=== PATIENT | male | born 1965 | race Caucasian/White ===

== ENCOUNTER 2021-01-09 10:17 | Outpatient (REF) | payer OTHER, SELFPAY ==
[2021-01-09 13:59] LABS: Alanine Aminotransferase 8 U/L (0-40); Albumin Level 4.4 g/dL (3.5-5.0); Alkaline Phosphatase 71 U/L (39-117); Anion Gap 13 (12-20); Aspartate Amino Transferase 14 U/L (5-37); Bilirubin Total 0.3 mg/dL (0.0-1.0); Blood Urea Nitrogen 19 mg/dL (9-16); Calcium 8.9 mg/dL (8.4-10.2); Carbon Dioxide 28 mmol/L (22-29); Chloride 101 mmol/L (96-108); Cholesterol 179 mg/dL; Estimated Glomerular Filt Rate 57; Glucose Fasting 91 mg/dL (60-99); HDL Cholesterol 46 mg/dL; LDL Cholesterol Calculated 118 mg/dl; Potassium 4.2 mmol/L (3.3-5.1); Sodium 138 mmol/L (135-145); Total Protein 7.1 g/dL (6.5-8.0); Triglycerides 78 mg/dL
[2021-01-09 15:41] LABS: Free T4 (Free Thyroxine) 1.19 ng/dL (0.71-1.85)
== END 2021-01-09 10:18 | disposition home or self-care (01) ==
LOC: HO.WFDLDS 10:17
PROVIDERS: Visit Provider Family Medicine
DX: Z00.00 Encounter for general adult medical examination without abnormal findings (principal)
CPT/HCPCS: 36415; 80053; 80061; 84439; 84443

== ENCOUNTER 2021-02-15 11:27 | Outpatient (REF) | payer OTHER, SELFPAY ==
[2021-02-15 13:29] LABS: TSH reflex Free T4 0.02 uIU/mL (0.32-4.0)
[2021-02-15 14:06] LABS: Free T4 (Free Thyroxine) 2.39 ng/dL (0.71-1.85)
== END 2021-02-15 11:28 | disposition home or self-care (01) ==
LOC: HO.LAB 11:27
PROVIDERS: PCP Family Medicine; Visit Provider Family Medicine
DX: Z00.00 Encounter for general adult medical examination without abnormal findings (principal); E03.9 Hypothyroidism, unspecified
CPT/HCPCS: 36415; 84439; 84443

== ENCOUNTER 2021-03-22 10:29 | Outpatient (REF) | payer OTHER, SELFPAY ==
[2021-03-22 11:56] LABS: Anion Gap 10 (12-20); Blood Urea Nitrogen 13 mg/dL (9-16); Calcium 8.8 mg/dL (8.4-10.2); Carbon Dioxide 29 mmol/L (22-29); Chloride 107 mmol/L (96-108); Estimated Glomerular Filt Rate > 60; Glucose Random 97 mg/dL (60-115); Potassium 4.4 mmol/L (3.3-5.1); Sodium 142 mmol/L (135-145)
[2021-03-22 12:22] LABS: Free T4 (Free Thyroxine) 1.25 ng/dL (0.71-1.85); Thyroid Stimulating Hormone 0.06 uIU/mL (0.32-4.0)
[2021-03-23 04:36] LABS: Triiodothyronine T3 Total 118 ng/dL (76-181)
== END 2021-03-22 10:30 | disposition home or self-care (01) ==
LOC: HO.LAB 10:29
PROVIDERS: PCP Family Medicine; Visit Provider Family Medicine
DX: Z00.00 Encounter for general adult medical examination without abnormal findings (principal); E03.9 Hypothyroidism, unspecified
CPT/HCPCS: 36415; 80048; 84439; 84443; 84480

== ENCOUNTER 2021-04-26 09:42 | Outpatient (REF) | payer OTHER, SELFPAY ==
--- NOTE | ~2021-04-26 | XR_ITS ---
EXAMINATION: XR CHEST CLINICAL INFORMATION: Shortness of breath COMPARISON: Previous chest x-ray April 2011 TECHNIQUE: 2 views of the chest were obtained. FINDINGS: The cardiac and mediastinal contours are stable. The lungs are clear. There is no pleural effusion or pneumothorax. There are surgical clips projecting over the lower neck. There are surgical clips projecting over the left shoulder. Bony structures are otherwise unremarkable. XR/XR chest 2V IMPRESSION: No evidence for acute disease in the chest.
[2021-04-26 11:03] LABS: Free T4 (Free Thyroxine) 1.26 ng/dL (0.71-1.85); Thyroid Stimulating Hormone 0.14 uIU/mL (0.32-4.0)
[2021-04-27 09:27] LABS: Triiodothyronine T3 Total 135 ng/dL (76-181)
== END 2021-04-26 09:43 | disposition home or self-care (01) ==
LOC: HO.XRAY 09:42
PROVIDERS: PCP Family Medicine; Visit Provider Family Medicine
DX: R06.02 Shortness of breath (principal); E03.9 Hypothyroidism, unspecified
CPT/HCPCS: 36415; 71046; 84439; 84443; 84480

== ENCOUNTER 2021-10-07 11:50 | Outpatient (REF) | payer OTHER, SELFPAY ==
[2021-10-07 14:50] LABS: Alanine Aminotransferase 14 U/L (0-40); Albumin Level 4.2 g/dL (3.5-5.0); Alkaline Phosphatase 77 U/L (39-117); Anion Gap 13 (12-20); Aspartate Amino Transferase 14 U/L (5-37); Bilirubin Total 0.4 mg/dL (0.0-1.0); Blood Urea Nitrogen 11 mg/dL (9-16); Calcium 9.3 mg/dL (8.4-10.2); Carbon Dioxide 26 mmol/L (22-29); Chloride 106 mmol/L (96-108); Cholesterol 142 mg/dL; Estimated Glomerular Filt Rate > 60; Glucose Fasting 99 mg/dL (60-99); HDL Cholesterol 36 mg/dL; LDL Cholesterol Calculated 84 mg/dl; Potassium 4.2 mmol/L (3.3-5.1); Sodium 141 mmol/L (135-145); Total Protein 6.8 g/dL (6.5-8.0); Triglycerides 110 mg/dL
[2021-10-07 15:13] LABS: Free T4 (Free Thyroxine) 1.49 ng/dL (0.71-1.85); Thyroid Stimulating Hormone 0.06 uIU/mL (0.32-4.0)
[2021-10-08 11:15] LABS: Prostate Specific Antigen 0.55 ng/mL (<0.05-4.0)
[2021-10-09 03:11] LABS: Triiodothyronine T3 Total 117 ng/dL (76-181)
== END 2021-10-07 11:51 | disposition home or self-care (01) ==
LOC: HO.WFDLDS 11:50
PROVIDERS: Visit Provider Family Medicine
DX: Z00.00 Encounter for general adult medical examination without abnormal findings (principal); E03.9 Hypothyroidism, unspecified; R19.5 Other fecal abnormalities; Z12.5 Encounter for screening for malignant neoplasm of prostate
CPT/HCPCS: 36415; 80053; 80061; 84153; 84439; 84443; 84480

== ENCOUNTER 2022-02-25 13:02 | Inpatient (IN) | payer MEDICAID, SELFPAY ==
[2022-02-25] VITALS (13 sets, daily range): BP systolic 89–109; BP diastolic 57–81; PULSE 81–183; RESP 17–26; TEMP 36.5–37.6; O2SAT 94–100; BMI 30.8
--- NOTE | 2022-02-25 | ECG_ITS ---
Test Reason : SOB Blood Pressure : / mmHG Vent. Rate : 163 BPM Atrial Rate : 000 BPM P-R Int : 000 ms QRS Dur : 072 ms QT Int : 248 ms P-R-T Axes : 000 063 -08 degrees QTc Int : 408 ms Atrial fibrillation with rapid ventricular response with premature ventricular or aberrantly conducted complexes Nonspecific T wave abnormality Abnormal ECG No previous ECGs available Referred By: Generic ED Physician Electronically Signed By:URSULA MENDEZ MD
--- NOTE | ~2022-02-25 | US_ITS ---
EXAMINATION: US ABDOMEN COMPLETE CLINICAL INFORMATION: Elevated bilirubin, INR, thrombocytopenia. COMPARISON: None TECHNIQUE: Real-time imaging of the abdominal viscera. FINDINGS: PANCREAS: Visualized portions of the pancreas are unremarkable. The pancreatic tail is obscured by bowel gas. ABDOMINAL AORTA: Visualized aorta is normal in caliber however portions are obscured by bowel gas. INFERIOR VENA CAVA: Visualized portions are normal. LIVER: Liver is borderline enlarged measuring 16.4 cm in span. The liver contour is normal. Parenchymal echogenicity is normal. No focal hepatic lesion. There is no intrahepatic biliary duct dilatation seen. GALLBLADDER: Normal. The gallbladder is physiologically distended without evidence of stones, sludge, polyps, wall thickening or pericholecystic fluid. COMMON BILE DUCT: Common bile duct was not identified. RIGHT KIDNEY: Normal. No hydronephrosis. No renal calculi or focal parenchymal lesions. The kidney measures 12.0 cm in maximum dimension. LEFT KIDNEY: Normal. No hydronephrosis. No renal calculi or focal parenchymal lesions. The kidney measures 11.2 cm in maximum dimension. SPLEEN: Normal. The spleen measures 11.2 cm in maximum dimension. FREE FLUID: None. Moderate right pleural effusion. US/US abdomen complete IMPRESSION: Liver is borderline enlarged. Common bile duct was not identified. No appreciable intrahepatic biliary duct dilatation. Moderate right pleural effusion.
--- NOTE | ~2022-02-25 | XR_ITS ---
EXAMINATION: XR CHEST CLINICAL INFORMATION: Cough and wheezing COMPARISON: Previous chest x-ray most recent April 2021 TECHNIQUE: Frontal view of the chest was obtained. FINDINGS: The cardiac silhouette appears enlarged. There are surgical clips in the lower neck or superior mediastinum. Hilar and mediastinal contours are otherwise unremarkable. There is blunting at the right lateral costophrenic angle and increased attenuation in the right lung base questionable for small right pleural effusion and airspace disease at the right lung base. The left lung is clear. There is no left pleural effusion. There are are postsurgical changes to the left shoulder. XR/XR chest 1V IMPRESSION: Enlarged cardiac silhouette. Question small right pleural effusion and airspace disease at the right lung base..
--- NOTE | 2022-02-25 13:39 | PC.NURSE ---
Pt has been in rapid a fib 160's-180's since arrival ot bed. asymptomatic at this time. states hes' had 3 weeks of intermittent SOB and PARR and fatigue. no neuro deficits. no CP or diaphoresis at any point.
--- NOTE | 2022-02-25 13:40 | ED.SOB ---
HPI - SOB/Dyspnea General Chief Complaint: Dyspnea Stated Complaint: respiratory problems Time Seen by Provider: 02/25/22 13:40 Source: patient Mode of arrival: ambulatory Limitations: no limitations History of Present Illness HPI Narrative: 3 weeks of shortness of breath, intermittent with palpitations. No prior history of afib. Denies chest pain. Patient denies drinking. MD elicited complaint: shortness of breath Pertinent past history: COPD Onset (ago): week(s) Timing: intermittent Severity: moderate Exacerbating factors: exertion Known history of: COPD Associated symptoms: denies other symptoms Related Data Home Medications Medication Instructions Recorded Confirmed tamsulosin 0.4 mg capsule 0.4 mg PO DAILY 03/18/22 03/25/22 bupropion HCl 75 mg tablet 75 mg PO BID 03/25/22 03/25/22 Previous Rx's Medication Instructions Recorded fluoxetine 40 mg capsule 40 mg PO DAILY #30 caps 08/06/21 levothyroxine 112 mcg capsule 224 mcg PO DAILY 90 days #180 caps 10/09/21 omeprazole 20 mg capsule,delayed 20 mg PO DAILY@0630 30 days #30 03/18/22 release caps rivaroxaban 20 mg tablet (Xarelto) 20 mg PO DAILY 30 days #30 tabs 03/18/22 amiodarone 200 mg tablet 200 mg PO DAILY 30 days #30 tabs 03/25/22 eplerenone 25 mg tablet 25 mg PO DAILY 30 days #30 tabs 03/25/22 furosemide 40 mg tablet 40 mg PO BID 30 days #60 tabs 03/25/22 metoprolol succinate 25 mg 25 mg PO DAILY #30 tabs 03/25/22 tablet,extended release 24 hr Allergies Allergy/AdvReac Type Severity Reaction Status Date / Time mold Allergy impacted Verified 03/25/22 14:26 sinus cavity Review of Systems Constitutional: Constitutional: Reports no additional constitutional complaints Eyes: Eyes: Reports no additional eye complaints ENT: Denies dizziness Cardiovascular: Cardiovascular: Reports no additional cardiovascular complaints Respiratory: Respiratory: Reports as per HPI Gastrointestinal: Gastrointestinal: Reports no additional gastrointestinal complaints Musculoskeletal: Musculoskeletal: Reports no additional musculoskeletal complaints Integumentary/Breasts: Skin/Breast: Denies rash Neurologic: Reports system reviewed and no additional complaints, except as documented, Denies dizziness and Denies Sensory deficit (Neuro) Psychiatric: Psychiatric: Denies anxiety PMF Past Medical History Medical History Atrial fibrillation with rapid ventricular response Atrial flutter with rapid ventricular response Cardiomyopathy Congestive heart failure COPD (chronic obstructive pulmonary disease) Decompensated heart failure Essential hypertension Hypothyroidism (acquired) Smoker Surgical History H/O shoulder surgery H/O thyroidectomy Family History Family History Mother COPD (chronic obstructive pulmonary disease) Social History Social History (Updated 03/25/22 @ 14:39 by Charlotte Bingham) Household Members: None Caregiver staying overnight: No Housing: House Are you a primary career development counselor to a significant other at home: No Do you presently have visiting nurse or other home services: No 75 years or older and lives alone: No Alcohol intake: never Patient Tobacco Use Status: Former Tobacco user Quit Date: 02/2022 Tobacco use type: Cigarette Years Smoked: 45 +/- e-Cigarette/Vaping Use: Never Used Second Hand Smoke Exposure: No Substance Use Type: Crack/Cocaine service: No Current occupational status: retired Cognitive needs: No Hearing needs: No Vision needs: No Physical Exam Vital Signs: Vital Signs: Last Vital Signs Temp 97.5 F 03/05/22 12:00 Pulse 75 03/05/22 12:00 Resp 20 03/05/22 12:00 BP 120/80 03/05/22 12:00 Pulse Ox 96 03/05/22 12:47 O2 Del Method 03/05/22 12:47 O2 Flow Rate 3 03/04/22 13:48 BMI result Body Mass Index 30.8 Const: Nutritional Appearance: average body habitus Orientation/consciousness: oriented to person and patient oriented x3 Limitations: no limitations HEENT: Head: Yes normal to inspection Ears: external ears normal General nose exam: Normal external nose present Mouth: Normal oral and palatal mucosa present and oropharynx normal Throat: Yes posterior oropharynx normal Eyes: General: appearance normal, both eyes and all related structures Neck: Other: supple, JVD Chest: Chest palpation & inspection: normal inspection of the chest Resp: Other: slight wheeze Cardio: Other: IRRR tachycardia Jugular venous distension: no JVD GI: Inspection: Yes normal to inspection Palpation (GI): Soft to palpation, nontender and No hepatosplenomegaly present Auscultation: normal bowel sounds : General: Yes no CVA tenderness Back/Spine/Pelvis: Back: no CVA tenderness Skin: General skin exam: no rashes or lesions noted Neuro: General: oriented to person and patient oriented x3 Cranial nerves: Yes CN's II-XII intact bilaterally Motor exam (neuro): 5/5 motor strength present throughout Sensory Exam: No Sensory deficit (Neuro) Extrem: Other: Legs with 3+ edema Psych: Appearance: grossly normal Course Reevaluation(s) Reevaluation #1: patient with rapid atrial fibrillation now on cardizem, patient likely has a right lower lobe infiltrate which I will treat with ceftriaxone and azithromycin. This is not sepsis, patient with weeks of symptoms, there is no recent fever, he does have a cough. MDM - SOB/Dyspnea Lab Data Result diagrams: 03/05/22 05:52 03/05/22 05:52 Labs: Lab Results 02/25/22 02/25/22 02/25/22 Range/Units 13:35 13:35 13:35 WBC 9.0 (4.8-10.8) X10*3/uL RBC 5.67 (4.60-5.80) X10*6/uL Hgb 15.8 (14.0-18.0) g/dl Hct 49.2 (42.0-52.0) % MCV 86.8 (80.0-98.0) fL MCH 27.9 (27.0-33.0) pg MCHC 32.1 (31.0-36.0) g/dl RDW 14.8 (11.0-16.0) % Plt Count 109 L (160-400) X10*3/uL MPV Not Reportable Immature Gran % (Auto) 0.3 (0.0-0.4) % Neut % (Auto) 74.8 H (45-73) % Lymph % (Auto) 18.2 L (20-40) % [place] % (Auto) 5.7 (2-11) % Eos % (Auto) 0.7 (0-4) % Baso % (Auto) 0.3 (0-2) % Lymph # (Auto) 1.6 (1.2-4.9) X10*3/uL [place] # (Auto) 0.5 (0.1-1.2) X10*3/uL Eos # (Auto) 0.1 (0.0-0.4) X10*3/uL Baso # (Auto) 0.0 (0.0-0.2) X10*3/uL Abs Immat Gran (auto) 0.03 (0.00-0.03) X10*3/uL Absolute Neuts (auto) 6.7 (2.0-8.3) x10*3/uL Absolute Nucleated RBC 0.000 (0.0-0.012) X10*3/uL Nucleated RBC % (auto) 0.0 (0.0-0.2) /100WBC PT (9.9-13.0) SEC INR (0.9-1.1) APTT (24.1-38.0) SEC Sodium 140 (135-145) mmol/L Potassium 4.2 (3.3-5.1) mmol/L Chloride 106 (96-108) mmol/L Carbon Dioxide 22 (22-29) mmol/L Anion Gap 16 (12-20) BUN 23 H D (9-16) mg/dL Creatinine 1.36 (0.5-1.4) mg/dL Estim Creat Clear Calc 77.7 Estimated GFR 54 Random Glucose 108 (60-115) mg/dL Calcium 9.8 (8.4-10.2) mg/dL Total Bilirubin 2.4 H (0.0-1.0) mg/dL AST 30 D (5-37) U/L ALT 26 (0-40) U/L Alkaline Phosphatase 65 (39-117) U/L Troponin I High Sens 15.2 (<3.5-35.0) ng/L B-Natriuretic Peptide (<100) pg/mL Total Protein 6.6 (6.5-8.0) g/dL Albumin 4.0 (3.5-5.0) g/dL TSH 6.24 H (0.32-4.0) uIU/mL COVID-19 ([facility]) (Negative) COVID-19 Clin Com Influenza Type A (FERNANDO) (Negative) Influenza Type B (FERNANDO) (Negative) Influenza A & B Note 02/25/22 02/25/22 02/25/22 Range/Units 13:35 13:35 13:35 WBC (4.8-10.8) X10*3/uL RBC (4.60-5.80) X10*6/uL Hgb (14.0-18.0) g/dl Hct (42.0-52.0) % MCV (80.0-98.0) fL MCH (27.0-33.0) pg MCHC (31.0-36.0) g/dl RDW (11.0-16.0) % Plt Count (160-400) X10*3/uL MPV Immature Gran % (Auto) (0.0-0.4) % Neut % (Auto) (45-73) % Lymph % (Auto) (20-40) % [place] % (Auto) (2-11) % Eos % (Auto) (0-4) % Baso % (Auto) (0-2) % Lymph # (Auto) (1.2-4.9) X10*3/uL [place] # (Auto) (0.1-1.2) X10*3/uL Eos # (Auto) (0.0-0.4) X10*3/uL Baso # (Auto) (0.0-0.2) X10*3/uL Abs Immat Gran (auto) (0.00-0.03) X10*3/uL Absolute Neuts (auto) (2.0-8.3) x10*3/uL Absolute Nucleated RBC (0.0-0.012) X10*3/uL Nucleated RBC % (auto) (0.0-0.2) /100WBC PT 17.8 H (9.9-13.0) SEC INR 1.6 H (0.9-1.1) APTT (24.1-38.0) SEC Sodium (135-145) mmol/L Potassium (3.3-5.1) mmol/L Chloride (96-108) mmol/L Carbon Dioxide (22-29) mmol/L Anion Gap (12-20) BUN (9-16) mg/dL Creatinine (0.5-1.4) mg/dL Estim Creat Clear Calc Estimated GFR Random Glucose (60-115) mg/dL Calcium (8.4-10.2) mg/dL Total Bilirubin (0.0-1.0) mg/dL AST (5-37) U/L ALT (0-40) U/L Alkaline Phosphatase (39-117) U/L Troponin I High Sens (<3.5-35.0) ng/L B-Natriuretic Peptide (<100) pg/mL Total Protein (6.5-8.0) g/dL Albumin (3.5-5.0) g/dL TSH (0.32-4.0) uIU/mL COVID-19 ([facility]) Negative (Negative) COVID-19 Clin Com See Note Influenza Type A (FERNANDO) Negative (Negative) Influenza Type B (FERNANDO) Negative (Negative) Influenza A & B Note See Note 02/25/22 02/25/22 02/25/22 Range/Units 14:21 14:21 16:09 WBC (4.8-10.8) X10*3/uL RBC (4.60-5.80) X10*6/uL Hgb (14.0-18.0) g/dl Hct (42.0-52.0) % MCV (80.0-98.0) fL MCH (27.0-33.0) pg MCHC (31.0-36.0) g/dl RDW (11.0-16.0) % Plt Count (160-400) X10*3/uL MPV Immature Gran % (Auto) (0.0-0.4) % Neut % (Auto) (45-73) % Lymph % (Auto) (20-40) % [place] % (Auto) (2-11) % Eos % (Auto) (0-4) % Baso % (Auto) (0-2) % Lymph # (Auto) (1.2-4.9) X10*3/uL [place] # (Auto) (0.1-1.2) X10*3/uL Eos # (Auto) (0.0-0.4) X10*3/uL Baso # (Auto) (0.0-0.2) X10*3/uL Abs Immat Gran (auto) (0.00-0.03) X10*3/uL Absolute Neuts (auto) (2.0-8.3) x10*3/uL Absolute Nucleated RBC (0.0-0.012) X10*3/uL Nucleated RBC % (auto) (0.0-0.2) /100WBC PT 18.7 H (9.9-13.0) SEC INR 1.6 H (0.9-1.1) APTT 68.1 H* (24.1-38.0) SEC Sodium (135-145) mmol/L Potassium (3.3-5.1) mmol/L Chloride (96-108) mmol/L Carbon Dioxide (22-29) mmol/L Anion Gap (12-20) BUN (9-16) mg/dL Creatinine (0.5-1.4) mg/dL Estim Creat Clear Calc Estimated GFR Random Glucose (60-115) mg/dL Calcium (8.4-10.2) mg/dL Total Bilirubin (0.0-1.0) mg/dL AST (5-37) U/L ALT (0-40) U/L Alkaline Phosphatase (39-117) U/L Troponin I High Sens 16.5 (<3.5-35.0) ng/L B-Natriuretic Peptide 698 H (<100) pg/mL Total Protein (6.5-8.0) g/dL Albumin (3.5-5.0) g/dL TSH (0.32-4.0) uIU/mL COVID-19 ([facility]) (Negative) COVID-19 Clin Com Influenza Type A (FERNANDO) (Negative) Influenza Type B (FERNANDO) (Negative) Influenza A & B Note Imaging Data Chest x-ray: Radiologist's impression: FINDINGS: The cardiac silhouette appears enlarged. There are surgical clips in the lower neck or superior mediastinum. Hilar and mediastinal contours are otherwise unremarkable. There is blunting at the right lateral costophrenic angle and increased attenuation in the right lung base questionable for small right pleural effusion and airspace disease at the right lung base. The left lung is clear. There is no left pleural effusion. There are are postsurgical changes to the left shoulder. XR/XR chest 1V IMPRESSION: Enlarged cardiac silhouette. Question small right pleural effusion and airspace disease at the right lung base.. ? ECG Data Attestation: I personally reviewed and interpreted this ECG as follows: Interpretation: rapid atrial fibrillation rate of 160, no ischemia Critical Care Time Critical Care Time Attestation: I spent 40 minutes of critical care, with interventions, assessments, speaking to patient, consultants, and family. Discharge Plan Discharge Clinical Impression: Atrial fibrillation, rapid, Congestive heart failure, Pneumonia Patient Disposition: Admitted As Inpatient Discharge Date/Time: 02/27/22 13:16
[2022-02-25 13:42] LABS: MANUAL DIFF FLAG NO
[2022-02-25] MEDS: dilTIAZem HCL 50 MG/10 ML VIAL 10 MG IVPUSH (13:49)
[2022-02-25 13:59] LABS: INTERNATIONAL NORM RATIO 1.6 (0.9-1.1); Prothrombin Time 17.8 SEC (9.9-13.0)
[2022-02-25] MEDS: Furosemide 20 MG/2 ML VIAL IVPUSH (14:00)
[2022-02-25 14:04] LABS: Troponin-I High Sensitivity 15.2 ng/L (<3.5-35.0)
[2022-02-25 14:05] LABS: Alanine Aminotransferase 26 U/L (0-40); Alkaline Phosphatase 65 U/L (39-117); Anion Gap 16 (12-20); Aspartate Amino Transferase 30 U/L (5-37); Bilirubin Total 2.4 mg/dL (0.0-1.0); Blood Urea Nitrogen 23 mg/dL (9-16); Calcium 9.8 mg/dL (8.4-10.2); Carbon Dioxide 22 mmol/L (22-29); Chloride 106 mmol/L (96-108); Creatinine Clr Calc Pharmacy 77.7; Estimated Glomerular Filt Rate 54; Glucose Random 108 mg/dL (60-115); Potassium 4.2 mmol/L (3.3-5.1); Sodium 140 mmol/L (135-145); Total Protein 6.6 g/dL (6.5-8.0)
[2022-02-25] MEDS: dilTIAZem HCL 125 MG in 0.9 % Sodium Chloride 100 ML 10 MG IVCONT (14:06)
[2022-02-25 14:07] LABS: Basophils Percent Auto 0.3 % (0-2); Eosinophils Absolute Auto 0.1 X10*3/uL (0.0-0.4); Eosinophils Percent Auto 0.7 % (0-4); Hematocrit 49.2 % (42.0-52.0); Hemoglobin 15.8 g/dl (14.0-18.0); Imm Gran Abs Auto 0.03 X10*3/uL (0.00-0.03); Imm Gran Pct Auto 0.3 % (0.0-0.4); Lymphocytes Absolute Auto 1.6 X10*3/uL (1.2-4.9); Lymphocytes Percent Auto 18.2 % (20-40); Mean Corpuscular HGB Conc 32.1 g/dl (31.0-36.0); Mean Corpuscular Hemoglobin 27.9 pg (27.0-33.0); Mean Corpuscular Volume 86.8 fL (80.0-98.0); Monocytes Absolute Auto 0.5 X10*3/uL (0.1-1.2); Monocytes Percent Auto 5.7 % (2-11); Neutrophils Absolute Auto 6.7 x10*3/uL (2.0-8.3); Neutrophils Percent Auto 74.8 % (45-73); Red Blood Count 5.67 X10*6/uL (4.60-5.80); Red Cell Distribution Width 14.8 % (11.0-16.0)
[2022-02-25 14:13] LABS: Platelet Count 109 X10*3/uL (160-400)
[2022-02-25 14:17] LABS: Influenza A Negative (Negative); Influenza B2 Negative (Negative)
[2022-02-25 14:18] LABS: IDNOW Serial# 55D5AD1C
[2022-02-25 14:19] LABS: COVID-19 Test Negative (Negative)
[2022-02-25 14:26] LABS: Thyroid Stimulating Hormone 6.24 uIU/mL (0.32-4.0)
[2022-02-25] MEDS: Albuterol Sulfate 90 MCG 8 GM INHALER 4 PUFF INHALE (14:41)
[2022-02-25 14:44] LABS: INTERNATIONAL NORM RATIO 1.6 (0.9-1.1); Prothrombin Time 18.7 SEC (9.9-13.0)
[2022-02-25 14:46] LABS: B Type Natriuretic Peptide 698 pg/mL (<100)
[2022-02-25 15:01] LABS: Partial Thromboplastin Time 68.1 SEC (24.1-38.0)
--- NOTE | 2022-02-25 15:06 | PC.NURSE ---
pt reports no change insx. denies cp, remains in rapid afib but slower rates.
[2022-02-25] MEDS: Enoxaparin Sodium 120 MG/0.8 ML SYRINGE 110 MG SUBCUT (16:46)
--- NOTE | 2022-02-25 16:49 | PHA.MEDREC ---
Pharmacy Consult ? Medication Reconciliation Pharmacy has completed the medication reconciliation. Pt admits to being non-adherent to his medications, but does state that he tries to take his thyroid medicine every day.
--- NOTE | 2022-02-25 16:57 | PC.NURSE ---
pt continues to deny chest pain. is in a fib 110's on monitor. cardizem up to 15mg/hr. dry cough,
[2022-02-25] MEDS: cefTRIAXone sodium 1 GM in 0.9 % Sodium Chloride 50 ML IV (16:58)
[2022-02-25 16:59] LABS: Troponin-I High Sensitivity 16.5 ng/L (<3.5-35.0)
--- NOTE | 2022-02-25 17:27 | PM.IMHP ---
History of Present Illness Date of Service: 02/25/22 Chief Complaint: Sob several weeks of sob especially with exertion, walking upstairs, laying down. He had been sitting up in the recliner for the last few weeks. Resting sitting up helped decrease the sob. He was having some diarrhea, poor appetite, fatigue, cough. No fever, chills but he did have some nausea. In the ED he was noted to be in afib rvr hr in the 180's, His BNP was also elevated over 600, negative troponin. He was started on IV cardizem with good effect. CXR showed possible consolidation. He was given Lasix, azithromycin. He will be admitted for further management of CHF and Afib RVR. Review of Systems Review of Systems: Denies any recent fever chills or decrease in appetite respiratory See HPI cardiovascular Denies chest pain gastrointestinal denies any dysphagia abdominal pain nausea vomiting or diarrhea genitourinary denies any dysuria frequency or hematuria musculoskeletal denies any joint pain or swelling neuropsych denies any weakness or seizures all other systems reviewed are negative [facility] Medical History COPD (chronic obstructive pulmonary disease) Essential hypertension Hypothyroidism (acquired) Smoker Family History (Updated 02/25/22 @ 17:32 by Latosha Price NP) Mother COPD (chronic obstructive pulmonary disease) Surgical History (Updated 02/25/22 @ 17:31 by Latosha Price NP) H/O shoulder surgery H/O thyroidectomy Social History (Updated 02/25/22 @ 17:32 by Latosha Price NP) Housing: House Alcohol intake: never Patient Tobacco Use Status: Current everyday Tobacco user Cigarettes Per Day: 10 Use of substances other than those prescribed or required for medical reasons: Yes Substance Use Type: Crack/Cocaine Substance Use Type Other:: 1 month ago Substance Use Frequency Other:: hx of cocaine use Advance Directives: No Advance Directives Information Provided: No Current occupational status: retired Meds Allergies Allergy/AdvReac Type Severity Reaction Status Date / Time mold Allergy impacted Verified 10/23/21 16:24 sinus cavity Active Medications: Current Medications Diltiazem HCl 125 mg/ Sodium (Chloride) 125 mls @ 0 mls/hr IVCONT .Q0M [facility]; Protocol Last Titration: 02/25/22 16:48 Dose: 15 mg/hr, 15 mls/hr Documented by: Azithromycin 500 mg/ Sodium (Chloride) 250 mls @ 125 mls/hr IV ONCE ONE Stop: 02/25/22 17:53 Pharmacy Consult (Consult Rx Perform Med Rec) 1 each MISCELLANE ONCE PRN PRN Reason: Consult order Home Medications Medication Instructions Recorded Confirmed Last Taken Type aspirin 81 mg chewable tablet 1 tab PO DAILY 08/29/20 02/25/22 Unknown History hydrochlorothiazide 25 mg tablet 25 mg PO DAILY 08/29/20 02/25/22 Unknown History lisinopril 20 mg tablet 20 mg PO DAILY 08/29/20 02/25/22 Unknown History bupropion HCl 75 mg tablet 75 mg PO DAILY 02/25/22 02/25/22 Unknown History Physical Exam Vital Signs and Narrative: Vital Signs: Last Vital Signs Temp 99.7 F 02/25/22 13:07 Pulse 115 H 02/25/22 16:00 Resp 18 02/25/22 16:00 BP 107/66 02/25/22 16:00 Pulse Ox 96 02/25/22 16:00 BMI result Body Mass Index 30.8 Results Labs CBC and Chem 7: 02/25/22 13:35 02/25/22 13:35 Labs: Laboratory Results - last 24 hr 02/25/22 02/25/22 02/25/22 13:35 13:35 13:35 MCV 86.8 MCH 27.9 MCHC 32.1 RDW 14.8 Plt Count 109 L MPV Not Reportable Immature Gran % (Auto) 0.3 Neut % (Auto) 74.8 H Lymph % (Auto) 18.2 L [place] % (Auto) 5.7 Eos % (Auto) 0.7 Baso % (Auto) 0.3 Lymph # (Auto) 1.6 [place] # (Auto) 0.5 Eos # (Auto) 0.1 Baso # (Auto) 0.0 Abs Immat Gran (auto) 0.03 Absolute Neuts (auto) 6.7 Absolute Nucleated RBC 0.000 Nucleated RBC % (auto) 0.0 PT INR APTT Anion Gap 16 Creatinine 1.36 Estim Creat Clear Calc 77.7 Estimated GFR 54 Random Glucose 108 Calcium 9.8 Total Bilirubin 2.4 H AST 30 D ALT 26 Alkaline Phosphatase 65 Troponin I High Sens 15.2 B-Natriuretic Peptide Total Protein 6.6 Albumin 4.0 TSH 6.24 H COVID-19 ([facility]I) COVID-19 Clin Com Influenza Type A (FERNANDO) Influenza Type B (FERNANDO) Influenza A & B Note 02/25/22 02/25/22 02/25/22 13:35 13:35 13:35 MCV MCH MCHC RDW Plt Count MPV Immature Gran % (Auto) Neut % (Auto) Lymph % (Auto) [place] % (Auto) Eos % (Auto) Baso % (Auto) Lymph # (Auto) [place] # (Auto) Eos # (Auto) Baso # (Auto) Abs Immat Gran (auto) Absolute Neuts (auto) Absolute Nucleated RBC Nucleated RBC % (auto) PT 17.8 H INR 1.6 H APTT Anion Gap Creatinine Estim Creat Clear Calc Estimated GFR Random Glucose Calcium Total Bilirubin AST ALT Alkaline Phosphatase Troponin I High Sens B-Natriuretic Peptide Total Protein Albumin TSH COVID-19 (ORI) Negative COVID-19 Clin Com See Note Influenza Type A (FERNANDO) Negative Influenza Type B (FERNANDO) Negative Influenza A & B Note See Note 02/25/22 02/25/22 02/25/22 14:21 14:21 16:09 MCV MCH MCHC RDW Plt Count MPV Immature Gran % (Auto) Neut % (Auto) Lymph % (Auto) [place] % (Auto) Eos % (Auto) Baso % (Auto) Lymph # (Auto) [place] # (Auto) Eos # (Auto) Baso # (Auto) Abs Immat Gran (auto) Absolute Neuts (auto) Absolute Nucleated RBC Nucleated RBC % (auto) PT 18.7 H INR 1.6 H APTT 68.1 H* Anion Gap Creatinine Estim Creat Clear Calc Estimated GFR Random Glucose Calcium Total Bilirubin AST ALT Alkaline Phosphatase Troponin I High Sens 16.5 B-Natriuretic Peptide 698 H Total Protein Albumin TSH COVID-19 (ORI) COVID-19 Clin Com Influenza Type A (FERNANDO) Influenza Type B (FERNANDO) Influenza A & B Note Imaging Radiologist's Impressions: Impressions Chest X-Ray 02/25/22 14:39 IMPRESSION: Enlarged cardiac silhouette. Question small right pleural effusion and airspace disease at the right lung base.. Assessment and Plan (1) Atrial fibrillation, rapid: Status: Acute Plan 56 year old man admitted with afib rvr and acute CHF Afib rvr. New Hx of HTN andcocaine use Continue cardizem drip cardiology consult echo telemetry Acute CHF, new IV Lasix 40mg BID follow intake and output daily weights COPD. chronic, maybe mild exacerbation will give prednisone 40 mg and azithromycin for possible bronchitis Mental health continue home medications Hypothyroidism continue levothyroxine Hypertension Hold antihypertensives as patients blood pressure is on the softer side DVT prophylaxis with Heparin Attending Dr. Cahvarria Full code Likely 2 midnight stay for treatment of acute CHF and afib rvr requiring IV diuretics and IV cardizem. Quality Stroke Does the patient have a stroke diagnosis?: No VTE Prior VTE?: No VTE Risk Level:: Medical - moderate - high VTE Device Contraindication: Treatment Not Indicated VTE Drug Contraindication: N/A - Med Ordered
[2022-02-25] MEDS: Furosemide 40 MG/4 ML VIAL IVPUSH (18:08)
[2022-02-25] MEDS: Azithromycin 500 MG in 0.9 % Sodium Chloride 250 ML 125 MG IV (18:08)
--- NOTE | 2022-02-25 18:57 | PC.NURSE ---
Addendum entered by Radha Rosas 02/26/22 07:06: report given to CALLY Burris Addendum entered by Radha Rosas 02/25/22 23:32: Pt BP 99/62, highest HR 110. Dr. Bell aware, order to titrate cardiazem drip to 5mg/hr. Addendum entered by Radha Rosas 02/25/22 19:33: [facility] order to titrate down Cardizem drip to 7.5. ppitting edema notice to bilateral ankles, provider made aware Addendum entered by Radha Rosas 02/25/22 19:17: pt is alert and oriented. pt resting in bed comfortably, denies any chest pain. pt on continuous cardiac monitoring. pt on cardiazem drip, BP 86/62, Provider EKATERINA Price made aware Original Note: Report received from CALLY Dawson
[2022-02-25] MEDS: guaiFENesin DM 100/10/5 ML 5 ML SYRUP PO (19:20)
--- NOTE | 2022-02-25 19:33 | MHC.CM.PN ---
CM met with admitted patient with bed assignment pending. A&Ox4. No Covid Vaccines. No HCP on file. Declines. Lives alone. No DME/Services. D/C plan: Home without services. Pt states he will drive himself home. CM will follow for d/c needs.
[2022-02-26] VITALS (8 sets, daily range): BP systolic 96–108; BP diastolic 66–80; PULSE 55–118; RESP 12–21; TEMP 36.3–37; O2SAT 94–98
[2022-02-26] MEDS: dilTIAZem HCL 125 MG in 0.9 % Sodium Chloride 100 ML IVCONT (02:53)
--- NOTE | 2022-02-26 07:00 | CA_ITS ---
Transthoracic Echocardiogram Patient (Last, First, Middle): Jose Guadalupe Sweet B Gender: Male Date of : 1965 Age: 56 Procedure Date: 02/26/2022 Procedure Type: Transthoracic Echocardiogram Location: ER Height: 187.96 cm Weight: 108.86 kg BSA: 2.35 m2 Heart Rate: bpm BP: 90 / 65 mmHg Leather Sponger: BROWN Du MD: Latosha Price NP Back Sewer: Darryl Damon MD Symptoms: afib rvr, chf Study Quality: Fair ECG Rhythm: Atrial Fibrillation Conclusions: - 1. Mildly dilated left ventricle with moderate LV systolic dysfunction with LVEF of 35-40% 2. Mild biatrial enlargement 3. At least moderate mitral regurgitation 4. Mildly elevated right ventricular systolic pressure driven by significantly elevated right atrial pressures 5. No gross pericardial effusion Findings Left Ventricle Mildly increased left ventricular cavity size. There is normal left ventricular wall thickness. The left ventricular systolic function is moderately decreased. The visually estimated ejection fraction is between 35 40%. There is moderate global hypokinesis. Diastolic function is indeterminate on the basis of available data. Right Ventricle Normal right ventricular cavity size and systolic function. Atria The left atrium is mildly dilated. There is no evidence of interatrial shunt. The right atrium is mildly dilated. Aortic Valve Normal aortic valve structure and function. There is no aortic valve stenosis. There is trace (trivial) aortic valve regurgitation. Mitral Valve There is mild anterior and posterior mitral leaflet thickening. There is moderate mitral valve regurgitation. There is no mitral valve stenosis. Pulmonic Valve The pulmonic valve was not well visualized. Tricuspid Valve Normal tricuspid valve structure. There is mild tricuspid valve regurgitation. Significantly elevated right atrial pressure. Mild pulmonary hypertension is present. Great Vessels All visible segments of the aorta are normal in size. The pulmonary artery was not well visualized. Venous The inferior vena cava is moderately dilated and does not collapse with inspiration. Pericardium/Pleural There is no evidence of pericardial effusion. Prior Study Comparison No prior study available for comparison. Measurements 2D Linear Measurements IVSd: 1.11 0.6-0.9/0.6-1.0 cm LVIDd: 5.92 3.9-5.3/4.2-5.9 cm LVIDd Index: 2.52 2.4-3.2/2.2-3.1 cm/m2 LVIDs: 4.50 2.0-3.6 cm LVPWd: 1.10 0.7-1.1 cm LA Diam: 4.80 2.7-3.8/3.0-4.0 cm LAIDs Index: 2.04 1.5-2.3 cm/m2 LV Mass: 343.09 67-162/88-224 g LV Mass Index: 146.00 43-95/49-115 g/m2 LVOT Diam: 2.30 3.0+(-)1.3 cm 2D Systolic Function EF 4C: 39.00 >55% EF 2C: 38.80 >55% EF BiP: 39.10 >55% Mitral Valve MR Vol - PW Dopp: 49.88 MR VTI: 1.16 MR ERO: 43.00 MR Alias Darryl: 0.41 MR RAD: 0.80 Aortic Valve AoV Pk Darryl: 0.81 AoV Mn Darryl: 0.57 AoV VTI: 0.14 AoV Pk Grad: 3.00 Aov Mn Grad: 1.00 RUFINA Cont.VTI: 2.56 LVOT LVOT Pk Darryl: 0.54 LVOT Mn Darryl: 0.35 LVOT VTI: 0.09 LVOT Pk Grad: 1.00 LVOT Mn Grad: 1.00 LVOT Diam: 2.30 LVOT Area: 4.15 Right Ventricle TAPSE (mm): 15.30 TVS' Darryl: 9.36 Tricuspid Valve TR Pk Darryl: 2.48 TR Pk Grad: 25.00 RA Press: 15.00 RVSP: 40.00 Great Vessels Aorta Sinus of Valsalva: 3.64 2.0-3.[address] Ridge: 3.37 1.7-3.4 cm Ao Asc: 3.50 2.1-3.4 cm Ao Arch: 2.90 Updated in Other Vendor System with Status of Final Darryl Damon MD electronically signed on 02/26/2022 5:03:36 PM with status of Final
[2022-02-26 07:14] LABS: MANUAL DIFF FLAG NO
[2022-02-26 07:25] LABS: Basophils Percent Auto 0.4 % (0-2); Eosinophils Absolute Auto 0.1 X10*3/uL (0.0-0.4); Eosinophils Percent Auto 1.4 % (0-4); Hemoglobin 15.1 g/dl (14.0-18.0); Imm Gran Abs Auto 0.01 X10*3/uL (0.00-0.03); Imm Gran Pct Auto 0.1 % (0.0-0.4); Mean Corpuscular HGB Conc 32.1 g/dl (31.0-36.0); Mean Corpuscular Hemoglobin 28.2 pg (27.0-33.0); Mean Corpuscular Volume 87.9 fL (80.0-98.0); Monocytes Absolute Auto 0.5 X10*3/uL (0.1-1.2); Monocytes Percent Auto 7.6 % (2-11); Neutrophils Absolute Auto 4.3 x10*3/uL (2.0-8.3); Neutrophils Percent Auto 61.5 % (45-73); Red Blood Count 5.35 X10*6/uL (4.60-5.80); Red Cell Distribution Width 14.7 % (11.0-16.0)
[2022-02-26 07:31] LABS: Platelet Count 91 X10*3/uL (160-400)
[2022-02-26 07:37] LABS: Anion Gap 15 (12-20); Blood Urea Nitrogen 22 mg/dL (9-16); Calcium 9.7 mg/dL (8.4-10.2); Carbon Dioxide 24 mmol/L (22-29); Chloride 106 mmol/L (96-108); Creatinine Clr Calc Pharmacy 79.5; Estimated Glomerular Filt Rate 55; Glucose Random 100 mg/dL (60-115); Sodium 141 mmol/L (135-145)
--- NOTE | 2022-02-26 08:19 | PC.NURSE ---
rn to rn report given to rosalia smith to aware of plan of are for transfer to overflow unit.
[2022-02-26] MEDS: FLUoxetine HCl 20 MG CAPSULE 40 MG PO (08:28)
[2022-02-26] MEDS: Aspirin 81 MG TAB.CHEW PO (08:28)
[2022-02-26] MEDS: predniSONE 20 MG TABLET 40 MG PO (08:28)
[2022-02-26] MEDS: Furosemide 40 MG/4 ML VIAL 20 MG IVPUSH ×2 (08:29→18:27)
[2022-02-26] MEDS: buPROPion HCL 75 MG TABLET PO (08:29)
[2022-02-26] MEDS: Levothyroxine Sodium 112 MCG TABLET 224 MCG PO (08:37)
[2022-02-26] MEDS: 0.9 % Sodium Chloride Flush 3 ML SYRINGE IVFLUSH ×3 (08:38→23:45)
--- NOTE | 2022-02-26 08:52 | PC.NURSE ---
pt arrives from the ED cc SOB. pt states that it is hard to catch his breath sometimes. Pressures sligtly soft in the high 90s ssystolically. Pt denies cp. pt with ble edemma, more on the left than the right. pt A/0. Pt remains on 5mg/hr.
--- NOTE | 2022-02-26 11:51 | P.CONCA_ITS ---
History of Present Illness History of Present Illness Date of Service: 02/26/22 Requesting physician: Shon Almonte Consult reason: atrial fibrillation and congestive heart failure Chief complaint: afib rvr Narrative: I was requested to see Jose Guadalupe in cardiology consultation today for symptoms of progressive shortness of breath and atrial fibrillation with rapid ventricular response. He has prior history of hypertension being treated with lisinopril / hydrochlorothiazide with no clear heart problems fear for about 2 weeks he noticed that he was getting increasing exertional shortness of breath and then started developing symptoms of orthopnea as well as leg edema. He did not notice any clear weight gain. Denies any symptoms of palpitations. Came to the hospital was noted to be in atrial fibrillation rapid ventricular response as well as decompensated congestive heart failure. He was then treated with diuretics and rate control with IV Cardizem. Cardiology consult was called for further management of his cardiac issues. His admission BNP is 698. He denies any prior cardiac issues of atrial fibrillation or congestive heart failure. No prior history of coronary disease. Denies any recent exertional chest pain. No palpitations, lightheadedness, syncope. Review of Systems Constitutional: Constitutional: Reports no additional constitutional complaints Eyes: Eyes: Reports no additional eye complaints Cardiovascular: Cardiovascular: Denies chest pain, Reports leg edema, Denies lightheadedness, Denies Loss of Consciousness, Denies palpitations, Reports dyspnea on exertion and Reports orthopnea Respiratory: Respiratory: Reports no additional respiratory complaints and Reports dyspnea on exertion Gastrointestinal: Gastrointestinal: Reports no additional gastrointestinal complaints Genitourinary: Genitourinary: Reports no additional male genitourinary complaints Musculoskeletal: Musculoskeletal: Reports no additional musculoskeletal complaints Integumentary/Breasts: Skin/Breast: Reports system reviewed and no additional complaints, except as docu Neurologic: Reports system reviewed and no additional complaints, except as documented Psychiatric: Psychiatric: Reports no additional psychiatric complaints Endocrine: Endocrine: Reports no additional endocrine complaints and Denies palpitations Hematologic/Lymphatic: Hematologic/Lymphatic: Reports no additional hematologic/lymphatic complaints Allergic/Immunologic: Allergic/Immunologic: Reports no additional allergic/immunologic complaints [facility] Past Medical History Medical History COPD (chronic obstructive pulmonary disease) Essential hypertension Hypothyroidism (acquired) Smoker Family History Family History Mother COPD (chronic obstructive pulmonary disease) Surgical History Surgical History H/O shoulder surgery H/O thyroidectomy Social History Social History Housing: House Alcohol intake: never Patient Tobacco Use Status: Current everyday Tobacco user Cigarettes Per Day: 10 Use of substances other than those prescribed or required for medical reasons: Yes Substance Use Type: Crack/Cocaine Substance Use Type Other:: 1 month ago Substance Use Frequency Other:: hx of cocaine use Advance Directives: No Advance Directives Information Provided: No service: No Current occupational status: retired Meds Allergies Allergy/AdvReac Type Severity Reaction Status Date / Time mold Allergy impacted Verified 10/23/21 16:24 sinus cavity Active Medications: Current Medications Acetaminophen (Acetaminophen 325 Mg Tablet) 650 mg PO Q6H PRN PRN Reason: Pain, Mild (Pain Scale 1-3) Bupropion HCl (Bupropion Hcl 75 Mg Tablet) 75 mg PO DAILY [facility] Last Admin: 02/26/22 08:29 Dose: 75 mg Documented by: Digoxin (Digoxin 0.5 Mg/2 Ml Ampul) 0.25 mg IVPUSH Q6H [facility]IR[facility] Stop: 02/26/22 22:46 Fluoxetine HCl (Fluoxetine Hcl 20 Mg Capsule) 40 mg PO DAILY [facility] Last Admin: 02/26/22 08:28 Dose: 40 mg Documented by: Furosemide (Furosemide 40 Mg/4 Ml Vial) 20 mg IVPUSH BID@0900,1800 [facility]; Protocol Guaifenesin/Dextromethorphan (Guaifenesin Dm 100/10/5 Ml 5 Ml Syrup) 5 ml PO Q4H PRN PRN Reason: Cough Last Admin: 02/25/22 19:20 Dose: 5 ml Documented by: Diltiazem HCl 125 mg/ Sodium (Chloride) 125 mls @ 0 mls/hr IVCONT .Q0M [facility]; Protocol Last Admin: 02/26/22 02:53 Dose: 5 mg/hr, 5 mls/hr Documented by: Levothyroxine Sodium (Levothyroxine Sodium 112 Mcg Tablet) 224 mcg PO DAILY@0600 [facility] Last Admin: 02/26/22 08:37 Dose: 224 mcg Documented by: Metoprolol Tartrate (Metoprolol Tartrate 12.5 Mg Halftab) 12.5 mg PO Q6H [facility]; Protocol Ondansetron HCl (Ondansetron Hcl 4 Mg/2 Ml Vial) 4 mg IVPUSH Q8H PRN PRN Reason: Nausea and Vomiting Pharmacy Consult (Consult Rx Perform Med Rec) 1 each MISCELLANE ONCE PRN PRN Reason: Consult order Rivaroxaban (Rivaroxaban 20 Mg Tablet) 20 mg PO DAILY [facility] Sodium Chloride (0.9 % Sodium Chloride Flush 3 Ml Syringe) 3 ml IVFLUSH QSHIFT [facility] Last Admin: 02/26/22 08:38 Dose: 3 ml Documented by: Home Medications Medication Instructions Recorded Confirmed Last Taken Type aspirin 81 mg chewable tablet 1 tab PO DAILY 08/29/20 02/25/22 Unknown History hydrochlorothiazide 25 mg tablet 25 mg PO DAILY 08/29/20 02/25/22 Unknown History lisinopril 20 mg tablet 20 mg PO DAILY 08/29/20 02/25/22 Unknown History bupropion HCl 75 mg tablet 75 mg PO DAILY 02/25/22 02/25/22 Unknown History Physical Exam Vital Signs: Vital Signs: Last Vital Signs Temp 98.6 F 02/26/22 11:50 Pulse 112 H 02/26/22 11:50 Resp 15 02/26/22 11:50 BP 100/74 02/26/22 11:50 Pulse Ox 97 02/26/22 11:50 BMI result Body Mass Index 30.8 Const: General: cooperative, comfortable, no acute distress, alert and awake Nutritional Appearance: well nourished and overweight Orienta tion/consciousness: patient oriented x3 Limitations: no limitations HEENT: Head: Yes normocephalic and Yes atraumatic Neck: Neck: Yes trachea midline, Yes supple and Yes JVD Chest: Chest palpation & inspection: normal inspection of the chest Resp: Effort & Inspection: normal respiratory effort Auscultation: rales bilateral Cardio: Jugular venous distension: JVD Rate: tachycardic Rhythm: abnormal rhythm irregularly irregular Heart sounds: S1 normal heart sound present, S2 normal heart sound present, no click, no gallops, no murmurs and no rubs GI: Auscultation: normal bowel sounds Skin: General skin exam: no rashes or lesions noted Neuro: General: patient oriented x3 and no focal motor deficits Extrem: General: No clubbing, No cyanosis and Yes edema Psych: Appearance: grossly normal Objective Labs and Meds Result diagrams: 02/26/22 06:53 02/26/22 06:53 Lab results: Laboratory Results - last 24 hr 02/25/22 02/25/22 02/25/22 13:35 13:35 13:35 WBC 9.0 RBC 5.67 Hgb 15.8 Hct 49.2 MCV 86.8 MCH 27.9 MCHC 32.1 RDW 14.8 Plt Count 109 L MPV Not Reportable Immature Gran % (Auto) 0.3 Neut % (Auto) 74.8 H Lymph % (Auto) 18.2 L Starke % (Auto) 5.7 Eos % (Auto) 0.7 Baso % (Auto) 0.3 Lymph # (Auto) 1.6 [place]ke # (Auto) 0.5 Eos # (Auto) 0.1 Baso # (Auto) 0.0 Abs Immat Gran (auto) 0.03 Absolute Neuts (auto) 6.7 Absolute Nucleated RBC 0.000 Nucleated RBC % (auto) 0.0 PT INR APTT Sodium 140 Potassium 4.2 Chloride 106 Carbon Dioxide 22 Anion Gap 16 BUN 23 H D Creatinine 1.36 Estim Creat Clear Calc 77.7 Estimated GFR 54 Random Glucose 108 Calcium 9.8 Total Bilirubin 2.4 H AST 30 D ALT 26 Alkaline Phosphatase 65 Troponin I High Sens 15.2 B-Natriuretic Peptide Total Protein 6.6 Albumin 4.0 TSH 6.24 H COVID-19 ([facility]I) COVID-19 Clin Com Influenza Type A (FERNANDO) Influenza Type B (FERNANDO) Influenza A & B Note 02/25/22 02/25/22 02/25/22 13:35 13:35 13:35 WBC RBC Hgb Hct MCV MCH MCHC RDW Plt Count MPV Immature Gran % (Auto) Neut % (Auto) Lymph % (Auto) Starke % (Auto) Eos % (Auto) Baso % (Auto) Lymph # (Auto) Starke # (Auto) Eos # (Auto) Baso # (Auto) Abs Immat Gran (auto) Absolute Neuts (auto) Absolute Nucleated RBC Nucleated RBC % (auto) PT 17.8 H INR 1.6 H APTT Sodium Potassium Chloride Carbon Dioxide Anion Gap BUN Creatinine Estim Creat Clear Calc Estimated GFR Random Glucose Calcium Total Bilirubin AST ALT Alkaline Phosphatase Troponin I High Sens B-Natriuretic Peptide Total Protein Albumin TSH COVID-19 ([facility]I) Negative COVID-19 Clin Com See Note Influenza Type A (FERNANDO) Negative Influenza Type B (FERNANDO) Negative Influenza A & B Note See Note 02/25/22 02/25/22 02/25/22 14:21 14:21 16:09 WBC RBC Hgb Hct MCV MCH MCHC RDW Plt Count MPV Immature Gran % (Auto) Neut % (Auto) Lymph % (Auto) Starke % (Auto) Eos % (Auto) Baso % (Auto) Lymph # (Auto) Starke # (Auto) Eos # (Auto) Baso # (Auto) Abs Immat Gran (auto) Absolute Neuts (auto) Absolute Nucleated RBC Nucleated RBC % (auto) PT 18.7 H INR 1.6 H APTT 68.1 H* Sodium Potassium Chloride Carbon Dioxide Anion Gap BUN Creatinine Estim Creat Clear Calc Estimated GFR Random Glucose Calcium Total Bilirubin AST ALT Alkaline Phosphatase Troponin I High Sens 16.5 B-Natriuretic Peptide 698 H Total Protein Albumin TSH COVID-19 (ORI) COVID-19 Clin Com Influenza Type A (FERNANDO) Influenza Type B (FERNANDO) Influenza A & B Note 02/26/22 02/26/22 06:53 06:53 WBC 7.0 RBC 5.35 Hgb 15.1 Hct 47.0 MCV 87.9 MCH 28.2 MCHC 32.1 RDW 14.7 Plt Count 91 L MPV Not Reportable Immature Gran % (Auto) 0.1 Neut % (Auto) 61.5 Lymph % (Auto) 29.0 Starke % (Auto) 7.6 Eos % (Auto) 1.4 Baso % (Auto) 0.4 Lymph # (Auto) 2.0 Starke # (Auto) 0.5 Eos # (Auto) 0.1 Baso # (Auto) 0.0 Abs Immat Gran (auto) 0.01 Absolute Neuts (auto) 4.3 Absolute Nucleated RBC 0.000 Nucleated RBC % (auto) 0.0 PT INR APTT Sodium 141 Potassium 4.0 Chloride 106 Carbon Dioxide 24 Anion Gap 15 BUN 22 H Creatinine 1.33 Estim Creat Clear Calc 79.5 Estimated GFR 55 Random Glucose 100 Calcium 9.7 Total Bilirubin AST ALT Alkaline Phosphatase Troponin I High Sens B-Natriuretic Peptide Total Protein Albumin TSH COVID-19 ([facility]I) COVID-19 Clin Com Influenza Type A (FERNANDO) Influenza Type B (FERNANDO) Influenza A & B Note Imaging Radiologist's impression: Impressions Chest X-Ray 02/25/22 14:39 IMPRESSION: Enlarged cardiac silhouette. Question small right pleural effusion and airspace disease at the right lung base.. Assessment and Plan (1) Decompensated heart failure: Status: Acute new onset decompensated congestive in this middle-aged man who presents with atrial fibrillation with rapid ventricular response of unclear etiology. Most likely due to systolic dysfunction most likely tachycardia mediated cardiomyopathy. Clinically still appears to be in heart failure. Had a very long discussion about management of heart failure with him. Currently his blood pressure is soft and would avoid afterload reduction but start metoprolol for better rate control. Once his blood pressure improves, may add valsartan /losartan to his regimen. Continue IV diuresis with Lasix increased to 20 mg b.i.d.. Will also add ditch for rate control. Heart failure education to be provided. Will need echocardiogram today to assess LV systolic and diastolic f unction to evaluate for pulmonary hypertension secondary valvular abnormality related to atrial fibrillation. Discussed with patient. He understands and agrees. (2) Atrial fibrillation, rapid: Status: Acute Atrial fibrillation with rapid ventricular response till rapid, currently on IV Cardizem drip. Try to transition it quickly given his heart failure from Cardizem to metoprolol and digoxin. Will start him on metoprolol 12.5 mg q.6 hours for better rate control and also digitalize him with 0.25 mg IV push q.6 hours x3 doses. Once heart rate is better controlled, will start tapering his IV Cardizem drip. start full oral anticoagulation with Xarelto 20 mg daily. Echocardiogram as above. Check TSH. if his rate remains difficult control, may require NILES guided cardioversion. Thank you for allowing me to partake in his care. Will follow with you Procedures Date of Service Date of Service: 02/26/22
[2022-02-26] MEDS: Rivaroxaban 20 MG TABLET PO (12:45)
[2022-02-26] MEDS: Metoprolol Tartrate 12.5 MG HALFTAB PO ×3 (12:46→22:47)
--- NOTE | 2022-02-26 12:48 | PC.NURSE ---
pt a&ox3, vss for pt - tachycardia, RR 15-25. pt reporting increased fatigue w contd increased respiratory effort. medicated per provider order.
--- NOTE | 2022-02-26 13:10 | HO.PM.IMPN ---
Subjective Subjective Date of Service: 02/26/22 Interval History: cc: sob interval history:a bit better Cardiovascular Cardiovascular: Reports no additional cardiovascular complaints Respiratory Respiratory: Reports no additional respiratory complaints Physical Exam Vital Signs: Vital Signs: Last Vital Signs Temp 98.6 F 02/26/22 11:50 Pulse 112 H 02/26/22 11:50 Resp 15 02/26/22 11:50 BP 100/74 02/26/22 11:50 Pulse Ox 97 02/26/22 11:50 BMI result Body Mass Index 30.8 General: AO X 3, no acute distress Resp: CTA bilateral, no accessory muscles used CVS: S1,S2,irregular GI: soft, non tender, non distended Neuro: motor grossly intact, alert Psych: appropriate affect, appropriate insight Objective Data Active Medications Acetaminophen (Acetaminophen 325 Mg Tablet) 650 mg PO Q6H PRN PRN Reason: Pain, Mild (Pain Scale 1-3) Bupropion HCl (Bupropion Hcl 75 Mg Tablet) 75 mg PO DAILY [facility] Last Admin: 02/26/22 08:29 Dose: 75 mg Documented by: SYOC Digoxin (Digoxin 0.5 Mg/2 Ml Ampul) 0.25 mg IVPUSH Q6H [facility] Stop: 02/26/22 22:46 Fluoxetine HCl (Fluoxetine Hcl 20 Mg Capsule) 40 mg PO DAILY [facility] Last Admin: 02/26/22 08:28 Dose: 40 mg Documented by: SYOC Furosemide (Furosemide 40 Mg/4 Ml Vial) 20 mg IVPUSH BID@0900,1800 [facility]; Protocol Guaifenesin/Dextromethorphan (Guaifenesin Dm 100/10/5 Ml 5 Ml Syrup) 5 ml PO Q4H PRN PRN Reason: Cough Last Admin: 02/25/22 19:20 Dose: 5 ml Documented by: N-ANICL Diltiazem HCl 125 mg/ Sodium (Chloride) 125 mls @ 0 mls/hr IVCONT .Q0M [facility]; Protocol Last Admin: 02/26/22 02:53 Dose: 5 mg/hr, 5 mls/hr Documented by: N-ANICL Levothyroxine Sodium (Levothyroxine Sodium 112 Mcg Tablet) 224 mcg PO DAILY@0600 [facility] Last Admin: 02/26/22 08:37 Dose: 224 mcg Documented by: HO.SCOC Metoprolol Tartrate (Metoprolol Tartrate 12.5 Mg Halftab) 12.5 mg PO Q6H [facility]; Protocol Last Admin: 02/26/22 12:46 Dose: 12.5 mg Documented by: EB Ondansetron HCl (Ondansetron Hcl 4 Mg/2 Ml Vial) 4 mg IVPUSH Q8H PRN PRN Reason: Nausea and Vomiting Pharmacy Consult (Consult Rx Perform Med Rec) 1 each MISCELLANE ONCE PRN PRN Reason: Consult order Rivaroxaban (Rivaroxaban 20 Mg Tablet) 20 mg PO DAILY [facility] Last Admin: 02/26/22 12:45 Dose: 20 mg Documented by: EB Sodium Chloride (0.9 % Sodium Chloride Flush 3 Ml Syringe) 3 ml IVFLUSH QSHIFT [facility] Last Admin: 02/26/22 08:38 Dose: 3 ml Documented by: GAB Labs CBC & Chem 7: 02/26/22 06:53 02/26/22 06:53 Labs: Laboratory Results - last 24 hr 02/25/22 02/25/22 02/25/22 13:35 13:35 13:35 MCV 86.8 MCH 27.9 MCHC 32.1 RDW 14.8 Plt Count 109 L MPV Not Reportable Immature Gran % (Auto) 0.3 Neut % (Auto) 74.8 H Lymph % (Auto) 18.2 L [place] % (Auto) 5.7 Eos % (Auto) 0.7 Baso % (Auto) 0.3 Lymph # (Auto) 1.6 [place] # (Auto) 0.5 Eos # (Auto) 0.1 Baso # (Auto) 0.0 Abs Immat Gran (auto) 0.03 Absolute Neuts (auto) 6.7 Absolute Nucleated RBC 0.000 Nucleated RBC % (auto) 0.0 PT INR APTT Anion Gap 16 Estim Creat Clear Calc 77.7 Estimated GFR 54 Random Glucose 108 Calcium 9.8 Total Bilirubin 2.4 H AST 30 D ALT 26 Alkaline Phosphatase 65 Troponin I High Sens 15.2 B-Natriuretic Peptide Total Protein 6.6 Albumin 4.0 TSH 6.24 H COVID-19 ([facility]) COVID-19 Clin Com Influenza Type A (FERNANDO) Influenza Type B (FERNANDO) Influenza A & B Note 02/25/22 02/25/22 02/25/22 13:35 13:35 13:35 MCV MCH MCHC RDW Plt Count MPV Immature Gran % (Auto) Neut % (Auto) Lymph % (Auto) [place] % (Auto) Eos % (Auto) Baso % (Auto) Lymph # (Auto) [place] # (Auto) Eos # (Auto) Baso # (Auto) Abs Immat Gran (auto) Absolute Neuts (auto) Absolute Nucleated RBC Nucleated RBC % (auto) PT 17.8 H INR 1.6 H APTT Anion Gap Estim Creat Clear Calc Estimated GFR Random Glucose Calcium Total Bilirubin AST ALT Alkaline Phosphatase Troponin I High Sens B-Natriuretic Peptide Total Protein Albumin TSH COVID-19 (ORI) Negative COVID-19 Clin Com See Note Influenza Type A (FERNANDO) Negative Influenza Type B (FERNANDO) Negative Influenza A & B Note See Note 02/25/22 02/25/22 02/25/22 14:21 14:21 16:09 MCV MCH MCHC RDW Plt Count MPV Immature Gran % (Auto) Neut % (Auto) Lymph % (Auto) [place] % (Auto) Eos % (Auto) Baso % (Auto) Lymph # (Auto) [place] # (Auto) Eos # (Auto) Baso # (Auto) Abs Immat Gran (auto) Absolute Neuts (auto) Absolute Nucleated RBC Nucleated RBC % (auto) PT 18.7 H INR 1.6 H APTT 68.1 H* Anion Gap Estim Creat Clear Calc Estimated GFR Random Glucose Calcium Total Bilirubin AST ALT Alkaline Phosphatase Troponin I High Sens 16.5 B-Natriuretic Peptide 698 H Total Protein Albumin TSH COVID-19 ([facility]) COVID-19 Clin Com Influenza Type A (FERNANDO) Influenza Type B (FERNANDO) Influenza A & B Note 02/26/22 02/26/22 06:53 06:53 MCV 87.9 MCH 28.2 MCHC 32.1 RDW 14.7 Plt Count 91 L MPV Not Reportable Immature Gran % (Auto) 0.1 Neut % (Auto) 61.5 Lymph % (Auto) 29.0 [place] % (Auto) 7.6 Eos % (Auto) 1.4 Baso % (Auto) 0.4 Lymph # (Auto) 2.0 [place] # (Auto) 0.5 Eos # (Auto) 0.1 Baso # (Auto) 0.0 Abs Immat Gran (auto) 0.01 Absolute Neuts (auto) 4.3 Absolute Nucleated RBC 0.000 Nucleated RBC % (auto) 0.0 PT INR APTT Anion Gap 15 Estim Creat Clear Calc 79.5 Estimated GFR 55 Random Glucose 100 Calcium 9.7 Total Bilirubin AST ALT Alkaline Phosphatase Troponin I High Sens B-Natriuretic Peptide Total Protein Albumin TSH COVID-19 ([facility]) COVID-19 Clin Com Influenza Type A (FERNANDO) Influenza Type B (FERNANDO) Influenza A & B Note Assessment and Plan (1) Decompensated heart failure: Status: Acute Plan 56M presented with sob found to have afib with rvr acute chf echo iv lasix monitor bmp new afib with rvr dig, cardizem, lopresor, xarelto, follow up echo copd stable, doubt acute decompensation, will stop steroids, antibityoics hypothyroid synthroid mood disorder prozac wellbutrin reason for continued hospitalization: still rapid, requiring diuresing Quality Stroke Does the patient have a stroke diagnosis?: No VTE Prior VTE?: No VTE Risk Level:: Medical - moderate - high VTE Device Contraindication: Treatment Not Indicated VTE Drug Contraindication: N/A - Med Ordered
[2022-02-26] MEDS: Digoxin 0.5 MG/2 ML AMPUL 0.25 MG IVPUSH ×2 (14:33→20:39)
--- NOTE | 2022-02-26 14:36 | PC.NURSE ---
medicated per provider order. lunch tray for pt never showed, kitchen notified.
--- NOTE | 2022-02-26 18:31 | PC.NURSE ---
medicated per provider order - pharmacy contacted to adjust dose timings.
--- NOTE | 2022-02-26 19:29 | PC.NURSE ---
pt heart rate stable 70s-80s, cardizem drip held per protocol. provider notified.
--- NOTE | 2022-02-26 20:40 | PC.NURSE ---
medicated per provider order.
--- NOTE | 2022-02-26 22:48 | PC.NURSE ---
medicated per provider order, pt resting comfortably, pt reports decreased chest tightness/fatigue.
[2022-02-27] VITALS (8 sets, daily range): BP systolic 90–111; BP diastolic 66–88; PULSE 76–86; RESP 18–23; TEMP 36.1–36.9; O2SAT 94–96; BMI 30.5
[2022-02-27] MEDS: Digoxin 0.5 MG/2 ML AMPUL 0.25 MG IVPUSH (04:06)
[2022-02-27] MEDS: Metoprolol Tartrate 12.5 MG HALFTAB PO ×4 (05:22→23:15)
[2022-02-27] MEDS: guaiFENesin DM 100/10/5 ML 5 ML SYRUP PO ×3 (05:23→18:56)
[2022-02-27] MEDS: Levothyroxine Sodium 112 MCG TABLET 224 MCG PO (05:25)
[2022-02-27 08:00] LABS: Hematocrit 49.4 % (42.0-52.0); Hemoglobin 15.6 g/dl (14.0-18.0); Mean Corpuscular HGB Conc 31.6 g/dl (31.0-36.0); Mean Corpuscular Hemoglobin 27.9 pg (27.0-33.0); Mean Corpuscular Volume 88.2 fL (80.0-98.0); Platelet Count 102 X10*3/uL (160-400); Red Cell Distribution Width 14.6 % (11.0-16.0); White Blood Count 10.7 X10*3/uL (4.8-10.8)
[2022-02-27 08:12] LABS: Anion Gap 16 (12-20); Blood Urea Nitrogen 23 mg/dL (9-16); Calcium 10.1 mg/dL (8.4-10.2); Carbon Dioxide 27 mmol/L (22-29); Chloride 103 mmol/L (96-108); Creatinine Clr Calc Pharmacy 75.5; Estimated Glomerular Filt Rate 52; Glucose Fasting 112 mg/dL (60-99); Magnesium 1.9 mg/dL (1.6-2.6); Potassium 4.7 mmol/L (3.3-5.1); Sodium 141 mmol/L (135-145)
[2022-02-27] MEDS: buPROPion HCL 75 MG TABLET PO (08:14)
[2022-02-27] MEDS: Rivaroxaban 20 MG TABLET PO (08:14)
[2022-02-27] MEDS: FLUoxetine HCl 20 MG CAPSULE 40 MG PO (08:14)
[2022-02-27] MEDS: Furosemide 40 MG/4 ML VIAL 20 MG IVPUSH ×2 (08:14→18:53)
[2022-02-27] MEDS: 0.9 % Sodium Chloride Flush 3 ML SYRINGE IVFLUSH ×3 (08:19→23:28)
--- NOTE | 2022-02-27 08:27 | MHC.CM.PN ---
CM INFORMED BY PT REGISTRATION THAT PTS HEALTH INSURANCE LISTED HAS BEEN INACTIVE SINCE 2020. CM MET WITH PT WHO REPORTED HE WAS UNAWARE OF THIS. HE REPORTS HE WAS ON HIS 'S INSURANCE AND THEY HAVE , SHE LIKELY REMOVED HIM FROM HER PLAN. CM INFORMED HIM A REFERRAL WOULD BE MADE TO [employer] [employer] TO ASSIST WITH OBTAINING INSURANCE COVERAGE. PT AGREEABLE
--- NOTE | 2022-02-27 11:11 | HO.PM.IMPN ---
Subjective Subjective Date of Service: 02/27/22 Interval History: cc: sob interval history:a bit better Cardiovascular Cardiovascular: Reports no additional cardiovascular complaints Respiratory Respiratory: Reports no additional respiratory complaints Physical Exam Vital Signs: Vital Signs: Last Vital Signs Temp 98.4 F 02/27/22 08:14 Pulse 80 02/27/22 08:14 Resp 22 H 02/27/22 08:14 BP 111/73 02/27/22 08:14 Pulse Ox 94 02/27/22 08:14 BMI result Body Mass Index 30.8 General: AO X 3, no acute distress Resp:? CTA bilateral, no accessory muscles used CVS: S1,S2,irregular GI: soft, non tender, non distended Neuro:? motor grossly intact, alert Psych: appropriate affect, appropriate insight? Objective Data Active Medications Acetaminophen (Acetaminophen 325 Mg Tablet) 650 mg PO Q6H PRN PRN Reason: Pain, Mild (Pain Scale 1-3) Bupropion HCl (Bupropion Hcl 75 Mg Tablet) 75 mg PO DAILY [facility] Last Admin: 02/27/22 08:14 Dose: 75 mg Documented by: SUJATHA Fluoxetine HCl (Fluoxetine Hcl 20 Mg Capsule) 40 mg PO DAILY [facility] Last Admin: 02/27/22 08:14 Dose: 40 mg Documented by: SUJATHA Furosemide (Furosemide 40 Mg/4 Ml Vial) 20 mg IVPUSH BID@0900,1800 [facility]; Protocol Last Admin: 02/27/22 08:14 Dose: 20 mg Documented by: SUJATHA Guaifenesin/Dextromethorphan (Guaifenesin Dm 100/10/5 Ml 5 Ml Syrup) 5 ml PO Q4H PRN PRN Reason: Cough Last Admin: 02/27/22 10:05 Dose: 5 ml Documented by: SUJATHA Diltiazem HCl 125 mg/ Sodium (Chloride) 125 mls @ 0 mls/hr IVCONT .Q0M [facility]; Protocol Last Titration: 02/26/22 19:41 Dose: 0 mg/hr, 0 mls/hr Documented by: EB Levothyroxine Sodium (Levothyroxine Sodium 112 Mcg Tablet) 224 mcg PO DAILY@0600 [facility] Last Admin: 02/27/22 05:25 Dose: 224 mcg Documented by: CAROLINA Metoprolol Tartrate (Metoprolol Tartrate 12.5 Mg Halftab) 12.5 mg PO Q6H [facility]; Protocol Last Admin: 02/27/22 10:53 Dose: 12.5 mg Documented by: SUJATHA Ondansetron HCl (Ondansetron Hcl 4 Mg/2 Ml Vial) 4 mg IVPUSH Q8H PRN PRN Reason: Nausea and Vomiting Pharmacy Consult (Consult Rx Perform Med Rec) 1 each MISCELLANE ONCE PRN PRN Reason: Consult order Rivaroxaban (Rivaroxaban 20 Mg Tablet) 20 mg PO DAILY [facility] Last Admin: 02/27/22 08:14 Dose: 20 mg Documented by: SUJATHA Sodium Chloride (0.9 % Sodium Chloride Flush 3 Ml Syringe) 3 ml IVFLUSH QSHIFT [facility] Last Admin: 02/27/22 08:19 Dose: 3 ml Documented by: SUJATHA Labs CBC & Chem 7: 02/27/22 07:35 02/27/22 07:35 Labs: Laboratory Results - last 24 hr 02/27/22 02/27/22 07:35 07:35 MCV 88.2 MCH 27.9 MCHC 31.6 RDW 14.6 Plt Count 102 L MPV Not Reportable Absolute Nucleated RBC 0.000 Nucleated RBC % (auto) 0.0 Anion Gap 16 Estim Creat Clear Calc 75.5 Estimated GFR 52 Fasting Glucose 112 H Calcium 10.1 Magnesium 1.9 Microbiology Microbiology Results: Microbiology 02/25/22 16:44 Blood Culture - Preliminary Blood - Venous No growth after 24 hours. 02/25/22 16:09 Blood Culture - Preliminary Blood - Venous No growth after 24 hours. Assessment and Plan (1) Decompensated heart failure: Status: Acute Plan 56M presented with sob found to have afib with rvr acute systolic chf continue iv lasix monitor bmp new afib with rvr s/p dig, lopresor, xarelto, still in afib, rate controlled copd stable hypothyroid synthroid, TSH mildly elevated, no changes for now mood disorder prozac wellbutrin reason for continued hospitalization: iv diuresis Quality Stroke Does the patient have a stroke diagnosis?: No VTE Prior VTE?: No VTE Risk Level:: Medical - moderate - high VTE Device Contraindication: Treatment Not Indicated VTE Drug Contraindication: N/A - Med Ordered
--- NOTE | 2022-02-27 12:36 | P.PNCA_ITS ---
Subjective Subjective Date of Service: 02/27/22 <ISAC Loaiza - Last Filed: 02/27/22 12:48> 02/27/22 <Darryl Damon MD - Last Filed: 02/27/22 13:00> Principal diagnosis: afib, CHF <ISAC Loaiza - Last Filed: 02/27/22 12:48> Interval history: Cardiology follow up for afib, chf. Seen at 1110. Today he report that breathing improved but not back to normal yet. Congested cough present. No chest pains, palpitations, dizziness. Has been ambulating to the bathroom and is steady on feet. Leg swelling improved. Tele monitoring showing afib, rate 70- 80s. <ISAC Loaiza - Last Filed: 02/27/22 12:48> Review of Systems Review of Systems as above <ISAC Loaiza - Last Filed: 02/27/22 12:48> Yes all other systems are reviewed and are negative <ISAC Loaiza - Last Filed: 02/27/22 12:48> Physical Exam Vital Signs: Last Vital Signs Temp 97.8 F 02/27/22 12:02 Pulse 76 02/27/22 12:02 Resp 20 02/27/22 12:02 BP 93/72 02/27/22 12:02 Pulse Ox 96 02/27/22 12:02 BMI result Body Mass Index 30.8 <ISAC Loaiza - Last Filed: 02/27/22 12:48> Const General: cooperative, no acute distress, alert and awake <ISAC Loaiza - Last Filed: 02/27/22 12:48> Orientation/consciousness: patient oriented x3 <ISAC Loaiza - Last Filed: 02/27/22 12:48> Neck Neck: Yes normal visual inspection and Yes no JVD <ISAC Loaiza - Last Filed: 02/27/22 12:48> Resp Other: audible congested cough. Coarse sounds right base <ISAC Loaiza - Last Filed: 02/27/22 12:48> Effort & Inspection: normal respiratory effort, able to speak in complete sentences and not labored <Fidelia SutherlandSHEELAC - Last Filed: 02/27/22 12:48> Auscultation: clear to auscultation bilaterally, no rales, no rhonchi and no wheezes <Fidelia SutherlandSHEELAC - Last Filed: 02/27/22 12:48> Cardio Rate: regular rate <Fidelia SutherlandTUANJohanC - Last Filed: 02/27/22 12:48> Rhythm: abnormal rhythm irregularly irregular <Fidelia SutherlandTUAN-C - Last Filed: 02/27/22 12:48> Heart sounds: S1 normal heart sound present and S2 normal heart sound present <Fidelia SutherlandTUAN-C - Last Filed: 02/27/22 12:48> Peripheral pulses: Peripheral pulses 2+ throughout <Fidelia SutherlandTUAN-C - Last Filed: 02/27/22 12:48> GI Inspection: Yes normal to inspection <Fidelia SutherlandTUAN-C - Last Filed: 02/27/22 12:48> Neuro General: patient oriented x3 <Fidelia SutherlandTUANJohanC - Last Filed: 02/27/22 12:48> Extrem General: Yes normal to inspection and No edema <Fidelia SutherlandSHEELAC - Last Filed: 02/27/22 12:48> Objective Labs and Meds Result diagrams: : 02/27/22 07:35 02/27/22 07:35 <Fidelia SutherlandSHEELAC - Last Filed: 02/27/22 12:48> Lab results: Laboratory Results - last 24 hr 02/27/22 02/27/22 07:35 07:35 WBC 10.7 RBC 5.60 Hgb 15.6 Hct 49.4 MCV 88.2 MCH 27.9 MCHC 31.6 RDW 14.6 Plt Count 102 L MPV Not Reportable Absolute Nucleated RBC 0.000 Nucleated RBC % (auto) 0.0 Sodium 141 Potassium 4.7 Chloride 103 Carbon Dioxide 27 Anion Gap 16 BUN 23 H Creatinine 1.40 Estim Creat Clear Calc 75.5 Estimated GFR 52 Fasting Glucose 112 H Calcium 10.1 Magnesium 1.9 <Fidelia SutherlandTUAN-C - Last Filed: 02/27/22 12:48> Progress Note: A&P Assessment and plan (1) Atrial fibrillation, rapid: Status: Acute <ISAC Loaiza - Last Filed: 02/27/22 12:48> Assessment and Plan: New finding of afib this admit. Being treated with heart rate control using Metoprolol. Tele shows afib rate 70-80s currently. Rate up to 100 with walking. Echo showing EF 35-40%, mild biatrial enlargement, mod MR. Could be tachycardia mediated cardiomopathy. Has been started on xarelto for anticoagulation. No bleeding issues reported. Continue current mgt. Ongoing tele monitoring. <ISAC Loaiza - Last Filed: 02/27/22 12:48> New finding of afib this admit. Being treated with heart rate control using Metoprolol. Tele shows afib rate 70-80s currently. Rate up to 100 with walking. Echo showing EF 35-40%, mild biatrial enlargement, mod MR. Could be tachycardia mediated cardiomopathy. Has been started on xarelto for anticoagulation. No bleeding issues reported. Continue current mgt. Ongoing tele monitoring. Patient seen and examined. Case discussed with Fidelia. Heart rate is better controlled at this point in time. Continue current rate control approach. Cannot maximize it due to lower blood pressure. Continue full oral anticoagulation. Eventually require synchronized cardioversion to pursue rhythm control approach, after 3-4 weeks of oral anticoagulation. Does n ot need immediate NILES guided cardioversion at this point in time <Darryl Damon MD - Last Filed: 02/27/22 13:00> (2) Decompensated heart failure: Status: Acute <ISAC Loaiza - Last Filed: 02/27/22 12:48> Assessment and Plan: Presented with shortness of breath and leg edema which he tells me was occurring over the 3 weeks prior to admit. BNP 698. CXR showed possible small right effusion and airspace disease right base. Treated for acute systolic HF. He is being diuresed with IV Lasix with fluid balance neg 1100 since admit. He tells me breathing improved but not back to normal yet. He does not appear very fluid overloaded. Will continue IV lasix another day. BNP in am. Ongoing I+O monitoring. HF diagnosis reviewed with him. <ISAC Loaiza - Last Filed: 02/27/22 12:48> Presented with shortness of breath and leg edema which he tells me was occurring over the 3 weeks prior to admit. BNP 698. CXR showed possible small right effusion and airspace disease right base. Treated for acute systolic HF. He is being diuresed with IV Lasix with fluid balance neg 1100 since admit. He tells me breathing improved but not back to normal yet. He does not appear very fluid overloaded. Will continue IV lasix another day. BNP in am. Ongoing I+O monitoring. HF diagnosis reviewed with him. LV ejection fraction 35-40% most likely tachycardia mediated. Still remain short of breath. Continue IV diuresis. Continue metoprolol and digoxin. Cannot add angiotensin receptor blockers due to low blood pressure. Eventually if the blood pressure improves can slowly add as an outpatient. Needs further diuresis prior to discharge. Will continue to follow with you <Darryl Damon MD - Last Filed: 02/27/22 13:00> (3) Cardiomyopathy: Status: Acute <ISAC Loaiza - Last Filed: 02/27/22 12:48> Assessment and Plan: New finding of CMP this admit. Could be tachy mediated. Ischemia not ruled out. He is on Metoprolol. BP soft with systolic ranging 90-110. Will hold on the addition of ARB at present time. Plan for outpt nuclear stress test to eval for ischemia. <ISAC Loaiza - Last Filed: 02/27/22 12:48> (4) SOB (shortness of breath): Status: Acute <ISAC Loaiza - Last Filed: 02/27/22 12:48> Time Spent With Patient Time: Total time spent is greater than 50% in coordination of care (as documented) at patient's floor/unit and/or counseling patient: 22 <ISAC Loaiza - Last Filed: 02/27/22 12:48> Progress Note: Quality Stroke Does the patient have a stroke diagnosis?: No <ISAC Loaiza - Last Filed: 02/27/22 12:48> Procedures Date of Service Date of Service: 02/27/22 <ISAC Loaiza - Last Filed: 02/27/22 12:48>
[2022-02-28] MEDS: Levothyroxine Sodium 112 MCG TABLET 224 MCG PO (05:58)
[2022-02-28 06:05] LABS: PLT ABN DIST 1; Red Cell Distribution Width 14.6 % (11.0-16.0); WBC ABN SCTR FOR CBC 1
[2022-02-28 06:07] LABS: Hematocrit 47.2 % (42.0-52.0); Hemoglobin 15.1 g/dl (14.0-18.0); Mean Corpuscular Hemoglobin 27.8 pg (27.0-33.0); Mean Corpuscular Volume 86.9 fL (80.0-98.0); Platelet Count 85 X10*3/uL (160-400); Red Blood Count 5.43 X10*6/uL (4.60-5.80); White Blood Count 7.1 X10*3/uL (4.8-10.8)
[2022-02-28] MEDS: guaiFENesin DM 100/10/5 ML 5 ML SYRUP PO (06:10)
[2022-02-28] MEDS: Metoprolol Tartrate 12.5 MG HALFTAB PO ×3 (06:16→17:29)
[2022-02-28 06:24] LABS: Anion Gap 15 (12-20); B Type Natriuretic Peptide 1388 pg/mL (<100); Blood Urea Nitrogen 24 mg/dL (9-16); Calcium 9.6 mg/dL (8.4-10.2); Carbon Dioxide 29 mmol/L (22-29); Chloride 97 mmol/L (96-108); Creatinine Clr Calc Pharmacy 83.5; Estimated Glomerular Filt Rate 59; Glucose Fasting 102 mg/dL (60-99); Potassium 4.1 mmol/L (3.3-5.1); Sodium 137 mmol/L (135-145)
[2022-02-28 07:04] VITALS: BP 112/76; PULSE 92; RESP 20; TEMP 37; O2SAT 94
[2022-02-28] MEDS: Rivaroxaban 20 MG TABLET PO (09:22)
[2022-02-28] MEDS: buPROPion HCL 75 MG TABLET PO (09:22)
[2022-02-28] MEDS: Furosemide 40 MG/4 ML VIAL 20 MG IVPUSH (09:22)
[2022-02-28] MEDS: FLUoxetine HCl 20 MG CAPSULE 40 MG PO (09:23)
[2022-02-28] MEDS: 0.9 % Sodium Chloride Flush 3 ML SYRINGE IVFLUSH ×3 (09:23→23:42)
--- NOTE | 2022-02-28 10:52 | HO.PM.IMPN ---
Subjective Subjective Date of Service: 02/28/22 Interval History: cc: sob interval history:a bit better Cardiovascular Cardiovascular: Reports no additional cardiovascular complaints Respiratory Respiratory: Reports no additional respiratory complaints Physical Exam Vital Signs: Vital Signs: Last Vital Signs Temp 98.6 F 02/28/22 07:04 Pulse 92 02/28/22 07:04 Resp 20 02/28/22 07:04 BP 112/76 02/28/22 07:04 Pulse Ox 94 02/28/22 07:04 BMI result Body Mass Index 30.5 General: AO X 3, no acute distress Resp:? CTA bilateral, no accessory muscles used CVS: S1,S2,irregular GI: soft, non tender, non distended Neuro:? motor grossly intact, alert Psych: appropriate affect, appropriate insight? Objective Data Active Medications Acetaminophen (Acetaminophen 325 Mg Tablet) 650 mg PO Q6H PRN PRN Reason: Pain, Mild (Pain Scale 1-3) Bupropion HCl (Bupropion Hcl 75 Mg Tablet) 75 mg PO DAILY [facility] Last Admin: 02/28/22 09:22 Dose: 75 mg Documented by: MAJO Fluoxetine HCl (Fluoxetine Hcl 20 Mg Capsule) 40 mg PO DAILY [facility] Last Admin: 02/28/22 09:23 Dose: 40 mg Documented by: MAJO Furosemide (Furosemide 40 Mg/4 Ml Vial) 20 mg IVPUSH BID@0900,1800 [facility]; Protocol Last Admin: 02/28/22 09:22 Dose: 20 mg Documented by: BROKb Guaifenesin/Dextromethorphan (Guaifenesin Dm 100/10/5 Ml 5 Ml Syrup) 5 ml PO Q4H PRN PRN Reason: Cough Last Admin: 02/28/22 06:10 Dose: 5 ml Documented by: LACEY Levothyroxine Sodium (Levothyroxine Sodium 112 Mcg Tablet) 224 mcg PO DAILY@0600 [facility] Last Admin: 02/28/22 05:58 Dose: 224 mcg Documented by: LACEY Metoprolol Tartrate (Metoprolol Tartrate 12.5 Mg Halftab) 12.5 mg PO Q6H [facility]; Protocol Last Admin: 02/28/22 06:16 Dose: 12.5 mg Documented by: LACEY Ondansetron HCl (Ondansetron Hcl 4 Mg/2 Ml Vial) 4 mg IVPUSH Q8H PRN PRN Reason: Nausea and Vomiting Pharmacy Consult (Consult Rx Perform Med Rec) 1 each MISCELLANE ONCE PRN PRN Reason: Consult order Rivaroxaban (Rivaroxaban 20 Mg Tablet) 20 mg PO DAILY [facility] Last Admin: 02/28/22 09:22 Dose: 20 mg Documented by: MAJO Sodium Chloride (0.9 % Sodium Chloride Flush 3 Ml Syringe) 3 ml IVFLUSH QSHIFT [facility] Last Admin: 02/28/22 09:23 Dose: 3 ml Documented by: MAJO Labs CBC & Chem 7: 02/28/22 05:45 02/28/22 05:45 Labs: Laboratory Results - last 24 hr 02/28/22 02/28/22 02/28/22 05:45 05:45 05:45 MCV 86.9 MCH 27.8 MCHC 32.0 RDW 14.6 Plt Count 85 L MPV TNP Absolute Nucleated RBC 0.000 Nucleated RBC % (auto) 0.0 Anion Gap 15 Estim Creat Clear Calc 83.5 Estimated GFR 59 Fasting Glucose 102 H Calcium 9.6 B-Natriuretic Peptide 1388 H Microbiology Microbiology Results: Microbiology 02/25/22 16:44 Blood Culture - Preliminary Blood - Venous No growth after 48 hours. 02/25/22 16:09 Blood Culture - Preliminary Blood - Venous No growth after 48 hours. Assessment and Plan (1) Decompensated heart failure: Status: Acute Plan 56M presented with sob found to have afib with rvr acute systolic chf still with symptoms continue iv lasix monitor bmp new afib with rvr s/p dig, lopresor, xarelto, still in afib, rate controlled copd stable hypothyroid synthroid, TSH mildly elevated, no changes for now mood disorder prozac wellbutrin reason for continued hospitalization: iv diuresis Quality Stroke Does the patient have a stroke diagnosis?: No VTE Prior VTE?: No VTE Risk Level:: Medical - moderate - high VTE Device Contraindication: Treatment Not Indicated VTE Drug Contraindication: N/A - Med Ordered
[2022-02-28 11:41] VITALS: BP 110/69; PULSE 93; RESP 20; TEMP 36.8; O2SAT 94
--- NOTE | 2022-02-28 12:47 | P.PNCA_ITS ---
Subjective Subjective Date of Service: 02/28/22 <ISAC Loaiza - Last Filed: 02/28/22 13:00> 02/28/22 <Darryl Damon MD - Last Filed: 02/28/22 13:27> Principal diagnosis: afib, CHF <ISAC Loaiza - Last Filed: 02/28/22 13:00> Interval history: Today he reports having increased shortness of breath compared to yesterday. He slept with the HOB elevated some. He has a congested cough Can feel heart palpitations today. No chest pains, dizziness. Steady on feet in room. Still has mild swelling in lower legs. Seen at 1115. <ISAC Loaiza - Last Filed: 02/28/22 13:00> Review of Systems Review of Systems as above <ISAC Loaiza - Last Filed: 02/28/22 13:00> Yes all other systems are reviewed and are negative <ISAC Loaiza - Last Filed: 02/28/22 13:00> Physical Exam Vital Signs: Last Vital Signs Temp 98.3 F 02/28/22 11:41 Pulse 93 02/28/22 11:41 Resp 20 02/28/22 11:41 BP 110/69 02/28/22 11:41 Pulse Ox 94 02/28/22 11:41 BMI result Body Mass Index 30.5 <ISAC Loaiza - Last Filed: 02/28/22 13:00> Const General: cooperative, no acute distress, alert and awake <ISAC Loaiza Last Filed: 02/28/22 13:00> Orientation/consciousness: patient oriented x3 <ISAC Loaiza - Last Filed: 02/28/22 13:00> Neck Neck: Yes normal visual inspection <ISAC Loaiza Last Filed: 02/28/22 13:00> Resp Effort & Inspection: normal respiratory effort and able to speak in complete sentences <ISAC Loaiza Last Filed: 02/28/22 13:00> Auscultation: clear to auscultation bilaterally, no crackles, no rales and no rhonchi <Fidelia Sullivan ISAC Sutherland - Last Filed: 02/28/22 13:00> Cardio Rate: regular rate <Fidelia Nate ISAC Sutherland Last Filed: 02/28/22 13:00> Rhythm: abnormal rhythm irregularly irregular <Fidelia Sullivan ISAC Sutherland - Last Filed: 02/28/22 13:00> Heart sounds: S1 normal heart sound present and S2 normal heart sound present <Fidelia Nate ISAC Sutherland - Last Filed: 02/28/22 13:00> Peripheral pulses: Peripheral pulses 2+ throughout <Fidelia Sullivan ISAC Sutherland - Last Filed: 02/28/22 13:00> GI Inspection: Yes normal to inspection <ISAC Loaiza - Last Filed: 02/28/22 13:00> Neuro General: patient oriented x3 <Fidelia Nate ISAC Sutherland Last Filed: 02/28/22 13:00> Extrem General: Yes normal to inspection and Yes edema (trace lower leg) <Fidelia M ISAC Sutherland - Last Filed: 02/28/22 13:00> Objective Labs and Meds Result diagrams: : 02/28/22 05:45 02/28/22 05:45 <ISAC Loaiza - Last Filed: 02/28/22 13:00> Lab results: Laboratory Results - last 24 hr 02/28/22 02/28/22 02/28/22 05:45 05:45 05:45 WBC 7.1 RBC 5.43 Hgb 15.1 Hct 47.2 MCV 86.9 MCH 27.8 MCHC 32.0 RDW 14.6 Plt Count 85 L MPV TNP Absolute Nucleated RBC 0.000 Nucleated RBC % (auto) 0.0 Sodium 137 Potassium 4.1 Chloride 97 Carbon Dioxide 29 Anion Gap 15 BUN 24 H Creatinine 1.26 Estim Creat Clear Calc 83.5 Estimated GFR 59 Fasting Glucose 102 H Calcium 9.6 B-Natriuretic Peptide 1388 H <ISAC Loaiza Last Filed: 02/28/22 13:00> Progress Note: A&P Assessment and plan (1) Atrial fibrillation, rapid: Status: Acute <ISAC Loaiza Last Filed: 02/28/22 13:00> Assessment and Plan: New finding of afib this admit. Being treated with heart rate control using Metoprolol and did recieve Digoxin load. Echo showed EF 35-40%, mild biatrial enlargement, mod MR. Could be tachycardia mediated cardiomopathy. Tele shows afib rate 80 - 130s with activity. BP soft, this am 110/88, systolic in the 90s overnight. Daily digoxin being added for better heart rate control. Will need Digoxin level in 5-7 days. Continue metoprolol at 12.5mg q 6 hr. Has been started on xarelto for anticoagulation. No bleeding issues reported. Platelets noted to be 85 today, plt 109 on admit. Hospitalist will further review. Ongoing tele monitoring. <ISAC Loaiza - Last Filed: 02/28/22 13:00> New finding of afib this admit. Being treated with heart rate control using Metoprolol and did recieve Digoxin load. Echo showed EF 35-40%, mild biatrial enlargement, mod MR. Could be tachycardia mediated cardiomopathy. Tele shows afib rate 80 - 130s with activity. BP soft, this am 110/88, systolic in the 90s overnight. Daily digoxin being added for better heart rate control. Will need Digoxin level in 5-7 days. Continue metoprolol at 12.5mg q 6 hr. Has been started on xarelto for anticoagulation. No bleeding issues reported. Platelets noted to be 85 today, plt 109 on admit. Hospitalist will further review. Ongoing tele monitoring. Patient seen and examined. Case discussed with Fidelia Sutherland. Heart rate is better controlled but still slightly on the higher side. Will continue metoprolol and add digoxin p.o.. Blood pressure is soft but better control with no symptoms of low blood pressures at this point time. Continue full oral anticoagulation with Xarelto. Continue to trend platelet count. <Darryl Damon MD - Last Filed: 02/28/22 13:27> (2) Cardiomyopathy: Status: Acute <ISAC Loaiza - Last Filed: 02/28/22 13:00> Assessment and Plan: Presented with shortness of breath and leg edema which he tells me was occurring over the 3 weeks prior to admit. BNP 698. CXR initially showed poss ible small right effusion and airspace disease right base. EF 35-40% on echo. Treated for acute systolic HF. He is being diuresed with IV Lasix with fluid balance now neg 500 since admit - may be inaccurate as he uses BR. BNP today up to 1388. He reports increased sob, orthopnea. Has few wheezes on exam. RA st 94%. Needs further diuresis. Will start Lasix drip at 5mg/ hr. Strict I+O monitoring. Close monitoring of electrolyte and kidney function. BNP in am. <ISAC Loaiza - Last Filed: 02/28/22 13:00> Presented with shortness of breath and leg edema which he tells me was occurring over the 3 weeks prior to admit. BNP 698. CXR initially showed possible small right effusion and airspace disease right base. EF 35-40% on echo. Treated for acute systolic HF. He is being diuresed with IV Lasix with fluid balance now neg 500 since admit - may be inaccurate as he uses BR. BNP today up to 1388. He reports increased sob, orthopnea. Has few wheezes on exam. RA st 94%. Needs further diuresis. Will start Lasix drip at 5mg/ hr. Strict I+O monitoring. Close monitoring of electrolyte and kidney function. BNP in am. Patient more short of breath today and BNP is further elevated. Overall intake and output chart probably not well maintain. Patient going to the bathroom for urination. Advise him to collect urine so we can measured. For now will start him on Lasix drip at 5 mg an hour. Strict intake and output chart needs to be pursued. Continue more follow renal function as well as electrolytes. Replace electrolytes as needed. Cannot maximize neurohormonal modulation due to lower blood pressure. Will continue monitor clinically. Will continue to follow with you <Darryl Damon MD - Last Filed: 02/28/22 13:27> (3) Decompensated heart failure: Status: Acute <ISAC Loaiza - Last Filed: 02/28/22 13:00> (4) SOB (shortness of breath): Status: Acute <ISAC Loaiza - Last Filed: 02/28/22 13:00> Time Spent With Patient Time: Total time spent is greater than 50% in coordination of care (as docume nted) at patient's floor/unit and/or counseling patient: 22 <ISAC Loaiza - Last Filed: 02/28/22 13:00> Progress Note: Quality Stroke Does the patient have a stroke diagnosis?: No <ISAC Loaiza - Last Filed: 02/28/22 13:00> Procedures Date of Service Date of Service: 02/28/22 <ISAC Loaiza - Last Filed: 02/28/22 13:00>
[2022-02-28] MEDS: Digoxin 0.125 MG TABLET PO (13:25)
[2022-02-28] MEDS: Furosemide 200 MG in 0.9 % Sodium Chloride 80 ML IVCONT (13:25)
[2022-02-28 15:19] VITALS: BP 94/62; PULSE 78; RESP 20; TEMP 37.3; O2SAT 98
[2022-02-28 19:15] VITALS: BP 90/64; PULSE 82; RESP 20; TEMP 36.9; O2SAT 94
[2022-02-28 23:14] VITALS: BP 90/52; PULSE 78; RESP 20; TEMP 37.3; O2SAT 91
[2022-03-01] VITALS (8 sets, daily range): BP systolic 81–110; BP diastolic 52–64; PULSE 45–90; RESP 17–20; TEMP 36.2–37.4; O2SAT 90–95
[2022-03-01] MEDS: Metoprolol Tartrate 12.5 MG HALFTAB PO ×2 (05:15→10:46)
[2022-03-01] MEDS: Levothyroxine Sodium 112 MCG TABLET 224 MCG PO (05:15)
[2022-03-01 07:07] LABS: INTERNATIONAL NORM RATIO 3.4 (0.9-1.1); Prothrombin Time 40.2 SEC (9.9-13.0)
[2022-03-01 07:19] LABS: Hematocrit 47.2 % (42.0-52.0); Hemoglobin 15.5 g/dl (14.0-18.0); Mean Corpuscular HGB Conc 32.8 g/dl (31.0-36.0); Mean Corpuscular Hemoglobin 28.2 pg (27.0-33.0); Red Blood Count 5.49 X10*6/uL (4.60-5.80); Red Cell Distribution Width 14.5 % (11.0-16.0); White Blood Count 4.8 X10*3/uL (4.8-10.8)
[2022-03-01 07:20] LABS: Platelet Count 71 X10*3/uL (160-400)
[2022-03-01 07:32] LABS: B Type Natriuretic Peptide 1438 pg/mL (<100)
[2022-03-01 07:39] LABS: Alanine Aminotransferase 28 U/L (0-40); Albumin Level 3.8 g/dL (3.5-5.0); Alkaline Phosphatase 56 U/L (39-117); Anion Gap 15 (12-20); Aspartate Amino Transferase 39 U/L (5-37); Bilirubin Direct 1.9 mg/dL (0.0-0.5); Bilirubin Total 3.6 mg/dL (0.0-1.0); Blood Urea Nitrogen 16 mg/dL (9-16); Calcium 9.1 mg/dL (8.4-10.2); Carbon Dioxide 33 mmol/L (22-29); Chloride 87 mmol/L (96-108); Creatinine Clr Calc Pharmacy 79.7; Estimated Glomerular Filt Rate 56; Glucose Fasting 92 mg/dL (60-99); Potassium 3.5 mmol/L (3.3-5.1); Sodium 131 mmol/L (135-145); Total Protein 6.3 g/dL (6.5-8.0)
[2022-03-01] MEDS: Rivaroxaban 20 MG TABLET PO (08:59)
[2022-03-01] MEDS: Digoxin 0.125 MG TABLET PO (08:59)
[2022-03-01] MEDS: FLUoxetine HCl 20 MG CAPSULE 40 MG PO (08:59)
[2022-03-01] MEDS: buPROPion HCL 75 MG TABLET PO (08:59)
[2022-03-01] MEDS: guaiFENesin DM 100/10/5 ML 5 ML SYRUP PO (09:00)
--- NOTE | 2022-03-01 10:29 | P.PNIM_ITS ---
Subjective Subjective Date of Service: 03/01/22 Interval History: cc: sob interval history:a bit better Cardiovascular Cardiovascular: Reports no additional cardiovascular complaints Gastrointestinal Gastrointestinal: Reports no additional gastrointestinal complaints Physical Exam Vital Signs: Vital Signs: Last Vital Signs Temp 98.9 F 03/01/22 07:38 Pulse 78 03/01/22 07:38 Resp 17 03/01/22 07:38 BP 110/62 03/01/22 07:38 Pulse Ox 93 03/01/22 07:38 BMI result Body Mass Index 30.5 General: AO X 3, no acute distress Resp: CTA bilateral, no accessory muscles used CVS: S1,S2,irregular GI: soft, non tender, non distended Neuro: motor grossly intact, alert Psych: appropriate affect, appropriate insight Objective Data Active Medications Acetaminophen (Acetaminophen 325 Mg Tablet) 650 mg PO Q6H PRN PRN Reason: Pain, Mild (Pain Scale 1-3) Albuterol/Ipratropium (Albuterol/Iprat 2.5/0.5mg 3 Ml Ampul.Neb) 3 ml INHALE Q4H PRN PRN Reason: sob Bupropion HCl (Bupropion Hcl 75 Mg Tablet) 75 mg PO DAILY [facility] Last Admin: 03/01/22 08:59 Dose: 75 mg Documented by: MAJO Digoxin (Digoxin 0.125 Mg Tablet) 0.125 mg PO DAILY [facility] Last Admin: 03/01/22 08:59 Dose: 0.125 mg Documented by: MAJO Fluoxetine HCl (Fluoxetine Hcl 20 Mg Capsule) 40 mg PO DAILY [facility] Last Admin: 03/01/22 08:59 Dose: 40 mg Documented by: MAJO Guaifenesin/Dextromethorphan (Guaifenesin Dm 100/10/5 Ml 5 Ml Syrup) 5 ml PO Q4H PRN PRN Reason: Cough Last Admin: 03/01/22 09:00 Dose: 5 ml Documented by: MAJO Furosemide 200 mg/ Sodium (Chloride) 100 mls @ 2.5 mls/hr IVCONT .Q24H [facility] Last Admin: 02/28/22 13:25 Dose: 5 mg/hr, 2.5 mls/hr Documented by: MAJO Levothyroxine Sodium (Levothyroxine Sodium 112 Mcg Tablet) 224 mcg PO DAILY@0600 [facility] Last Admin: 03/01/22 05:15 Dose: 224 mcg Documented by: DIDIER Metoprolol Tartrate (Metoprolol Tartrate 12.5 Mg Halftab) 12.5 mg PO Q6H [facility]; Protocol Last Admin: 03/01/22 05:15 Dose: 12.5 mg Documented by: DIDIER Ondansetron HCl (Ondansetron Hcl 4 Mg/2 Ml Vial) 4 mg IVPUSH Q8H PRN PRN Reason: Nausea and Vomiting Pharmacy Consult (Consult Rx Perform Med Rec) 1 each MISCELLANE ONCE PRN PRN Reason: Consult order Prednisone (Prednisone 20 Mg Tablet) 40 mg PO DAILY [facility] Rivaroxaban (Rivaroxaban 20 Mg Tablet) 20 mg PO DAILY [facility] Last Admin: 03/01/22 08:59 Dose: 20 mg Documented by: DOBROKb Sodium Chloride (0.9 % Sodium Chloride Flush 3 Ml Syringe) 3 ml IVFLUSH QSHIFT [facility] Last Admin: 03/01/22 08:59 Dose: Not Given Documented by: DOBROB Non-Admin Reason: IV Running Labs CBC & Chem 7: 03/01/22 06:42 03/01/22 06:42 Labs: Laboratory Results - last 24 hr 03/01/22 03/01/22 03/01/22 06:42 06:42 06:42 MCV 86.0 MCH 28.2 MCHC 32.8 RDW 14.5 Plt Count 71 L MPV Not Reportable Absolute Nucleated RBC 0.000 Nucleated RBC % (auto) 0.0 PT INR Anion Gap 15 Estim Creat Clear Calc 79.7 Estimated GFR 56 Fasting Glucose 92 Calcium 9.1 Total Bilirubin 3.6 H Direct Bilirubin 1.9 H AST 39 H ALT 28 Alkaline Phosphatase 56 B-Natriuretic Peptide 1438 H Total Protein 6.3 L Albumin 3.8 03/01/22 06:42 MCV MCH MCHC RDW Plt Count MPV Absolute Nucleated RBC Nucleated RBC % (auto) PT 40.2 H INR 3.4 H Anion Gap Estim Creat Clear Calc Estimated GFR Fasting Glucose Calcium Total Bilirubin Direct Bilirubin AST ALT Alkaline Phosphatase B-Natriuretic Peptide Total Protein Albumin Assessment and Plan (1) Decompensated heart failure: Status: Acute Plan 56M presented with sob found to have afib with rvr acute systolic chf diuresing well on lasix infusion monitor bmp cardiology following hepatomegaly with elevated lfts and thrombocytopenia denies ETOH, ?hepatic congestion, check viral hepatitis, GI eval new afib with rvr dig, lopresor, xarelto, copd stable hypothyroid synthroid, TSH mildly elevated, no changes for now mood disorder prozac wellbutrin reason for continued hospitalization: iv diuresis Quality Stroke Does the patient have a stroke diagnosis?: No VTE Prior VTE?: No VTE Risk Level:: Medical - moderate - high VTE Device Contraindication: Treatment Not Indicated VTE Drug Contraindication: N/A - Med Ordered
[2022-03-01] MEDS: predniSONE 20 MG TABLET 40 MG PO (10:46)
[2022-03-01] MEDS: guaiFENesin LA 600 MG TAB.ER.12H PO ×2 (12:33→22:22)
--- NOTE | 2022-03-01 12:46 | PM.PNCARD ---
Subjective Subjective Date of Service: 03/01/22 Principal diagnosis: afib, CHF Interval history: Complaining of shortness of breath and complaining of cough not able to produce phlegm. Started on bronchodilators today. Heart rate remains controlled. Diuresing gently. BNP slightly higher today. Kidney functions are okay Review of Systems Constitutional: Reports no additional constitutional complaints Eyes: Reports no additional eye complaints Cardiovascular: Denies chest pain, Reports leg edema, Denies palpitations, Reports dyspnea and Reports dyspnea on exertion Respiratory: Reports cough, Reports dyspnea and Reports dyspnea on exertion Gastrointestinal: Reports no additional gastrointestinal complaints Genitourinary: Reports no additional male genitourinary complaints Musculoskeletal: Reports no additional musculoskeletal complaints Skin/Breast: Reports system reviewed and no additional complaints, except as docu Reports system reviewed and no additional complaints, except as documented Psychiatric: Reports no additional psychiatric complaints Endocrine: Reports no additional endocrine complaints and Denies palpitations Hematologic/Lymphatic: Reports no additional hematologic/lymphatic complaints Allergic/Immunologic: Reports no additional allergic/immunologic complaints Physical Exam Vital Signs: Last Vital Signs Temp 99.3 F 03/01/22 11:26 Pulse 86 03/01/22 11:26 Resp 19 03/01/22 11:26 BP 81/59 L 03/01/22 11:26 Pulse Ox 92 03/01/22 11:26 BMI result Body Mass Index 30.5 Const General: cooperative, comfortable, no acute distress, alert and awake Nutritional Appearance: overweight Orientation/consciousness: patient oriented x3 Neck Neck: Yes trachea midline, Yes supple and Yes JVD Resp Effort & Inspection: normal respiratory effort Auscultation: no rales and wheezes right lower and right upper Cardio Jugular venous distension: JVD Rhythm: abnormal rhythm irregularly irregular Heart sounds: S1 normal heart sound present, S2 normal heart sound present, no click, no gallops, no murmurs and no rubs GI Auscultation: normal bowel sounds Skin General skin exam: no rashes or lesions noted Neuro General: patient oriented x3 and no focal motor deficits Extrem General: No clubbing, No cyanosis and Yes edema Objective Labs and Meds Result diagrams: 03/01/22 06:42 03/01/22 06:42 Lab results: Laboratory Results - last 24 hr 03/01/22 03/01/22 03/01/22 06:42 06:42 06:42 WBC 4.8 RBC 5.49 Hgb 15.5 Hct 47.2 MCV 86.0 MCH 28.2 MCHC 32.8 RDW 14.5 Plt Count 71 L MPV Not Reportable Absolute Nucleated RBC 0.000 Nucleated RBC % (auto) 0.0 PT INR Sodium 131 L Potassium 3.5 Chloride 87 L Carbon Dioxide 33 H Anion Gap 15 BUN 16 Creatinine 1.32 Estim Creat Clear Calc 79.7 Estimated GFR 56 Fasting Glucose 92 Calcium 9.1 Total Bilirubin 3.6 H Direct Bilirubin 1.9 H AST 39 H ALT 28 Alkaline Phosphatase 56 B-Natriuretic Peptide 1438 H Total Protein 6.3 L Albumin 3.8 03/01/22 06:42 WBC RBC Hgb Hct MCV MCH MCHC RDW Plt Count MPV Absolute Nucleated RBC Nucleated RBC % (auto) PT 40.2 H INR 3.4 H Sodium Potassium Chloride Carbon Dioxide Anion Gap BUN Creatinine Estim Creat Clear Calc Estimated GFR Fasting Glucose Calcium Total Bilirubin Direct Bilirubin AST ALT Alkaline Phosphatase B-Natriuretic Peptide Total Protein Albumin Imaging Radiologist's impression: Impressions Abdomen Ultrasound 02/28/22 17:56 IMPRESSION: Liver is borderline enlarged. Common bile duct was not identified. No appreciable intrahepatic biliary duct dilatation. Moderate right pleural effusion. Progress Note: A&P Assessment and plan (1) Decompensated heart failure: Status: Acute Assessment and Plan: Decompensated congestive heart failure remain short of breath. BNP slightly elevated. Continue IV diuresis. Strict intake and output chart needs to be pursued. Continue to monitor renal function as well as electrolytes and replace electrolytes as needed. Blood pressure is still on the softer side. Continue metoprolol therapy for neurohormonal modulation. Eventually will try to add valsartan therapy once blood pressure improves. Continue to treat his bronchospastic airway disease. (2) Atrial fibrillation, rapid: Status: Acute Assessment and Plan: Atrial fibrillation better rate control. Continue metoprolol and digoxin therapy. Continue full oral anticoagulation, currently on Xarelto. If heart failure syndrome remains difficult control and blood pressure remains soft may require rhythm control with NILES guided cardioversion. Will continue monitor clinically. Will follow with you. Time Spent With Patient Time: Total time spent is greater than 50% in coordination of care (as documented) at patient's floor/unit and/or counseling patient: Progress Note: Quality Stroke Does the patient have a stroke diagnosis?: No Procedures Date of Service Date of Service: 03/01/22
[2022-03-01] MEDS: 0.9 % Sodium Chloride 500 ML IV (15:26)
--- NOTE | 2022-03-01 16:23 | P.EN_ITS ---
Event Note Date of Service: 03/01/22 Event Note: GI Consult-Full note dictated. Hx via patient and EMR Imp: Elevated LFT's, thrombocytopenia, elevated INR. He has CHF/COPD and describes heavy EtOH and cocaine use throughout his 20's. I suspect he has some component of chronic passive liver congestion and chronic liver disease in relation to that and his previous EtOH. Rec: Continue current treatment re: correcting CHF/COPD with associated right- sided heart failure and passive congestion. Follow INR carefully. Will add an oral PPI. Liver w/u with Hepatitis serologies, Iron studies, [id number] level, and autoimmune studies. I don't think he needs any further imaging studies of the liver at this time. Avoid any hepatotoxic drugs. D/W patient in detail. Thanks
[2022-03-01] MEDS: Omeprazole 20 MG CAPSULE.DR PO (17:33)
[2022-03-02] VITALS (7 sets, daily range): BP systolic 82–132; BP diastolic 60–70; PULSE 77–96; RESP 16–18; TEMP 36.3–37; O2SAT 90–95
[2022-03-02] MEDS: 0.9 % Sodium Chloride Flush 3 ML SYRINGE IVFLUSH ×3 (01:20→18:35)
[2022-03-02] MEDS: Levothyroxine Sodium 112 MCG TABLET 224 MCG PO (06:04)
[2022-03-02] MEDS: Omeprazole 20 MG CAPSULE.DR PO (06:05)
[2022-03-02 06:13] LABS: PLT ABN DIST 1; WBC ABN SCTR FOR CBC 1
[2022-03-02 06:14] LABS: Hematocrit 50.3 % (42.0-52.0); Hemoglobin 16.9 g/dl (14.0-18.0); Mean Corpuscular HGB Conc 33.6 g/dl (31.0-36.0); Mean Corpuscular Hemoglobin 27.8 pg (27.0-33.0); Mean Corpuscular Volume 82.7 fL (80.0-98.0); Red Blood Count 6.08 X10*6/uL (4.60-5.80); Red Cell Distribution Width 14.3 % (11.0-16.0)
[2022-03-02 06:15] LABS: Platelet Count 79 X10*3/uL (160-400)
[2022-03-02 06:16] LABS: White Blood Count 4.3 X10*3/uL (4.8-10.8)
[2022-03-02 06:24] LABS: INTERNATIONAL NORM RATIO 2.2 (0.9-1.1); Prothrombin Time 25.6 SEC (9.9-13.0)
[2022-03-02 06:29] LABS: Alanine Aminotransferase 31 U/L (0-40); Albumin Level 3.7 g/dL (3.5-5.0); Alkaline Phosphatase 61 U/L (39-117); Anion Gap 10 (12-20); Aspartate Amino Transferase 44 U/L (5-37); Bilirubin Direct 1.5 mg/dL (0.0-0.5); Bilirubin Total 2.6 mg/dL (0.0-1.0); Blood Urea Nitrogen 20 mg/dL (9-16); Carbon Dioxide 33 mmol/L (22-29); Chloride 88 mmol/L (96-108); Creatinine Clr Calc Pharmacy 100.3; Estimated Glomerular Filt Rate > 60; Glucose Fasting 113 mg/dL (60-99); Potassium 3.4 mmol/L (3.3-5.1); Sodium 128 mmol/L (135-145); Total Protein 6.2 g/dL (6.5-8.0)
[2022-03-02 06:36] LABS: Iron 53 mcg/dL (45-160); Percent Iron Saturation 14 % (15-50); Total Iron Binding Capacity 369 mcg/dL (228-428); Unsaturated Iron Binding 316 ug/dL
[2022-03-02 06:57] LABS: Ferritin 315 ng/mL (20-250)
[2022-03-02] MEDS: predniSONE 20 MG TABLET 40 MG PO (09:33)
[2022-03-02] MEDS: Rivaroxaban 20 MG TABLET PO (09:33)
[2022-03-02] MEDS: buPROPion HCL 75 MG TABLET PO (09:34)
[2022-03-02] MEDS: FLUoxetine HCl 20 MG CAPSULE 40 MG PO (09:34)
[2022-03-02] MEDS: Digoxin 0.125 MG TABLET PO (09:34)
[2022-03-02] MEDS: guaiFENesin LA 600 MG TAB.ER.12H PO ×2 (09:35→22:03)
--- NOTE | 2022-03-02 09:47 | HO.PM.IMPN ---
Subjective Subjective Date of Service: 03/02/22 Interval History: cc: sob interval history:sob improved but still orthopneic Cardiovascular Cardiovascular: Reports no additional cardiovascular complaints Respiratory Respiratory: Reports no additional respiratory complaints Physical Exam Vital Signs: Vital Signs: Last Vital Signs Temp 97.5 F 03/02/22 07:42 Pulse 85 03/02/22 07:42 Resp 18 03/02/22 07:42 BP 89/62 L 03/02/22 07:42 Pulse Ox 90 L 03/02/22 07:42 BMI result Body Mass Index 30.5 General: AO X 3, no acute distress Resp:? CTA bilateral, no accessory muscles used CVS: S1,S2,irregular GI: soft, non tender, non distended Neuro:? motor grossly intact, alert Psych: appropriate affect, appropriate insight? Objective Data Active Medications Acetaminophen (Acetaminophen 325 Mg Tablet) 650 mg PO Q6H PRN PRN Reason: Pain, Mild (Pain Scale 1-3) Albuterol/Ipratropium (Albuterol/Iprat 2.5/0.5mg 3 Ml Ampul.Neb) 3 ml INHALE Q4H PRN PRN Reason: sob Bupropion HCl (Bupropion Hcl 75 Mg Tablet) 75 mg PO DAILY [facility] Last Admin: 03/02/22 09:34 Dose: 75 mg Documented by: HOLLY Digoxin (Digoxin 0.125 Mg Tablet) 0.125 mg PO DAILY [facility] Last Admin: 03/02/22 09:34 Dose: 0.125 mg Documented by: HOLLY Fluoxetine HCl (Fluoxetine Hcl 20 Mg Capsule) 40 mg PO DAILY [facility] Last Admin: 03/02/22 09:34 Dose: 40 mg Documented by: HOLLY Guaifenesin (Guaifenesin La 600 Mg Tab.Er.12h) 600 mg PO BID [facility] Last Admin: 03/02/22 09:35 Dose: 600 mg Documented by: HOLLY Guaifenesin/Dextromethorphan (Guaifenesin Dm 100/10/5 Ml 5 Ml Syrup) 5 ml PO Q4H PRN PRN Reason: Cough Last Admin: 03/01/22 09:00 Dose: 5 ml Documented by: MAJO Levothyroxine Sodium (Levothyroxine Sodium 112 Mcg Tablet) 224 mcg PO DAILY@0600 [facility] Last Admin: 03/02/22 06:04 Dose: 224 mcg Documented by: MYNOR Metoprolol Tartrate (Metoprolol Tartrate 12.5 Mg Halftab) 12.5 mg PO Q6H [facility]; Protocol Last Admin: 03/02/22 04:03 Dose: Not Given Documented by: MYNOR Non-Admin Reason: Blood Pressure Soft; contraindication Omeprazole (Omeprazole 20 Mg Capsule.Dr) 20 mg PO DAILY@0630 [facility] Last Admin: 03/02/22 06:05 Dose: 20 mg Documented by: MYNOR Ondansetron HCl (Ondansetron Hcl 4 Mg/2 Ml Vial) 4 mg IVPUSH Q8H PRN PRN Reason: Nausea and Vomiting Pharmacy Consult (Consult Rx Perform Med Rec) 1 each MISCELLANE ONCE PRN PRN Reason: Consult order Prednisone (Prednisone 20 Mg Tablet) 40 mg PO DAILY [facility] Last Admin: 03/02/22 09:33 Dose: 40 mg Documented by: HOLLY Rivaroxaban (Rivaroxaban 20 Mg Tablet) 20 mg PO DAILY [facility] Last Admin: 03/02/22 09:33 Dose: 20 mg Documented by: HOLLY Sodium Chloride (0.9 % Sodium Chloride Flush 3 Ml Syringe) 3 ml IVFLUSH QSHIFT [facility] Last Admin: 03/02/22 09:36 Dose: 3 ml Documented by: HOLLY Labs CBC & Chem 7: 03/02/22 05:46 03/02/22 05:46 Labs: Laboratory Results - last 24 hr 03/02/22 03/02/22 03/02/22 05:46 05:46 05:46 MCV 82.7 MCH 27.8 MCHC 33.6 RDW 14.3 Plt Count 79 L MPV TNP Absolute Nucleated RBC 0.000 Nucleated RBC % (auto) 0.0 PT 25.6 H INR 2.2 H Anion Gap Estim Creat Clear Calc Estimated GFR Fasting Glucose Calcium Iron 53 TIBC 369 % Saturation 14 L Unsat Iron Binding 316 Ferritin 315 H Total Bilirubin Direct Bilirubin AST ALT Alkaline Phosphatase Total Protein Albumin 03/02/22 05:46 MCV MCH MCHC RDW Plt Count MPV Absolute Nucleated RBC Nucleated RBC % (auto) PT INR Anion Gap 10 L Estim Creat Clear Calc 100.3 Estimated GFR > 60 Fasting Glucose 113 H Calcium 9.0 Iron TIBC % Saturation Unsat Iron Binding Ferritin Total Bilirubin 2.6 H Direct Bilirubin 1.5 H AST 44 H ALT 31 Alkaline Phosphatase 61 Total Protein 6.2 L Albumin 3.7 Assessment and Plan (1) Decompensated heart failure: Status: Acute Plan 56M presented with sob found to have afib with rvr acute systolic chf unable to continue diuresis due to hypotension, though still appears overloaded holding lasix, follow up cardio hepatomegaly with elevated lfts and thrombocytopenia denies ETOH (remote history), likely due to hepatic congestion, follow up viral hepatitis, alpha 1 AT, GI appreciatedl new afib with rvr dig, lopresor, xarelto copd with acute decompensation started prednisone, nebs hypothyroid synthroid, TSH mildly elevated, no changes for now mood disorder prozac wellbutrin reason for continued hospitalization: still with fluid overload Quality Stroke Does the patient have a stroke diagnosis?: No VTE Prior VTE?: No VTE Risk Level:: Medical - moderate - high VTE Device Contraindication: Treatment Not Indicated VTE Drug Contraindication: N/A - Med Ordered
--- NOTE | 2022-03-02 12:59 | PM.PNCARD ---
Subjective Subjective Date of Service: 03/02/22 Principal diagnosis: afib, CHF Interval history: Patient still having cough. No significant shortness of breath. No leg edema and says that this is better. His intake and output chart still denotes positive balance but he says he has been going bathroom a lot. Off Lasix drip due to lower blood pressure. He complains of lightheadedness when he gets up suddenly. However he has mobile. Denies any palpitations. Heart rate is better controlled. Review of Systems Constitutional: Reports no additional constitutional complaints Cardiovascular: Denies chest pain, Denies leg edema and Denies palpitations Respiratory: Reports cough Gastrointestinal: Reports no additional gastrointestinal complaints Skin/Breast: Reports system reviewed and no additional complaints, except as docu Reports system reviewed and no additional complaints, except as documented Psychiatric: Reports no additional psychiatric complaints Endocrine: Denies palpitations Hematologic/Lymphatic: Reports no additional hematologic/lymphatic complaints Physical Exam Vital Signs: Last Vital Signs Temp 98.1 F 03/02/22 11:27 Pulse 86 03/02/22 11:27 Resp 18 03/02/22 11:27 BP 90/70 03/02/22 11:27 Pulse Ox 93 03/02/22 11:27 BMI result Body Mass Index 30.5 Const General: cooperative, comfortable, no acute distress, alert and awake Nutritional Appearance: overweight Orientation/consciousness: patient oriented x3 Neck Neck: Yes trachea midline, Yes supple and Yes no JVD Resp Effort & Inspection: normal respiratory effort Auscultation: no rales, no wheezes and diminished lung sounds Cardio Jugular venous distension: no JVD Rhythm: abnormal rhythm irregularly irregular Heart sounds: S1 normal heart sound present, S2 normal heart sound present, no click, no gallops and no murmurs GI Percussion: Yes normal to percussion Skin General skin exam: no rashes or lesions noted Neuro General: patient oriented x3 and no focal motor deficits Extrem General: Yes no clubbing, cyanosis or edema Objective Labs and Meds Result diagrams: 03/02/22 05:46 03/02/22 05:46 Lab results: Laboratory Results - last 24 hr 03/02/22 03/02/22 03/02/22 05:46 05:46 05:46 WBC 4.3 L RBC 6.08 H Hgb 16.9 Hct 50.3 MCV 82.7 MCH 27.8 MCHC 33.6 RDW 14.3 Plt Count 79 L MPV TNP Absolute Nucleated RBC 0.000 Nucleated RBC % (auto) 0.0 PT 25.6 H INR 2.2 H Sodium Potassium Chloride Carbon Dioxide Anion Gap BUN Creatinine Estim Creat Clear Calc Estimated GFR Fasting Glucose Calcium Iron 53 TIBC 369 % Saturation 14 L Unsat Iron Binding 316 Ferritin 315 H Total Bilirubin Direct Bilirubin AST ALT Alkaline Phosphatase Total Protein Albumin 03/02/22 05:46 WBC RBC Hgb Hct MCV MCH MCHC RDW Plt Count MPV Absolute Nucleated RBC Nucleated RBC % (auto) PT INR Sodium 128 L Potassium 3.4 Chloride 88 L Carbon Dioxide 33 H Anion Gap 10 L BUN 20 H Creatinine 1.05 Estim Creat Clear Calc 100.3 Estimated GFR > 60 Fasting Glucose 113 H Calcium 9.0 Iron TIBC % Saturation Unsat Iron Binding Ferritin Total Bilirubin 2.6 H Direct Bilirubin 1.5 H AST 44 H ALT 31 Alkaline Phosphatase 61 Total Protein 6.2 L Albumin 3.7 Progress Note: A&P Assessment and plan (1) Decompensated heart failure: Status: Acute Assessment and Plan: Decompensated congestive heart failure on presentation. Clinically appears to be more euvolemic. Not having any rales or significant signs of fluid overload. At this point in time can switch to p.o. Lasix 40 mg daily. CHF education to be provided. Continue metoprolol for neurohormonal modulation as well as rate control. Cannot up titrate or add other medications due to low blood pressure. If blood pressure remains a significant issue may need NILES guided cardioversion to achieve AV synchrony and hopefully help his blood pressure. Advised to ambulate as tolerated. Continue treat bronchospastic airway disease as prescribed. His wheezing seems to have improved. (2) Atrial fibrillation, rapid: Status: Acute Assessment and Plan: Admission with atrial fibrillation rapid ventricular response, new onset. Rate is better controlled on dual therapy with digoxin metoprolol. Continue the same. Eventually require rhythm control approach, question whether needs to be done more urgently. Will follow his hemodynamics. Continue full oral anticoagulation with Xarelto. Will continue to follow with you Time Spent With Patient Time: Total time spent is greater than 50% in coordination of care (as documented) at patient's floor/unit and/or counseling patient: Progress Note: Quality Stroke Does the patient have a stroke diagnosis?: No Procedures Date of Service Date of Service: 03/02/22
[2022-03-02] MEDS: Furosemide 40 MG TABLET PO (18:32)
[2022-03-03] VITALS (7 sets, daily range): BP systolic 89–138; BP diastolic 52–89; PULSE 81–88; RESP 16–18; TEMP 36.3–37.4; O2SAT 94–98
[2022-03-03] MEDS: Levothyroxine Sodium 112 MCG TABLET 224 MCG PO (05:54)
[2022-03-03] MEDS: Omeprazole 20 MG CAPSULE.DR PO (05:54)
[2022-03-03 07:33] LABS: HBS Num1 2.26 mIU/mL (0-7.99); HBc Num1 0.08 S/CO (0.00-0.79); HBsAGNum1 0.17 S/CO (0.00-0.99); Hepatitis B Core Antibody Nonreactive (Nonreactive); Hepatitis B Surface Antigen Negative (Negative); ~HepC Num1 0.07 S/CO (0.00-0.79); ~Hepatitis B Surface Antibody NONREACTIVE (Nonreactive); ~Hepatitis C Antibody Nonreactive (Nonreactive)
[2022-03-03 08:41] LABS: Hematocrit 50.3 % (42.0-52.0); Hemoglobin 16.9 g/dl (14.0-18.0); Mean Corpuscular HGB Conc 33.6 g/dl (31.0-36.0); Mean Corpuscular Hemoglobin 28.7 pg (27.0-33.0); Mean Corpuscular Volume 85.4 fL (80.0-98.0); Platelet Count 100 X10*3/uL (160-400); Red Blood Count 5.89 X10*6/uL (4.60-5.80); Red Cell Distribution Width 14.4 % (11.0-16.0); White Blood Count 5.6 X10*3/uL (4.8-10.8)
[2022-03-03 08:44] LABS: Anion Gap 14 (12-20); Blood Urea Nitrogen 22 mg/dL (9-16); Calcium 9.4 mg/dL (8.4-10.2); Carbon Dioxide 33 mmol/L (22-29); Chloride 91 mmol/L (96-108); Creatinine Clr Calc Pharmacy 105.3; Estimated Glomerular Filt Rate > 60; Glucose Random 94 mg/dL (60-115); Potassium 3.2 mmol/L (3.3-5.1); Sodium 135 mmol/L (135-145)
[2022-03-03] MEDS: guaiFENesin LA 600 MG TAB.ER.12H PO ×2 (09:36→22:23)
[2022-03-03] MEDS: buPROPion HCL 75 MG TABLET PO (09:36)
[2022-03-03] MEDS: Furosemide 40 MG TABLET PO ×2 (09:36→16:10)
[2022-03-03] MEDS: FLUoxetine HCl 20 MG CAPSULE 40 MG PO (09:37)
[2022-03-03] MEDS: Digoxin 0.125 MG TABLET PO (09:37)
[2022-03-03] MEDS: Rivaroxaban 20 MG TABLET PO (09:37)
[2022-03-03] MEDS: predniSONE 20 MG TABLET 40 MG PO (09:37)
[2022-03-03] MEDS: 0.9 % Sodium Chloride Flush 3 ML SYRINGE IVFLUSH ×2 (09:38→16:10)
--- NOTE | 2022-03-03 10:53 | PM.PNCARD ---
Subjective Subjective Date of Service: 03/03/22 Principal diagnosis: afib, CHF Interval history: Patient states that he is doing okay. Denies any anginal-type symptoms. Shortness of breath is improved. No significant leg swelling. Still in atrial fibrillation. Review of Systems Review of Systems Yes all other systems are reviewed and are negative Constitutional: Reports as per HPI Eyes: Reports as per HPI Reports as per HPI Cardiovascular: Reports as per HPI, Denies acrocyanosis, Denies cool extremities, Denies chest pain, Denies leg edema, Denies lightheadedness, Denies palpitations and Denies dyspnea Respiratory: Reports as per HPI, Reports no additional respiratory complaints and Denies dyspnea Gastrointestinal: Reports as per HPI and Reports no additional gastrointestinal complaints Genitourinary: Reports no additional male genitourinary complaints and Reports as per HPI Musculoskeletal: Reports no additional musculoskeletal complaints and Reports as per HPI Skin/Breast: Reports system reviewed and no additional complaints, except as docu Reports system reviewed and no additional complaints, except as documented and Reports as per HPI Psychiatric: Reports no additional psychiatric complaints and Reports as per HPI Endocrine: Reports no additional endocrine complaints, Reports as per HPI and Denies palpitations Hematologic/Lymphatic: Reports no additional hematologic/lymphatic complaints and Reports as per HPI Allergic/Immunologic: Reports no additional allergic/immunologic complaints and Reports as per HPI Physical Exam Vital Signs: Last Vital Signs Temp 97.9 F 03/03/22 08:00 Pulse 83 03/03/22 08:00 Resp 16 03/03/22 08:00 BP 108/60 03/03/22 08:00 Pulse Ox 96 03/03/22 08:00 BMI result Body Mass Index 30.5 Const General: comfortable and no acute distress Orientation/consciousness: patient oriented x3 HEENT Other: Unremarkable Head: Yes normal to inspection Neck Neck: Yes normal visual inspection Chest Chest palpation & inspection: normal inspection of the chest Resp Auscultation: rhonchi Cardio Palpation: normal PMI Heart sounds: S1 normal heart sound present, S2 normal heart sound present, no gallops, no murmurs and no rubs GI Palpation (GI): Soft to palpation Back/Spine/Pelvis Other: unremarkable Skin General skin exam: no rashes or lesions noted Neuro General: patient oriented x3 Extrem General: Yes normal to inspection Psych Mental Status: mental status grossly normal Objective Labs and Meds Result diagrams: 03/03/22 08:02 05/16/22 08:02 Lab results: Laboratory Results - last 24 hr 03/01/22 03/03/22 03/03/22 06:42 08:02 08:02 WBC 5.6 RBC 5.89 H Hgb 16.9 Hct 50.3 MCV 85.4 MCH 28.7 MCHC 33.6 RDW 14.4 Plt Count 100 L D MPV Not Reportable Absolute Nucleated RBC 0.000 Nucleated RBC % (auto) 0.0 Sodium 135 Potassium 3.2 L Chloride 91 L Carbon Dioxide 33 H Anion Gap 14 BUN 22 H Creatinine 1.00 Estim Creat Clear Calc 105.3 Estimated GFR > 60 Random Glucose 94 Calcium 9.4 Hep Bs Antigen Negative Hep Bs Antibody NONREACTIVE Hep B Core Total Ab Nonreactive Hepatitis C Ab (EIA) Nonreactive Progress Note: A&P Assessment and plan (1) Acute systolic (congestive) heart failure: Status: Acute (2) Atrial fibrillation with rapid ventricular response: Status: Acute Plan Echocardiogram with LVEF of 35-40% with mild biatrial enlargement. At least moderate mitral regurgitation and mild pulmonary hypertension. He still in atrial fibrillation on telemetry but rate is somewhere in the 80s. Some rapid rates intermittently. Clinically seems compensated. Blood pressure is still low. Is currently on a combination of metoprolol and digoxin. He is also on Xarelto. Oral diuretics. Discussed about transesophageal echocardiogram/cardioversion. We will plan on doing this tomorrow as he had a full meal today. Patient is agreeable. Keep him NPO past midnight. Time Spent With Patient Time: Total time spent is greater than 50% in coordination of care (as documented) at patient's floor/unit and/or counseling patient: Progress Note: Quality Stroke Does the patient have a stroke diagnosis?: No Procedures Date of Service Date of Service: 03/03/22
--- NOTE | 2022-03-03 11:03 | P.PNIM_ITS ---
Subjective Subjective Date of Service: 03/03/22 Interval History: cc: sob interval history:improved Cardiovascular Cardiovascular: Reports no additional cardiovascular complaints Respiratory Respiratory: Reports no additional respiratory complaints Physical Exam Vital Signs: Vital Signs: Last Vital Signs Temp 97.9 F 03/03/22 08:00 Pulse 83 03/03/22 08:00 Resp 16 03/03/22 08:00 BP 108/60 03/03/22 08:00 Pulse Ox 96 03/03/22 08:00 BMI result Body Mass Index 30.5 General: AO X 3, no acute distress Resp:? CTA bilateral, no accessory muscles used CVS: S1,S2,irregular GI: soft, non tender, non distended Neuro:? motor grossly intact, alert Psych: appropriate affect, appropriate insight? Objective Data Active Medications Acetaminophen (Acetaminophen 325 Mg Tablet) 650 mg PO Q6H PRN PRN Reason: Pain, Mild (Pain Scale 1-3) Albuterol/Ipratropium (Albuterol/Iprat 2.5/0.5mg 3 Ml Ampul.Neb) 3 ml INHALE Q4H PRN PRN Reason: sob Bupropion HCl (Bupropion Hcl 75 Mg Tablet) 75 mg PO DAILY [facility] Last Admin: 03/03/22 09:36 Dose: 75 mg Documented by: SUJATHA Digoxin (Digoxin 0.125 Mg Tablet) 0.125 mg PO DAILY [facility] Last Admin: 03/03/22 09:37 Dose: 0.125 mg Documented by: SUJATHA Fluoxetine HCl (Fluoxetine Hcl 20 Mg Capsule) 40 mg PO DAILY [facility] Last Admin: 03/03/22 09:37 Dose: 40 mg Documented by: SUJATHA Furosemide (Furosemide 40 Mg Tablet) 40 mg PO BID@0900,1800 [facility]; Protocol Last Admin: 03/03/22 09:36 Dose: 40 mg Documented by: SUJATHA Guaifenesin (Guaifenesin La 600 Mg Tab.Er.12h) 600 mg PO BID [facility] Last Admin: 03/03/22 09:36 Dose: 600 mg Documented by: SUJATHA Guaifenesin/Dextromethorphan (Guaifenesin Dm 200/20/10 Ml 10 Ml Syrup) 5 ml PO Q4H PRN PRN Reason: Cough Levothyroxine Sodium (Levothyroxine Sodium 112 Mcg Tablet) 224 mcg PO DAILY@0600 [facility] Last Admin: 03/03/22 05:54 Dose: 224 mcg Documented by: ANTON Metoprolol Tartrate (Metoprolol Tartrate 12.5 Mg Halftab) 12.5 mg PO Q6H [facility]; Protocol Last Admin: 03/03/22 05:02 Dose: Not Given Documented by: ANTON Non-Admin Reason: Patient Condition Contraindication Comments: 89/60 bp Omeprazole (Omeprazole 20 Mg Capsule.) 20 mg PO DAILY@0630 [facility] Last Admin: 03/03/22 05:54 Dose: 20 mg Documented by: ANTON Ondansetron HCl (Ondansetron Hcl 4 Mg/2 Ml Vial) 4 mg IVPUSH Q8H PRN PRN Reason: Nausea and Vomiting Pharmacy Consult (Consult Rx Perform Med Rec) 1 each MISCELLANE ONCE PRN PRN Reason: Consult order Prednisone (Prednisone 20 Mg Tablet) 40 mg PO DAILY [facility] Last Admin: 03/03/22 09:37 Dose: 40 mg Documented by: SUJATHA Rivaroxaban (Rivaroxaban 20 Mg Tablet) 20 mg PO DAILY [facility] Last Admin: 03/03/22 09:37 Dose: 20 mg Documented by: SUJATHA Sodium Chloride (0.9 % Sodium Chloride Flush 3 Ml Syringe) 3 ml IVFLUSH QSHIFT [facility] Last Admin: 03/03/22 09:38 Dose: 3 ml Documented by: SUJATHA Labs CBC & Chem 7: 03/03/22 08:02 03/03/22 08:02 Labs: Laboratory Results - last 24 hr 03/01/22 03/03/22 03/03/22 06:42 08:02 08:02 MCV 85.4 MCH 28.7 MCHC 33.6 RDW 14.4 Plt Count 100 L D MPV Not Reportable Absolute Nucleated RBC 0.000 Nucleated RBC % (auto) 0.0 Anion Gap 14 Estim Creat Clear Calc 105.3 Estimated GFR > 60 Random Glucose 94 Calcium 9.4 Hep Bs Antigen Negative Hep Bs Antibody NONREACTIVE Hep B Core Total Ab Nonreactive Hepatitis C Ab (EIA) Nonreactive Microbiology Microbiology Results: Microbiology 02/25/22 16:44 Blood Culture - Final Blood - Venous No growth after 5 days. 02/25/22 16:09 Blood Culture - Final Blood - Venous No growth after 5 days. Assessment and Plan (1) Decompensated heart failure: Status: Acute Plan 56M presented with sob found to have afib with rvr acute systolic chf diuresed well, now on orals hepatomegaly with elevated lfts and thrombocytopenia denies ETOH (remote history), likely due to hepatic congestion, negative viral hepatitis, follow upalpha 1 AT new afib with rvr dig, lopresor, xarelto plan for derrick/cv tomorrow, npo after midnight copd with acute decompensation started prednisone, nebs hypothyroid synthroid, TSH mildly elevated, no changes for now mood disorder prozac wellbutrin reason for continued hospitalization: plan for CV Quality Stroke Does the patient have a stroke diagnosis?: No VTE Prior VTE?: No VTE Risk Level:: Medical - moderate - high VTE Device Contraindication: Treatment Not Indicated VTE Drug Contraindication: N/A - Med Ordered
[2022-03-03] MEDS: Potassium Chloride ER 20 MEQ TAB.ER.PRT 40 MEQ PO (12:05)
--- NOTE | 2022-03-03 12:41 | P.CDIC_ITS ---
CDI Concurrent Query Documentation Clarification: PHYSICIAN'S DOCUMENTATION REQUEST Date of Query: 03/03/22 1241 Patient Name: Jose Guadalupe Sweet Admit Date: 02/25/22 Dear Doctor, A review of the medical record indicates additional documentation may be needed. Please review below and update the documentation accordingly. Clinical Indicators: Is there a diagnosis that correlates with these lab findings: Risk Factors/Clinical Indicators/Treatments LABS: 03/02 - sodium 2.8 L IV sodium chloride Please indicate in your progress notes if any diagnosis correlates with the labs above: Hyponatremia or other etiology of lab noted above: * Yes, [ ] is a valid diagnosis for this patient * No, [ ] is a not a valid diagnosis for this patient * Other * Unable to determine Use of terms such as suspected, likely, concern for, or probable (associated with a specific diagnosis that is being evaluated, monitored, or treated as if it exists) are acceptable and can be coded in the inpatient setting, when documented at the time of discharge. Thank you, Mine Mojica [facility], CDIS Extension: [phone] Please use your independent medical judgment in providing your response. THIS QUERY IS PART OF THE PERMANENT MEDICAL RECORD Provider Response: Other Other Diagnosis: hyponatremia resolved
--- NOTE | 2022-03-03 13:10 | CONS_ITS ---
DATE OF SERVICE: 03/01/2022 REASON FOR CONSULTATION: Elevated LFTs. HISTORY OF PRESENT ILLNESS: This has been obtained from the patient and the medical record. The patient is a 56-year-old male, who was admitted here on February 25 with progressive shortness of breath, cough, and edema. His workup has revealed atrial fibrillation, congestive heart failure, and COPD. He has been improving with diuresis. He has been noted to have some elevated LFTs with predominantly elevated total bilirubin. He denies any history of liver disease in himself nor family members. He denies any signs of jaundice at home. He denies any increasing abdominal girth. He has had edema at home. He describes that he was a heavy drinker and cocaine user throughout his 20s, but has not used that in almost 30 years. He denies any new medication at home. Since here in the hospital, he does report that his appetite has been good. He denies any chronic GI symptoms in general, both here and at home. He denies any significant heartburn nor dysphagia. His bowel movements have been fairly regular, although he has had some loose stools recently. He denies any hematochezia nor melena. He denies any chronic pruritus. MEDICATIONS: At home included aspirin 81 mg, bupropion, fluoxetine, hydrochlorothiazide, levothyroxine, and lisinopril. His medications here in the hospital include acetaminophen, albuterol, bupropion, digoxin, fluoxetine, Mucinex, levothyroxine, metoprolol, Zofran p.r.n., prednisone and Xarelto. PAST MEDICAL HISTORY: Shoulder surgery. Thyroidectomy for nodules. He describes depression. He describes hypertension. He denies history of NH, diabetes, stroke, nor kidney disease. He does describe some probable history of emphysema as he has been a smoker, but according to his medication list was not taking any medication for that. SOCIAL HISTORY: He is . He does smoke. He denies any alcohol use currently. FAMILY HISTORY: Negative for GI malignancy nor liver disease. REVIEW OF SYSTEMS: CONSTITUTIONAL: At home, he was not feeling well due to the shortness of breath. Appetite was good. SKIN: He denies any jaundice. No pruritus. CARDIAC: He denies any chest pain. PULMONARY: He has been short of breath. He has had coughing, but no hemoptysis. GI: As above. PHYSICAL EXAMINATION: GENERAL: The patient is a pleasant, alert, comfortable appearing male, in no distress. SKIN: Warm and dry. No obvious spider angiomata. Nonjaundiced. Anicteric sclerae. NECK: Supple. ABDOMEN: Soft, nondistended, nontender. There is no palpable organomegaly. EXTREMITIES: Reveal no significant edema at the present time. There is no palmar erythema. Neuro: Mentally, he is alert and oriented without any asterixis. LABORATORIES: In 2020, he had a normal liver profile, CBC with platelet count and BUN of 19 with creatinine of 1.48. His laboratories on admission here revealed a white blood cell count 9.0, hemoglobin of 15.8, and platelet count 109,000, which has dropped to 71,000 as of today. His PT on admission was 17.8 with INR 1.6. Today's labs show a PT of 40.2 with an INR 3.4. His labs on admission showed normal electrolytes, BUN 23, creatinine 1.4, total bilirubin 2.4, AST 30, ALT 26, alkaline phosphatase 65, albumin 4.0. His labs from today show total bilirubin 3.6, direct bilirubin 1.9, AST 39, ALT 28, alkaline phosphatase 56, albumin 3.8. His abdominal ultrasound from yesterday describes a borderline enlarged liver, but otherwise normal in appearance and without any sign of biliary dilatation. Gallbladder appeared normal. Common bile duct was not identified. There was no splenomegaly nor ascites. There was a moderate right-sided pleural effusion. Chest x-ray also showed some cardiomegaly. IMPRESSION: Given the patient's clinical history in regard to the elevated LFTs, I do suspect this represents some right-sided heart failure and passive liver congestion in relation to his cardiopulmonary disease. Given the history, this has been going on for quite a while at home. Therefore between that and his previous history of alcohol abuse he may have some underlying chronic liver disease that would account for his thrombocytopenia and relative coagulopathy. He does not show any other signs of decompensated liver disease at this time. There is no evidence of any biliary disease nor focal liver lesion on his imaging study.. At this point, I would continue the current treatment in regard to correcting the underlying issues with his congestive heart failure, atrial fibrillation, and chronic obstructive pulmonary disease. As that is corrected and improved with diuresis, I do think his LFTs should improve and remain stable. His significantly elevated INR needs to be followed carefully as he is on a blood thinner and does have apparent underlying liver disease. I will add an oral PPI. I would do a complete liver workup including hepatitis serologies, which have already been ordered, along with iron studies, alpha-1 antitrypsin level, and autoimmune studies. I do suspect the workup will be negative, although given the history of cocaine use, he may have some underlying chronic hepatitis C as well. I do not think he needs any further imaging studies of the liver at this time. I would avoid any hepatotoxic drugs. This has all been discussed with the patient in detail. Thanks for the consultation. MD NORMAN Mclaughlin/LANDY / [id number] MTDD
[2022-03-03] MEDS: Metoprolol Tartrate 12.5 MG HALFTAB PO ×2 (16:10→22:23)
[2022-03-04] VITALS (14 sets, daily range): BP systolic 90–123; BP diastolic 51–86; PULSE 60–85; RESP 14–20; TEMP 36.3–37.1; O2SAT 93–99
[2022-03-04] MEDS: 0.9 % Sodium Chloride Flush 3 ML SYRINGE IVFLUSH ×3 (00:02→17:12)
[2022-03-04 06:56] LABS: Hematocrit 51.2 % (42.0-52.0); Hemoglobin 16.8 g/dl (14.0-18.0); Mean Corpuscular HGB Conc 32.8 g/dl (31.0-36.0); Mean Corpuscular Hemoglobin 28.1 pg (27.0-33.0); Mean Corpuscular Volume 85.8 fL (80.0-98.0); Red Blood Count 5.97 X10*6/uL (4.60-5.80); Red Cell Distribution Width 14.3 % (11.0-16.0); White Blood Count 5.8 X10*3/uL (4.8-10.8)
[2022-03-04 06:57] LABS: Platelet Count 99 X10*3/uL (160-400)
[2022-03-04 06:59] LABS: Anion Gap 12 (12-20); Blood Urea Nitrogen 23 mg/dL (9-16); Calcium 9.4 mg/dL (8.4-10.2); Carbon Dioxide 33 mmol/L (22-29); Chloride 96 mmol/L (96-108); Creatinine Clr Calc Pharmacy 93.2; Estimated Glomerular Filt Rate > 60; Glucose Fasting 95 mg/dL (60-99); Potassium 3.5 mmol/L (3.3-5.1); Sodium 137 mmol/L (135-145)
[2022-03-04 07:00] LABS: B Type Natriuretic Peptide 517 pg/mL (<100)
--- NOTE | 2022-03-04 10:16 | P.PNIM_ITS ---
Subjective Subjective Date of Service: 03/04/22 Interval History: cc: sob interval history: overall improved Cardiovascular Cardiovascular: Reports no additional cardiovascular complaints Respiratory Respiratory: Reports no additional respiratory complaints Physical Exam Vital Signs: Vital Signs: Last Vital Signs Temp 97.4 F 03/04/22 07:52 Pulse 82 03/04/22 07:52 Resp 18 03/04/22 07:52 BP 105/69 03/04/22 07:52 Pulse Ox 96 03/04/22 07:52 BMI result Body Mass Index 30.5 General: AO X 3, no acute distress Resp:? CTA bilateral, no accessory muscles used CVS: S1,S2,irregular GI: soft, non tender, non distended Neuro:? motor grossly intact, alert Psych: appropriate affect, appropriate insight? Objective Data Active Medications Acetaminophen (Acetaminophen 325 Mg Tablet) 650 mg PO Q6H PRN PRN Reason: Pain, Mild (Pain Scale 1-3) Albuterol/Ipratropium (Albuterol/Iprat 2.5/0.5mg 3 Ml Ampul.Neb) 3 ml INHALE Q4H PRN PRN Reason: sob Bupropion HCl (Bupropion Hcl 75 Mg Tablet) 75 mg PO DAILY [facility] Last Admin: 03/03/22 09:36 Dose: 75 mg Documented by: SUJATHA Digoxin (Digoxin 0.125 Mg Tablet) 0.125 mg PO DAILY [facility] Last Admin: 03/03/22 09:37 Dose: 0.125 mg Documented by: SUJATHA Fluoxetine HCl (Fluoxetine Hcl 20 Mg Capsule) 40 mg PO DAILY [facility] Last Admin: 03/03/22 09:37 Dose: 40 mg Documented by: SUJATHA Furosemide (Furosemide 40 Mg Tablet) 40 mg PO BID@0900,1800 [facility]; Protocol Last Admin: 03/03/22 16:10 Dose: 40 mg Documented by: RYAN Guaifenesin (Guaifenesin La 600 Mg Tab.Er.12h) 600 mg PO BID [facility] Last Admin: 03/03/22 22:23 Dose: 600 mg Documented by: RYAN Guaifenesin/Dextromethorphan (Guaifenesin Dm 200/20/10 Ml 10 Ml Syrup) 5 ml PO Q4H PRN PRN Reason: Cough Levothyroxine Sodium (Levothyroxine Sodium 112 Mcg Tablet) 224 mcg PO DAILY@0600 [facility] Last Admin: 03/04/22 06:35 Dose: Not Given Documented by: JOHNY Non-Admin Reason: NPO Metoprolol Tartrate (Metoprolol Tartrate 12.5 Mg Halftab) 12.5 mg PO Q6H [facility]; Protocol Last Admin: 03/04/22 04:47 Dose: Not Given Documented by: JOHNY Non-Admin Reason: Decreased Blood Pressure Omeprazole (Omeprazole 20 Mg Capsule.Dr) 20 mg PO DAILY@0630 [facility] Last Admin: 03/04/22 06:35 Dose: Not Given Documented by: JOHNY Non-Admin Reason: NPO Ondansetron HCl (Ondansetron Hcl 4 Mg/2 Ml Vial) 4 mg IVPUSH Q8H PRN PRN Reason: Nausea and Vomiting Pharmacy Consult (Consult Rx Perform Med Rec) 1 each MISCELLANE ONCE PRN PRN Reason: Consult order Prednisone (Prednisone 20 Mg Tablet) 40 mg PO DAILY [facility] Last Admin: 03/03/22 09:37 Dose: 40 mg Documented by: SUJATHA Rivaroxaban (Rivaroxaban 20 Mg Tablet) 20 mg PO DAILY [facility] Last Admin: 03/03/22 09:37 Dose: 20 mg Documented by: SUJATHA Sodium Chloride (0.9 % Sodium Chloride Flush 3 Ml Syringe) 3 ml IVFLUSH QSHIFT [facility] Last Admin: 03/04/22 09:43 Dose: 3 ml Documented by: REYES Labs CBC & Chem 7: 03/04/22 06:13 03/04/22 06:13 Labs: Laboratory Results - last 24 hr 03/04/22 03/04/22 03/04/22 06:13 06:13 06:13 MCV 85.8 MCH 28.1 MCHC 32.8 RDW 14.3 Plt Count 99 L MPV Not Reportable Absolute Nucleated RBC 0.000 Nucleated RBC % (auto) 0.0 Anion Gap 12 Estim Creat Clear Calc 93.2 Estimated GFR > 60 Fasting Glucose 95 Calcium 9.4 B-Natriuretic Peptide 517 H Assessment and Plan (1) Decompensated heart failure: Status: Acute Plan 56M presented with sob found to have afib with rvr acute systolic chf diuresed well, now on orals not tolerating neurohormonals due to hypotension hepatomegaly with elevated lfts and thrombocytopenia denies ETOH (remote history), likely due to hepatic congestion, negative viral hepatitis, follow upalpha 1 AT new afib with rvr dig, lopresor, xarelto rate improved but may be contributing to hypotension plan for derrick/cv today copd with acute decompensation prednisone, nebs hypothyroid synthroid, TSH mildly elevated, no changes for now mood disorder prozac wellbutrin reason for continued hospitalization: plan for CV today Quality Stroke Does the patient have a stroke diagnosis?: No VTE Prior VTE?: No VTE Risk Level:: Medical - moderate - high VTE Device Contraindication: Treatment Not Indicated VTE Drug Contraindication: N/A - Med Ordered
[2022-03-04] MEDS: Rivaroxaban 20 MG TABLET PO (10:21)
--- NOTE | 2022-03-04 10:22 | PM.PNCARD ---
Subjective Subjective Date of Service: 03/04/22 Principal diagnosis: afib, CHF Interval history: Patient states he is doing okay. No specific complaints like angina or shortness of breath. Continues to be in atrial fibrillation. Review of Systems Review of Systems Yes all other systems are reviewed and are negative Constitutional: Reports as per HPI Eyes: Reports as per HPI Reports as per HPI Cardiovascular: Reports as per HPI, Denies acrocyanosis, Denies cool extremities, Denies chest pain, Denies leg edema, Denies lightheadedness, Denies palpitations and Denies dyspnea Respiratory: Reports as per HPI, Reports no additional respiratory complaints and Denies dyspnea Gastrointestinal: Reports as per HPI and Reports no additional gastrointestinal complaints Genitourinary: Reports no additional male genitourinary complaints and Reports as per HPI Musculoskeletal: Reports no additional musculoskeletal complaints and Reports as per HPI Skin/Breast: Reports system reviewed and no additional complaints, except as docu Reports system reviewed and no additional complaints, except as documented and Reports as per HPI Psychiatric: Reports no additional psychiatric complaints and Reports as per HPI Endocrine: Reports no additional endocrine complaints, Reports as per HPI and Denies palpitations Hematologic/Lymphatic: Reports no additional hematologic/lymphatic complaints and Reports as per HPI Allergic/Immunologic: Reports no additional allergic/immunologic complaints and Reports as per HPI Physical Exam Vital Signs: Last Vital Signs Temp 97.4 F 03/04/22 07:52 Pulse 82 03/04/22 07:52 Resp 18 03/04/22 07:52 BP 105/69 03/04/22 07:52 Pulse Ox 96 03/04/22 07:52 BMI result Body Mass Index 30.5 Const General: comfortable and no acute distress Orientation/consciousness: patient oriented x3 HEENT Other: Unremarkable Head: Yes normal to inspection Neck Neck: Yes normal visual inspection Chest Chest palpation & inspection: normal inspection of the chest Resp Auscultation: clear to auscultation bilaterally Cardio Palpation: normal PMI Heart sounds: S1 normal heart sound present, S2 normal heart sound present, no gallops, no murmurs and no rubs GI Palpation (GI): Soft to palpation Back/Spine/Pelvis Other: unremarkable Skin General skin exam: no rashes or lesions noted Neuro General: patient oriented x3 Extrem General: Yes normal to inspection Psych Mental Status: mental status grossly normal Objective Labs and Meds Result diagrams: 03/04/22 06:13 03/04/22 06:13 Lab results: Laboratory Results - last 24 hr 03/04/22 03/04/22 03/04/22 06:13 06:13 06:13 WBC 5.8 RBC 5.97 H Hgb 16.8 Hct 51.2 MCV 85.8 MCH 28.1 MCHC 32.8 RDW 14.3 Plt Count 99 L MPV Not Reportable Absolute Nucleated RBC 0.000 Nucleated RBC % (auto) 0.0 Sodium 137 Potassium 3.5 Chloride 96 Carbon Dioxide 33 H Anion Gap 12 BUN 23 H Creatinine 1.13 Estim Creat Clear Calc 93.2 Estimated GFR > 60 Fasting Glucose 95 Calcium 9.4 B-Natriuretic Peptide 517 H Progress Note: A&P Assessment and plan (1) Acute systolic (congestive) heart failure: Status: Acute (2) Atrial fibrillation with rapid ventricular response: Status: Acute Plan Echocardiogram with LVEF of 35-40% with mild biatrial enlargement. At least moderate mitral regurgitation and mild pulmonary hypertension. On telemetry, he is in atrial fibrillation but mostly controlled rate. Blood pressure is still on the lower side but not profoundly low. Currently he is on metoprolol, digoxin, Xarelto. We will plan on proceeding with transesophageal echocardiogram/cardioversion today. Scheduled for 13:00. Postprocedure, possibly use amiodarone and stop the digoxin. Discussed with patient about the procedure and he understands and agrees. Time Spent With Patient Time: Total time spent is greater than 50% in coordination of care (as documented) at patient's floor/unit and/or counseling patient: 37min Progress Note: Quality Stroke Does the patient have a stroke diagnosis?: No Procedures Date of Service Date of Service: 03/04/22
--- NOTE | 2022-03-04 10:26 | MHC.SHP ---
Pre-Procedural Eval Section A Date of Service: 03/04/22 The patient is an INPATIENT: Yes Section B Chief Complaint: afib rvr Allergies: Allergies Allergy/AdvReac Type Severity Reaction Status Date / Time mold Allergy impacted Verified 02/27/22 14:25 sinus cavity Plan I have reviewed the history and physical and performed a pertinent physical examination on my patient. No changes have occurred unless specified.
--- NOTE | 2022-03-04 12:14 | HO.ANESPROP2 ---
HPI - Anesthesia Eval Consult details Narrative: 56yo male patient for NILES, cardioversion [facility] Active Problems Active Problems: All Active Problems (Updated 03/03/22 @ 10:55 by Morris Hargrove MD) Atrial fibrillation with rapid ventricular response (Acute) Acute systolic (congestive) heart failure (Acute) Cardiomyopathy (Acute) Decompensated heart failure (Acute) SOB (shortness of breath) (Acute) Urinary frequency (Acute) Adult general medical exam (Acute) Screening for prostate cancer (Acute) Screening for colon cancer (Acute) Low HDL (under 40) (Acute) Atrial fibrillation, rapid (Acute) Congestive heart failure (Acute) Pneumonia (Acute) H/o cocaine use- last a few months ago Hypothyroidism Smoker Past Medical History Medical History COPD (chronic obstructive pulmonary disease) Essential hypertension Hypothyroidism (acquired) Smoker Family History Family History Mother COPD (chronic obstructive pulmonary disease) Family history of problems with anesthesia: No Surgical History Surgical History H/O shoulder surgery H/O thyroidectomy History of Problems with Anesthesia: No Social History Social History Household Members: None Caregiver staying overnight: No Housing: House Are you a primary resident caregiver to a significant other at home: No Do you presently have visiting nurse or other home services: No 75 years or older and lives alone: No Alcohol intake: never Patient Tobacco Use Status: Current everyday Tobacco user Tobacco use type: Cigarette Cigarette Packs Per Day: 1 Cigarettes Per Day: 10 Second Hand Smoke Exposure: No Substance Use Type: Crack/Cocaine service: No Current occupational status: retired [employer] Allergies Allergy/AdvReac Type Severity Reaction Status Date / Time mold Allergy impacted Verified 02/27/22 14:25 sinus cavity Active Medications: Current Medications Acetaminophen (Acetaminophen 325 Mg Tablet) 650 mg PO Q6H PRN PRN Reason: Pain, Mild (Pain Scale 1-3) Albuterol/Ipratropium (Albuterol/Iprat 2.5/0.5mg 3 Ml Ampul.Neb) 3 ml INHALE Q4H PRN PRN Reason: sob Bupropion HCl (Bupropion Hcl 75 Mg Tablet) 75 mg PO DAILY [facility]IR[facility] Last Admin: 03/03/22 09:36 Dose: 75 mg Documented by: Digoxin (Digoxin 0.125 Mg Tablet) 0.125 mg PO DAILY [facility] Last Admin: 03/04/22 10:55 Dose: Not Given Documented by: Fluoxetine HCl (Fluoxetine Hcl 20 Mg Capsule) 40 mg PO DAILY [facility] Last Admin: 03/03/22 09:37 Dose: 40 mg Documented by: Furosemide (Furosemide 40 Mg Tablet) 40 mg PO BID@0900,1800 [facility]; Protocol Last Admin: 03/03/22 16:10 Dose: 40 mg Documented by: Guaifenesin (Guaifenesin La 600 Mg Tab.Er.12h) 600 mg PO BID [facility] Last Admin: 03/03/22 22:23 Dose: 600 mg Documented by: Guaifenesin/Dextromethorphan (Guaifenesin Dm 200/20/10 Ml 10 Ml Syrup) 5 ml PO Q4H PRN PRN Reason: Cough Levothyroxine Sodium (Levothyroxine Sodium 112 Mcg Tablet) 224 mcg PO DAILY@0600 [facility] Last Admin: 03/04/22 06:35 Dose: Not Given Documented by: Metoprolol Tartrate (Metoprolol Tartrate 12.5 Mg Halftab) 12.5 mg PO Q6H [facility]; Protocol Last Admin: 03/04/22 10:55 Dose: Not Given Documented by: Omeprazole (Omeprazole 20 Mg Capsule.Dr) 20 mg PO DAILY@0630 [facility] Last Admin: 03/04/22 06:35 Dose: Not Given Documented by: Ondansetron HCl (Ondansetron Hcl 4 Mg/2 Ml Vial) 4 mg IVPUSH Q8H PRN PRN Reason: Nausea and Vomiting Pharmacy Consult (Consult Rx Perform Med Rec) 1 each MISCELLANE ONCE PRN PRN Reason: Consult order Prednisone (Prednisone 20 Mg Tablet) 40 mg PO DAILY [facility] Last Admin: 03/03/22 09:37 Dose: 40 mg Documented by: Rivaroxaban (Rivaroxaban 20 Mg Tablet) 20 mg PO DAILY [facility] Last Admin: 03/04/22 10:21 Dose: 20 mg Documented by: Sodium Chloride (0.9 % Sodium Chloride Flush 3 Ml Syringe) 3 ml IVFLUSH QSHIFT [facility] Last Admin: 03/04/22 09:43 Dose: 3 ml Documented by: Home Medications Medication Instructions Recorded Confirmed Last Taken Type aspirin 81 mg chewable tablet 1 tab PO DAILY 08/29/20 02/25/22 Unknown History hydrochlorothiazide 25 mg tablet 25 mg PO DAILY 08/29/20 02/25/22 Unknown History lisinopril 20 mg tablet 20 mg PO DAILY 08/29/20 02/25/22 Unknown History bupropion HCl 75 mg tablet 75 mg PO DAILY 02/25/22 02/25/22 Unknown History Exam Exam Date and Time: March 04, 2022 1214 Height,Weight and Vital Signs: Height 6 ft 2 in Weight 107.9 kg Last Vital Signs Temp 97.6 F 03/04/22 11:20 Pulse 85 03/04/22 11:20 Resp 18 03/04/22 11:20 BP 123/55 L 03/04/22 11:20 Pulse Ox 97 03/04/22 11:20 Pertinent Lab Results Pertinent Lab Results: Laboratory Tests 02/25/22 02/25/22 02/25/22 13:35 13:35 13:35 WBC 9.0 RBC 5.67 Hgb 15.8 Hct 49.2 MCV 86.8 MCH 27.9 MCHC 32.1 RDW 14.8 Plt Count 109 L MPV Not Reportable Immature Gran % (Auto) 0.3 Neut % (Auto) 74.8 H Lymph % (Auto) 18.2 L [place] % (Auto) 5.7 Eos % (Auto) 0.7 Baso % (Auto) 0.3 Lymph # (Auto) 1.6 [place] # (Auto) 0.5 Eos # (Auto) 0.1 Baso # (Auto) 0.0 Abs Immat Gran (auto) 0.03 Absolute Neuts (auto) 6.7 Absolute Nucleated RBC 0.000 Nucleated RBC % (auto) 0.0 PT INR APTT Sodium 140 Potassium 4.2 Chloride 106 Carbon Dioxide 22 Anion Gap 16 BUN 23 H D Creatinine 1.36 Estim Creat Clear Calc 77.7 Estimated GFR 54 Random Glucose 108 Fasting Glucose Calcium 9.8 Magnesium Iron TIBC % Saturation Unsat Iron Binding Ferritin Total Bilirubin 2.4 H Direct Bilirubin AST 30 D ALT 26 Alkaline Phosphatase 65 Troponin I High Sens 15.2 B-Natriuretic Peptide Total Protein 6.6 Albumin 4.0 TSH 6.24 H COVID-19 (OIR) COVID-19 Clin Com Hep Bs Antigen Hep Bs Antibody Hep B Core Total Ab Hepatitis C Ab (EIA) Influenza Type A (FERNANDO) Influenza Type B (FERNANDO) Influenza A & B Note 02/25/22 02/25/22 02/25/22 13:35 13:35 13:35 WBC RBC Hgb Hct MCV MCH MCHC RDW Plt Count MPV Immature Gran % (Auto) Neut % (Auto) Lymph % (Auto) [place] % (Auto) Eos % (Auto) Baso % (Auto) Lymph # (Auto) [place] # (Auto) Eos # (Auto) Baso # (Auto) Abs Immat Gran (auto) Absolute Neuts (auto) Absolute Nucleated RBC Nucleated RBC % (auto) PT 17.8 H INR 1.6 H APTT Sodium Potassium Chloride Carbon Dioxide Anion Gap BUN Creatinine Estim Creat Clear Calc Estimated GFR Random Glucose Fasting Glucose Calcium Magnesium Iron TIBC % Saturation Unsat Iron Binding Ferritin Total Bilirubin Direct Bilirubin AST ALT Alkaline Phosphatase Troponin I High Sens B-Natriuretic Peptide Total Protein Albumin TSH COVID-19 (ORI) Negative COVID-19 Clin Com See Note Hep Bs Antigen Hep Bs Antibody Hep B Core Total Ab Hepatitis C Ab (EIA) Influenza Type A (FERNANDO) Negative Influenza Type B (FERNANDO) Negative Influenza A & B Note See Note 02/25/22 02/25/22 02/25/22 14:21 14:21 16:09 WBC RBC Hgb Hct MCV MCH MCHC RDW Plt Count MPV Immature Gran % (Auto) Neut % (Auto) Lymph % (Auto) [place] % (Auto) Eos % (Auto) Baso % (Auto) Lymph # (Auto) [place] # (Auto) Eos # (Auto) Baso # (Auto) Abs Immat Gran (auto) Absolute Neuts (auto) Absolute Nucleated RBC Nucleated RBC % (auto) PT 18.7 H INR 1.6 H APTT 68.1 H* Sodium Potassium Chloride Carbon Dioxide Anion Gap BUN Creatinine Estim Creat Clear Calc Estimated GFR Random Glucose Fasting Glucose Calcium Magnesium Iron TIBC % Saturation Unsat Iron Binding Ferritin Total Bilirubin Direct Bilirubin AST ALT Alkaline Phosphatase Troponin I High Sens 16.5 B-Natriuretic Peptide 698 H Total Protein Albumin TSH COVID-19 (ORI) COVID-19 Clin Com Hep Bs Antigen Hep Bs Antibody Hep B Core Total Ab Hepatitis C Ab (EIA) Influenza Type A (FERNANDO) Influenza Type B (FERNANDO) Influenza A & B Note 02/26/22 02/26/2202/27/22 06:53 06:53 07:35 WBC 7.0 10.7 RBC 5.35 5.60 Hgb 15.1 15.6 Hct 47.0 49.4 MCV 87.9 88.2 MCH 28.2 27.9 MCHC 32.1 31.6 RDW 14.7 14.6 Plt Count 91 L 102 L MPV Not Reportable Not Reportable Immature Gran % (Auto) 0.1 Neut % (Auto) 61.5 Lymph % (Auto) 29.0 [place] % (Auto) 7.6 Eos % (Auto) 1.4 Baso % (Auto) 0.4 Lymph # (Auto) 2.0 [place] # (Auto) 0.5 Eos # (Auto) 0.1 Baso # (Auto) 0.0 Abs Immat Gran (auto) 0.01 Absolute Neuts (auto) 4.3 Absolute Nucleated RBC 0.000 0.000 Nucleated RBC % (auto) 0.0 0.0 PT INR APTT Sodium 141 Potassium 4.0 Chloride 106 Carbon Dioxide 24 Anion Gap 15 BUN 22 H Creatinine 1.33 Estim Creat Clear Calc 79.5 Estimated GFR 55 Random Glucose 100 Fasting Glucose Calcium 9.7 Magnesium Iron TIBC % Saturation Unsat Iron Binding Ferritin Total Bilirubin Direct Bilirubin AST ALT Alkaline Phosphatase Troponin I High Sens B-Natriuretic Peptide Total Protein Albumin TSH COVID-19 (ORI) COVID-19 Clin Com Hep Bs Antigen Hep Bs Antibody Hep B Core Total Ab Hepatitis C Ab (EIA) Influenza Type A (FERNANDO) Influenza Type B (FERNANDO) Influenza A & B Note 02/27/22 02/28/22 02/28/22 07:35 05:45 05:45 WBC 7.1 RBC 5.43 Hgb 15.1 Hct 47.2 MCV 86.9 MCH 27.8 MCHC 32.0 RDW 14.6 Plt Count 85 L MPV TNP Immature Gran % (Auto) Neut % (Auto) Lymph % (Auto) [place] % (Auto) Eos % (Auto) Baso % (Auto) Lymph # (Auto) [place] # (Auto) Eos # (Auto) Baso # (Auto) Abs Immat Gran (auto) Absolute Neuts (auto) Absolute Nucleated RBC 0.000 Nucleated RBC % (auto) 0.0 PT INR APTT Sodium 141 137 Potassium 4.7 4.1 Chloride 103 97 Carbon Dioxide 27 29 Anion Gap 16 15 BUN 23 H 24 H Creatinine 1.40 1.26 Estim Creat Clear Calc 75.5 83.5 Estimated GFR 52 59 Random Glucose Fasting Glucose 112 H 102 H Calcium 10.1 9.6 Magnesium 1.9 Iron TIBC % Saturation Unsat Iron Binding Ferritin Total Bilirubin Direct Bilirubin AST ALT Alkaline Phosphatase Troponin I High Sens B-Natriuretic Peptide Total Protein Albumin TSH COVID-19 (ORI) COVID-19 Clin Com Hep Bs Antigen Hep Bs Antibody Hep B Core Total Ab Hepatitis C Ab (EIA) Influenza Type A (FERNANDO) Influenza Type B (FERNANDO) Influenza A & B Note 02/28/22 03/01/22 03/01/22 05:45 06:42 06:42 WBC 4.8 RBC 5.49 Hgb 15.5 Hct 47.2 MCV 86.0 MCH 28.2 MCHC 32.8 RDW 14.5 Plt Count 71 L MPV Not Reportable Immature Gran % (Auto) Neut % (Auto) Lymph % (Auto) [place] % (Auto) Eos % (Auto) Baso % (Auto) Lymph # (Auto) [place] # (Auto) Eos # (Auto) Baso # (Auto) Abs Immat Gran (auto) Absolute Neuts (auto) Absolute Nucleated RBC 0.000 Nucleated RBC % (auto) 0.0 PT INR APTT Sodium 131 L Potassium 3.5 Chloride 87 L Carbon Dioxide 33 H Anion Gap 15 BUN 16 Creatinine 1.32 Estim Creat Clear Calc 79.7 Estimated GFR 56 Random Glucose Fasting Glucose 92 Calcium 9.1 Magnesium Iron TIBC % Saturation Unsat Iron Binding Ferritin Total Bilirubin 3.6 H Direct Bilirubin 1.9 H AST 39 H ALT 28 Alkaline Phosphatase 56 Troponin I High Sens B-Natriuretic Peptide 1388 H Total Protein 6.3 L Albumin 3.8 TSH COVID-19 (ORI) COVID-19 Clin Com Hep Bs Antigen Hep Bs Antibody Hep B Core Total Ab Hepatitis C Ab (EIA) Influenza Type A (FERNANDO) Influenza Type B (FERNANDO) Influenza A & B Note 03/01/22 03/01/22 03/01/22 06:42 06:42 06:42 WBC RBC Hgb Hct MCV MCH MCHC RDW Plt Count MPV Immature Gran % (Auto) Neut % (Auto) Lymph % (Auto) [place] % (Auto) Eos % (Auto) Baso % (Auto) Lymph # (Auto) [place] # (Auto) Eos # (Auto) Baso # (Auto) Abs Immat Gran (auto) Absolute Neuts (auto) Absolute Nucleated RBC Nucleated RBC % (auto) PT 40.2 H INR 3.4 H APTT Sodium Potassium Chloride Carbon Dioxide Anion Gap BUN Creatinine Estim Creat Clear Calc Estimated GFR Random Glucose Fasting Glucose Calcium Magnesium Iron TIBC % Saturation Unsat Iron Binding Ferritin Total Bilirubin Direct Bilirubin AST ALT Alkaline Phosphatase Troponin I High Sens B-Natriuretic Peptide 1438 H Total Protein Albumin TSH COVID-19 (ORI) COVID-19 Clin Com Hep Bs Antigen Negative Hep Bs Antibody NONREACTIVE Hep B Core Total Ab Nonreactive Hepatitis C Ab (EIA) Nonreactive Influenza Type A (FERNANDO) Influenza Type B (FERNANDO) Influenza A & B Note 03/02/22 03/02/22 03/02/22 05:46 05:46 05:46 WBC 4.3 L RBC 6.08 H Hgb 16.9 Hct 50.3 MCV 82.7 MCH 27.8 MCHC 33.6 RDW 14.3 Plt Count 79 L MPV TNP Immature Gran % (Auto) Neut % (Auto) Lymph % (Auto) [place] % (Auto) Eos % (Auto) Baso % (Auto) Lymph # (Auto) [place] # (Auto) Eos # (Auto) Baso # (Auto) Abs Immat Gran (auto) Absolute Neuts (auto) Absolute Nucleated RBC 0.000 Nucleated RBC % (auto) 0.0 PT 25.6 H INR 2.2 H APTT Sodium Potassium Chloride Carbon Dioxide Anion Gap BUN Creatinine Estim Creat Clear Calc Estimated GFR Random Glucose Fasting Glucose Calcium Magnesium Iron 53 TIBC 369 % Saturation 14 L Unsat Iron Binding 316 Ferritin 315 H Total Bilirubin Direct Bilirubin AST ALT Alkaline Phosphatase Troponin I High Sens B-Natriuretic Peptide Total Protein Albumin TSH COVID-19 (ORI) COVID-19 Clin Com Hep Bs Antigen Hep Bs Antibody Hep B Core Total Ab Hepatitis C Ab (EIA) Influenza Type A (FERNANDO) Influenza Type B (FERNANDO) Influenza A & B Note 03/02/22 03/03/22 03/03/22 05:46 08:02 08:02 WBC 5.6 RBC 5.89 H Hgb 16.9 Hct 50.3 MCV 85.4 MCH 28.7 MCHC 33.6 RDW 14.4 Plt Count 100 L D MPV Not Reportable Immature Gran % (Auto) Neut % (Auto) Lymph % (Auto) [place] % (Auto) Eos % (Auto) Baso % (Auto) Lymph # (Auto) [place] # (Auto) Eos # (Auto) Baso # (Auto) Abs Immat Gran (auto) Absolute Neuts (auto) Absolute Nucleated RBC 0.000 Nucleated RBC % (auto) 0.0 PT INR APTT Sodium 128 L 135 Potassium 3.4 3.2 L Chloride 88 L 91 L Carbon Dioxide 33 H 33 H Anion Gap 10 L 14 BUN 20 H 22 H Creatinine 1.05 1.00 Estim Creat Clear Calc 100.3 105.3 Estimated GFR > 60 > 60 Random Glucose 94 Fasting Glucose 113 H Calcium 9.0 9.4 Magnesium Iron TIBC % Saturation Unsat Iron Binding Ferritin Total Bilirubin 2.6 H Direct Bilirubin 1.5 H AST 44 H ALT 31 Alkaline Phosphatase 61 Troponin I High Sens B-Natriuretic Peptide Total Protein 6.2 L Albumin 3.7 TSH COVID-19 (ORI) COVID-19 Clin Com Hep Bs Antigen Hep Bs Antibody Hep B Core Total Ab Hepatitis C Ab (EIA) Influenza Type A (FERNANDO) Influenza Type B (FERNANDO) Influenza A & B Note 03/04/22 03/04/22 03/04/22 06:13 06:13 06:13 WBC 5.8 RBC 5.97 H Hgb 16.8 Hct 51.2 MCV 85.8 MCH 28.1 MCHC 32.8 RDW 14.3 Plt Count 99 L MPV Not Reportable Immature Gran % (Auto) Neut % (Auto) Lymph % (Auto) [place] % (Auto) Eos % (Auto) Baso % (Auto) Lymph # (Auto) [place] # (Auto) Eos # (Auto) Baso # (Auto) Abs Immat Gran (auto) Absolute Neuts (auto) Absolute Nucleated RBC 0.000 Nucleated RBC % (auto) 0.0 PT INR APTT Sodium 137 Potassium 3.5 Chloride 96 Carbon Dioxide 33 H Anion Gap 12 BUN 23 H Creatinine 1.13 Estim Creat Clear Calc 93.2 Estimated GFR > 60 Random Glucose Fasting Glucose 95 Calcium 9.4 Magnesium Iron TIBC % Saturation Unsat Iron Binding Ferritin Total Bilirubin Direct Bilirubin AST ALT Alkaline Phosphatase Troponin I High Sens B-Natriuretic Peptide 517 H Total Protein Albumin TSH COVID-19 (ORI) COVID-19 Clin Com Hep Bs Antigen Hep Bs Antibody Hep B Core Total Ab Hepatitis C Ab (EIA) Influenza Type A (FERNANDO) Influenza Type B (FERNANDO) Influenza A & B Note Airway Mallampati Class: II TM Dist: >3cm Neck ROM: Full Loose/Missing/Broken Teeth: Yes (Some broken) Heart: Irregularly irregular Lungs: Bilateral wheezes Other: Lungs clear post albuterol treatment Assessment and Plan Assessment Anesthesia Assessment: Anesthesia Plan Discussed Final Anesthetic Review Family History of Problems with Anesthesia: No History of Problems with Anesthesia: No NPO: Yes ASA Class: III Final Preanesthetic Review: No Changes in Pt Med Stat, Meds/Allgs Chart Reviewed, Consent Obtained/Reviewed and Anes Risks/Benef Reviewed Patient Risk: Intermediate Procedure Risk: Low Assessment/Block/Sedation in SS: Assess/Block/Sedation-SS Anesthetic Plan Anesthetic Plan: MAC: Disposition: Standard PACU and Inp. Admit - IMC
[2022-03-04] MEDS: Lactated Ringers 1,000 ML 50 ML IVCONT (12:40)
[2022-03-04] MEDS: Albuterol Sulfate (0.083%) 2.5 MG/3 ML VIAL.NEB INHALE (12:43)
--- NOTE | 2022-03-04 13:00 | CA_ITS ---
Transesophageal Echocardiogram Patient (Last, First, Middle): Jose Guadalupe Sweet B Gender: Male Date of : 1965 Age: 56 Procedure Date: 03/04/2022 Procedure Type: Transesophageal Echocardiogram Height: 187.96 cm Weight: 107.5 kg BSA: 2.34 m2 Heart Rate: bpm Executive Director Of Nursing: TO Referring MD: Morris Hargrove MD Symptoms: AFib/hypotension Conclusion: ??? The left ventricular systolic function is moderately decreased. The visually estimated ejection fraction is between 35-40%. ??? There is no evidence of a thrombus in the left atrial appendage. Findings Procedure Information Consent was obtained prior to the procedure. Pre NILES oral cavity was checked and revealed no overcrowding. The adult 3D probe was passed with no difficulty. Left Ventricle Normal left ventricular cavity size. The left ventricular systolic function is moderately decreased. The visually estimated ejection fraction is between 35-40%. There is moderate global hypokinesis. Right Ventricle Normal right ventricular cavity size and systolic function. Atria There is no evidence of a thrombus in the left atrial appendage. There is no evidence of interatrial shunt by color Doppler. No evidence of left atrial appendage thrombus or spontaneous echo contrast. No left atrial thrombus or spontaneous echo contrast. Aortic Valve There is a normal trileaflet aortic valve. There is no aortic valve stenosis. There is trace (trivial) aortic valve regurgitation. Mitral Valve The mitral valve appears normal. There is mild mitral valve regurgitation. There is no mitral valve stenosis. Pulmonic Valve The pulmonic valve is likely normal. Tricuspid Valve Normal tricuspid valve structure. There is trace tricuspid valve regurgitation. Great Vessels The aortic annulus, sinuses of valsalva, sino tubular ridge, and asc aorta are normal in size. Visualized portions of arch with mild plaque. Venous The inferior vena cava was not well visualized. Pericardium/Pleural There is a trivial pericardial effusion. Prior Study Comparison No significant change compared to prior study dated: 02/26/2022. Updated by Morris Hargrove on 04:29 PM with Status of Final Morris Hargrove MD electronically signed on 03/04/2022 4:29:03 PM with status of Final
--- NOTE | 2022-03-04 13:34 | ECG_ITS ---
Test Reason : post cardioversion Blood Pressure : / mmHG Vent. Rate : 069 BPM Atrial Rate : 069 BPM P-R Int : 192 ms QRS Dur : 072 ms QT Int : 430 ms P-R-T Axes : 066 047 010 degrees QTc Int : 460 ms Normal sinus rhythm Possible Left atrial enlargement T wave abnormality, consider anterior ischemia Abnormal ECG When compared with ECG of 25-FEB-2022 13:09, Sinus rhythm has replaced Atrial fibrillation Vent. rate has decreased BY 94 BPM T wave inversion now evident in Anterior leads Referred By: Satish Villa Electronically Signed By:SATISH VILLA
--- NOTE | 2022-03-04 13:36 | HO.CARDIVERS ---
Cardioversion Procedure Note Cardioversion Date of Procedure: 03/04/2022 Ordering Provider: Dr. Hargrove Performing Provider: Dr. Hargrove Indication for Procedure: Atrial fibrillation, hypotension. Pre-Op Diagnosis: Atrial fibrillation Post-Op Diagnosis: Sinus rhythm NILES findings (if NILES Performed): Dictated separately. No evidence of left atrial appendage thrombus. History: See full notes done separately. Consent: Informed consent obtained. Procedure: After informed consent was obtained, patient was taken to the operating room. NILES was was performed which showed no evidence of left atrial appendage thrombus. Subsequently, 120 joules of synchronized shock was administered with pads in the anterior-posterior position. Then converted from atrial fibrillation to sinus rhythm. Patient remained in sinus rhythm at the end of procedure. Complications: None. Impression: Successful cardioversion from atrial fibrillation to sinus rhythm. Recommendations: Short-term amiodarone. Stop digoxin. Low-dose beta-blockers. Anticoagulation.
[2022-03-04 13:51] LABS: Anti Nuclear Antibody Screen NEGATIVE (NEGATIVE)
[2022-03-04] MEDS: Amiodarone HCL 200 MG TABLET 400 MG PO ×2 (14:09→20:49)
[2022-03-04] MEDS: predniSONE 20 MG TABLET 40 MG PO (14:45)
[2022-03-04] MEDS: FLUoxetine HCl 20 MG CAPSULE 40 MG PO (14:45)
[2022-03-04] MEDS: buPROPion HCL 75 MG TABLET PO (14:46)
[2022-03-04] MEDS: Levothyroxine Sodium 112 MCG TABLET 224 MCG PO (14:48)
[2022-03-04 15:02] LABS: Alpha 1 Anti-trypsin 143 mg/dL (83-199)
--- NOTE | 2022-03-04 15:26 | PC.NURSE ---
Patient returned from PACU s/p cardioversion at 1430. VSS. Ambulating around room freely. Denies pain. Sinus Rhythm on monitor.
[2022-03-04] MEDS: Furosemide 40 MG TABLET PO (17:12)
[2022-03-04] MEDS: guaiFENesin LA 600 MG TAB.ER.12H PO (20:49)
[2022-03-05] MEDS: 0.9 % Sodium Chloride Flush 3 ML SYRINGE IVFLUSH ×2 (00:14→10:12)
[2022-03-05 03:39] VITALS: BP 104/62; PULSE 70; RESP 16; TEMP 36.9; O2SAT 96
[2022-03-05] MEDS: Omeprazole 20 MG CAPSULE.DR PO (05:59)
[2022-03-05] MEDS: Levothyroxine Sodium 112 MCG TABLET 224 MCG PO (05:59)
[2022-03-05 06:59] LABS: Hematocrit 49.6 % (42.0-52.0); Hemoglobin 16.2 g/dl (14.0-18.0); Mean Corpuscular HGB Conc 32.7 g/dl (31.0-36.0); Mean Corpuscular Hemoglobin 28.1 pg (27.0-33.0); Mean Corpuscular Volume 86.1 fL (80.0-98.0); Platelet Count 99 X10*3/uL (160-400); Red Blood Count 5.76 X10*6/uL (4.60-5.80); Red Cell Distribution Width 14.6 % (11.0-16.0); White Blood Count 4.3 X10*3/uL (4.8-10.8)
[2022-03-05 07:04] LABS: Alanine Aminotransferase 46 U/L (0-40); Albumin Level 3.8 g/dL (3.5-5.0); Alkaline Phosphatase 59 U/L (39-117); Anion Gap 14 (12-20); Aspartate Amino Transferase 48 U/L (5-37); Bilirubin Total 1.6 mg/dL (0.0-1.0); Blood Urea Nitrogen 23 mg/dL (9-16); Calcium 9.5 mg/dL (8.4-10.2); Carbon Dioxide 37 mmol/L (22-29); Chloride 93 mmol/L (96-108); Creatinine Clr Calc Pharmacy 90.7; Estimated Glomerular Filt Rate > 60; Glucose Fasting 113 mg/dL (60-99); Potassium 4.4 mmol/L (3.3-5.1); Sodium 137 mmol/L (135-145); Total Protein 6.4 g/dL (6.5-8.0)
[2022-03-05 08:00] VITALS: BP 112/80; PULSE 71; RESP 20; TEMP 36.4; O2SAT 96
--- NOTE | 2022-03-05 08:19 | ECG_ITS ---
Test Reason : s/p cardioversion Blood Pressure : / mmHG Vent. Rate : 129 BPM Atrial Rate : 258 BPM P-R Int : 000 ms QRS Dur : 082 ms QT Int : 402 ms P-R-T Axes : 000 061 055 degrees QTc Int : 588 ms Atrial flutter with variable A-V block with premature ventricular or aberrantly conducted complexes Abnormal ECG When compared with ECG of 04-MAR-2022 13:47, Atrial flutter has replaced Sinus rhythm Referred By: Satish Villa Electronically Signed By:SAITSH VILLA
[2022-03-05] MEDS: Amiodarone HCL 200 MG TABLET 400 MG PO (10:11)
[2022-03-05] MEDS: guaiFENesin LA 600 MG TAB.ER.12H PO (10:11)
[2022-03-05] MEDS: FLUoxetine HCl 20 MG CAPSULE 40 MG PO (10:11)
[2022-03-05] MEDS: predniSONE 20 MG TABLET 40 MG PO (10:11)
[2022-03-05] MEDS: buPROPion HCL 75 MG TABLET PO (10:11)
[2022-03-05] MEDS: Rivaroxaban 20 MG TABLET PO (10:11)
[2022-03-05] MEDS: Furosemide 40 MG TABLET PO (10:12)
--- NOTE | 2022-03-05 10:50 | PM.PNCARD ---
Subjective Subjective Date of Service: 03/05/22 Principal diagnosis: afib, CHF Interval history: He states that he is doing fine. Denies any complaints like angina or shortness of breath or in fact anything else cardiac related at all. Review of Systems Review of Systems Yes all other systems are reviewed and are negative Constitutional: Reports as per HPI Eyes: Reports as per HPI Reports as per HPI Cardiovascular: Reports as per HPI, Denies acrocyanosis, Denies cool extremities, Denies chest pain, Denies leg edema, Denies lightheadedness, Denies palpitations and Denies dyspnea Respiratory: Reports as per HPI, Reports no additional respiratory complaints and Denies dyspnea Gastrointestinal: Reports as per HPI and Reports no additional gastrointestinal complaints Genitourinary: Reports no additional male genitourinary complaints and Reports as per HPI Musculoskeletal: Reports no additional musculoskeletal complaints and Reports as per HPI Skin/Breast: Reports system reviewed and no additional complaints, except as docu Reports system reviewed and no additional complaints, except as documented and Reports as per HPI Psychiatric: Reports no additional psychiatric complaints and Reports as per HPI Endocrine: Reports no additional endocrine complaints, Reports as per HPI and Denies palpitations Hematologic/Lymphatic: Reports no additional hematologic/lymphatic complaints and Reports as per HPI Allergic/Immunologic: Reports no additional allergic/immunologic complaints and Reports as per HPI Physical Exam Vital Signs: Last Vital Signs Temp 97.5 F 03/05/22 08:00 Pulse 71 03/05/22 08:00 Resp 20 03/05/22 08:00 BP 112/80 03/05/22 08:00 Pulse Ox 96 03/05/22 08:00 BMI result Body Mass Index 30.5 Const General: comfortable and no acute distress Orientation/consciousness: patient oriented x3 HEENT Other: Unremarkable Head: Yes normal to inspection Neck Neck: Yes normal visual inspection Chest Chest palpation & inspection: normal inspection of the chest Resp Auscultation: clear to auscultation bilaterally Cardio Palpation: normal PMI Heart sounds: S1 normal heart sound present, S2 normal heart sound present, no gallops, no murmurs and no rubs GI Palpation (GI): Soft to palpation Back/Spine/Pelvis Other: unremarkable Skin General skin exam: no rashes or lesions noted Neuro General: patient oriented x3 Extrem General: Yes normal to inspection Psych Mental Status: mental status grossly normal Objective Labs and Meds Result diagrams: 03/05/22 05:52 03/05/22 05:52 Lab results: Laboratory Results - last 24 hr 03/02/22 03/02/22 03/05/22 05:46 05:46 05:52 WBC 4.3 L RBC 5.76 Hgb 16.2 Hct 49.6 MCV 86.1 MCH 28.1 MCHC 32.7 RDW 14.6 Plt Count 99 L MPV Not Reportable Absolute Nucleated RBC 0.000 Nucleated RBC % (auto) 0.0 Sodium Potassium Chloride Carbon Dioxide Anion Gap BUN Creatinine Estim Creat Clear Calc Estimated GFR Fasting Glucose Calcium Total Bilirubin Direct Bilirubin AST ALT Alkaline Phosphatase Total Protein Albumin [id number]-[id number] 143 JONAS Screen NEGATIVE 03/05/22 05:52 WBC RBC Hgb Hct MCV MCH MCHC RDW Plt Count MPV Absolute Nucleated RBC Nucleated RBC % (auto) Sodium 137 Potassium 4.4 D Chloride 93 L Carbon Dioxide 37 H Anion Gap 14 BUN 23 H Creatinine 1.16 Estim Creat Clear Calc 90.7 Estimated GFR > 60 Fasting Glucose 113 H Calcium 9.5 Total Bilirubin 1.6 H Direct Bilirubin 1.0 H AST 48 H ALT 46 H Alkaline Phosphatase 59 Total Protein 6.4 L Albumin 3.8 Idjro-4-Fqmnmhwgvct JONAS Screen ECG Interpretation: EKG today shows atrial flutter at a rapid rate-129/Min; PVCs versus aberrant conduction. Progress Note: A&P Assessment and plan (1) Atrial fibrillation with rapid ventricular response: Status: Acute (2) Atrial flutter with rapid ventricular response: Status: Acute (3) Cardiomyopathy: Status: Acute Plan When I walked into his room, he was in sinus rhythm on telemetry. However during the actual encounter he switched into atrial flutter with rapid rate. Then the rate came down to the 80s to 90s. Yesterday, he underwent cardioversion after transesophageal echocardiogram. So for about 20 hours or so he remained in sinus rhythm and now he has atrial flutter. Clinically, he does not have any specific cardiac symptoms at all. At this time, we will plan on keeping on amiodarone 400 mg b.i.d. for 2 weeks and then 200 mg daily. With recent heart failure, will not be able to use Multaq. He has low blood pressure and hence not a good candidate for sotalol either. He has got cardiomyopathy and recent heart failure and possible coronary disease and hence will not be able to use flecainide/propafenone. We do not have Tikosyn or formulary. He does have abnormal thyroid function and he also has slightly abnormal liver function but apart from amiodarone, there is no other choice at this time due to the above reasons. Due to low blood pressure, unlikely to tolerate guideline based medical therapy. To be further evaluated as an outpatient. Discharge planning. We will arrange follow-up in the office in the next few days for further care. He may be candidate for the ablation due to the above reasons and ideally should not be taking long-term amiodarone. Hopefully only for a few weeks time. From a cardiomyopathy standpoint, he will need ischemia workup in the near future. Will be addressed through the office. Time Spent With Patient Time: Total time spent is greater than 50% in coordination of care (as documented) at patient's floor/unit and/or counseling patient: 38min. Progress Note: Quality Stroke Does the patient have a stroke diagnosis?: No Procedures Date of Service Date of Service: 03/05/22
[2022-03-05 12:00] VITALS: BP 120/80; PULSE 75; RESP 20; TEMP 36.4; O2SAT 96
--- NOTE | 2022-03-05 12:24 | MHC.CM.PN ---
pt dcd home no skilled servces ordered by
--- NOTE | 2022-03-05 12:27 | P.DS_ITS ---
DS: Providers Provider Date of Service: 03/05/22 Date of admission: 02/25/22 17:34 Primary care physician: Kota Laboy MD Consults: 02/25/22 17:37 Consult to Cardiology Routine Consulting Provider: Darryl Damon Reason for consultation: afib rvr, chf Has provider been notified: No 03/01/22 10:32 Consult to Gastroenterology Routine Consulting Provider: Americo Scott Reason for consultation: hepatomegaly with elevated lfts and thrombocytopenia DS: Diagnosis Discharge Diagnosis (1) Atrial fibrillation with rapid ventricular response: Status: Acute (2) Atrial flutter with rapid ventricular response: Status: Acute (3) Cardiomyopathy: Status: Acute (4) Acute systolic (congestive) heart failure: Status: Acute (5) Transaminitis: Status: Acute DS: Summary Hospital Course Hospital Course: admission note HPI several weeks of sob especially with exertion, walking upstairs, laying down. He had been sitting up in the recliner for the last few weeks. Resting sitting up helped decrease the sob. He was having some diarrhea, poor appetite, fatigue, cough. No fever, chills but he did have some nausea. In the ED he was noted to be in afib rvr hr in the 180's, His BNP was also elevated over 600, negative troponin. He was started on IV cardizem with good effect. CXR showed possible consolidation. He was given Lasix, azithromycin. He will be admitted for further management of CHF and Afib RVR.? hospital course the patient was admitted for evaluation of difficulty breathing. Found to be in AFib with RVR with associated picture of heart failure. Echo done showing reduced ejection fraction with evidence of CMP. Evaluated by Cardiology team as the patient was treated with IV Lasix with fair response. Decision was to do a NILES with cardioversion which was done but the patient converted back to atrial flutter from sinus rhythm. Cardiology recommended discharging him home on amiodarone loading dose to follow up with Cardiology as outpatient. Xarelto was started as anticoagulation and risks were discussed with the patient. Noted to have hepatomegaly with elevated liver function test and thrombocytopenia. Evaluated by senior controls engineer Dr. Scott who believes all these findings are secondary to heart failure. Blood work was done and some of it still pending like alpha-1 antitrypsin and immunology workup. liver function test improved during the hospital stay as fluid overload was treated. Treated for COPD exacerbation with prednisone and nebulizer with good response. Start amiodarone 400 mg twice daily for the next 2 weeks then decrease it to 200 mg twice Daily Start Xarelto as a blood thinner, hold aspirin for now Continue Lasix 40 mg daily, stop hydrochlorothiazide To follow-up with teachers' assistant Dr. Damon as outpatient To repeat blood test next week Time Spent with Patient Time attestation: Total time spent providing and/or coordinating discharge services: Discharge coordination time: Greater than 30 minutes Quality: Safe Use of Opioids Does Pt have an Active Cancer Diagnosis on the Problem List?: No Quality: Stroke Does the patient have a stroke diagnosis?: No Physical Exam Vital Signs: Vital Signs: Last Vital Signs Temp 97.5 F 03/05/22 12:00 Pulse 75 03/05/22 12:00 Resp 20 03/05/22 12:00 BP 120/80 03/05/22 12:00 Pulse Ox 96 03/05/22 12:00 BMI result Body Mass Index 30.5 Const: Other: Constitutional : Alert, oriented, not in distress Neck : Normal inspection, Supple Cardiovascular : irregular irregular, no JVP, no lower extremity edema Respiratory : fair bilateral air entry, no crackles, wheezes or rhonchi Gastrointestinal: soft, lax, Normal bowel sounds, Non tender Skin : Warm, Dry Neurological : Alert & oriented x3, No focal deficit , CN 2-12 within normal DS: Data Data Completed and Pending Labs on day of discharge: Laboratory Results - last 24 hr 03/02/22 03/02/22 03/05/22 05:46 05:46 05:52 WBC 4.3 L RBC 5.76 Hgb 16.2 Hct 49.6 MCV 86.1 MCH 28.1 MCHC 32.7 RDW 14.6 Plt Count 99 L MPV Not Reportable Absolute Nucleated RBC 0.000 Nucleated RBC % (auto) 0.0 Sodium Potassium Chloride Carbon Dioxide Anion Gap BUN Creatinine Estim Creat Clear Calc Estimated GFR Fasting Glucose Calcium Total Bilirubin Direct Bilirubin AST ALT Alkaline Phosphatase Total Protein Albumin Fadko-2-Wrhouvgsqll 143 JONAS Screen NEGATIVE JONAS Titer TNP JONAS Titer 2 TNP JONAS Titer 3 TNP JONAS Pattern TNP JONAS Pattern 2 TNP JONAS Pattern 3 TNP 03/05/22 05:52 WBC RBC Hgb Hct MCV MCH MCHC RDW Plt Count MPV Absolute Nucleated RBC Nucleated RBC % (auto) Sodium 137 Potassium 4.4 D Chloride 93 L Carbon Dioxide 37 H Anion Gap 14 BUN 23 H Creatinine 1.16 Estim Creat Clear Calc 90.7 Estimated GFR > 60 Fasting Glucose 113 H Calcium 9.5 Total Bilirubin 1.6 H Direct Bilirubin 1.0 H AST 48 H ALT 46 H Alkaline Phosphatase 59 Total Protein 6.4 L Albumin 3.8 Uwyns-0-Unxxmupoocc JONAS Screen JONAS Titer JONAS Titer 2 JONAS Titer 3 JONAS Pattern JONAS Pattern 2 JONAS Pattern 3 Discharge Plan Discharge Patient Disposition: Home, Self-Care Discharge Diagnosis: Atrial fibrillation and flutter with rapid ventricular response acute heart failure exacerbation Cardiomyopathy Referrals: Kota Laboy MD [Primary Care Provider] - 1 Week Discharge Medications: New Xarelto 20 mg Tablet 20 mg PO DAILY Qty: 30 0RF furosemide 40 mg Tablet 40 mg PO DAILY 30 Days Qty: 30 0RF Protocol: Hold for SBP< HOLD for SBP < : 90 amiodarone 200 mg Tablet 400 mg PO BID 14 Days Qty: 56 0RF omeprazole 20 mg Capsule,Delayed Release(Dr/Ec) 20 mg PO DAILY@0630 30 Days Qty: 30 0RF guaifenesin [Mucinex] 600 mg Tablet Extended Release 12hr 600 mg PO BID Qty: 14 0RF amiodarone 200 mg tablet 200 mg PO BID Qty: 60 0RF Rx Instructions: To start after finishing the 400 mg bid dose. 03/20/22 Continued fluoxetine 40 mg capsule 40 mg PO DAILY Qty: 30 4RF levothyroxine 112 mcg capsule 224 mcg PO DAILY 90 Days Qty: 180 2RF bupropion HCl 75 mg tablet 75 mg PO DAILY 0RF lisinopril 20 mg tablet 20 mg PO DAILY 0RF Discontinued hydrochlorothiazide 25 mg tablet 25 mg PO DAILY 0RF aspirin 81 mg tablet,chewable 1 tab PO DAILY 0RF Discharge Orders: Discharge Order (Routine); Ordered 03/05/22 Ordered By: Heber Chavarria Diet: advance to usual diet and low salt diet Activity on Discharge: As tolerated Stand Alone Forms: Patient Portal Discharge page Other Ambulatory Orders: Basic Metabolic Panel (Routine) Timeframe: 1 Week Facility: [facility] - Location: Laboratory Ordered By: Heber Chavarria Liver Panel (Routine) Timeframe: 1 Week Facility: [facility] - Location: Laboratory Ordered By: Heber Chavarria Care Plan Goals: Read below Health Concerns: Read below Plan of Treatment: Read below Assessment: you were admitted to the hospital for evaluation of difficulty breathing. Found to be heart failure exacerbation with evidence of irregular heart rhythm called atrial fibrillation. Treated with IV diuretics with good response as your breathing improved. Evaluated by Cardiology team who did cardioversion but your heart rhythm went back to a regular. Start amiodarone 400 mg twice daily for the next 2 weeks then decrease it to 200 mg twice Daily Start Xarelto as a blood thinner, hold aspirin for now Continue Lasix 40 mg daily, stop hydrochlorothiazide To follow-up with teachers' assistant Dr. Damon as outpatient To repeat blood test next week
[2022-03-05 12:47] VITALS: O2SAT 96
--- NOTE | 2022-03-05 14:08 | HO.POSTANES ---
Post Anesthesia Evaluation Post Anesthesia Evaluation Vital Signs: Vital Signs Temp Pulse Resp BP Pulse Ox 03/05/22 12:47 96 03/05/22 12:00 97.5 F 75 20 120/80 96 03/05/22 08:00 97.5 F 71 20 112/80 96 03/05/22 03:39 98.5 F 70 16 104/62 96 Anesthesia: Monitored Mental Status: Awake Pain Control: Satisfactory Nausea/Vomiting: None Hydration: Adequate Anesthesia-Related Issues: No Anes. Related Issues Comments: Patient seen at 7am this morning
[2022-03-06 13:14] LABS: Mitochondrial Antibodies NEGATIVE (NEGATIVE)
[2022-03-06 14:25] LABS: Smooth Muscle Antibody <20 U (<20)
== END 2022-03-05 14:15 | disposition home or self-care (01) | DRG 194 ==
LOC: HO.ED 16:02 → HO.EDOVER 17:40 → HO.IMC 02-27 11:06
PROVIDERS: Internal Medicine; Nurse Practitioner Family; Admitting Provider Nurse Practitioner Acute Care; Emergency Provider Emergency Medicine; PCP Family Medicine; Visit Provider Student in an Organized Health Care Education/Training Program
PROC: 5A2204Z Restoration of Cardiac Rhythm, Single (ICD-10-PCS; CPT 93312; principal; 2022-03-04 13:00)
PROC: 5A2204Z Restoration of Cardiac Rhythm, Single (ICD-10-PCS; 2022-03-04 13:00)
DX: I11.0 Hypertensive heart disease with heart failure (principal); D69.6 Thrombocytopenia, unspecified; I27.20 Pulmonary hypertension, unspecified; I95.9 Hypotension, unspecified; I42.9 Cardiomyopathy, unspecified; E87.1 Hypo-osmolality and hyponatremia; J44.1 Chronic obstructive pulmonary disease with (acute) exacerbation; K76.1 Chronic passive congestion of liver; I50.21 Acute systolic (congestive) heart failure; I48.91 Unspecified atrial fibrillation; I50.810 Right heart failure, unspecified; E89.0 Postprocedural hypothyroidism; F39 Unspecified mood [affective] disorder; I34.0 Nonrheumatic mitral (valve) insufficiency; R79.1 Abnormal coagulation profile; F17.210 Nicotine dependence, cigarettes, uncomplicated; Z71.6 Tobacco abuse counseling; Z20.822 Contact with and (suspected) exposure to COVID-19; Z79.01 Long term (current) use of anticoagulants; Z79.890 Hormone replacement therapy; Z79.899 Other long term (current) drug therapy
CPT/HCPCS: 36415; 71045; 76700; 80048; 80053; 80076; 82103; 82728; 83540; 83735; 83880; 84443; 84484; 85025; 85027; 85610; 85730; 86015; 86038; 86039; 86255; 86256; 86704; 86706; 86803; 87040; 87340; 87502; 87635; 92960; 93005; 93306; 93312; 94640; 96365; 96367; 96372; 96375; 99285; J0456; J0696; J1160; J1650; J1940

== ENCOUNTER 2022-03-24 14:25 | Outpatient (REF) | payer OTHER, SELFPAY ==
--- NOTE | ~2022-03-24 | XR_ITS ---
EXAMINATION: XR CHEST CLINICAL INFORMATION: Heart failure COMPARISON: February 25, 2022 and April 26, 2021 TECHNIQUE: 2 views of the chest were obtained. FINDINGS: The heart is upper limits of normal in size. No evidence of pulmonary edema. No pneumothorax or pleural effusion. Status post previous neck surgery. Status post left shoulder surgery. There appears to be an old healed left rib fracture. XR/XR chest 2V IMPRESSION: No acute disease.
[2022-03-24 15:09] LABS: Imm Gran Abs Auto 0.01 X10*3/uL (0.00-0.03); Imm Gran Pct Auto 0.2 % (0.0-0.4); MANUAL DIFF FLAG SCAN; Monocytes Percent Auto 10.3 % (2-11); Red Cell Distribution Width 14.6 % (11.0-16.0); SCAN SMEAR FLAG 1
[2022-03-24 15:11] LABS: Basophils Percent Auto 0.4 % (0-2); Eosinophils Absolute Auto 0.1 X10*3/uL (0.0-0.4); Hematocrit 44.3 % (42.0-52.0); Hemoglobin 14.4 g/dl (14.0-18.0); Lymphocytes Absolute Auto 1.4 X10*3/uL (1.2-4.9); Mean Corpuscular HGB Conc 32.5 g/dl (31.0-36.0); Mean Corpuscular Hemoglobin 27.5 pg (27.0-33.0); Mean Corpuscular Volume 84.7 fL (80.0-98.0); Monocytes Absolute Auto 0.5 X10*3/uL (0.1-1.2); Neutrophils Percent Auto 59.1 % (45-73); Platelet Count 118 X10*3/uL (160-400); Red Blood Count 5.23 X10*6/uL (4.60-5.80); White Blood Count 5.1 X10*3/uL (4.8-10.8)
[2022-03-24 15:14] LABS: PLT ABN DIST 1
[2022-03-24 15:34] LABS: Alanine Aminotransferase 19 U/L (0-40); Albumin Level 3.9 g/dL (3.5-5.0); Alkaline Phosphatase 71 U/L (39-117); Anion Gap 15 (12-20); Aspartate Amino Transferase 19 U/L (5-37); Bilirubin Direct 0.8 mg/dL (0.0-0.5); Bilirubin Total 1.4 mg/dL (0.0-1.0); Blood Urea Nitrogen 11 mg/dL (9-16); Calcium 9.3 mg/dL (8.4-10.2); Carbon Dioxide 22 mmol/L (22-29); Chloride 109 mmol/L (96-108); Estimated Glomerular Filt Rate > 60; Glucose Random 88 mg/dL (60-115); Potassium 3.9 mmol/L (3.3-5.1); Sodium 142 mmol/L (135-145); Total Protein 6.5 g/dL (6.5-8.0)
[2022-03-24 15:36] LABS: B Type Natriuretic Peptide 796 pg/mL (<100)
[2022-03-24 15:48] LABS: SLIDE REVIEW VERIFIED
[2022-03-24 15:55] LABS: Free T4 (Free Thyroxine) 2.29 ng/dL (0.71-1.85); Thyroid Stimulating Hormone 1.12 uIU/mL (0.32-4.0)
[2022-03-24 15:59] LABS: TSH reflex Free T4 1.22 uIU/mL (0.32-4.0)
[2022-03-25 17:57] LABS: Triiodothyronine T3 Total 91 ng/dL (76-181)
== END 2022-03-24 14:26 | disposition home or self-care (01) ==
LOC: HO.LAB 14:25
PROVIDERS: Visit Provider Family Medicine
DX: Z00.00 Encounter for general adult medical examination without abnormal findings (principal); E03.9 Hypothyroidism, unspecified; I48.91 Unspecified atrial fibrillation; I50.9 Heart failure, unspecified
CPT/HCPCS: 36415; 71046; 80053; 82248; 83880; 84439; 84443; 84480; 85025

== ENCOUNTER → 2022-03-25 14:12 | Outpatient (BNVA) | payer OTHER, SELFPAY | PROVIDERS: PCP Family Medicine; Referring Provider Family Medicine; Visit Provider Nurse Practitioner Family | DX: I48.91 Unspecified atrial fibrillation (principal); I48.92 Unspecified atrial flutter; I50.9 Heart failure, unspecified | CPT/HCPCS: 93005 ==

== ENCOUNTER 2022-03-31 13:15 | Outpatient (REF) | payer OTHER, SELFPAY ==
[2022-03-31 14:47] LABS: Anion Gap 12 (12-20); Blood Urea Nitrogen 14 mg/dL (9-16); Carbon Dioxide 33 mmol/L (22-29); Chloride 98 mmol/L (96-108); Estimated Glomerular Filt Rate 49; Glucose Random 98 mg/dL (60-115); Potassium 4.1 mmol/L (3.3-5.1); Sodium 139 mmol/L (135-145)
[2022-03-31 14:48] LABS: B Type Natriuretic Peptide 591 pg/mL (<100)
== END 2022-03-31 13:16 | disposition home or self-care (01) ==
LOC: HO.LAB 13:15
PROVIDERS: Absent Provider Family Medicine; PCP Family Medicine; Visit Provider Nurse Practitioner Family
DX: I50.9 Heart failure, unspecified (principal)
CPT/HCPCS: 36415; 80048; 83880

== ENCOUNTER 2022-04-09 11:33 | Day surgery (SDC) | payer OTHER, SELFPAY ==
[2022-04-09 12:09] VITALS: BMI 28.8
[2022-04-09 12:18] VITALS: BP 114/67; PULSE 62; RESP 16; TEMP 36.4; O2SAT 95
[2022-04-09] MEDS: Lactated Ringers 500 ML 20 ML IVCONT (12:25)
--- NOTE | 2022-04-09 13:45 | HO.ANESPROP2 ---
[facility] Active Problems Active Problems: All Active Problems (Updated 03/25/22 @ 16:03 by SHEELA LoaizaC) Atrial flutter with rapid ventricular response (Acute) Anxiety (Acute) Edema (Acute) Elevated LFTs (Acute) CHF (congestive heart failure) (Acute) Afib (Acute) Transaminitis (Acute) Urinary frequency (Acute) Adult general medical exam (Acute) Screening for prostate cancer (Acute) Screening for colon cancer (Acute) Low HDL (under 40) (Acute) Past Medical History Medical History Atrial fibrillation with rapid ventricular response Cardiomyopathy Congestive heart failure COPD (chronic obstructive pulmonary disease) Decompensated heart failure Essential hypertension Hypothyroidism (acquired) Smoker Family History Family History Mother COPD (chronic obstructive pulmonary disease) Family history of problems with anesthesia: No Surgical History Surgical History H/O shoulder surgery H/O thyroidectomy History of Problems with Anesthesia: No Social History Social History Household Members: None Housing: House Are you a primary care management coordinator to a significant other at home: No Do you presently have visiting nurse or other home services: No Alcohol intake: never Patient Tobacco Use Status: Current everyday Tobacco user Tobacco use type: Cigarette Cigarettes Per Day: 5 Years Smoked: 45 +/- e-Cigarette/Vaping Use: Never Used Second Hand Smoke Exposure: No Use of substances other than those prescribed or required for medical reasons: No Substance Use Type: Crack/Cocaine Are you DNR?: No Advance Directives: No Advance Directives Information Provided: Yes Recently lost weight without trying: Yes How much weight loss: 2-13 pounds Nutrition Risks: No Nutritional Risk service: No Current occupational status: retired Cognitive needs: No Hearing needs: No Vision needs: No Meds Allergies Allergy/AdvReac Type Severity Reaction Status Date / Time mold Allergy impacted Verified 04/01/22 10:12 sinus cavity Home Medications Medication Instructions Recorded Confirmed Last Taken Type tamsulosin 0.4 mg capsule 0.4 mg PO DAILY 03/18/22 03/25/22 04/09/22 08:30 History bupropion HCl 75 mg tablet 75 mg PO BID 03/25/22 03/25/22 04/09/22 08:30 History furosemide 40 mg tablet 40 mg PO DAILY 04/09/22 04/09/22 08:30 History Exam Exam Date and Time: April 09, 2022 1345 Height,Weight and Vital Signs: Height 6 ft 2 in Weight 101.605 kg Last Vital Signs Temp 97.5 F 04/09/22 12:18 Pulse 62 04/09/22 12:18 Resp 16 04/09/22 12:18 BP 114/67 04/09/22 12:18 Pulse Ox 95 04/09/22 12:18 O2 Del Method 04/09/22 12:18 Airway Mallampati Class: I TM Dist: >3cm Neck ROM: Full Loose/Missing/Broken Teeth: No Heart: rrr Lungs: clear Assessment and Plan Final Anesthetic Review Family History of Problems with Anesthesia: No History of Problems with Anesthesia: No NPO: Yes ASA Class: III Final Preanesthetic Review: No Changes in Pt Med Stat, Meds/Allgs Chart Reviewed, Consent Obtained/Reviewed and Anes Risks/Benef Reviewed Patient Risk: High Procedure Risk: Intermediate Anesthetic Plan Anesthetic Plan: MAC: Disposition: Standard PACU
--- NOTE | 2022-04-09 14:19 | MHC.SHP ---
Pre-Procedural Eval Section A Date of Service: 04/09/22 The patient is an INPATIENT: No Changes since office visit: Yes Patient answered all questions; No Cold of Flu in the past 2 weeks, No New Medical Problems and No Changes in Medication The History & Physical has been completed within 30 days and I have reviewed it.: Yes Section B Chief Complaint: A-Fib Allergies: Allergies Allergy/AdvReac Type Severity Reaction Status Date / Time mold Allergy impacted Verified 04/01/22 10:12 sinus cavity Plan I have reviewed the history and physical and performed a pertinent physical examination on my patient. No changes have occurred unless specified.
[2022-04-09 14:35] VITALS: BP 98/67; PULSE 59; RESP 14; TEMP 36.4; O2SAT 99
--- NOTE | 2022-04-09 14:39 | ECG_ITS ---
Test Reason : S/P CARDIOVERSION Blood Pressure : / mmHG Vent. Rate : 055 BPM Atrial Rate : 055 BPM P-R Int : 202 ms QRS Dur : 088 ms QT Int : 504 ms P-R-T Axes : 066 060 077 degrees QTc Int : 482 ms Sinus bradycardia Possible Left atrial enlargement Prolonged QT Abnormal ECG When compared with ECG of 05-MAR-2022 09:11, Normal sinus rhythm has replaced atrial flutter Referred By: Darryl Damon Electronically Signed By:DARRYL DAMON MD
[2022-04-09 14:40] VITALS: BP 99/65; PULSE 55; RESP 17; O2SAT 97
--- NOTE | 2022-04-09 14:43 | HO.CARDIVERS ---
Cardioversion Procedure Note Cardioversion Date of Procedure: Today Ordering Provider: Myself Performing Provider: Myself Indication for Procedure: Persistent atrial fibrillation Pre-Op Diagnosis: Same Post-Op Diagnosis: Sinus rhythm Performed with Transesophageal Echo: No History: See my office note Consent: Verbal and Written consent was obtained from the patient before starting and confirming oral anticoagulation use. The patient was made aware of the risk of synchronized cardioversion including benefits, alternatives and 2nd opinion. Procedure: After consent obtained, cardioversion pads were attached in AP configuration and the patient was sedated by the anesthesia team. Once adequate sedation achieved, patient was delivered 200 joules of biphasic synchronized energy in anteroposterior configuration. Complications: None Impression: Successful conversion to sinus rhythm Recommendations: 1. 12 lead EKG 2. Continue full oral anticoagulation 3. Continue amiodarone 4. Follow up in the office after Holter monitor
[2022-04-09 14:45] VITALS: BP 105/74; PULSE 58; RESP 17; O2SAT 97
[2022-04-09 14:50] VITALS: BP 111/81; PULSE 61; RESP 16; O2SAT 97
== END 2022-04-09 15:25 | disposition home or self-care (01) ==
PROVIDERS: PCP Family Medicine; Visit Provider Internal Medicine Cardiovascular Disease
PROC: 5A2204Z Restoration of Cardiac Rhythm, Single (ICD-10-PCS; principal; 2022-04-09 14:30)
DX: I48.19 Other persistent atrial fibrillation (principal); I48.92 Unspecified atrial flutter; I42.9 Cardiomyopathy, unspecified; I11.0 Hypertensive heart disease with heart failure; I50.9 Heart failure, unspecified; J44.9 Chronic obstructive pulmonary disease, unspecified; R63.5 Abnormal weight gain; Z68.29 Body mass index [BMI] 29.0-29.9, adult; Z79.01 Long term (current) use of anticoagulants; Z79.899 Other long term (current) drug therapy; F14.90 Cocaine use, unspecified, uncomplicated
CPT/HCPCS: 92960; 93005

== ENCOUNTER 2022-04-15 10:51 | Emergency (ER) | payer OTHER, SELFPAY ==
--- NOTE | ~2022-04-15 | XR_ITS ---
EXAMINATION: XR CHEST CLINICAL INFORMATION: Dizziness. Question atrial fibrillation. COMPARISON: Chest x-ray 03/24/2022 TECHNIQUE: 2 views of the chest were obtained. FINDINGS: The lungs are well-expanded and clear. The heart size and pulmonary vascularity is normal. No gross bony abnormality seen. XR/XR chest 2V IMPRESSION: Unremarkable chest exam.
--- NOTE | ~2022-04-15 | CT_ITS ---
EXAMINATION: CT ANGIOGRAM OF THE CHEST WITH AND WITHOUT CONTRAST (CT PULMONARY ANGIOGRAM FOR PE) CLINICAL INFORMATION: Reason for Exam dizziness in a flutter c chest pain/sob/beasley COMPARISON: Chest x-ray 04/15/2022 TECHNIQUE: Prior to contrast administration, noncontrast localization images were obtained. Subsequently, multidetector volumetric imaging was performed from the thoracic inlet to below the diaphragms following the administration of 80 mL Omnipaque 350 intravenous contrast. No contrast reaction reported Sagittal, coronal, and MIP oblique sagittal reformatted images were obtained on the CT workstation, uploaded to PACS, and reviewed. This CT examination was performed using dose optimization techniques as appropriate, variously including the following: *Automated exposure control *Adjustment of mA and/or kV according to patient size (this includes techniques or standardized protocols for targeted exams where dose is matched to indication/reason for exam; i.e. extremities or head) *Use of iterative reconstruction technique Total exam dose-length product 522.31+14.18+1.42+3.21+3.21 mGy-cm FINDINGS: QUALITY OF STUDY/CONTRAST BOLUS: Satisfactory. PULMONARY ARTERIES: No central or segmental pulmonary emboli. THORACIC AORTA: No aneurysm or dissection. LUNG: No focal consolidation, nodules or masses. PLEURA: No pleural effusion or pneumothorax. MEDIASTINUM: Normal heart size. No pericardial effusion. No hilar or mediastinal lymphadenopathy. No evidence of septal bowing or right heart strain. CHEST WALL/AXILLA: No axillary or internal mammary lymphadenopathy. OSSEOUS STRUCTURES: No acute or suspicious osseous abnormality. UPPER ABDOMEN: Unremarkable. No reflux of contrast into the hepatic veins to suggest elevated right heart pressures. CT/CT angio chest PE protocol IMPRESSION: Normal CT chest. No evidence of pulmonary embolism. VTE: negative
--- NOTE | ~2022-04-15 | CT_ITS ---
EXAMINATION: CT HEAD WITHOUT CONTRAST CLINICAL INFORMATION: Dizziness. COMPARISON: None. TECHNIQUE: Contiguous axial imaging was performed from the skull base to vertex without intravenous administration of contrast. Coronal and sagittal reformatted images are performed at the CT scanner. [This CT examination was performed using dose optimization techniques as appropriate, variously including the following: *Automated exposure control *Adjustment of mA and/or kV according to patient size (this includes techniques or standardized protocols for targeted exams where dose is matched to indication/reason for exam; i.e. extremities or head) *Use of iterative reconstruction technique] DLP: 680.78+5.12 mGy-cm. FINDINGS: There is no evidence of acute intracranial hemorrhage or territorial infarction. No abnormal mass-effect or midline shift is seen. Harvey to white matter differentiation is well preserved. No extra-axial fluid collections are identified. The ventricles are normal in size. There is no abnormal attenuation within the brain parenchyma. There is no osseous abnormality. The mastoid air cells and visualized portions of the paranasal sinuses are well-aerated. CT/CT head/brain wo con IMPRESSION: No acute intracranial pathology.
[2022-04-15 11:14] VITALS: BP 130/100; PULSE 115; O2SAT 100
--- NOTE | 2022-04-15 11:14 | ECG_ITS ---
Test Reason : ARRYTHMIA Blood Pressure : / mmHG Vent. Rate : 091 BPM Atrial Rate : 249 BPM P-R Int : 000 ms QRS Dur : 086 ms QT Int : 418 ms P-R-T Axes : 000 052 049 degrees QTc Int : 514 ms Atrial flutter with variable A-V block Abnormal ECG When compared with ECG of 09-APR-2022 14:37, Atrial flutter has replaced Sinus rhythm Referred By: Lea Bell Electronically Signed By:SATISH VILLA
[2022-04-15 11:25] VITALS: BP 123/79; PULSE 95; RESP 24; TEMP 36.9; O2SAT 100; BMI 27.8
[2022-04-15 11:53] LABS: MANUAL DIFF FLAG NO
[2022-04-15] MEDS: 0.9 % Sodium Chloride 1,000 ML 999 ML IVCONT (11:56)
[2022-04-15 12:00] LABS: Basophils Percent Auto 0.4 % (0-2); Eosinophils Absolute Auto 0.1 X10*3/uL (0.0-0.4); Eosinophils Percent Auto 1.8 % (0-4); Hematocrit 53.6 % (42.0-52.0); Hemoglobin 17.7 g/dl (14.0-18.0); Imm Gran Abs Auto 0.03 X10*3/uL (0.00-0.03); Imm Gran Pct Auto 0.4 % (0.0-0.4); Lymphocytes Absolute Auto 1.3 X10*3/uL (1.2-4.9); Lymphocytes Percent Auto 18.4 % (20-40); Mean Corpuscular Hemoglobin 27.7 pg (27.0-33.0); Mean Platelet Volume 12.5 fL (9.4-12.4); Monocytes Absolute Auto 0.6 X10*3/uL (0.1-1.2); Monocytes Percent Auto 8.1 % (2-11); Neutrophils Percent Auto 70.9 % (45-73); Platelet Count 169 X10*3/uL (160-400); Red Blood Count 6.38 X10*6/uL (4.60-5.80); Red Cell Distribution Width 15.5 % (11.0-16.0); White Blood Count 7.1 X10*3/uL (4.8-10.8)
[2022-04-15 12:06] LABS: Calcium 9.8 mg/dL (8.4-10.2)
[2022-04-15 12:08] LABS: Ethanol < 10 mg/dL
[2022-04-15 12:08] LABS: Appearance Urine CLEAR; Color Urine YELLOW; Glucose Urine UA NEG (NEG); Leukocyte Esterase Urine NEG (NEG); Nitrite Urine NEG (NEG); PH 5.5 (5.0-8.0); Urine Blood NEG (NEG); Urine Ketones NEG (NEG); Urine Protein NEG (NEG-TRACE)
[2022-04-15 12:13] LABS: Alanine Aminotransferase 20 U/L (0-40); Albumin Level 4.5 g/dL (3.5-5.0); Alkaline Phosphatase 91 U/L (39-117); Anion Gap 14 (12-20); Aspartate Amino Transferase 23 U/L (5-37); Bilirubin Total 1.4 mg/dL (0.0-1.0); Blood Urea Nitrogen 29 mg/dL (9-16); Calcium 9.7 mg/dL (8.4-10.2); Carbon Dioxide 28 mmol/L (22-29); Chloride 103 mmol/L (96-108); Creatinine Clr Calc Pharmacy 66.9; Estimated Glomerular Filt Rate 54; Glucose Random 108 mg/dL (60-115); Magnesium 1.9 mg/dL (1.6-2.6); Potassium 4.1 mmol/L (3.3-5.1); Sodium 141 mmol/L (135-145); Total Protein 7.8 g/dL (6.5-8.0)
[2022-04-15 12:14] LABS: B Type Natriuretic Peptide 282 pg/mL (<100); Troponin-I High Sensitivity 5.2 ng/L (<3.5-35.0)
[2022-04-15 12:18] LABS: INTERNATIONAL NORM RATIO 1.2 (0.9-1.1); Prothrombin Time 13.7 SEC (10.0-13.1)
[2022-04-15 12:22] LABS: IDNOW Serial# 16C4AD1C
[2022-04-15 12:23] LABS: COVID-19 Test Negative (Negative)
--- NOTE | 2022-04-15 12:39 | ED_ITS ---
HPI - Arrhythmia/Palpitations General Chief Complaint: Arrhythmia/Palpitations Stated Complaint: WEAK,DIZZY W/STANDING,FROM URGENT CARE PER EMS Time Seen by Provider: 04/15/22 11:13 Source: patient and EMS Mode of arrival: EMS History of Present Illness HPI narrative: 56-year-old male with a past medical history of COPD, CHF, cardiomyopathy, HTN, hypothyroidis and atrial fibrillation with rapid ventricular response and atrial flutter with rapid ventricular response who was recently cardioverted on Thursday for 2nd time being followed by Cardiology By Dr. Damon currently on amiodarone, metoprolol, Lasix, eplerenone and Xarelto reports he is taking them all as prescribed although yesterday he ran out of his Xarelto therefore he did not take the Xarelto yesterday and today otherwise has taken all other cardiac medications Reports that today he went to follow-up visit and they told him ?your heart rate is going fast and you might be having a heart attack you need to go to the emergency department at this time we are calling ambulance?. Patient reports he has been having some intermittent dizziness and some shortness of breath/dyspnea on exertion with chest tightness at the left side of the chest and he reports this started night and has been constant. He reports associated general weakness and fatigue. He denies any recent falls, head injury, changes in vision, orthopnea, paresthesias, diarrhea or constipati on, abdominal pain, back pain, flank pain, dysuria, lower extremity edema or calf tenderness, recent travel or sick contacts or any other symptoms complaints or concerns at this time. MD complaint: rapid heart beat and palpitations Onset (ago): day(s) (5) Duration: constant Severity: mild Arrhythmia history: atrial fibrillation, on anti-coagulants and history of belinda ctrical cardioversion (twice ) Associated symptoms: chest pain and shortness of breath Related Data Home Medications Medication Instructions Recorded Confirmed tamsulosin 0.4 mg capsule 0.4 mg PO DAILY 03/18/22 03/25/22 bupropion HCl 75 mg tablet 75 mg PO BID 03/25/22 03/25/22 furosemide 40 mg tablet 40 mg PO DAILY 04/09/22 Previous Rx's Medication Instructions Recorded fluoxetine 40 mg capsule 40 mg PO DAILY #30 caps 08/06/21 levothyroxine 112 mcg capsule 224 mcg PO DAILY 90 days #180 caps 10/09/21 amiodarone 200 mg tablet 200 mg PO DAILY 30 days #30 tabs 03/25/22 eplerenone 25 mg tablet 25 mg PO DAILY 30 days #30 tabs 03/25/22 metoprolol succinate 25 mg 25 mg PO DAILY #30 tabs 03/25/22 tablet,extended release 24 hr omeprazole 20 mg capsule,delayed 20 mg PO DAILY@0630 3 months #90 04/15/22 release caps rivaroxaban 20 mg tablet (Xarelto) 20 mg PO DAILY 30 days #30 tabs 04/15/22 rivaroxaban 20 mg tablet (Xarelto) 20 mg PO DAILY Atrial 04/15/22 flutter/atrial fibrillation #30 tabs Allergies Allergy/AdvReac Type Severity Reaction Status Date / Time mold Allergy impacted Verified 04/15/22 09:46 sinus cavity Review of Systems Review of Systems: Constitutional : No Weight loss, No Fever, No Chills, No Night Sweats, No Fatigue, No Malaise ENT/Mouth : No Hearing loss, No Ear Pain, No Nasal Congestion, No Sinus Pain, No Hoarseness, No sore throat, No Rhinorrhea, No Swallowing Difficulty Eyes: No Eye Pain, No Swelling, No Redness, No Foreign Body, No Discharge, No Vision Changes Cardiovascular : + Chest Pain, + SOB, + Dyspnea on Exertion, + Palpitations, No Orthopnea, No Edema Respiratory : No Cough, No Sputum, No Wheezing, No Smoke Exposure, No Dyspnea Gastrointestinal : No Nausea, No Vomiting, No Diarrhea, No Constipation, No abdominal Pain, No Hematochezia, No Melena Genitourinary : no irregular bleeding, No Dysuria, No Urinary Frequency, No Hematuria, No Urinary Incontinence, No Urgency, No Flank Pain, No Urinary Flow Changes, No Hesitancy Musculoskeletal : No joint pain, No Myalgias, No Joint Swelling Skin : No Skin Lesions, No rash Neuro : No Weakness, No Numbness, No Paresthesias, No Loss of Consciousness, No Dizziness, No Headache Psych : No Anxiety/Panic, No Depression, No SI/HI/AH/VH, No Social Issues, Heme/Lymph: No Bruising, No Bleeding,No Lymphadenopathy Endocrine : No Polyuria, No Polydipsia, No Temperature Intolerance Yes all other systems are reviewed and are negative [facility] Past Medical History Attestation statement: The following information was validated with the patient. Source: old records reviewed and nursing notes reviewed Medical History Atrial fibrillation with rapid ventricular response Cardiomyopathy Congestive heart failure COPD (chronic obstructive pulmonary disease) Decompensated heart failure Essential hypertension Hypothyroidism (acquired) Smoker Surgical History H/O shoulder surgery H/O thyroidectomy Family History Family History Mother COPD (chronic obstructive pulmonary disease) Social History Social History Household Members: None Housing: House Are you a primary health care facilities inspector to a significant other at home: No Do you presently have visiting nurse or other home services: No Alcohol intake: never Patient Tobacco Use Status: Former Tobacco user Quit Date: 02/2022 Tobacco use type: Cigarette Cigarettes Per Day: 5 Years Smoked: 45 +/- e-Cigarette/Vaping Use: Never Used Second Hand Smoke Exposure: No Substance Use Type: Crack/Cocaine Advance Directives: No Advance Directives Information Provided: Yes service: No Current occupational status: retired Current occupational exposures/hazards: No Cognitive needs: No Hearing needs: No Vision needs: No Physical Exam Vital Signs: Vital Signs: Last Vital Signs Temp 98.4 F 04/15/22 11:25 Pulse 95 04/15/22 11:25 Resp 24 H 04/15/22 11:25 BP 123/79 04/15/22 11:25 Pulse Ox 100 04/15/22 11:25 O2 Del Method 04/15/22 11:25 BMI result Body Mass Index 27.8 vital signs have been reviewed as normal and appeared to be correct. Blood pressure normal. Heart rate normal. Respiration rate 24 Temperature normal. Oxygen saturation normal. Appearance: Alert. Oriented X3. No acute distress. Head: Normal external exam. Normocephalic. Atraumatic. Eyes: PERRLA. EOMI. Conjunctiva and sclera normal. Eyelids normal. ENT: Pharynx normal. Uvula midline. Moist mucous membranes. Normal voice. No trismus noted. No drooling noted. No muffled voice noted. Neck: Normal inspection. Neck supple. FROM. No adenopathy. Thyroid Normal. No meningeal signs. No neck mass noted. No signs of trauma noted. CVS: Irregularly irregular heart rate consistent with atrial flutter. Heart so und normal. Pulses normal throughout. No murmurs/rales/gallops. Respiratory: No respiratory distress. Painless inspiration. Breath sounds normal. No wheezes/rales/rhonchi noted. Chest nontender. No crepitus is noted. No signs of trauma noted. No accessory muscle usage noted or decreased air move ment noted. Abdomen: Soft and nontender. Bowel sounds normal in all 4 quadrants. No distention noted. No organomegaly noted. No visible injury noted. Back: Full range of motion noted. Nontender. Skin: Skin warm and dry. Normal skin color. Normal skin turgor. No rashes/lesions/lacerations noted. Extremities: No lower extremity edema. No calf tenderness is noted. Extremities exhibit normal range of motion and nontender. Neuro: Oriented X 3. No motor deficit. No sensory deficit. Reflexes normal. Normal steady gait. No focal neuro deficits noted. CN's II-XII intact bilaterally? Vascular: + radial pulses/+ 2 distal pedal pulses/+2 dorsalis pedis b/l. Normal cap refill. No cyanosis noted to upper extremity nails and lower extremity toes nails. Course Course Course Narrative: 11:15am - 56-year-old c PMHX of atrial fibrillation with rapid ventricular response and atrial flutter with rapid ventricular response who was recently cardioverted on Thursday for 2nd time being followed by Cardiology By Dr. Damon currently on amiodarone, metoprolol, Lasix, eplerenone and Xarelto who was seen at a regular follow-up today sent to the ED via EMS due to rapid heart rate irregular EKG patient reports this started since night and he reports general weakness, fatigue, left-sided chest pain, palpitations, dyspnea on exertion and orthopnea that has been constant. On arrival patient heart rate is 95 and he is in a rate controlled atrial flutter no indications indicated at this time. Plan: Labs, EKG, production control analyst, CT scan of brain, CTA of chest for PE, COVID swab and re-evaluate. Reevaluation(s) Reevaluation #1: - labs reviewed patient's D-dimer 235. BUN 29. Total bilirubin 1.4. Troponin 5.2. Will be repeated in 3 hours. BNP 282. Otherwise all other labs are within normal limits. UA within normal limits no evidence of UTI. Patient negative for COVID and ETOH intake. - EKG is atrial flutter with variable T-wave abnormalities and prolonged QT at 514ms otherwise no acute ischemic changes are noted. - at this time we are pending chest x-ray, CT scan of brain without contrast and CTA of chest for PE will re-evaluate. Patient is resting in his room with a heart rate of 79 on a production control analyst. Time: 14:01 Reevaluation #2: - CTA of chest negative. - therefore at this time will consult with Cardiology for further recommendations. Time: 15:34 Reevaluation #3: - repeat troponin negative delta. Therefore I spoke to Dr. Hargrove and he reported the patient was no longer having any symptoms and the patient can follow-up with him at the outpatient cardiology clinic and instructions to return if any new or worsening symptoms. I did start the patient back on his Xarelto and I sent a new prescription to the pharmacy. Patient understands agrees with this plan. Time: 16:23 MDM - Arrhythmia/Palpitations Medical Records Attestation: I reviewed the patient's medical records. Lab Data Attestation: I reviewed the patient's lab results. Result diagrams: 04/15/22 11:45 04/15/22 11:45 Labs: Lab Results 04/15/22 04/15/22 04/15/22 Range/Units 11:37 11:45 11:45 WBC 7.1 (4.8-10.8) X10*3/uL RBC 6.38 H D (4.60-5.80) X10*6/uL Hgb 17.7 D (14.0-18.0) g/dl Hct 53.6 H D (42.0-52.0) % MCV 84.0 (80.0-98.0) fL MCH 27.7 (27.0-33.0) pg MCHC 33.0 (31.0-36.0) g/dl RDW 15.5 (11.0-16.0) % Plt Count 169 D (160-400) X10*3/uL MPV 12.5 H (9.4-12.4) fL Immature Gran % (Auto) 0.4 (0.0-0.4) % Neut % (Auto) 70.9 (45-73) % Lymph % (Auto) 18.4 L (20-40) % Hyde % (Auto) 8.1 (2-11) % Eos % (Auto) 1.8 (0-4) % Baso % (Auto) 0.4 (0-2) % Lymph # (Auto) 1.3 (1.2-4.9) X10*3/uL Hyde # (Auto) 0.6 (0.1-1.2) X10*3/uL Eos # (Auto) 0.1 (0.0-0.4) X10*3/uL Baso # (Auto) 0.0 (0.0-0.2) X10*3/uL Abs Immat Gran (auto) 0.03 (0.00-0.03) X10*3/uL Absolute Neuts (auto) 5.0 (2.0-8.3) x10*3/uL Absolute Nucleated RBC 0.000 (0.0-0.012) X10*3/uL Nucleated RBC % (auto) 0.0 (0.0-0.2) /100WBC PT 13.7 H (10.0-13.1) SEC INR 1.2 H (0.9-1.1) D-Dimer High Sensitivty 235 NG/ML Sodium (135-145) mmol/L Potassium (3.3-5.1) mmol/L Chloride (96-108) mmol/L Carbon Dioxide (22-29) mmol/L Anion Gap (12-20) BUN (9-16) mg/dL Creatinine (0.5-1.4) mg/dL Estim Creat Clear Calc Estimated GFR Random Glucose (60-115) mg/dL Calcium (8.4-10.2) mg/dL Magnesium (1.6-2.6) mg/dL Total Bilirubin (0.0-1.0) mg/dL AST (5-37) U/L ALT (0-40) U/L Alkaline Phosphatase (39-117) U/L Troponin I High Sens (<3.5-35.0) ng/L B-Natriuretic Peptide (<100) pg/mL Total Protein (6.5-8.0) g/dL Albumin (3.5-5.0) g/dL Urine Color YELLOW Urine Appearance CLEAR Urine pH 5.5 (5.0-8.0) Ur Specific [place] 1.010 (1.005-1.025) Urine Protein NEG (NEG-TRACE) MG/DL Urine Glucose (UA) NEG (NEG) MG/DL Urine Ketones NEG (NEG) MG/DL Urine Blood NEG (NEG) Urine Nitrite NEG (NEG) Ur Leukocyte Esterase NEG (NEG) Ethyl Alcohol mg/dL COVID-19 (ORI) (Negative) COVID-19 Clin Com 04/15/22 04/15/22 04/15/22 Range/Units 11:45 11:45 11:45 WBC (4.8-10.8) X10*3/uL RBC (4.60-5.80) X10*6/uL Hgb (14.0-18.0) g/dl Hct (42.0-52.0) % MCV (80.0-98.0) fL MCH (27.0-33.0) pg MCHC (31.0-36.0) g/dl RDW (11.0-16.0) % Plt Count (160-400) X10*3/uL MPV (9.4-12.4) fL Immature Gran % (Auto) (0.0-0.4) % Neut % (Auto) (45-73) % Lymph % (Auto) (20-40) % Hyde % (Auto) (2-11) % Eos % (Auto) (0-4) % Baso % (Auto) (0-2) % Lymph # (Auto) (1.2-4.9) X10*3/uL Hyde # (Auto) (0.1-1.2) X10*3/uL Eos # (Auto) (0.0-0.4) X10*3/uL Baso # (Auto) (0.0-0.2) X10*3/uL Abs Immat Gran (auto) (0.00-0.03) X10*3/uL Absolute Neuts (auto) (2.0-8.3) x10*3/uL Absolute Nucleated RBC (0.0-0.012) X10*3/uL Nucleated RBC % (auto) (0.0-0.2) /100WBC PT (10.0-13.1) SEC INR (0.9-1.1) D-Dimer High Sensitivty NG/ML Sodium 141 (135-145) mmol/L Potassium 4.1 (3.3-5.1) mmol/L Chloride 103 (96-108) mmol/L Carbon Dioxide 28 (22-29) mmol/L Anion Gap 14 (12-20) BUN 29 H D (9-16) mg/dL Creatinine 1.36 (0.5-1.4) mg/dL Estim Creat Clear Calc 66.9 Estimated GFR 54 Random Glucose 108 (60-115) mg/dL Calcium 9.7 D 9.8 (8.4-10.2) mg/dL Magnesium 1.9 (1.6-2.6) mg/dL Total Bilirubin 1.4 H (0.0-1.0) mg/dL AST 23 (5-37) U/L ALT 20 (0-40) U/L Alkaline Phosphatase 91 D (39-117) U/L Troponin I High Sens 5.2 D (<3.5-35.0) ng/L B-Natriuretic Peptide 282 H (<100) pg/mL Total Protein 7.8 (6.5-8.0) g/dL Albumin 4.5 (3.5-5.0) g/dL Urine Color Urine Appearance Urine pH (5.0-8.0) Ur Specific [place] (1.005-1.025) Urine Protein (NEG-TRACE) MG/DL Urine Glucose (UA) (NEG) MG/DL Urine Ketones (NEG) MG/DL Urine Blood (NEG) Urine Nitrite (NEG) Ur Leukocyte Esterase (NEG) Ethyl Alcohol mg/dL COVID-19 (ORI) (Negative) COVID-19 Clin Com 04/15/22 04/15/22 04/15/22 Range/Units 11:45 11:46 12:49 WBC (4.8-10.8) X10*3/uL RBC (4.60-5.80) X10*6/uL Hgb (14.0-18.0) g/dl Hct (42.0-52.0) % MCV (80.0-98.0) fL MCH (27.0-33.0) pg MCHC (31.0-36.0) g/dl RDW (11.0-16.0) % Plt Count (160-400) X10*3/uL MPV (9.4-12.4) fL Immature Gran % (Auto) (0.0-0.4) % Neut % (Auto) (45-73) % Lymph % (Auto) (20-40) % Hyde % (Auto) (2-11) % Eos % (Auto) (0-4) % Baso % (Auto) (0-2) % Lymph # (Auto) (1.2-4.9) X10*3/uL Hyde # (Auto) (0.1-1.2) X10*3/uL Eos # (Auto) (0.0-0.4) X10*3/uL Baso # (Auto) (0.0-0.2) X10*3/uL Abs Immat Gran (auto) (0.00-0.03) X10*3/uL Absolute Neuts (auto) (2.0-8.3) x10*3/uL Absolute Nucleated RBC (0.0-0.012) X10*3/uL Nucleated RBC % (auto) (0.0-0.2) /100WBC PT (10.0-13.1) SEC INR (0.9-1.1) D-Dimer High Sensitivty NG/ML Sodium (135-145) mmol/L Potassium (3.3-5.1) mmol/L Chloride (96-108) mmol/L Carbon Dioxide (22-29) mmol/L Anion Gap (12-20) BUN (9-16) mg/dL Creatinine (0.5-1.4) mg/dL Estim Creat Clear Calc Estimated GFR Random Glucose (60-115) mg/dL Calcium (8.4-10.2) mg/dL Magnesium (1.6-2.6) mg/dL Total Bilirubin (0.0-1.0) mg/dL AST (5-37) U/L ALT (0-40) U/L Alkaline Phosphatase (39-117) U/L Troponin I High Sens Cancelled (<3.5-35.0) ng/L B-Natriuretic Peptide (<100) pg/mL Total Protein (6.5-8.0) g/dL Albumin (3.5-5.0) g/dL Urine Color Urine Appearance Urine pH (5.0-8.0) Ur Specific [place] (1.005-1.025) Urine Protein (NEG-TRACE) MG/DL Urine Glucose (UA) (NEG) MG/DL Urine Ketones (NEG) MG/DL Urine Blood (NEG) Urine Nitrite (NEG) Ur Leukocyte Esterase (NEG) Ethyl Alcohol < 10 mg/dL COVID-19 (ORI) Negative (Negative) COVID-19 Clin Com See Note 04/15/22 Range/Units 15:43 WBC (4.8-10.8) X10*3/uL RBC (4.60-5.80) X10*6/uL Hgb (14.0-18.0) g/dl Hct (42.0-52.0) % MCV (80.0-98.0) fL MCH (27.0-33.0) pg MCHC (31.0-36.0) g/dl RDW (11.0-16.0) % Plt Count (160-400) X10*3/uL MPV (9.4-12.4) fL Immature Gran % (Auto) (0.0-0.4) % Neut % (Auto) (45-73) % Lymph % (Auto) (20-40) % Hyde % (Auto) (2-11) % Eos % (Auto) (0-4) % Baso % (Auto) (0-2) % Lymph # (Auto) (1.2-4.9) X10*3/uL Hyde # (Auto) (0.1-1.2) X10*3/uL Eos # (Auto) (0.0-0.4) X10*3/uL Baso # (Auto) (0.0-0.2) X10*3/uL Abs Immat Gran (auto) (0.00-0.03) X10*3/uL Absolute Neuts (auto) (2.0-8.3) x10*3/uL Absolute Nucleated RBC (0.0-0.012) X10*3/uL Nucleated RBC % (auto) (0.0-0.2) /100WBC PT (10.0-13.1) SEC INR (0.9-1.1) D-Dimer High Sensitivty NG/ML Sodium (135-145) mmol/L Potassium (3.3-5.1) mmol/L Chloride (96-108) mmol/L Carbon Dioxide (22-29) mmol/L Anion Gap (12-20) BUN (9-16) mg/dL Creatinine (0.5-1.4) mg/dL Estim Creat Clear Calc Estimated GFR Random Glucose (60-115) mg/dL Calcium (8.4-10.2) mg/dL Magnesium (1.6-2.6) mg/dL Total Bilirubin (0.0-1.0) mg/dL AST (5-37) U/L ALT (0-40) U/L Alkaline Phosphatase (39-117) U/L Troponin I High Sens 3.7 (<3.5-35.0) ng/L B-Natriuretic Peptide (<100) pg/mL Total Protein (6.5-8.0) g/dL Albumin (3.5-5.0) g/dL Urine Color Urine Appearance Urine pH (5.0-8.0) Ur Specific [place] (1.005-1.025) Urine Protein (NEG-TRACE) MG/DL Urine Glucose (UA) (NEG) MG/DL Urine Ketones (NEG) MG/DL Urine Blood (NEG) Urine Nitrite (NEG) Ur Leukocyte Esterase (NEG) Ethyl Alcohol mg/dL COVID-19 (ORI) (Negative) COVID-19 Clin Com Imaging Data CT scan of brain without contrast: Attestation: I personally reviewed and interpreted this imaging study as follows: Radiologist's impression: FINDINGS: There is no evidence of acute intracranial hemorrhage or territorial infarction. No abnormal mass-effect or midline shift is seen. Harvey to white matter differentiation is well preserved. No extra-axial fluid collections are identified. The ventricles are normal in size. There is no abnormal attenuation within the brain parenchyma. There is no osseous abnormality. The mastoid air cells and visualized portions of the paranasal sinuses are well-aerated. ? CT/CT head/brain wo con IMPRESSION: No acute intracranial pathology. Chest x-ray: Attestation: I personally reviewed and interpreted this imaging study as follows: Radiologist's impression: FINDINGS: The lungs are well-expanded and clear. The heart size and pulmonary vascularity is normal. No gross bony abnormality seen. XR/XR chest 2V IMPRESSION: Unremarkable chest exam. CTA of chest for PE: Attestation: I personally reviewed and interpreted this imaging study as follows: Radiologist's impression: FINDINGS: QUALITY OF STUDY/CONTRAST BOLUS: Satisfactory. PULMONARY ARTERIES: No central or segmental pulmonary emboli.? THORACIC AORTA: No aneurysm or dissection. LUNG: No focal consolidation, nodules or masses. PLEURA: No pleural effusion or pneumothorax. MEDIASTINUM: Normal heart size.? No pericardial effusion.? No hilar or mediastinal lymphadenopathy.? No evidence of septal bowing or right heart strain. CHEST WALL/AXILLA: No axillary or internal mammary lymphadenopathy. OSSEOUS STRUCTURES: No acute or suspicious osseous abnormality.? UPPER ABDOMEN: Unremarkable.? No reflux of contrast into the hepatic veins to suggest elevated right heart pressures. CT/CT angio chest PE protocol IMPRESSION: Normal CT chest. No evidence of pulmonary embolism. ? VTE: negative ECG Data Attestation: I personally reviewed and interpreted this ECG as follows: ECG interpretation date: 04/15/22 ECG interpretation time: 11:15 Interpretation: - EKG is atrial flutter with variable T-wave abnormalities and prolonged QT at 514ms otherwise no acute ischemic changes are noted. Critical Care Time Critical Care Time Critical Care Time: Yes Total Critical Care Time: 60 Attestation: I personally attest to this time spent taking care of the patient Discharge Plan Discharge Clinical Impression: Atrial flutter Patient Disposition: Home, Self-Care Instructions: Atrial Flutter (ED) Prescriptions: New Xarelto 20 mg tablet 20 mg PO DAILY Qty: 30 0RF Rx Instructions: must administer with evening meal No Action fluoxetine 40 mg capsule 40 mg PO DAILY Qty: 30 4RF levothyroxine 112 mcg capsule 224 mcg PO DAILY 90 Days Qty: 180 2RF bupropion HCl 75 mg tablet 75 mg PO BID furosemide 40 mg tablet 40 mg PO DAILY Protocol: Hold for SBP< HOLD for SBP < : 90 tamsulosin 0.4 mg capsule 0.4 mg PO DAILY Xarelto 20 mg tablet 20 mg PO DAILY 30 Days Qty: 30 4RF omeprazole 20 mg capsule,delayed release(DR/EC) 20 mg PO DAILY@0630 90 Days Qty: 90 2RF eplerenone 25 mg tablet 25 mg PO DAILY 30 Days Qty: 30 1RF amiodarone 200 mg tablet 200 mg PO DAILY 30 Days Qty: 30 4RF metoprolol succinate 25 mg tablet extended release 24 hr 25 mg PO DAILY Qty: 30 3RF Referrals: Kota Laboy MD [Primary Care Provider] - 2 days Morris Hargrove MD [Physician] - 1 week (Call tomorrow to make a follow- up appointment within 1 week)
[2022-04-15 13:32] LABS: D Dimer High Sensitivity 235 NG/ML
[2022-04-15] MEDS: iohexoL 350 MG/ML 100 ML INFUS..BTL IV (13:48)
[2022-04-15] MEDS: Rivaroxaban 20 MG TABLET PO (16:12)
[2022-04-15 16:22] LABS: Troponin-I High Sensitivity 3.7 ng/L (<3.5-35.0)
== END 2022-04-15 16:32 | disposition home or self-care (01) ==
PROVIDERS: Physician Assistant Medical; Emergency Provider Emergency Medicine; PCP Family Medicine
DX: I48.92 Unspecified atrial flutter (principal); I48.91 Unspecified atrial fibrillation; I11.0 Hypertensive heart disease with heart failure; I50.9 Heart failure, unspecified; J44.9 Chronic obstructive pulmonary disease, unspecified; Z79.01 Long term (current) use of anticoagulants; Z79.899 Other long term (current) drug therapy; Z20.822 Contact with and (suspected) exposure to COVID-19
CPT/HCPCS: 36415; 70450; 71046; 71275; 80053; 81003; 82077; 82310; 83735; 83880; 84484; 85025; 85379; 85610; 87635; 93005; 96360; 99283; 99284; Q9967

== ENCOUNTER → 2022-04-23 12:31 | Outpatient (REF) | payer OTHER, SELFPAY ==
--- NOTE | 2022-04-23 12:35 | ECG_ITS ---
Hook-up date: 2022-04-23 12:01:00 Duration: 25:51:00 Test Indications: atrial flutter Medications: [id number] QRS complexes 291 Ventricular ectopics which represent <1 % of total QRS comp. * Supraventricular ectopics which represent % of total QRS comp. * Paced QRS complexs which represent % of total QRS comp. VENTRICULAR ECTOPY 289 Isolated 0 Bigeminal Cycles 1 Couplets 0 Runs 0 Beats in Runs * Beats LONGEST at * BPM at :: -- * Beats FASTEST at * BPM at :: -- SUPRAVENTRICULAR ECTOPY * Isolated * Couplets * Runs * Beats in Runs * Beats LONGEST at * BPM at :: -- * Beats FASTEST at * BPM at :: -- HEART RATES 41 MIN at 02:41:18 2022-04-24 87 AVG 163 MAX at 10:45:59 2022-04-24 LONGEST RR 2.4240 secs at 02:39:43 2022-04-24 S-T LEVELS Channel 1 - 128 mm at 12:01:00 2022-04-23 - 128 mm at 12:01:00 2022-04-23 Channel 2 - 128 mm at 12:01:00 2022-04-23 - 128 mm at 12:01:00 2022-04-23 Channel 3 - 128 mm at 03:12:01 -- - 128 mm at 03:12:01 Basic rhythm Atrial flutter Frequent Atrial flutter with rapid ventricular response , 45% of time HR > 100 bpm No long pause or profound bradycardia Occasional Premature ventricular complexes No diary submitted Referred By: Darryl Damon Overread By: DARRYL DAMON MD
[2022-04-23 13:52] LABS: Appearance Urine CLEAR; Color Urine DK YELLOW; Glucose Urine UA NEG (NEG); Leukocyte Esterase Urine NEG (NEG); Nitrite Urine NEG (NEG); Specific Gravity - Urine 1.015 (1.005-1.025); Urine Blood NEG (NEG); Urine Ketones 5 MG/DL (NEG); Urine Protein NEG (NEG-TRACE)
== END ==
LOC: HO.CARD 12:31
PROVIDERS: Family Medicine; Visit Provider Internal Medicine Cardiovascular Disease
DX: I48.92 Unspecified atrial flutter (principal); R82.998 Other abnormal findings in urine
CPT/HCPCS: 81003; 93226

== ENCOUNTER → 2022-04-24 09:41 | Outpatient (BNVA) | payer OTHER, SELFPAY | PROVIDERS: PCP Family Medicine; Visit Provider Internal Medicine Endocrinology, Diabetes & Metabolism | DX: E03.9 Hypothyroidism, unspecified (principal); Z79.899 Other long term (current) drug therapy | CPT/HCPCS: 99202 ==

== ENCOUNTER 2022-04-29 10:49 | Outpatient (REF) | payer OTHER, SELFPAY ==
[2022-04-29 12:27] LABS: B Type Natriuretic Peptide 105 pg/mL (<100); Troponin-I High Sensitivity < 3.5 ng/L (<3.5-35.0)
[2022-04-29 12:36] LABS: Anion Gap 14 (12-20); Blood Urea Nitrogen 19 mg/dL (9-16); Calcium 9.7 mg/dL (8.4-10.2); Carbon Dioxide 28 mmol/L (22-29); Chloride 99 mmol/L (96-108); Estimated Glomerular Filt Rate 41; Glucose Random 96 mg/dL (60-115); Potassium 4.2 mmol/L (3.3-5.1); Sodium 137 mmol/L (135-145)
[2022-04-29 12:49] LABS: Digoxin 0.4 ng/mL (0.8-2.0)
== END 2022-04-29 10:50 | disposition home or self-care (01) ==
LOC: HO.LAB 10:49
PROVIDERS: PCP Family Medicine; Visit Provider Family Medicine
DX: Z00.00 Encounter for general adult medical examination without abnormal findings (principal); I50.9 Heart failure, unspecified; R06.02 Shortness of breath; I48.92 Unspecified atrial flutter; Z79.899 Other long term (current) drug therapy
CPT/HCPCS: 36415; 80048; 80162; 83880; 84484

== ENCOUNTER 2022-05-13 12:34 | Outpatient (REF) | payer OTHER, SELFPAY ==
[2022-05-13 16:12] LABS: Alanine Aminotransferase 18 U/L (0-40); Albumin Level 4.2 g/dL (3.5-5.0); Alkaline Phosphatase 81 U/L (39-117); Anion Gap 13 (12-20); Aspartate Amino Transferase 24 U/L (5-37); Bilirubin Total 1.4 mg/dL (0.0-1.0); Blood Urea Nitrogen 15 mg/dL (9-16); Calcium 9.1 mg/dL (8.4-10.2); Carbon Dioxide 28 mmol/L (22-29); Chloride 103 mmol/L (96-108); Estimated Glomerular Filt Rate > 60; Glucose Random 96 mg/dL (60-115); Potassium 4.2 mmol/L (3.3-5.1); Sodium 140 mmol/L (135-145)
== END 2022-05-13 12:35 | disposition home or self-care (01) ==
LOC: HO.LAB 12:34
PROVIDERS: PCP Family Medicine; Visit Provider Family Medicine
DX: R79.89 Other specified abnormal findings of blood chemistry (principal)
CPT/HCPCS: 36415; 80053

== ENCOUNTER → 2022-05-14 13:30 | Outpatient (BNVA) | payer OTHER, SELFPAY | PROVIDERS: PCP Family Medicine; Referring Provider Family Medicine; Visit Provider Nurse Practitioner Family | DX: I42.9 Cardiomyopathy, unspecified (principal); I50.9 Heart failure, unspecified; I48.92 Unspecified atrial flutter; I48.91 Unspecified atrial fibrillation | CPT/HCPCS: 99212 ==

== ENCOUNTER → 2022-05-16 08:52 | Outpatient (REF) | payer OTHER, SELFPAY ==
--- NOTE | ~2022-05-16 | NM_ITS ---
Lexiscan Myocardial perfusion study Indication: Cardiomyopathy, assess for coronary disease and ischemia Technique: The patient was brought in for a Lexiscan perfusion study on 05/16/2022 and was injected 0.4 mg of Lexiscan intravenously. Within a minute of this injection 30 mCi of sestamibi was given intravenously. Images were obtained using the SPECT gamma camera interlaced with the gating device. Images were obtained in supine position. Resting perfusion study was performed on 05/19/2022. Patient was administered 31 mCi of sestamibi intravenously at rest. Images were then obtained in supine position. Total DLP 81mGy-cm. Images were processed with the software and compared side to side in short axis, horizontal long axis and vertical long axis views. Findings: Raw acquisition reviewed. The stress perfusion study showed mildly diminished tracer uptake along the inferior wall, somewhat more prominent in the basal as well as the apical portion. There is improvement with CT attenuation correction and hence suggestive of probable diaphragmatic attenuation artifact. The gated study shows normal LV systolic function with calculated LVEF of 60%. LV cavity is normal in size. The gated study shows normal wall thickening and contraction of segments. Resting study shows no significant perfusion abnormality. Gating at rest reveals normal wall motion with ejection fraction at 59%. The findings are consistent with mild reversible inferior perfusion defect. Probably from diaphragmatic attenuation artifact. NM/CA cardiolite stress test Impression: 1. Myocardial perfusion imaging study shows mild reversible inferior defect, suspected to be from diaphragmatic attenuation artifact. 2. Gated LVEF is 60% during stress and 59% during rest. 3. Transient ischemic dilatation not present. EKG component of the test reported separately.
--- NOTE | 2022-05-16 08:54 | CA_ITS ---
Acquisition Time: 2022-05-16 09:32:05 Total Exercise Time: 00:02:00 Test Indications: AFLUTTER Medications: SEE CHART Protocol: LEXISCAN Max HR: 100 BPM 62% of Pred: 161 BPM Max BP: 126/074 mmHG Max Work Load: 1.6 METS Pharmacological stress test with Lexiscan injection, while walking slow on treadmill, with mild sob, no chest discomfort, with atrial fibrillation throughout, isolated PVCs, with normotensive response to injection, with nondiagnostic EKG for ischemia. In recovery he reported fuzziness in his head that was treated with Aminophylline 75mg IVP to reverse Lexiscan with resolution of symptom. Nuclear images pending. Test reviewed with Dr Hargrove. Referred By: Fidelia Sutherland Overread By: FIDELIA SUTHERLAND
== END ==
LOC: HO.CARD 08:52
PROVIDERS: PCP Family Medicine; Visit Provider Nurse Practitioner Family
DX: I42.9 Cardiomyopathy, unspecified (principal); I48.92 Unspecified atrial flutter; I50.9 Heart failure, unspecified
CPT/HCPCS: 78452; 93017; A9500; J0280; J2785

== ENCOUNTER 2022-05-21 12:07 | Day surgery (SDC) | payer OTHER, SELFPAY ==
--- NOTE | 2022-05-20 11:42 | P.CONAN_ITS ---
Documented by User: Aury Mackenzie NP 05/20/22 11:46 HPI - Anesthesia Eval Consult details Narrative: 57yo M for Cardioversion Xarelto for afib PMFSH Active Problems Active Problems: All Active Problems (Updated 05/14/22 @ 16:16 by Fidelia Sutherland, TUAN-C) Cardiomyopathy (Acute) Elevated serum creatinine (Acute) Blood in urine (Acute) Hypothyroidism (acquired) (Acute) EKG, abnormal (Acute) Atrial flutter with rapid ventricular response (Acute) Anxiety (Acute) Edema (Acute) Elevated LFTs (Acute) CHF (congestive heart failure) (Acute) Afib (Acute) Transaminitis (Acute) Urinary frequency (Acute) Adult general medical exam (Acute) Screening for prostate cancer (Acute) Screening for colon cancer (Acute) Low HDL (under 40) (Acute) Past Medical History Medical History Atrial fibrillation with rapid ventricular response Atrial flutter with rapid ventricular response Cardiomyopathy Congestive heart failure COPD (chronic obstructive pulmonary disease) Decompensated heart failure Essential hypertension Hypothyroidism (acquired) Smoker Family History Family History Mother COPD (chronic obstructive pulmonary disease) Family history of problems with anesthesia: No Surgical History Surgical History H/O shoulder surgery H/O thyroidectomy History of Problems with Anesthesia: No Social History Social History Household Members: None Housing: House Are you a primary senior care assistant to a significant other at home: No Do you presently have visiting nurse or other home services: No Alcohol intake: never Patient Tobacco Use Status: Former Tobacco user Quit Date: 02/2022 Tobacco use type: Cigarette Cigarettes Per Day: 5 Years Smoked: 45 +/- e-Cigarette/Vaping Use: Never Used Second Hand Smoke Exposure: No Use of substances other than those prescribed or required for medical reasons: No Substance Use Type: Crack/Cocaine Are you DNR?: No Advance Directives: No Advance Directives Information Provided: Yes Nutrition Risks: No Nutritional Risk service: No Current occupational status: retired Current occupational exposures/hazards: No Cognitive needs: No Hearing needs: No Vision needs: No Meds Allergies Allergy/AdvReac Type Severity Reaction Status Date / Time mold Allergy impacted Verified 05/14/22 13:46 sinus cavity Home Medications Medication Instructions Recorded Confirmed Last Taken Type tamsulosin 0.4 mg capsule 0.4 mg PO DAILY 03/18/22 05/14/22 04/09/22 08:30 History bupropion HCl 75 mg tablet 75 mg PO BID 03/25/22 05/14/22 04/09/22 08:30 History Exam Exam Date and Time: May 20, 2022 1142 Pertinent Lab Results Pertinent Lab Results: Laboratory Tests 04/15/22 05/13/22 11:45 12:51 WBC 7.1 Hgb 17.7 D Hct 53.6 H D Plt Count 169 D Sodium 140 Potassium 4.2 Chloride 103 Carbon Dioxide 28 BUN 15 Creatinine 1.23 Narrative Narrative: ECHO 02/2022 Conclusions: - 1. Mildly dilated left ventricle with moderate LV systolic ? ? dysfunction with LVEF of 35-40%? 2. Mild biatrial enlargement ? 3. At least moderate mitral regurgitation? 4. Mildly elevated right ventricular systolic pressure? driven by significantly elevated right atrial pressures? 5. No gross pericardial effusion ?? NILES 02/2022 Conclusion: ??? The left ventricular systolic function is moderately decreased. The visually estimated ejection fraction is between 35-40%.? There is no evidence of a thrombus in the left atrial? appendage. ? ? NM cardiolite stress test 04/2022 Impression: ? 1.? Myocardial perfusion imaging study shows mild reversible inferior defect, suspected to be from diaphragmatic attenuation artifact. 2.? Gated LVEF is 60% during stress and 59% during rest. 3. Transient ischemic dilatation not present. ? EKG component of the test reported separately. Assessment and Plan Assessment Anesthesia Assessment: Chart Reviewed Final Anesthetic Review Family History of Problems with Anesthesia: No History of Problems with Anesthesia: No Documented by User: Mayito Garcia MD 05/21/22 13:32 PMFSH Past Medical History Medical History Atrial fibrillation with rapid ventricular response Atrial flutter with rapid ventricular response Cardiomyopathy Congestive heart failure COPD (chronic obstructive pulmonary disease) Decompensated heart failure Essential hypertension Hypothyroidism (acquired) Smoker Family History Family History Mother COPD (chronic obstructive pulmonary disease) Surgical History Surgical History H/O shoulder surgery H/O thyroidectomy Social History Social History Household Members: None Housing: House Are you a primary senior care assistant to a significant other at home: No Do you presently have visiting nurse or other home services: No Alcohol intake: never Patient Tobacco Use Status: Former Tobacco user Quit Date: 02/2022 Tobacco use type: Cigarette Cigarettes Per Day: 5 Years Smoked: 45 +/- e-Cigarette/Vaping Use: Never Used Second Hand Smoke Exposure: No Use of substances other than those prescribed or required for medical reasons: No Substance Use Type: Crack/Cocaine Are you DNR?: No Advance Directives: No Advance Directives Information Provided: Yes Nutrition Risks: No Nutritional Risk service: No Current occupational status: retired Current occupational exposures/hazards: No Cognitive needs: No Hearing needs: No Vision needs: No Meds Allergies Allergy/AdvReac Type Severity Reaction Status Date / Time mold Allergy impacted Verified 05/14/22 13:46 sinus cavity Home Medications Medication Instructions Recorded Confirmed Last Taken Type tamsulosin 0.4 mg capsule 0.4 mg PO DAILY 03/18/22 05/14/22 04/09/22 08:30 History bupropion HCl 75 mg tablet 75 mg PO BID 03/25/22 05/14/22 04/09/22 08:30 History Exam Airway Mallampati Class: II TM Dist: >3cm Neck ROM: Full Loose/Missing/Broken Teeth: Yes (multiple chipped diffuse and many missing upper and lower back on both sides) Heart: irreg irreg s1s2 Lungs: cta b/l Assessment and Plan Assessment Anesthesia Assessment: Anesthesia Plan Discussed Final Anesthetic Review NPO: Yes ASA Class: III Final Preanesthetic Review: No Changes in Pt Med Stat, Meds/Allgs Chart Reviewed, Consent Obtained/Reviewed and Anes Risks/Benef Reviewed Patient Risk: Intermediate Procedure Risk: Intermediate Assessment/Block/Sedation in SS: Assess/Block/Sedation-SS Anesthetic Plan Anesthetic Plan: GA and Agree w/ Assess. and Plan Disposition: Standard PACU
[2022-05-21 12:44] VITALS: BMI 26.9
[2022-05-21] MEDS: Lactated Ringers 1,000 ML 50 ML IVCONT (13:07)
--- NOTE | 2022-05-21 14:11 | MHC.SHP ---
Pre-Procedural Eval Section A Date of Service: 05/21/22 The patient is an INPATIENT: No Changes since office visit: Yes Patient answered all questions; No Cold of Flu in the past 2 weeks, No New Medical Problems and No Changes in Medication The History & Physical has been completed within 30 days and I have reviewed it.: Yes Section B Chief Complaint: afib Allergies: Allergies Allergy/AdvReac Type Severity Reaction Status Date / Time mold Allergy impacted Verified 05/14/22 13:46 sinus cavity Plan I have reviewed the history and physical and performed a pertinent physical examination on my patient. No changes have occurred unless specified.
--- NOTE | 2022-05-21 14:22 | ECG_ITS ---
Test Reason : S/P CARDIOVERSION Blood Pressure : / mmHG Vent. Rate : 057 BPM Atrial Rate : 057 BPM P-R Int : 180 ms QRS Dur : 086 ms QT Int : 452 ms P-R-T Axes : 054 059 066 degrees QTc Int : 439 ms Sinus bradycardia Otherwise normal ECG When compared with ECG of 15-APR-2022 11:15, Sinus rhythm has replaced Atrial flutter Vent. rate has decreased BY [address] no longer elevated in Inferior leads Nonspecific T wave abnormality no longer evident in Anterior leads QT has shortened Referred By: Darryl Damon Electronically Signed By:DARRYL DAMON MD
--- NOTE | 2022-05-21 14:22 | HO.CARDIVERS ---
Cardioversion Procedure Note Cardioversion Date of Procedure: Today Ordering Provider: Myself Performing Provider: Myself Indication for Procedure: Recurrent atrial flutter, persistent with prior history of heart failure Pre-Op Diagnosis: Same Post-Op Diagnosis: Sinus rhythm Performed with Transesophageal Echo: No History: See last office note Consent: Verbal and Written consent was obtained from the patient before starting and confirming oral anticoagulation use. The patient was made aware of the risk of synchronized cardioversion including benefits and alternatives Procedure: After consent obtained, cardioversion pads were attached in anteroposterior configuration and the patient was sedated by the anesthesia team. Once adequate sedation achieved, patient was delivered 200 joules of biphasic synchronized energy in anteroposterior configuration. Complications: None Impression: Successful conversion to sinus rhythm Recommendations: 1. 12 lead EKG 2. Continue antiarrhythmic drug therapy with amiodarone as well as current heart failure therapy 3. Continue uninterrupted oral anticoagulation 4. Follow-up in the office
[2022-05-21 14:24] VITALS: BP 112/64; PULSE 55; RESP 16; TEMP 36.9; O2SAT 99
[2022-05-21 14:29] VITALS: BP 111/76; PULSE 54; RESP 16; O2SAT 96
[2022-05-21 14:34] VITALS: BP 110/75; PULSE 55; RESP 16; O2SAT 96
[2022-05-21 14:39] VITALS: BP 113/72; PULSE 63; RESP 16; TEMP 36.9; O2SAT 100
[2022-05-21 14:54] VITALS: BP 113/68; PULSE 63; RESP 18; TEMP 36.6; O2SAT 98
== END 2022-05-21 15:28 | disposition home or self-care (01) ==
PROVIDERS: PCP Family Medicine; Visit Provider Internal Medicine Cardiovascular Disease
PROC: 5A2204Z Restoration of Cardiac Rhythm, Single (ICD-10-PCS; principal; 2022-05-21 14:00)
DX: I48.92 Unspecified atrial flutter (principal); I50.9 Heart failure, unspecified; I42.9 Cardiomyopathy, unspecified; Z79.01 Long term (current) use of anticoagulants
CPT/HCPCS: 92960; 93005; J0330; J0461; J2370

== ENCOUNTER 2022-06-07 18:05 | Observation (INO) | payer OTHER, SELFPAY ==
--- NOTE | ~2022-06-07 | XR_ITS ---
EXAMINATION: XR CHEST CLINICAL INFORMATION: Chest pain. COMPARISON: CTA chest 04/15/2022. Chest radiograph 04/15/2022. TECHNIQUE: Frontal view of the chest was obtained. FINDINGS: Normal appearance of the cardiomediastinal silhouette. No focal airspace opacity, pleural effusion or pneumothorax. No evidence of acute osseous abnormalities. Surgical material in the soft tissues of the neck again noted. EKG wires overlie the chest. The visualized upper abdomen is within normal limits. XR/XR chest 1V IMPRESSION: No acute cardiopulmonary findings.
--- NOTE | ~2022-06-07 | CT_ITS ---
EXAMINATION: CT HEAD WITHOUT CONTRAST CLINICAL INFORMATION: Dizziness COMPARISON: 04/15/2022 TECHNIQUE: Contiguous axial imaging was performed from the skull base to vertex without intravenous contrast. This CT examination was performed using dose optimization techniques as appropriate, variously including the following: * Automated exposure control * Adjustment of mA and/or kV according to patient size (this includes techniques or standardized protocols for targeted exams where dose is matched to indication/reason for exam; i.e. extremities or head) Use of iterative reconstruction technique DLP: 679 mGy-cm. FINDINGS: There is no evidence of acute intracranial hemorrhage or territorial infarction. No abnormal mass effect or midline shift is seen. Harvey to white matter differentiation is well preserved. No extra-axial fluid collections are identified. No hydrocephalus. No significant volume loss. There is no abnormal attenuation within the brain parenchyma. The osseous structures and soft tissues are normal. The mastoid air cells and visualized portions of the paranasal sinuses are well aerated. CT/CT head/brain wo con IMPRESSION: No acute intracranial pathology.
--- NOTE | 2022-06-07 18:18 | ECG_ITS ---
Test Reason : ARRHYTHMIA Blood Pressure : / mmHG Vent. Rate : 073 BPM Atrial Rate : 073 BPM P-R Int : 182 ms QRS Dur : 078 ms QT Int : 392 ms P-R-T Axes : 066 061 051 degrees QTc Int : 431 ms Normal sinus rhythm Normal ECG When compared with ECG of 21-MAY-2022 14:22, T wave amplitude has decreased in Lateral leads Referred By: Trisha Aguero Electronically Signed By:HARDIK ELIZALDE
[2022-06-07 18:28] VITALS: BP 110/71; PULSE 128; O2SAT 94
[2022-06-07 18:30] VITALS: BP 109/68; PULSE 77; RESP 18; TEMP 36.8; O2SAT 95; BMI 26.9
--- NOTE | 2022-06-07 18:30 | ED.GENADULT ---
HPI - General Adult General Chief complaint: Arrhythmia/Palpitations Stated complaint: Afib Time Seen by Provider: 06/07/22 18:52 Source: patient and EMS Mode of arrival: EMS Limitations: no limitations History of Present Illness HPI narrative: this 57-year-old male with history congestive heart failure, atrial fibrillation requiring cardioversion, hypothyroid, and anxiety presents to the emergency department via EMS for an episode of rapid AFib. Patient states that around 1500 this evening he was driving when he suddenly became short of breath, palpitations then followed and he began having left-sided nonradiating chest pain described as a squeezing sensation. He tells me that he pulled over during this and did not continue to drive. This episode lasted around 40 minute until resolving on its own while being transported to the emergency department via EMS. Upon initial evaluation patient tells me that he is no longer having any shortness of breath, palpitations, chest pain, however he feels slightly dizzy describing this as a room spinning sensation, specifically upon standing from a seated position. He tells me that this is the 4th time he has been in AFib a in the past 4 months, at the last 3 have required cardioversion. He is currently anticoagulated on Eliquis. Denies headache, fever, chills, numbness, weakness, vision changes, nausea, vomiting. Related Data Home Medications Medication Instructions Recorded Confirmed bupropion HCl 75 mg tablet 75 mg PO BID 03/25/22 05/23/22 Previous Rx's Medication Instructions Recorded fluoxetine 40 mg capsule 40 mg PO DAILY #30 caps 08/06/21 levothyroxine 112 mcg capsule 224 mcg PO DAILY 90 days #180 caps 10/09/21 amiodarone 200 mg tablet 200 mg PO DAILY 30 days #30 tabs 03/25/22 metoprolol succinate 25 mg 25 mg PO DAILY #30 tabs 03/25/22 tablet,extended release 24 hr omeprazole 20 mg capsule,delayed 20 mg PO DAILY@0630 3 months #90 04/15/22 release caps food supplemt, lactose-reduced 1 ea PO DAILY 30 days #12,420 mL 04/30/22 (Ensure Active High Protein oral liquid) furosemide 40 mg tablet 40 mg PO DAILY #30 tabs 05/16/22 rivaroxaban 20 mg tablet (Xarelto) 20 mg PO DAILY Atrial 05/16/22 flutter/atrial fibrillation #90 tabs tamsulosin 0.4 mg capsule 0.4 mg PO DAILY 90 days #90 caps 05/22/22 digoxin 125 mcg (0.125 mg) tablet 125 mcg PO DAILY 30 days #30 tabs 05/23/22 eplerenone 25 mg tablet 25 mg PO DAILY 30 days #30 tabs 05/23/22 Allergies Allergy/AdvReac Type Severity Reaction Status Date / Time mold Allergy impacted Verified 05/23/22 15:06 sinus cavity Review of Systems Review of Systems: Constitutional : No Weight loss, No Fever, No Chills, No Fatigue, No Malaise ENT/Mouth : No sore throat, No Rhinorrhea Eyes: No Eye Pain, No Swelling, No Redness Cardiovascular : No Chest Pain, No SOB, No Dyspnea on Exertion, No Orthopnea, No Edema, No Palpitations Respiratory : No Cough, No Sputum, No Wheezing Gastrointestinal : No Nausea, No Vomiting, No Diarrhea, No Constipation, No abdominal Pain, No Hematochezia, No Melena Genitourinary : No Dysuria, No Urinary Frequency, No Hematuria, Musculoskeletal : No joint pain, No Myalgias, No Joint Swelling Skin : No Skin Lesions, No rash Neuro : No Weakness, No Numbness, + Dizziness, No Headache Psych : No Anxiety/Panic, No Depression All other systems reviewed and are negative Yes all other systems are reviewed and are negative [facility] Past Medical History Attestation statement: The following information was validated with the patient. Source: old records reviewed and nursing notes reviewed Medical History Atrial fibrillation with rapid ventricular response Atrial flutter with rapid ventricular response Cardiomyopathy Congestive heart failure COPD (chronic obstructive pulmonary disease) Decompensated heart failure Essential hypertension Hypothyroidism (acquired) Smoker Surgical History H/O shoulder surgery H/O thyroidectomy Family History Family History Mother COPD (chronic obstructive pulmonary disease) Social History Social History Household Members: None Housing: House Are you a primary managed care manager to a significant other at home: No Do you presently have visiting nurse or other home services: No Alcohol intake: never Patient Tobacco Use Status: Former Tobacco user Quit Date: 02/2022 Tobacco use type: Cigarette Cigarettes Per Day: 5 Years Smoked: 45 +/- e-Cigarette/Vaping Use: Never Used Second Hand Smoke Exposure: No Substance Use Type: Crack/Cocaine Advance Directives: No Advance Directives Information Provided: No service: No Current occupational status: retired Current occupational exposures/hazards: No Cognitive needs: No Hearing needs: No Vision needs: No Physical Exam ED Vital Signs: Vital Signs - 24 hr 06/07/22 18:30 06/07/22 20:00 06/07/22 20:59 Temperature 98.2 F 98.2 F Pulse Rate 77 69 67 Respiratory Rate 18 16 Blood Pressure 109/68 108/64 130/77 Pulse Oximetry 95 98 Oxygen Delivery Method Room Air Room Air 06/07/22 21:00 06/07/22 21:29 06/08/22 00:00 Temperature 98.2 F 98.2 F Pulse Rate 70 74 65 Respiratory Rate 16 16 Blood Pressure 116/86 142/89 H 98/68 Pulse Oximetry 98 98 Oxygen Delivery Method Room Air Room Air BMI result Body Mass Index 26.9 vss Appearance: Alert.? Oriented X3.? No acute distress.? Head: Normocephalic, atraumatic, no step-offs or deformities Eyes: Pupils equal, round and reactive to light.? ENT: Pharynx normal.? Neck: Normal inspection.?Neck supple.? CVS: Normal heart rate and rhythm.? Pulses normal.? Respiratory: No respiratory distress.? Breath sounds normal.? Abdomen: Soft and nontender.? Skin: Skin warm and dry.? Normal skin color.? Normal skin turgor.? Extremities: No lower extremity edema.? No calf ttp. 5/5 strength to bilateral upper and lower extremities. Neuro: Oriented X 3.? No motor deficit.? No sensory deficit. CN 2-12 intact. Normal [id number], mndm-[id number], and rapid hand movements. Romberg negative, pronator drift negative. Course Reevaluation(s) Reevaluation #1: CBC appears to be around patient's baseline. Chemistries pending. Patient's troponin is negative, EKG nonischemic. BNP within normal limits, no clinical signs of heart failure. D-dimer negative. Patient COVID negative. Time: 20:47 Reevaluation #2: Went to re-evaluate patient, no chest pain or shortness of breath. Patient not complaining of palpitations at this time or dizziness. Patient does however mention he has a slight headache which feels like his typical after he gets episodes of AFib and palpitations Time: 20:48 Reevaluation #3: patient was complaining of dizziness earlier particularly with movement, he describes it as the room spinning, he is also noted to be hypotensive, was placed in reverse Trendelenburg with improvement. Patient is likely dehydrated will give another 500 cc of normal saline. Repeated CMP with slight improvement in renal function plan at this time is to obtain a CTA of head and neck to rule out large vessel occlusion. Patient's symptoms likely secondary to dehydration and atrial fibrillation/ flutter. Plan at this time is to admit the patient to the hospitalist team for further intervention and treatment as necessary. Time: 01:31 Medical Decision Making [facility] Narrative Medical decision making narrative: 1831 57-year-old male presenting to the ED is via EMS for rapid AFib. History of CHF, anxiety, atrial fibrillation requiring cardioversion x3 in the last 4 months. anticoagulated on Eliquis. Physical exam significant for regular rate and rhythm, no murmurs rubs or gallops. Lungs clear. Normal cerebellar exam This was all likely secondary to an episode of AFib, I do not suspect PE in this patient as he is anticoagulated, will obtain a D-dimer however. Unlikely that this is ACS, chest discomfort likely secondary to palpitations however obtain EKG and cardiac enzymes. Plan at this time is to order basic labs, EKG, chest x-ray, troponin , magnesium. Patient placed on continuous cardiac monitoring. Medical Records Medical records reviewed: Yes I reviewed the patient's medical records. Lab Data Lab results reviewed: Yes I reviewed the patient's lab results. Result diagrams: 06/07/22 19:13 06/08/22 00:45 Labs: Lab Results 06/07/22 06/07/22 06/07/22 Range/Units 19:12 19:13 19:13 WBC 8.4 (4.8-10.8) X10*3/uL RBC 5.69 (4.60-5.80) X10*6/uL Hgb 17.3 (14.0-18.0) g/dl Hct 48.7 (42.0-52.0) % MCV 85.6 (80.0-98.0) fL MCH 30.4 (27.0-33.0) pg MCHC 35.5 (31.0-36.0) g/dl RDW 16.7 H (11.0-16.0) % Plt Count 192 (160-400) X10*3/uL MPV 11.1 (9.4-12.4) fL Immature Gran % (Auto) 0.4 (0.0-0.4) % Neut % (Auto) 73.3 H (45-73) % Lymph % (Auto) 16.0 L (20-40) % [place] % (Auto) 9.6 (2-11) % Eos % (Auto) 0.2 (0-4) % Baso % (Auto) 0.5 (0-2) % Lymph # (Auto) 1.3 (1.2-4.9) X10*3/uL [place] # (Auto) 0.8 (0.1-1.2) X10*3/uL Eos # (Auto) 0.0 (0.0-0.4) X10*3/uL Baso # (Auto) 0.0 (0.0-0.2) X10*3/uL Abs Immat Gran (auto) 0.03 (0.00-0.03) X10*3/uL Absolute Neuts (auto) 6.1 (2.0-8.3) x10*3/uL Absolute Nucleated RBC 0.000 (0.0-0.012) X10*3/uL Nucleated RBC % (auto) 0.0 (0.0-0.2) /100WBC D-Dimer High Sensitivty < 150 NG/ML Sodium Potassium Chloride Carbon Dioxide Anion Gap BUN Creatinine Estim Creat Clear Calc Estimated GFR Random Glucose Calcium Magnesium Total Bilirubin AST ALT Alkaline Phosphatase Troponin I High Sens < 3.5 (<3.5-35.0) ng/L B-Natriuretic Peptide (<100) pg/mL Total Protein Albumin COVID-19 ([facility]I) (Negative) COVID-19 Clin Com 06/07/22 06/07/22 06/07/22 Range/Units 19:13 19:13 19:13 WBC (4.8-10.8) X10*3/uL RBC (4.60-5.80) X10*6/uL Hgb (14.0-18.0) g/dl Hct (42.0-52.0) % MCV (80.0-98.0) fL MCH (27.0-33.0) pg MCHC (31.0-36.0) g/dl RDW (11.0-16.0) % Plt Count (160-400) X10*3/uL MPV (9.4-12.4) fL Immature Gran % (Auto) (0.0-0.4) % Neut % (Auto) (45-73) % Lymph % (Auto) (20-40) % [place] % (Auto) (2-11) % Eos % (Auto) (0-4) % Baso % (Auto) (0-2) % Lymph # (Auto) (1.2-4.9) X10*3/uL [place] # (Auto) (0.1-1.2) X10*3/uL Eos # (Auto) (0.0-0.4) X10*3/uL Baso # (Auto) (0.0-0.2) X10*3/uL Abs Immat Gran (auto) (0.00-0.03) X10*3/uL Absolute Neuts (auto) (2.0-8.3) x10*3/uL Absolute Nucleated RBC (0.0-0.012) X10*3/uL Nucleated RBC % (auto) (0.0-0.2) /100WBC D-Dimer High Sensitivty NG/ML Sodium Cancelled Potassium Cancelled Chloride Cancelled Carbon Dioxide Cancelled Anion Gap Cancelled BUN Cancelled Creatinine Cancelled Estim Creat Clear Calc Cancelled Estimated GFR Cancelled Random Glucose Cancelled Calcium Cancelled Magnesium Cancelled Total Bilirubin Cancelled AST Cancelled ALT Cancelled Alkaline Phosphatase Cancelled Troponin I High Sens (<3.5-35.0) ng/L B-Natriuretic Peptide 84 (<100) pg/mL Total Protein Cancelled Albumin Cancelled COVID-19 ([facility]I) Negative (Negative) COVID-19 Clin Com See Note 06/07/22 06/08/22 Range/Units 21:43 00:45 WBC (4.8-10.8) X10*3/uL RBC (4.60-5.80) X10*6/uL Hgb (14.0-18.0) g/dl Hct (42.0-52.0) % MCV (80.0-98.0) fL MCH (27.0-33.0) pg MCHC (31.0-36.0) g/dl RDW (11.0-16.0) % Plt Count (160-400) X10*3/uL MPV (9.4-12.4) fL Immature Gran % (Auto) (0.0-0.4) % Neut % (Auto) (45-73) % Lymph % (Auto) (20-40) % [place] % (Auto) (2-11) % Eos % (Auto) (0-4) % Baso % (Auto) (0-2) % Lymph # (Auto) (1.2-4.9) X10*3/uL [place] # (Auto) (0.1-1.2) X10*3/uL Eos # (Auto) (0.0-0.4) X10*3/uL Baso # (Auto) (0.0-0.2) X10*3/uL Abs Immat Gran (auto) (0.00-0.03) X10*3/uL Absolute Neuts (auto) (2.0-8.3) x10*3/uL Absolute Nucleated RBC (0.0-0.012) X10*3/uL Nucleated RBC % (auto) (0.0-0.2) /100WBC D-Dimer High Sensitivty NG/ML Sodium 136 134 L Potassium 4.5 3.9 Chloride 99 98 Carbon Dioxide 24 23 Anion Gap 18 17 BUN 29 H D 26 H Creatinine 1.82 H 1.61 H Estim Creat Clear Calc 49.3 55.8 Estimated GFR 38 44 Random Glucose 100 130 H Calcium 9.1 8.7 Magnesium Total Bilirubin 1.9 H 1.8 H AST 30 28 ALT 28 26 Alkaline Phosphatase 74 70 Troponin I High Sens (<3.5-35.0) ng/L B-Natriuretic Peptide (<100) pg/mL Total Protein 6.8 6.6 Albumin 4.0 3.9 COVID-19 ([facility]) (Negative) COVID-19 Clin Com ECG Data Attestation: I personally reviewed and interpreted this ECG as follows: Prior ECG tracings: available for review Interpretation: Ventricular rate of 73, GA normal, QRS normal, QT /QTC normal. EKG with normal sinus rhythm no ST elevations or inversions concerning for ischemia. Decreased of T-wave amplitude when compared to EKG of May 2022 Critical Care Time Critical Care Time Critical Care Time: No Discharge Plan Discharge Clinical Impression: Atrial fibrillation and flutter, Heart palpitations, Orthostatic dizziness, Hypotension, Dehydration Patient Disposition: Admitted As Inpatient Prescriptions: No Action fluoxetine 40 mg capsule 40 mg PO DAILY Qty: 30 4RF levothyroxine 112 mcg capsule 224 mcg PO DAILY 90 Days Qty: 180 2RF tamsulosin 0.4 mg capsule 0.4 mg PO DAILY 90 Days Qty: 90 2RF bupropion HCl 75 mg tablet 75 mg PO BID omeprazole 20 mg capsule,delayed release(DR/EC) 20 mg PO DAILY@0630 90 Days Qty: 90 2RF eplerenone 25 mg tablet 25 mg PO DAILY 30 Days Qty: 30 1RF digoxin 125 mcg (0.125 mg) tablet 125 mcg PO DAILY 30 Days Qty: 30 1RF Ensure Active High Protein Liquid 1 ea PO DAILY 30 Days Qty: 71400 2RF Xarelto 20 mg tablet 20 mg PO DAILY Qty: 90 1RF Rx Instructions: must administer with evening meal furosemide 40 mg tablet 40 mg PO DAILY Qty: 30 5RF Protocol: Hold for SBP< HOLD for SBP < : 90 amiodarone 200 mg tablet 200 mg PO DAILY 30 Days Qty: 30 4RF metoprolol succinate 25 mg tablet extended release 24 hr 25 mg PO DAILY Qty: 30 3RF
[2022-06-07 19:18] LABS: MANUAL DIFF FLAG NO
[2022-06-07 19:21] LABS: Basophils Percent Auto 0.5 % (0-2); Eosinophils Percent Auto 0.2 % (0-4); Hematocrit 48.7 % (42.0-52.0); Hemoglobin 17.3 g/dl (14.0-18.0); Imm Gran Abs Auto 0.03 X10*3/uL (0.00-0.03); Imm Gran Pct Auto 0.4 % (0.0-0.4); Lymphocytes Absolute Auto 1.3 X10*3/uL (1.2-4.9); Mean Corpuscular HGB Conc 35.5 g/dl (31.0-36.0); Mean Corpuscular Hemoglobin 30.4 pg (27.0-33.0); Mean Corpuscular Volume 85.6 fL (80.0-98.0); Mean Platelet Volume 11.1 fL (9.4-12.4); Monocytes Absolute Auto 0.8 X10*3/uL (0.1-1.2); Monocytes Percent Auto 9.6 % (2-11); Neutrophils Absolute Auto 6.1 x10*3/uL (2.0-8.3); Neutrophils Percent Auto 73.3 % (45-73); Platelet Count 192 X10*3/uL (160-400); Red Blood Count 5.69 X10*6/uL (4.60-5.80); Red Cell Distribution Width 16.7 % (11.0-16.0); White Blood Count 8.4 X10*3/uL (4.8-10.8)
[2022-06-07 19:37] LABS: COVID-19 Test Negative (Negative)
[2022-06-07 19:40] LABS: D Dimer High Sensitivity < 150 NG/ML
[2022-06-07 19:41] LABS: Troponin-I High Sensitivity < 3.5 ng/L (<3.5-35.0)
[2022-06-07 19:42] LABS: B Type Natriuretic Peptide 84 pg/mL (<100)
--- NOTE | 2022-06-07 19:56 | ECG_ITS ---
Test Reason : AFIBB Blood Pressure : / mmHG Vent. Rate : 071 BPM Atrial Rate : 352 BPM P-R Int : 000 ms QRS Dur : 092 ms QT Int : 410 ms P-R-T Axes : 000 054 -88 degrees QTc Int : 445 ms Atrial flutter with variable A-V block ST & T wave abnormality, consider anterolateral ischemia Abnormal ECG When compared with ECG of 07-JUN-2022 18:45, Atrial flutter has replaced Sinus rhythm Nonspecific T wave abnormality, worse in Inferior leads T wave inversion now evident in Anterolateral leads Referred By: Trisha Aguero Electronically Signed By:HARDIK ELIZALDE
[2022-06-07 20:00] VITALS: BP 108/64; PULSE 69; RESP 16; TEMP 36.8; O2SAT 98
[2022-06-07 20:59] VITALS: BP 130/77; PULSE 67
[2022-06-07 21:00] VITALS: BP 116/86; PULSE 70
[2022-06-07] MEDS: Morphine Sulfate 2 MG/ML CARTRIDGE IVPUSH (21:08)
[2022-06-07] MEDS: 0.9 % Sodium Chloride 1,000 ML 999 ML IV (21:08)
--- NOTE | 2022-06-07 21:11 | PC.NURSE ---
fIRST CONTACT WITH PATIENT. SKIN PWD. 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 C/O DIZZINESS/LIGHTHEADED/HEADACHE WITH CHANGE IN POSITION. ALSO REPORTS NOT URINATING SINCE 11A. BLADDER SCAN REQUESTED. LS CTA. STRONG PALPABLE RADIAL PULSE. NO PEDAL EDEMA. SKIN PWD/ AWARE OF PLAN FOR IV FLUIDS AND REPEAT LABS.
[2022-06-07 21:29] VITALS: BP 142/89; PULSE 74; RESP 16; TEMP 36.8; O2SAT 98
[2022-06-07 22:13] LABS: Alanine Aminotransferase 28 U/L (0-40); Alkaline Phosphatase 74 U/L (39-117); Anion Gap 18 (12-20); Aspartate Amino Transferase 30 U/L (5-37); Bilirubin Total 1.9 mg/dL (0.0-1.0); Blood Urea Nitrogen 29 mg/dL (9-16); Calcium 9.1 mg/dL (8.4-10.2); Carbon Dioxide 24 mmol/L (22-29); Chloride 99 mmol/L (96-108); Creatinine Clr Calc Pharmacy 49.3; Estimated Glomerular Filt Rate 38; Glucose Random 100 mg/dL (60-115); Potassium 4.5 mmol/L (3.3-5.1); Sodium 136 mmol/L (135-145); Total Protein 6.8 g/dL (6.5-8.0)
--- NOTE | 2022-06-07 22:37 | PC.NURSE ---
pt in a fib in's denies CP. skin PWD
[2022-06-08] VITALS (8 sets, daily range): BP systolic 92–131; BP diastolic 58–77; PULSE 55–95; RESP 13–18; TEMP 36.4–36.8; O2SAT 95–98
--- NOTE | 2022-06-08 01:02 | PC.NURSE ---
PATIENT ASK FOR A SANDWICH AND A ELSA DOMONIQUE.
[2022-06-08 01:24] LABS: Alanine Aminotransferase 26 U/L (0-40); Albumin Level 3.9 g/dL (3.5-5.0); Alkaline Phosphatase 70 U/L (39-117); Anion Gap 17 (12-20); Aspartate Amino Transferase 28 U/L (5-37); Bilirubin Total 1.8 mg/dL (0.0-1.0); Blood Urea Nitrogen 26 mg/dL (9-16); Calcium 8.7 mg/dL (8.4-10.2); Carbon Dioxide 23 mmol/L (22-29); Chloride 98 mmol/L (96-108); Creatinine Clr Calc Pharmacy 55.8; Estimated Glomerular Filt Rate 44; Glucose Random 130 mg/dL (60-115); Potassium 3.9 mmol/L (3.3-5.1); Sodium 134 mmol/L (135-145); Total Protein 6.6 g/dL (6.5-8.0)
--- NOTE | 2022-06-08 01:48 | PC.NURSE ---
PATIENT BLADDER SCAN RESULT WAS 765 ML ,PATIENT VOID 500 ML ,AFTER SCAN MD AND RN AWARE ,URINE SAMPLE SENT TO LAB .
[2022-06-08 02:03] LABS: Appearance Urine Clear; Color Urine Dark Yellow; Glucose Urine UA Negative (Negative); Leukocyte Esterase Urine Negative (Negative); Nitrite Urine Negative (Negative); PH 5.5 (5.0-8.0); Specific Gravity - Urine 1.015 (1.005-1.025); Urine Blood Negative (Negative); Urine Ketones Trace mg/dL (Negative); Urine Protein Negative (Neg-Trace)
[2022-06-08] MEDS: 0.9 % Sodium Chloride 500 ML IV (02:19)
--- NOTE | 2022-06-08 05:28 | PC.NURSE ---
Notified Chaim Bell MD x2 re: pt.'s intermittent low HR to 40s, soft BPs to systolic 80s-90s and pt.'s A. Flutter. Per Arabella, please elevate legs and recheck BP manually
--- NOTE | 2022-06-08 05:46 | P.HPHOSP_ITS ---
History of Present Illness Date of Service: 06/08/22 Chief Complaint: chest pain 57-year-old male with a past medical history of hypertension, hyperlipidemia, cardiomyopathy, AFib status post cardioversion x3, COPD, hypothyroidism presented to the hospital today with a chief complaint of chest pain. Patient reported that he was driving and generally felt chest pain, located on the left side of the chills, tight in nature, nonradiating, no shortness of breath or diaphoresis. But had nausea. Chest pain improved the time of my interview. Mentions that he pulled over his car and called the ambulance, when the ambulance came his heart rate was 130s to 160s. Improved by the time he came to the ER. Also mentions that he he had dizziness whenever he tries to get up. Denies any fever chills cough. Denies any urinary symptoms. Mentioned that he has been keeping hydrated and of. Review of all other systems is negative except mentioned above ER course: Per ER team patient's EKG was nonischemic, troponin was negative; exam was nonfocal; patient on ambulation noted to be mildly unsteady; patient blood pressure dropped to 90s systolic. Orthostatic vitals were positive. Given IV fluids. Also noted a mildly elevated creatinine. Admitted to the hospital for further management [facility] Medical History Atrial fibrillation with rapid ventricular response Atrial flutter with rapid ventricular response Cardiomyopathy Congestive heart failure COPD (chronic obstructive pulmonary disease) Decompensated heart failure Essential hypertension Hypothyroidism (acquired) Smoker Family History Mother COPD (chronic obstructive pulmonary disease) Surgical History H/O shoulder surgery H/O thyroidectomy Social History Household Members: None Housing: House Are you a primary auto care center manager to a significant other at home: No Do you presently have visiting nurse or other home services: No Alcohol intake: never Patient Tobacco Use Status: Former Tobacco user Quit Date: 02/2022 Tobacco use type: Cigarette Cigarettes Per Day: 5 Years Smoked: 45 +/- e-Cigarette/Vaping Use: Never Used Second Hand Smoke Exposure: No Substance Use Type: Crack/Cocaine Advance Directives: No Advance Directives Information Provided: No service: No Current occupational status: retired Current occupational exposures/hazards: No Cognitive needs: No Hearing needs: No Vision needs: No Meds Allergies Allergy/AdvReac Type Severity Reaction Status Date / Time mold Allergy impacted Verified 05/23/22 15:06 sinus cavity Active Medications: Current Medications Pharmacy Consult (Consult Rx Perform Med Rec) 1 each MISCELLANE ONCE PRN PRN Reason: Consult order Home Medications Medication Instructions Recorded Confirmed Last Taken Type bupropion HCl 75 mg tablet 75 mg PO BID 03/25/22 06/08/22 1 Day Ago History ~06/07/22 Physical Exam Vital Signs and Narrative: Vital Signs: Last Vital Signs Temp 98.0 F 06/08/22 01:46 Pulse 59 06/08/22 03:44 Resp 16 06/08/22 03:44 BP 98/60 06/08/22 05:29 Pulse Ox 98 06/08/22 03:44 O2 Del Method 06/08/22 03:44 BMI result Body Mass Index 26.9 Gen: Appears be in no acute distress HEENT: NCAT, Moist mucosa. Pulmonary: Vesicular breath sounds, fair air entry CVS: Normal S1-S2 Abdomen: BS+, Soft, Nontender Extremities: Warm well perfused Neuro: Alert and awake. Grossly nonfocal Results Labs CBC and Chem 7: 06/07/22 19:13 06/08/22 00:45 Labs: Laboratory Results - last 24 hr 06/07/22 06/07/22 06/07/22 19:13 19:13 19:13 MCV 85.6 MCH 30.4 MCHC 35.5 RDW 16.7 H Plt Count 192 MPV 11.1 Immature Gran % (Auto) 0.4 Neut % (Auto) 73.3 H Lymph % (Auto) 16.0 L [place] % (Auto) 9.6 Eos % (Auto) 0.2 Baso % (Auto) 0.5 Lymph # (Auto) 1.3 [place] # (Auto) 0.8 Eos # (Auto) 0.0 Baso # (Auto) 0.0 Abs Immat Gran (auto) 0.03 Absolute Neuts (auto) 6.1 Absolute Nucleated RBC 0.000 Nucleated RBC % (auto) 0.0 D-Dimer High Sensitivty < 150 Anion Gap Cancelled Estim Creat Clear Calc Cancelled Estimated GFR Cancelled Random Glucose Cancelled Calcium Cancelled Magnesium Cancelled Total Bilirubin Cancelled AST Cancelled ALT Cancelled Alkaline Phosphatase Cancelled B-Natriuretic Peptide Total Protein Cancelled Albumin Cancelled Urine Color Urine Appearance Urine pH Ur Specific [place] Urine Protein Urine Glucose (UA) Urine Ketones Urine Blood Urine Nitrite Ur Leukocyte Esterase COVID-19 ([facility]I) COVID-19 Clin Com 06/07/22 06/07/22 06/07/22 19:13 19:13 21:43 MCV MCH MCHC RDW Plt Count MPV Immature Gran % (Auto) Neut % (Auto) Lymph % (Auto) [place] % (Auto) Eos % (Auto) Baso % (Auto) Lymph # (Auto) [place] # (Auto) Eos # (Auto) Baso # (Auto) Abs Immat Gran (auto) Absolute Neuts (auto) Absolute Nucleated RBC Nucleated RBC % (auto) D-Dimer High Sensitivty Anion Gap 18 Estim Creat Clear Calc 49.3 Estimated GFR 38 Random Glucose 100 Calcium 9.1 Magnesium Total Bilirubin 1.9 H AST 30 ALT 28 Alkaline Phosphatase 74 B-Natriuretic Peptide 84 Total Protein 6.8 Albumin 4.0 Urine Color Urine Appearance Urine pH Ur Specific [place] Urine Protein Urine Glucose (UA) Urine Ketones Urine Blood Urine Nitrite Ur Leukocyte Esterase COVID-19 ([facility]I) Negative COVID-19 Clin Com See Note 06/08/22 06/08/22 00:45 01:57 MCV MCH MCHC RDW Plt Count MPV Immature Gran % (Auto) Neut % (Auto) Lymph % (Auto) [place] % (Auto) Eos % (Auto) Baso % (Auto) Lymph # (Auto) [place] # (Auto) Eos # (Auto) Baso # (Auto) Abs Immat Gran (auto) Absolute Neuts (auto) Absolute Nucleated RBC Nucleated RBC % (auto) D-Dimer High Sensitivty Anion Gap 17 Estim Creat Clear Calc 55.8 Estimated GFR 44 Random Glucose 130 H Calcium 8.7 Magnesium Total Bilirubin 1.8 H AST 28 ALT 26 Alkaline Phosphatase 70 B-Natriuretic Peptide Total Protein 6.6 Albumin 3.9 Urine Color Dark Yellow Urine Appearance Clear Urine pH 5.5 Ur Specific [place] 1.015 Urine Protein Negative Urine Glucose (UA) Negative Urine Ketones Trace Urine Blood Negative Urine Nitrite Negative Ur Leukocyte Esterase Negative COVID-19 (ORI) COVID-19 Clin Com Imaging Radiologist's Impressions: Impressions Chest X-Ray 06/07/22 20:09 IMPRESSION: No acute cardiopulmonary findings. Assessment and Plan (1) Atrial fibrillation and flutter: Status: Acute Plan 57-year-old male with a past medical history of hypertension, hyperlipidemia, cardiomyopathy, AFib status post cardioversion x3, COPD, hypothyroidism presented to the hospital today with a chief complaint of chest pain. Admitted for following Chest pain: Currently resolved. EKG nonischemic Telemetry Cycle cardiac enzymes AFib: Patient heart rate prior to presentation 10/19/2029 spine and currently improved to 70s. Denies any palpitations. Continue home Xarelto, amiodarone. Hold home digoxin for now given renal insufficiency. Patient reports that he had 3 cardioversions done in the past. Also planned for ablation at [facility]. Cardiology follow-up Dizziness: Exam nonfocal. Patient was orthostatic positive. Given gentle IV fluids. Will also obtain CT head. If not improving after IV hydration will defer to the day team to consider Neurology consult in the morning. History of hypertension: Hold home antihypertensives for now. History of CHF: Patient currently not in fluid overload. Hold home Lasix for now given soft blood pressure. History of hypothyroidism: Continue home levothyroxine History of BPH: Continue home Flomax DVT prophylaxis: Patient on Xarelto Code status: Full code Quality Stroke Does the patient have a stroke diagnosis?: No VTE Prior VTE?: No VTE Risk Level:: Medical - moderate - high VTE Device Contraindication: Treatment Not Indicated VTE Drug Contraindication: N/A - Med Ordered
--- NOTE | 2022-06-08 07:57 | PHA.MEDREC ---
Pharmacy Consult ? Medication Reconciliation Pharmacy has completed the medication reconciliation. Patient is on 2 112mcg levothyroxine tablets and takes xarelto in the am. Thanks Lester
[2022-06-08] MEDS: Digoxin 0.125 MG TABLET PO (08:06)
[2022-06-08] MEDS: Amiodarone HCL 200 MG TABLET PO (08:07)
[2022-06-08] MEDS: Levothyroxine Sodium 112 MCG TABLET 224 MCG PO (08:07)
[2022-06-08] MEDS: FLUoxetine HCl 20 MG CAPSULE 40 MG PO (08:07)
[2022-06-08] MEDS: Rivaroxaban 20 MG TABLET PO (08:07)
[2022-06-08] MEDS: buPROPion HCL 75 MG TABLET PO (08:41)
--- NOTE | 2022-06-08 08:48 | PC.NURSE ---
Pt resting comfortably this am, took morning meds without issue, pt states no pain, dizziness from yesterday resolved. Awaiting breakfast tray for pt. Skin pwd, respirations even and unlabored, speech clear.
--- NOTE | 2022-06-08 10:59 | P.PNIM_ITS ---
Subjective Subjective Date of Service: 06/08/22 Interval History: cc: palpitations interval history: feeling better Cardiovascular Cardiovascular: Reports no additional cardiovascular complaints Respiratory Respiratory: Reports no additional respiratory complaints Physical Exam Vital Signs: Vital Signs: Last Vital Signs Temp 98.0 F 06/08/22 01:46 Pulse 60 06/08/22 06:25 Resp 13 06/08/22 06:25 BP 98/58 L 06/08/22 06:25 Pulse Ox 95 06/08/22 06:25 O2 Del Method 06/08/22 06:25 BMI result Body Mass Index 26.9 General: AO X 3, no acute distress Resp: CTA bilateral, no accessory muscles used CVS: S1,S2,RRR GI: soft, non tender, non distended Neuro: motor grossly intact, alert Psych: appropriate affect, appropriate insight Objective Data Active Medications Acetaminophen (Acetaminophen 325 Mg Tablet) 650 mg PO Q6H PRN PRN Reason: Pain, Mild (Pain Scale 1-3) Amiodarone HCl (Amiodarone Hcl 200 Mg Tablet) 200 mg PO DAILY [facility] Last Admin: 06/08/22 08:07 Dose: 200 mg Documented By: FINA Bupropion HCl (Bupropion Hcl 75 Mg Tablet) 75 mg PO BID [facility] Last Admin: 06/08/22 08:41 Dose: 75 mg Documented By: FINA Digoxin (Digoxin 0.125 Mg Tablet) 0.125 mg PO DAILY [facility] Last Admin: 06/08/22 08:06 Dose: 0.125 mg Documented By: FINA Fluoxetine HCl (Fluoxetine Hcl 20 Mg Capsule) 40 mg PO DAILY [facility] Last Admin: 06/08/22 08:07 Dose: 40 mg Documented By: FINA Levothyroxine Sodium (Levothyroxine Sodium 112 Mcg Tablet) 224 mcg PO DAILY@0600 [facility] Last Admin: 06/08/22 08:07 Dose: 224 mcg Documented By: FINA Melatonin (Melatonin 3 Mg Tablet) 6 mg PO BEDTIME PRN PRN Reason: Insomnia Omeprazole (Omeprazole 20 Mg Capsule.) 20 mg PO DAILY@0630 [facility] Pharmacy Consult (Consult Rx Perform Med Rec) 1 each MISCELLANE ONCE PRN PRN Reason: Consult order Rivaroxaban (Rivaroxaban 20 Mg Tablet) 20 mg PO DAILY@0800 [facility] Last Admin: 06/08/22 08:07 Dose: 20 mg Documented By: FINA Senna (Sennosides 8.6 Mg Tablet) 17.2 mg PO BEDTIME PRN PRN Reason: Constipation Sodium Chloride (0.9 % Sodium Chloride Flush 3 Ml Syringe) 3 ml IVFLUSH QSHIFT [facility] Last Admin: 06/08/22 07:22 Dose: Not Given Documented By: FINA Non-Admin Reason: Med Not Available Tamsulosin HCl (Tamsulosin Hcl 0.4 Mg Capsule) 0.4 mg PO BEDTIME [facility] Labs CBC & Chem 7: 06/07/22 19:13 06/08/22 00:45 Labs: Laboratory Results - last 24 hr 06/07/22 06/07/22 06/07/22 19:13 19:13 19:13 MCV 85.6 MCH 30.4 MCHC 35.5 RDW 16.7 H Plt Count 192 MPV 11.1 Immature Gran % (Auto) 0.4 Neut % (Auto) 73.3 H Lymph % (Auto) 16.0 L [place] % (Auto) 9.6 Eos % (Auto) 0.2 Baso % (Auto) 0.5 Lymph # (Auto) 1.3 [place] # (Auto) 0.8 Eos # (Auto) 0.0 Baso # (Auto) 0.0 Abs Immat Gran (auto) 0.03 Absolute Neuts (auto) 6.1 Absolute Nucleated RBC 0.000 Nucleated RBC % (auto) 0.0 D-Dimer High Sensitivty < 150 Anion Gap Cancelled Estim Creat Clear Calc Cancelled Estimated GFR Cancelled Random Glucose Cancelled Calcium Cancelled Magnesium Cancelled Total Bilirubin Cancelled AST Cancelled ALT Cancelled Alkaline Phosphatase Cancelled B-Natriuretic Peptide Total Protein Cancelled Albumin Cancelled Urine Color Urine Appearance Urine pH Ur Specific [place] Urine Protein Urine Glucose (UA) Urine Ketones Urine Blood Urine Nitrite Ur Leukocyte Esterase COVID-19 ([facility]I) COVID-19 Clin Com 06/07/22 06/07/22 06/07/22 19:13 19:13 21:43 MCV MCH MCHC RDW Plt Count MPV Immature Gran % (Auto) Neut % (Auto) Lymph % (Auto) [place] % (Auto) Eos % (Auto) Baso % (Auto) Lymph # (Auto) [place] # (Auto) Eos # (Auto) Baso # (Auto) Abs Immat Gran (auto) Absolute Neuts (auto) Absolute Nucleated RBC Nucleated RBC % (auto) D-Dimer High Sensitivty Anion Gap 18 Estim Creat Clear Calc 49.3 Estimated GFR 38 Random Glucose 100 Calcium 9.1 Magnesium Total Bilirubin 1.9 H AST 30 ALT 28 Alkaline Phosphatase 74 B-Natriuretic Peptide 84 Total Protein 6.8 Albumin 4.0 Urine Color Urine Appearance Urine pH Ur Specific [place] Urine Protein Urine Glucose (UA) Urine Ketones Urine Blood Urine Nitrite Ur Leukocyte Esterase COVID-19 (ORI) Negative COVID-19 Clin Com See Note 06/08/22 06/08/22 00:45 01:57 MCV MCH MCHC RDW Plt Count MPV Immature Gran % (Auto) Neut % (Auto) Lymph % (Auto) [place] % (Auto) Eos % (Auto) Baso % (Auto) Lymph # (Auto) [place] # (Auto) Eos # (Auto) Baso # (Auto) Abs Immat Gran (auto) Absolute Neuts (auto) Absolute Nucleated RBC Nucleated RBC % (auto) D-Dimer High Sensitivty Anion Gap 17 Estim Creat Clear Calc 55.8 Estimated GFR 44 Random Glucose 130 H Calcium 8.7 Magnesium Total Bilirubin 1.8 H AST 28 ALT 26 Alkaline Phosphatase 70 B-Natriuretic Peptide Total Protein 6.6 Albumin 3.9 Urine Color Dark Yellow Urine Appearance Clear Urine pH 5.5 Ur Specific [place] 1.015 Urine Protein Negative Urine Glucose (UA) Negative Urine Ketones Trace Urine Blood Negative Urine Nitrite Negative Ur Leukocyte Esterase Negative COVID-19 ([facility]I) COVID-19 Clin Com Assessment and Plan (1) Atrial fibrillation and flutter: Status: Acute Plan 57M With a past medical history of, CHF with recovered ejection fraction, paroxysmal atrial fibrillation /flutter, COPD, hypothyroidism presented with palpitations, lightheadedness, chest discomfort, found to be in atrial fibrillation with rapid ventricular response. Paroxysmal atrial fibrillation with rapid ventricular response still going in and out, continue Xarelto, amiodarone, digoxin follow-up cardiology orthostatic hypotension improved with hydration, holding Lasix BPH continue Flomax hypothyroidism continue Synthroid chronic CHF with recovered ejection fraction holding Toprol, eplrernone, lasix, for low bp mood disorder continue Wellbutrin, fluoxetine full code reason for continued hospitalization: still going into afib, symptomatic Quality Stroke Does the patient have a stroke diagnosis?: No VTE Prior VTE?: No VTE Risk Level:: Medical - moderate - high VTE Device Contraindication: Treatment Not Indicated VTE Drug Contraindication: N/A - Med Ordered
--- NOTE | 2022-06-08 12:00 | PM.CNCAR ---
History of Present Illness History of Present Illness Date of Service: 06/08/22 Requesting physician: Shon Almonte Chief complaint: Chest Pain, Afib Narrative: 57-year-old gentleman is presenting for palpitations and chest pain. He has known history of atrial fibrillation and has been cardioverted few times. He was diagnosed with cardiomyopathy with EF of 35-40% in February 2022. At that time he was in atrial fibrillation and underwent NILES cardioversion. Subsequent to that he had cardioversion done twice. Today he was driving his car and developed shortness of breath and chest tightness. He also felt his heart was racing. He called EMS and was brought in. Was noted to be in AFib. He said previously when he had atrial fibrillation he had chest discomfort but this was more pronounced than before. Previously had Lexiscan which showed inferior perfusion defect which was thought to be diaphragmatic attenuation. Otherwise doing well. His rate control. Telemetry is showing rate controlled atrial fibrillation. [facility] Past Medical History Medical History Atrial fibrillation with rapid ventricular response Atrial flutter with rapid ventricular response Cardiomyopathy Congestive heart failure COPD (chronic obstructive pulmonary disease) Decompensated heart failure Essential hypertension Hypothyroidism (acquired) Smoker Family History Family History Mother COPD (chronic obstructive pulmonary disease) Surgical History Surgical History H/O shoulder surgery H/O thyroidectomy Social History Social History Household Members: None Housing: House Are you a primary care management specialist to a significant other at home: No Do you presently have visiting nurse or other home services: No Alcohol intake: never Patient Tobacco Use Status: Former Tobacco user Quit Date: 02/2022 Tobacco use type: Cigarette Cigarettes Per Day: 5 Years Smoked: 45 +/- e-Cigarette/Vaping Use: Never Used Second Hand Smoke Exposure: No Substance Use Type: Crack/Cocaine Advance Directives: No Advance Directives Information Provided: No service: No Current occupational status: retired Current occupational exposures/hazards: No Cognitive needs: No Hearing needs: No Vision needs: No Meds Allergies Allergy/AdvReac Type Severity Reaction Status Date / Time mold Allergy impacted Verified 05/23/22 15:06 sinus cavity Active Medications: Current Medications Acetaminophen (Acetaminophen 325 Mg Tablet) 650 mg PO Q6H PRN PRN Reason: Pain, Mild (Pain Scale 1-3) Amiodarone HCl (Amiodarone Hcl 200 Mg Tablet) 200 mg PO DAILY [facility] Last Admin: 06/08/22 08:07 Dose: 200 mg Bupropion HCl (Bupropion Hcl 75 Mg Tablet) 75 mg PO BID [facility] Last Admin: 06/08/22 08:41 Dose: 75 mg Digoxin (Digoxin 0.125 Mg Tablet) 0.125 mg PO DAILY [facility] Last Admin: 06/08/22 08:06 Dose: 0.125 mg Fluoxetine HCl (Fluoxetine Hcl 20 Mg Capsule) 40 mg PO DAILY [facility] Last Admin: 06/08/22 08:07 Dose: 40 mg Levothyroxine Sodium (Levothyroxine Sodium 112 Mcg Tablet) 224 mcg PO DAILY@0600 [facility] Last Admin: 06/08/22 08:07 Dose: 224 mcg Melatonin (Melatonin 3 Mg Tablet) 6 mg PO BEDTIME PRN PRN Reason: Insomnia Omeprazole (Omeprazole 20 Mg Capsule.) 20 mg PO DAILY@0630 [facility] Pharmacy Consult (Consult Rx Perform Med Rec) 1 each MISCELLANE ONCE PRN PRN Reason: Consult order Rivaroxaban (Rivaroxaban 20 Mg Tablet) 20 mg PO DAILY@0800 [facility] Last Admin: 06/08/22 08:07 Dose: 20 mg Senna (Sennosides 8.6 Mg Tablet) 17.2 mg PO BEDTIME PRN PRN Reason: Constipation Sodium Chloride (0.9 % Sodium Chloride Flush 3 Ml Syringe) 3 ml IVFLUSH QSHIFT [facility] Last Admin: 06/08/22 07:22 Dose: Not Given Tamsulosin HCl (Tamsulosin Hcl 0.4 Mg Capsule) 0.4 mg PO BEDTIME [facility] Home Medications Medication Instructions Recorded Confirmed Last Taken Type bupropion HCl 75 mg tablet 75 mg PO BID 03/25/22 06/08/22 1 Day Ago History ~06/07/22 Physical Exam Vital Signs: Vital Signs: Last Vital Signs Temp 98.0 F 06/08/22 01:46 Pulse 60 06/08/22 06:25 Resp 13 06/08/22 06:25 BP 98/58 L 06/08/22 06:25 Pulse Ox 95 06/08/22 06:25 O2 Del Method 06/08/22 06:25 BMI result Body Mass Index 26.9 GENERAL APPEARANCE: in no acute distress, pleasant. NECK: no carotid bruit, no jugular venous distention. SKIN: no suspicious lesions, warm and dry. HEART: no murmurs, irregularly irregular rhythm LUNGS: clear to auscultation bilaterally. ABDOMEN: soft, nontender. EXTREMITIES: no edema. PERIPHERAL PULSES: equal. NEUROLOGIC: No gross deficits, AAO X 3 Objective Labs and Meds Result diagrams: 06/07/22 19:13 06/08/22 00:45 Lab results: Laboratory Results - last 24 hr 06/07/22 06/07/22 06/07/22 19:12 19:13 19:13 WBC 8.4 RBC 5.69 Hgb 17.3 Hct 48.7 MCV 85.6 MCH 30.4 MCHC 35.5 RDW 16.7 H Plt Count 192 MPV 11.1 Immature Gran % (Auto) 0.4 Neut % (Auto) 73.3 H Lymph % (Auto) 16.0 L [place] % (Auto) 9.6 Eos % (Auto) 0.2 Baso % (Auto) 0.5 Lymph # (Auto) 1.3 [place] # (Auto) 0.8 Eos # (Auto) 0.0 Baso # (Auto) 0.0 Abs Immat Gran (auto) 0.03 Absolute Neuts (auto) 6.1 Absolute Nucleated RBC 0.000 Nucleated RBC % (auto) 0.0 D-Dimer High Sensitivty < 150 Sodium Potassium Chloride Carbon Dioxide Anion Gap BUN Creatinine Estim Creat Clear Calc Estimated GFR Random Glucose Calcium Magnesium Total Bilirubin AST ALT Alkaline Phosphatase Troponin I High Sens < 3.5 B-Natriuretic Peptide Total Protein Albumin Urine Color Urine Appearance Urine pH Ur Specific [place] Urine Protein Urine Glucose (UA) Urine Ketones Urine Blood Urine Nitrite Ur Leukocyte Esterase COVID-19 (ORI) COVID-19 Clin Com 06/07/22 06/07/22 06/07/22 19:13 19:13 19:13 WBC RBC Hgb Hct MCV MCH MCHC RDW Plt Count MPV Immature Gran % (Auto) Neut % (Auto) Lymph % (Auto) [place] % (Auto) Eos % (Auto) Baso % (Auto) Lymph # (Auto) [place] # (Auto) Eos # (Auto) Baso # (Auto) Abs Immat Gran (auto) Absolute Neuts (auto) Absolute Nucleated RBC Nucleated RBC % (auto) D-Dimer High Sensitivty Sodium Cancelled Potassium Cancelled Chloride Cancelled Carbon Dioxide Cancelled Anion Gap Cancelled BUN Cancelled Creatinine Cancelled Estim Creat Clear Calc Cancelled Estimated GFR Cancelled Random Glucose Cancelled Calcium Cancelled Magnesium Cancelled Total Bilirubin Cancelled AST Cancelled ALT Cancelled Alkaline Phosphatase Cancelled Troponin I High Sens B-Natriuretic Peptide 84 Total Protein Cancelled Albumin Cancelled Urine Color Urine Appearance Urine pH Ur Specific [place] Urine Protein Urine Glucose (UA) Urine Ketones Urine Blood Urine Nitrite Ur Leukocyte Esterase COVID-19 (ORI) Negative COVID-19 Clin Com See Note 06/07/22 06/08/22 06/08/22 21:43 00:45 01:57 WBC RBC Hgb Hct MCV MCH MCHC RDW Plt Count MPV Immature Gran % (Auto) Neut % (Auto) Lymph % (Auto) [place] % (Auto) Eos % (Auto) Baso % (Auto) Lymph # (Auto) [place] # (Auto) Eos # (Auto) Baso # (Auto) Abs Immat Gran (auto) Absolute Neuts (auto) Absolute Nucleated RBC Nucleated RBC % (auto) D-Dimer High Sensitivty Sodium 136 134 L Potassium 4.5 3.9 Chloride 99 98 Carbon Dioxide 24 23 Anion Gap 18 17 BUN 29 H D 26 H Creatinine 1.82 H 1.61 H Estim Creat Clear Calc 49.3 55.8 Estimated GFR 38 44 Random Glucose 100 130 H Calcium 9.1 8.7 Magnesium Total Bilirubin 1.9 H 1.8 H AST 30 28 ALT 28 26 Alkaline Phosphatase 74 70 Troponin I High Sens B-Natriuretic Peptide Total Protein 6.8 6.6 Albumin 4.0 3.9 Urine Color Dark Yellow Urine Appearance Clear Urine pH 5.5 Ur Specific [place] 1.015 Urine Protein Negative Urine Glucose (UA) Negative Urine Ketones Trace Urine Blood Negative Urine Nitrite Negative Ur Leukocyte Esterase Negative COVID-19 (ORI) COVID-19 Clin Com Imaging Radiologist's impression: Impressions Chest X-Ray 06/07/22 20:09 IMPRESSION: No acute cardiopulmonary findings. Head CT 06/08/22 00:00 IMPRESSION: No acute intracranial pathology. Assessment and Plan (1) Chest pain: Status: Acute (2) Atrial fibrillation and flutter: Status: Acute Plan Pleasant 57-year-old gentleman who has cardiomyopathy with EF of 35-40% and atrial fibrillation presenting for chest pain and AFib. He had cardioversion done you time is to be in atrial fibrillation at this point. He is on amiodarone for rhythm control strategy. He was experiencing shortness of breath and chest tightness. He is saying that he has felt similarly before when he developed atrial fibrillation. His nuclear stress test has shown inferior perfusion defect but diaphragmatic attenuation. Currently I feel AFib is the potential cause for his symptoms. Keep him NPO after midnight. Continue anticoagulation as before. We will try to do cardioversion tomorrow. Thank you for allowing me to participate in the care of your patient. Please feel free to contact me if you have any questions. Procedures Date of Service Date of Service: 06/08/22
--- NOTE | 2022-06-08 19:29 | PC.NURSE ---
THIS NURSE HAS NOW ASSUMED CARE OF PT
--- NOTE | 2022-06-09 00:04 | PC.NURSE ---
PT PLACED INTO HOSPITAL BED FOR COMFORT UNTIL BED IS ASSIGNED. BED LOCKED IN LOWEST POSITION, CALL LIGHT WITHIN REACH
--- NOTE | 2022-06-09 00:07 | PC.NURSE ---
Addendum entered by Shefali Meza 06/09/22 01:23: PT HR BETWEEN 50s-70s IN AN A-FIB ON TELE WITH NO COMPLAINTS Original Note: PT BETWEEN 50s-70S HR
[2022-06-09 07:27] VITALS: BP 150/84; PULSE 63; RESP 18; TEMP 36.8
[2022-06-09] MEDS: Omeprazole 20 MG CAPSULE.DR PO (07:47)
[2022-06-09] MEDS: Digoxin 0.125 MG TABLET PO (07:47)
[2022-06-09] MEDS: FLUoxetine HCl 20 MG CAPSULE 40 MG PO (07:48)
[2022-06-09] MEDS: 0.9 % Sodium Chloride Flush 3 ML SYRINGE IVFLUSH (07:48)
[2022-06-09] MEDS: Levothyroxine Sodium 112 MCG TABLET 224 MCG PO (07:48)
[2022-06-09] MEDS: Rivaroxaban 20 MG TABLET PO (07:48)
[2022-06-09] MEDS: Amiodarone HCL 200 MG TABLET PO (07:48)
[2022-06-09 08:00] VITALS: BMI 26.9
[2022-06-09 08:38] VITALS: BP 141/86; PULSE 61; RESP 18; TEMP 36.4; O2SAT 100
[2022-06-09] MEDS: buPROPion HCL 75 MG TABLET PO (08:45)
--- NOTE | 2022-06-09 10:15 | MHC.CM.PN ---
met with pt who is independent pt had no servceis and does not expect to need servcies when dcd pt is not vax and has own transport miguelina
--- NOTE | 2022-06-09 11:00 | P.DS_ITS ---
DS: Providers Provider Date of Service: 06/09/22 Date of admission: 06/08/22 05:44 Primary care physician: Kota Laboy MD Consults: 06/08/22 05:44 Consult to Cardiology Routine Consulting Provider: Segundo Swain Reason for consultation: chest pain; afib;bradycardia DS: Diagnosis Discharge Diagnosis (1) Chest pain: Status: Acute (2) Atrial fibrillation and flutter: Status: Acute DS: Summary Hospital Course Hospital Course: from initial hpi: Chief Complaint: chest pain 57-year-old male with a past medical history of hypertension, hyperlipidemia, cardiomyopathy, AFib status post cardioversion x3, COPD, hypothyroidism presented to the hospital today with a chief complaint of chest pain.? Patient reported that he was driving and generally felt chest pain, located on the left side of the chills, tight in nature, nonradiating, no shortness of breath or diaphoresis.? But had nausea.? Chest pain improved the time of my interview.? Mentions that he pulled over his car and called the ambulance, when the ambulance came his heart rate was 130s to 160s.? Improved by the time he came to the ER.? Also mentions that he he had dizziness whenever he tries to get up. Denies any fever chills cough.? Denies any urinary symptoms.? Mentioned that he has been keeping hydrated and of.? Review of all other systems is negative except mentioned above ER course: Per ER team patient's EKG was nonischemic, troponin was negative; exam was nonfocal; patient on ambulation noted to be mildly unsteady; patient blood pressure dropped to 90s systolic.? Orthostatic vitals were positive.? Given IV fluids.? Also noted a mildly elevated creatinine.? Admitted to the hospital for further management hospital course: Patient was admitted for paroxysmal atrial fibrillation with rapid ventricular response complicated by orthostatic hypotension and dizziness. He improved with IV hydration and conversion to normal sinus rhythm. He will continue on Xarelto, amiodarone. digoxin will be discontinued. She follow-up closely with Cardiology, eventually plan for ablation. For his BPH he was continued on Flomax. For his hypothyroidism was continued on Synthroid. For his chronic CHF with recovered ejection fraction he can restart his Toprol and eplrerenone. for his mood disorder he was continued on Wellbutrin and Prozac. patient is feeling better will be discharged home. Time Spent with Patient Time attestation: Total time spent providing and/or coordinating discharge services: Discharge coordination time: Greater than 30 minutes Quality: Safe Use of Opioids Does Pt have an Active Cancer Diagnosis on the Problem List?: No Quality: Stroke Does the patient have a stroke diagnosis?: No Physical Exam Vital Signs: Vital Signs: Last Vital Signs Temp 97.6 F 06/09/22 08:38 Pulse 61 06/09/22 08:38 Resp 18 06/09/22 08:38 BP 141/86 H 06/09/22 08:38 Pulse Ox 100 06/09/22 08:38 O2 Del Method 06/09/22 08:38 BMI result Body Mass Index 26.9 General: AO X 3, no acute distress Resp: CTA bilateral, no accessory muscles used CVS: S1,S2,RRR GI: soft, non tender, non distended Neuro: motor grossly intact, alert Psych: appropriate affect, appropriate insight DS: Data Data Completed and Pending Completed studies during hospitalization [Text1]: Procedures [place] Day of Cardiac Rhythm, Single (02/25/22) Discharge Plan Discharge Patient Disposition: Home, Self-Care Discharge Diagnosis: pafib Referrals: Kota Laboy MD [Primary Care Provider] - 1 Week Discharge Medications: Continued fluoxetine 40 mg capsule 40 mg PO DAILY Qty: 30 4RF levothyroxine 112 mcg capsule 224 mcg PO DAILY 90 Days Qty: 180 2RF tamsulosin 0.4 mg capsule 0.4 mg PO DAILY 90 Days Qty: 90 2RF bupropion HCl 75 mg tablet 75 mg PO BID omeprazole 20 mg capsule,delayed release(DR/EC) 20 mg PO DAILY@0630 90 Days Qty: 90 2RF eplerenone 25 mg tablet 25 mg PO DAILY 30 Days Qty: 30 1RF Ensure Active High Protein Liquid 1 ea PO DAILY 30 Days Qty: 43059 2RF Xarelto 20 mg tablet 20 mg PO DAILY Qty: 90 1RF Rx Instructions: must administer with evening meal furosemide 40 mg tablet 40 mg PO DAILY Qty: 30 5RF Protocol: Hold for SBP< HOLD for SBP < : 90 amiodarone 200 mg tablet 200 mg PO DAILY 30 Days Qty: 30 4RF metoprolol succinate 25 mg tablet extended release 24 hr 25 mg PO DAILY Qty: 30 3RF Discontinued digoxin 125 mcg (0.125 mg) tablet 125 mcg PO DAILY 30 Days Qty: 30 1RF Discharge Orders: Discharge Order (Routine); Ordered 06/09/22 Ordered By: Shon Almonte Diet: Advance to usual diet Activity on Discharge: As tolerated Stand Alone Forms: Patient Portal Discharge page Care Plan Goals: avoid afib Health Concerns: afib Plan of Treatment: follow up with cardiology Assessment: see above
--- NOTE | 2022-06-09 11:12 | MHC.CM.PN ---
pt dcd home no skilled services ordered by
[2022-06-09 12:00] VITALS: BP 125/72; PULSE 62; RESP 16; TEMP 36.3; O2SAT 98
== END 2022-06-09 14:30 | disposition home or self-care (01) ==
LOC: HO.ED 06-08 01:32 → HO.EDOVER 06-08 06:33 → HO.IMC 06-09 07:32
PROVIDERS: Physician Assistant; Admitting Provider Hospitalist; Emergency Provider Emergency Medicine; PCP Family Medicine; Visit Provider Internal Medicine
DX: R07.89 Other chest pain (principal); I48.92 Unspecified atrial flutter; I48.91 Unspecified atrial fibrillation; R06.02 Shortness of breath; I10 Essential (primary) hypertension; R51.9 Headache, unspecified; R42 Dizziness and giddiness; F17.210 Nicotine dependence, cigarettes, uncomplicated; Z71.6 Tobacco abuse counseling; Z20.822 Contact with and (suspected) exposure to COVID-19; Z79.4 Long term (current) use of insulin
CPT/HCPCS: 36415; 70450; 71045; 80053; 81003; 83880; 84484; 85025; 85379; 87635; 93005; 96360; 96374; 96375; 99219; 99285; J2270

== ENCOUNTER 2022-06-09 20:12 | Observation (INO) | payer OTHER, SELFPAY ==
--- NOTE | ~2022-06-09 | CT_ITS ---
EXAMINATION: NONCONTRAST HEAD CT NONCONTRAST CERVICAL SPINE CT INDICATION INFORMATION: Syncope, head strike on Xarelto COMPARISON: Head CT 06/08/2022 TECHNIQUE: Separate noncontrast CT examinations of the head and cervical spine were performed. Coronal and sagittal images were created for each examination at the technologist workstation. This CT examination was performed using dose optimization techniques as appropriate, variously including the following: *Automated exposure control *Adjustment of mA and/or kV according to patient size (this includes techniques or standardized protocols for targeted exams where dose is matched to indication/reason for exam; i.e. extremities or head) *Use of iterative reconstruction technique DLP: 1143 mGy-cm FINDINGS: HEAD: No intra or extra-axial fluid collection, hemorrhage, or mass. No ventriculomegaly. No midline shift or herniation. Basal cisterns are patent. Harvey-white matter differentiation is maintained. No territorial encephalomalacia. No significant volume loss. There is no abnormal attenuation within the brain parenchyma. No calvarial fracture or soft tissue abnormality. Mastoid air cells and imaged paranasal sinuses are normally aerated. Status post nasal surgery and resection of nasal turbinates. CERVICAL SPINE: Alignment: Reversal of the normal cervical lordosis. No subluxation. Vertebra: No acute fracture. No prevertebral soft tissue swelling. Degenerative disc disease: Mild multilevel degenerative disc disease at C4-C5 through T1-T2 with mild disc height loss, endplate sclerosis, and endplate proliferative change. Vertebral body hemangiomas noted at C7 and T2. Small posterior disc protrusion at C5-C6. Other findings: Status post thyroidectomy. Small right apical blebs noted. No cervical lymphadenopathy or soft tissue mass. CT/CT cervical spine wo con IMPRESSION: 1. No intracranial hemorrhage, calvarial fracture, or other acute intracranial abnormality. 2. No traumatic subluxation or acute cervical spine fracture.
--- NOTE | ~2022-06-09 | XR_ITS ---
EXAMINATION: XR CHEST CLINICAL INFORMATION: Dyspnea on exertion COMPARISON: Previous chest x-ray 06/07/2022 and chest CTA March 2022 TECHNIQUE: Frontal view of the chest was obtained. FINDINGS: The cardiac silhouette is enlarged but stable. Hilar and mediastinal lymph nodes are unremarkable. There are surgical clips in the lower neck suggestive of previous thyroidectomy. Lungs are clear. There is no pleural effusion or pneumothorax. There is an old left fifth lateral rib fracture. There are postsurgical changes to the left shoulder. XR/XR chest 1V IMPRESSION: No evidence for acute disease in chest.
[2022-06-09 20:47] VITALS: BP 154/95; PULSE 61; RESP 18; TEMP 36.6; O2SAT 99; BMI 26.9
--- NOTE | 2022-06-09 20:52 | ECG_ITS ---
Test Reason : syncope Blood Pressure : / mmHG Vent. Rate : 060 BPM Atrial Rate : 060 BPM P-R Int : 182 ms QRS Dur : 082 ms QT Int : 440 ms P-R-T Axes : 054 050 055 degrees QTc Int : 440 ms Normal sinus rhythm Possible Left atrial enlargement Nonspecific ST abnormality Abnormal ECG When compared with ECG of 07-JUN-2022 22:10, Sinus rhythm has replaced Atrial flutter Nonspecific T wave abnormality no longer evident in Inferior leads T wave inversion no longer evident in Anterolateral leads Referred By: Generic ED Physician Electronically Signed By:HARDIK ELIZALDE
--- NOTE | 2022-06-09 21:12 | ED.SYNCOPE ---
HPI - Syncope General Chief Complaint: Syncope Stated Complaint: was discharged around4, fainted in [facility] parking lot Time Seen by Provider: 06/09/22 21:11 Source: patient and old records reviewed Mode of arrival: ambulatory Limitations: no limitations History of Present Illness HPI narrative: 57-year-old male with history of paroxysmal AFib on Xarelto s/p cardioversion x3 in the past, HTN, HLD, cardiomyopathy, COPD, hypothyroidism who was just discharged from this facility today after admission for rapid AFib, orthostatic hypotension, PASTOR and dizziness. He was discharged at 3pm today on Xarelto, Toprol, and amiodarone. Digoxin was discontinued. He was also sent home on his diuretics, eplerenone and lasix. He was seen by Cardiology with an eventual plan for ablation. He was discharged in sinus rhythm. Today when he went to [facility] to get his prescriptions he was short of breath and dizzy while walking. By the time he paid for his prescriptions and got back out to his car he felt very lightheaded he had palpitations. He had pain in his left arm only. He felt like he was going to pass out. He fell to his knees and then forward in the seat of the car. His friend witnessed this and got him into the car and slapped his face to wake him up. When patient came to about a minute later he felt very ?foggy. ? His friend drove him to the ER. On arrival to the ER patient is in normal sinus rhythm, heart rate in the 60s, blood pressure the 150s. He still feels a little foggy but is getting back to normal. complaint: collapsed Onset (ago): hour(s) Duration of episode: 1 -: minutes(s) (1) Prodromal symptoms: lightheaded, palpitations, shortness of breath and diaphoresis Witnessed: Yes - by Bystander Context: during exertion Injuries sustained associated with event: none Current symptoms: back to baseline Treatments prior to arrival: none Related Data Home Medications Medication Instructions Recorded Confirmed bupropion HCl 75 mg tablet 75 mg PO BID 03/25/22 06/09/22 Previous Rx's Medication Instructions Recorded fluoxetine 40 mg capsule 40 mg PO DAILY #30 caps 08/06/21 levothyroxine 112 mcg capsule 224 mcg PO DAILY 90 days #180 caps 10/09/21 amiodarone 200 mg tablet 200 mg PO DAILY 30 days #30 tabs 03/25/22 metoprolol succinate 25 mg 25 mg PO DAILY #30 tabs 03/25/22 tablet,extended release 24 hr omeprazole 20 mg capsule,delayed 20 mg PO DAILY@0630 3 months #90 04/15/22 release caps food supplemt, lactose-reduced 1 ea PO DAILY 30 days #12,420 mL 04/30/22 (Ensure Active High Protein oral liquid) furosemide 40 mg tablet 40 mg PO DAILY #30 tabs 05/16/22 rivaroxaban 20 mg tablet (Xarelto) 20 mg PO DAILY Atrial 05/16/22 flutter/atrial fibrillation #90 tabs tamsulosin 0.4 mg capsule 0.4 mg PO DAILY 90 days #90 caps 05/22/22 eplerenone 25 mg tablet 25 mg PO DAILY 30 days #30 tabs 05/23/22 Allergies Allergy/AdvReac Type Severity Reaction Status Date / Time mold Allergy impacted Verified 06/09/22 20:46 sinus cavity Review of Systems Review of Systems: Constitutional: No Fever, No Chills ENT/Mouth: No sore throat, No Rhinorrhea, No Swallowing Difficulty Eyes: No Eye Pain, No Swelling, No Redness Cardiovascular: No Chest Pain, + SOB, No Orthopnea, No Edema Respiratory: No Cough, No Sputum, No Wheezing, +dyspnea Gastrointestinal: No Nausea, No Vomiting, No Diarrhea, No abdominal Pain Genitourinary: No Dysuria, No Urinary Frequency, No Hematuria Musculoskeletal: + joint pain, No Myalgias Skin: No Skin Lesions, No rash Neuro: No Weakness, No Numbness, + Dizziness, No Headache Psych: No Anxiety/Panic, No Depression Heme/Lymph: No Bruising, No Lymphadenopathy Endocrine: No Polyuria, No Polydipsia [facility] Past Medical History Medical History Atrial fibrillation with rapid ventricular response Atrial flutter with rapid ventricular response Cardiomyopathy Congestive heart failure COPD (chronic obstructive pulmonary disease) Decompensated heart failure Essential hypertension Hypothyroidism (acquired) Smoker Surgical History H/O shoulder surgery H/O thyroidectomy Family History Family History Mother COPD (chronic obstructive pulmonary disease) Social History Social History Household Members: Family Housing: House Are you a primary healthcare economics consultant to a significant other at home: No Do you presently have visiting nurse or other home services: No Alcohol intake: never Patient Tobacco Use Status: Former Tobacco user Quit Date: 02/2022 Tobacco use type: Cigarette Cigarettes Per Day: 5 Years Smoked: 45 +/- e-Cigarette/Vaping Use: Never Used Second Hand Smoke Exposure: No Substance Use Type: Crack/Cocaine Advance Directives: No Advance Directives Information Provided: No service: No Current occupational status: retired Current occupational exposures/hazards: No Cognitive needs: No Hearing needs: No Vision needs: No Physical Exam Vital Signs: Vital Signs: Last Vital Signs Temp 97.9 F 06/09/22 20:47 Pulse 67 06/09/22 22:38 Resp 17 06/09/22 22:37 BP 130/82 06/09/22 22:38 Pulse Ox 98 06/09/22 22:38 O2 Del Method 06/09/22 22:38 BMI result Body Mass Index 26.9 Appearance: Alert. Oriented X3. No acute distress. Head: normocephalic, atraumatic. Eyes: Pupils equal, round and reactive to light. ENT: Pharynx normal. Neck: Normal inspection. Neck supple. No midline tenderness. CVS: Normal heart rate and rhythm. Pulses normal. Respiratory: No respiratory distress. Breath sounds normal. Abdomen: Soft and nontender. +BS x4 Skin: Skin warm and dry. Normal skin color. Normal skin turgor. No rashes. Extremities: No lower extremity edema. Neuro: Oriented X 3. No motor deficit. No sensory deficit. Course Course Course Narrative: 57-year-old male with history of AFib with RVR, history of multiple cardioversions in the past with plan for ablation, cardiomyopathy, recent admission here for PASTOR, orthostatic dizziness, rapid AFib. He was just discharge is afternoon. This afternoon he had palpitations, shortness of breath, dyspnea on exertion with a witnessed syncopal episode with LOC for about 1 minute. He is almost feeling back to baseline. He appears well, back in NSR. Will get CT head/neck given syncope on Xarelto, EKG, trop, lab workup. Reevaluation(s) Reevaluation #1: Orthostatics negative. PASTOR improved. CT head without acute bleed or injury. Spoke with Dr. Damon from Cardiology who is recommending admission. Dr. Hargrove to be covering. Case was discussed with hospitalist who will admit. MDM - Syncope Medical Records Attestation: I reviewed the patient's medical records. Lab Data Attestation: I reviewed the patient's lab results. Result diagrams: 06/09/22 21:20 06/09/22 21:20 Labs: Lab Results 06/09/22 06/09/22 06/09/22 Range/Units 21:20 21:20 21:20 WBC 8.9 (4.8-10.8) X10*3/uL RBC 5.20 (4.60-5.80) X10*6/uL Hgb 15.4 (14.0-18.0) g/dl Hct 45.9 (42.0-52.0) % MCV 88.3 (80.0-98.0) fL MCH 29.6 (27.0-33.0) pg MCHC 33.6 (31.0-36.0) g/dl RDW 16.1 H (11.0-16.0) % Plt Count 174 (160-400) X10*3/uL MPV 11.5 (9.4-12.4) fL Immature Gran % (Auto) 0.3 (0.0-0.4) % Neut % (Auto) 71.7 (45-73) % Lymph % (Auto) 18.2 L (20-40) % [place] % (Auto) 8.1 (2-11) % Eos % (Auto) 1.2 (0-4) % Baso % (Auto) 0.5 (0-2) % Lymph # (Auto) 1.6 (1.2-4.9) X10*3/uL [place] # (Auto) 0.7 (0.1-1.2) X10*3/uL Eos # (Auto) 0.1 (0.0-0.4) X10*3/uL Baso # (Auto) 0.0 (0.0-0.2) X10*3/uL Abs Immat Gran (auto) 0.03 (0.00-0.03) X10*3/uL Absolute Neuts (auto) 6.4 (2.0-8.3) x10*3/uL Absolute Nucleated RBC 0.000 (0.0-0.012) X10*3/uL Nucleated RBC % (auto) 0.0 (0.0-0.2) /100WBC PT 22.5 H (10.0-13.1) SEC INR 1.9 H (0.9-1.1) APTT 107.9 H* (26.0-36.4) SEC Sodium 135 (135-145) mmol/L Potassium 4.2 (3.3-5.1) mmol/L Chloride 98 (96-108) mmol/L Carbon Dioxide 28 (22-29) mmol/L Anion Gap 13 (12-20) BUN 18 H (9-16) mg/dL Creatinine 1.13 (0.5-1.4) mg/dL Estim Creat Clear Calc 81.8 Estimated GFR > 60 Random Glucose 86 (60-115) mg/dL Calcium 9.4 D (8.4-10.2) mg/dL Magnesium 1.9 (1.6-2.6) mg/dL Total Bilirubin 1.7 H (0.0-1.0) mg/dL Direct Bilirubin 0.7 H (0.0-0.5) mg/dL AST 24 (5-37) U/L ALT 23 (0-40) U/L Alkaline Phosphatase 77 (39-117) U/L Troponin I High Sens (<3.5-35.0) ng/L B-Natriuretic Peptide (<100) pg/mL Total Protein 7.3 (6.5-8.0) g/dL Albumin 4.3 (3.5-5.0) g/dL COVID-19 (ORI) (Negative) COVID-19 Clin Com 06/09/22 06/09/22 Range/Units 21:20 21:20 WBC (4.8-10.8) X10*3/uL RBC (4.60-5.80) X10*6/uL Hgb (14.0-18.0) g/dl Hct (42.0-52.0) % MCV (80.0-98.0) fL MCH (27.0-33.0) pg MCHC (31.0-36.0) g/dl RDW (11.0-16.0) % Plt Count (160-400) X10*3/uL MPV (9.4-12.4) fL Immature Gran % (Auto) (0.0-0.4) % Neut % (Auto) (45-73) % Lymph % (Auto) (20-40) % B[place]soe % (Auto) (2-11) % Eos % (Auto) (0-4) % Baso % (Auto) (0-2) % Lymph # (Auto) (1.2-4.9) X10*3/uL [place] # (Auto) (0.1-1.2) X10*3/uL Eos # (Auto) (0.0-0.4) X10*3/uL Baso # (Auto) (0.0-0.2) X10*3/uL Abs Immat Gran (auto) (0.00-0.03) X10*3/uL Absolute Neuts (auto) (2.0-8.3) x10*3/uL Absolute Nucleated RBC (0.0-0.012) X10*3/uL Nucleated RBC % (auto) (0.0-0.2) /100WBC PT (10.0-13.1) SEC INR (0.9-1.1) APTT (26.0-36.4) SEC Sodium (135-145) mmol/L Potassium (3.3-5.1) mmol/L Chloride (96-108) mmol/L Carbon Dioxide (22-29) mmol/L Anion Gap (12-20) BUN (9-16) mg/dL Creatinine (0.5-1.4) mg/dL Estim Creat Clear Calc Estimated GFR Random Glucose (60-115) mg/dL Calcium (8.4-10.2) mg/dL Magnesium (1.6-2.6) mg/dL Total Bilirubin (0.0-1.0) mg/dL Direct Bilirubin (0.0-0.5) mg/dL AST (5-37) U/L ALT (0-40) U/L Alkaline Phosphatase (39-117) U/L Troponin I High Sens 3.7 (<3.5-35.0) ng/L B-Natriuretic Peptide 101 H (<100) pg/mL Total Protein (6.5-8.0) g/dL Albumin (3.5-5.0) g/dL COVID-19 (ORI) Negative (Negative) COVID-19 Clin Com See Note ECG Data Attestation: I personally reviewed and interpreted this ECG as follows: ECG interpretation date: 06/09/22 ECG interpretation time: 22:03 Prior ECG tracings: available for review Interpretation: normal sinus rhythm, 60 bpm, normal OH interval, normal QTc Critical Care Time Critical Care Time Critical Care Time: No Discharge Plan Discharge Clinical Impression: Syncope Patient Disposition: Admitted As Inpatient
[2022-06-09 21:27] LABS: MANUAL DIFF FLAG NO
[2022-06-09 21:30] LABS: Basophils Percent Auto 0.5 % (0-2); Eosinophils Absolute Auto 0.1 X10*3/uL (0.0-0.4); Eosinophils Percent Auto 1.2 % (0-4); Hematocrit 45.9 % (42.0-52.0); Hemoglobin 15.4 g/dl (14.0-18.0); Imm Gran Abs Auto 0.03 X10*3/uL (0.00-0.03); Imm Gran Pct Auto 0.3 % (0.0-0.4); Lymphocytes Absolute Auto 1.6 X10*3/uL (1.2-4.9); Lymphocytes Percent Auto 18.2 % (20-40); Mean Corpuscular HGB Conc 33.6 g/dl (31.0-36.0); Mean Corpuscular Hemoglobin 29.6 pg (27.0-33.0); Mean Corpuscular Volume 88.3 fL (80.0-98.0); Mean Platelet Volume 11.5 fL (9.4-12.4); Monocytes Absolute Auto 0.7 X10*3/uL (0.1-1.2); Monocytes Percent Auto 8.1 % (2-11); Neutrophils Absolute Auto 6.4 x10*3/uL (2.0-8.3); Neutrophils Percent Auto 71.7 % (45-73); Platelet Count 174 X10*3/uL (160-400); Red Cell Distribution Width 16.1 % (11.0-16.0); White Blood Count 8.9 X10*3/uL (4.8-10.8)
[2022-06-09 21:43] LABS: Alanine Aminotransferase 23 U/L (0-40); Albumin Level 4.3 g/dL (3.5-5.0); Alkaline Phosphatase 77 U/L (39-117); Anion Gap 13 (12-20); Aspartate Amino Transferase 24 U/L (5-37); Bilirubin Direct 0.7 mg/dL (0.0-0.5); Bilirubin Total 1.7 mg/dL (0.0-1.0); Blood Urea Nitrogen 18 mg/dL (9-16); Calcium 9.4 mg/dL (8.4-10.2); Carbon Dioxide 28 mmol/L (22-29); Chloride 98 mmol/L (96-108); Creatinine Clr Calc Pharmacy 81.8; Estimated Glomerular Filt Rate > 60; Glucose Random 86 mg/dL (60-115); Magnesium 1.9 mg/dL (1.6-2.6); Potassium 4.2 mmol/L (3.3-5.1); Sodium 135 mmol/L (135-145); Total Protein 7.3 g/dL (6.5-8.0)
[2022-06-09 21:50] LABS: INTERNATIONAL NORM RATIO 1.9 (0.9-1.1); Prothrombin Time 22.5 SEC (10.0-13.1)
[2022-06-09 21:51] LABS: B Type Natriuretic Peptide 101 pg/mL (<100); Troponin-I High Sensitivity 3.7 ng/L (<3.5-35.0)
[2022-06-09 22:06] LABS: COVID-19 Test Negative (Negative)
--- NOTE | 2022-06-09 22:19 | PHA.MEDREC ---
Pharmacy Consult ? Medication Reconciliation Pharmacy has completed the medication reconciliation.
[2022-06-09 22:28] LABS: Partial Thromboplastin Time 107.9 SEC (26.0-36.4)
[2022-06-09 22:34] VITALS: BP 121/83; PULSE 60
[2022-06-09 22:36] VITALS: BP 122/81; PULSE 61
[2022-06-09 22:37] VITALS: BP 130/82; PULSE 58; RESP 17; O2SAT 98
[2022-06-09 22:38] VITALS: BP 130/82; PULSE 67; PULSE 68; O2SAT 98
--- NOTE | 2022-06-09 22:39 | PM.IMHP ---
History of Present Illness Date of Service: 06/10/22 Chief Complaint: syncope 57-year-old male with past medical history of paroxysmal AFib status post cardioversion x3, HLD, HTN, COPD, hypothyroidism, and history of cardiomyopathy who presents to the hospital with a syncopal episode. Of note patient was discharged on 06/09 after being managed for AFib with rapid ventricular response complicated by orthostatic hypotension and dizziness, he received IV hydration, converted to sinus rhythm, and was discharged home after digoxin was discontinued. 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 He completely lost consciousness, his friend was there and witnessed the event, he was not confused about a cane up, decided to return to the hospital for further stat investigation. Patient reports that he has an appointment for and ablation in August, and he had an appointment with the milling supervisor same day but had no time to get there. He reports shortness of breath associated with the episode, no nausea or vomiting, no postictal state, no seizure-like movement, no headache, no urinary symptoms. No abdominal pain nausea or vomiting. He does report that he was NPO prior to discharge and had not had anything of day. his vitals on arrival recorded as stable no significant abnormalities, Orthostatic vitals are negative, labs are significant for WBC count of 8.9, hemoglobin of 15.4, hematocrit 45.9, otherwise unremarkable Chest x-ray head CT and cervical spine unremarkable, EKG on his arrival shows normal sinus rhythm cardiology ( Dr Damon) was consulted, recommended patient admission Review of Systems Review of Systems: Yes all other systems are reviewed and are negative [facility] Medical History Atrial fibrillation with rapid ventricular response Atrial flutter with rapid ventricular response Cardiomyopathy Congestive heart failure COPD (chronic obstructive pulmonary disease) Decompensated heart failure Essential hypertension Hypothyroidism (acquired) Smoker Family History Mother COPD (chronic obstructive pulmonary disease) Surgical History H/O shoulder surgery H/O thyroidectomy Social History Household Members: Family Housing: House Are you a primary child care sitter to a significant other at home: No Do you presently have visiting nurse or other home services: No Alcohol intake: never Patient Tobacco Use Status: Former Tobacco user Quit Date: 02/2022 Tobacco use type: Cigarette Cigarettes Per Day: 5 Years Smoked: 45 +/- e-Cigarette/Vaping Use: Never Used Second Hand Smoke Exposure: No Substance Use Type: Crack/Cocaine Advance Directives: No Advance Directives Information Provided: No service: No Current occupational status: retired Current occupational exposures/hazards: No Cognitive needs: No Hearing needs: No Vision needs: No Meds Allergies Allergy/AdvReac Type Severity Reaction Status Date / Time mold Allergy impacted Verified 06/09/22 20:46 sinus cavity Active Medications: Current Medications Pharmacy Consult (Consult Rx Perform Med Rec) 1 each MISCELLANE ONCE PRN PRN Reason: Consult order Home Medications Medication Instructions Recorded Confirmed Last Taken Type bupropion HCl 75 mg tablet 75 mg PO BID 03/25/22 06/09/22 1 Day Ago History ~06/07/22 Physical Exam Vital Signs and Narrative: Vital Signs: Last Vital Signs Temp 97.9 F 06/09/22 20:47 Pulse 61 06/09/22 22:36 Resp 18 06/09/22 20:47 BP 122/81 06/09/22 22:36 Pulse Ox 99 06/09/22 20:47 O2 Del Method 06/09/22 20:47 BMI result Body Mass Index 26.9 Const: General: cooperative and no acute distress Orientation/consciousness: patient oriented x3 Eyes: General: appearance normal, both eyes and all related structures Pupils: Equal, round and reactive pupils present Resp: Effort & Inspection: normal respiratory effort Auscultation: clear to auscultation bilaterally Cardio: Rate: regular rate Rhythm: regular rhythm GI: Palpation (GI): Soft to palpation Auscultation: normal bowel sounds Skin: General skin exam: no rashes or lesions noted Neuro: General: patient oriented x3 Cranial nerves: Yes Equal, round and reactive pupils present Cognition (Neuro): normal cognition Extrem: General: Yes normal to inspection and Yes no pedal edema Results Labs CBC and Chem 7: 06/09/22 21:20 06/09/22 21:20 Labs: Laboratory Results - last 24 hr 06/09/22 06/09/22 06/09/22 21:20 21:20 21:20 MCV 88.3 MCH 29.6 MCHC 33.6 RDW 16.1 H Plt Count 174 MPV 11.5 Immature Gran % (Auto) 0.3 Neut % (Auto) 71.7 Lymph % (Auto) 18.2 L [place] % (Auto) 8.1 Eos % (Auto) 1.2 Baso % (Auto) 0.5 Lymph # (Auto) 1.6 [place] # (Auto) 0.7 Eos # (Auto) 0.1 Baso # (Auto) 0.0 Abs Immat Gran (auto) 0.03 Absolute Neuts (auto) 6.4 Absolute Nucleated RBC 0.000 Nucleated RBC % (auto) 0.0 PT 22.5 H INR 1.9 H APTT 107.9 H* Anion Gap 13 Estim Creat Clear Calc 81.8 Estimated GFR > 60 Random Glucose 86 Calcium 9.4 D Magnesium 1.9 Total Bilirubin 1.7 H Direct Bilirubin 0.7 H AST 24 ALT 23 Alkaline Phosphatase 77 B-Natriuretic Peptide Total Protein 7.3 Albumin 4.3 COVID-19 (ORI) COVID-19 [employer] 06/09/22 06/09/22 21:20 21:20 MCV MCH MCHC RDW Plt Count MPV Immature Gran % (Auto) Neut % (Auto) Lymph % (Auto) [place] % (Auto) Eos % (Auto) Baso % (Auto) Lymph # (Auto) [place] # (Auto) Eos # (Auto) Baso # (Auto) Abs Immat Gran (auto) Absolute Neuts (auto) Absolute Nucleated RBC Nucleated RBC % (auto) PT INR APTT Anion Gap Estim Creat Clear Calc Estimated GFR Random Glucose Calcium Magnesium Total Bilirubin Direct Bilirubin AST ALT Alkaline Phosphatase B-Natriuretic Peptide 101 H Total Protein Albumin COVID-19 (ORI) Negative COVID-19 Qwenty Com See Note Imaging Radiologist's Impressions: Impressions Cervical Spine CT 06/09/22 21:49 IMPRESSION: 1. No intracranial hemorrhage, calvarial fracture, or other acute intracranial abnormality. 2. No traumatic subluxation or acute cervical spine fracture. Head CT 06/09/22 21:49 IMPRESSION: 1. No intracranial hemorrhage, calvarial fracture, or other acute intracranial abnormality. 2. No traumatic subluxation or acute cervical spine fracture. Assessment and Plan (1) Syncope: Status: Acute Plan she 7-year-old male with past medical history paroxysmal AFib, recently discharged from the hospital for AFib with RVR as well as orthostatic hypotension and dizziness presents back to the hospital on the day of discharge stating a syncopal episode # syncope - likely cardiogenic - patient had dizziness, palpitations and foggy vision right before passing out that lasted for about 1 minute, with no postictal symptoms - this time admit to telemetry - cardiology consulted - he is status post cardioversion x3 in the past # history orthostatic hypotension - appears to have resolved at this time, orthostatic vitals negative - monitor BP # paroxysmal AFib - will continue Xarelto, amiodarone, # BPH - continue Flomax # hypothyroidism - continue Synthroid # CHF - continue Toprol, eplrenone, and Lasix SBP stable # mood disorder - continue albuterol fluoxetine DVT prophylaxis: Xarelto Quality Stroke Does the patient have a stroke diagnosis?: No VTE Prior VTE?: No VTE Risk Level:: Medical - moderate - high VTE Device Contraindication: Treatment Not Indicated VTE Drug Contraindication: N/A - Med Ordered
--- NOTE | 2022-06-09 23:26 | PC.NURSE ---
Report given to Lennox ALAMO in ED overflow. Tech transported patient in WC with monitor.
--- NOTE | 2022-06-10 06:33 | PC.NURSE ---
I assumed nursing care of Jose Guadalupe at 0100. Jose Guadalupe is awaiting an inpatient bed assignment. Jose Guadalupe is alert, oriented x 3, calm and cooperative, makes eye contact with RN and is able to adequately verbalize his needs to staff. He ambulates independently and with steady gait. Jose Guadalupe denies chest pain but states he is able to feel the irregularity of his heartbeat when he goes in and out of Afib. Since he arrived to [facility] he has been in and out of NSR, afib, and aflutter - numerous times throughout the night - with his HR in the 50's/60's at times and in the 80's/90's at other times. No nausea. No vomiting. Skin pink/warm/dry. Speech clear and appropriate. We will continue to monitor Jose Guadalupe.
[2022-06-10 07:00] LABS: MANUAL DIFF FLAG NO
[2022-06-10 07:06] LABS: Basophils Percent Auto 0.5 % (0-2); Eosinophils Absolute Auto 0.1 X10*3/uL (0.0-0.4); Eosinophils Percent Auto 1.7 % (0-4); Hemoglobin 15.3 g/dl (14.0-18.0); Imm Gran Abs Auto 0.03 X10*3/uL (0.00-0.03); Imm Gran Pct Auto 0.5 % (0.0-0.4); Lymphocytes Absolute Auto 1.5 X10*3/uL (1.2-4.9); Lymphocytes Percent Auto 24.1 % (20-40); Mean Corpuscular Hemoglobin 30.4 pg (27.0-33.0); Mean Corpuscular Volume 89.5 fL (80.0-98.0); Mean Platelet Volume 11.4 fL (9.4-12.4); Monocytes Absolute Auto 0.6 X10*3/uL (0.1-1.2); Neutrophils Absolute Auto 4.1 x10*3/uL (2.0-8.3); Neutrophils Percent Auto 64.2 % (45-73); Platelet Count 160 X10*3/uL (160-400); Red Blood Count 5.03 X10*6/uL (4.60-5.80); Red Cell Distribution Width 16.2 % (11.0-16.0); White Blood Count 6.3 X10*3/uL (4.8-10.8)
[2022-06-10 07:43] VITALS: BP 106/77; PULSE 54; RESP 11; TEMP 36.7; O2SAT 98
[2022-06-10 07:46] LABS: Anion Gap 13 (12-20); Blood Urea Nitrogen 15 mg/dL (9-16); Carbon Dioxide 26 mmol/L (22-29); Chloride 97 mmol/L (96-108); Creatinine Clr Calc Pharmacy 86.4; Estimated Glomerular Filt Rate > 60; Glucose Random 97 mg/dL (60-115); Potassium 4.3 mmol/L (3.3-5.1); Sodium 132 mmol/L (135-145)
--- NOTE | 2022-06-10 09:34 | PM.CNCAR ---
History of Present Illness History of Present Illness Date of Service: 06/10/22 Chief complaint: syncope, P. AFIB Narrative: This is a cardiology consultation regarding syncopal episode. Patient has a history of recurrent atrial fibrillation as well as flutter and has had multiple cardioversions. He is maintained on amiodarone but still keeps going in and out of the arrhythmia. Most recently was admitted just a couple of days ago. EKG from 07 of June shows sinus rhythm at 73/Min. Repeat EKG the same day shows atrial fibrillation at 71/Min. One further EKG from last night at 21:00 shows sinus rhythm at 60/Min. However, on telemetry is now in atrial fibrillation versus flutter in the 60 -70s range. Hence he clearly goes in and out of the abnormality. He was discharged just yesterday. It seems that he had some dizziness even during in the time in hospital. However it seems that he had a syncopal episode near scar. Based on the description, probable hypotension type episode. With regard to rhythm, when he presented seems that he was sinus rhythm. However, now he is in atrial fibrillation. Clinically, he states he is much better now than when he came in. Hence the rhythm itself does not account for symptoms as he had a syncopal episode during sinus rhythm and when he feels good, he is rather in the atrial arrhythmia. He does not feel any clear palpitations and states he is back to normal. Review of Systems Review of Systems: Yes all other systems are reviewed and are negative Constitutional: Constitutional: Reports as per HPI Eyes: Eyes: Reports as per HPI ENT: Reports as per HPI Cardiovascular: Cardiovascular: Reports as per HPI, Denies acrocyanosis, Denies cool extremities, Denies chest pain, Denies leg edema, Reports lightheadedness, Reports Loss of Consciousness, Denies palpitations and Denies dyspnea Respiratory: Respiratory: Reports as per HPI, Reports no additional respiratory complaints and Denies dyspnea Gastrointestinal: Gastrointestinal: Reports as per HPI and Reports no additional gastrointestinal complaints Genitourinary: Genitourinary: Reports no additional male genitourinary complaints and Reports as per HPI Musculoskeletal: Musculoskeletal: Reports no additional musculoskeletal complaints and Reports as per HPI Integumentary/Breasts: Skin/Breast: Reports system reviewed and no additional complaints, except as docu Neurologic: Reports system reviewed and no additional complaints, except as documented and Reports as per HPI Psychiatric: Psychiatric: Reports no additional psychiatric complaints and Reports as per HPI Endocrine: Endocrine: Reports no additional endocrine complaints, Reports as per HPI and Denies palpitations Hematologic/Lymphatic: Hematologic/Lymphatic: Reports no additional hematologic/lymphatic complaints and Reports as per HPI Allergic/Immunologic: Allergic/Immunologic: Reports no additional allergic/immunologic complaints and Reports as per HPI PMFSH Past Medical History Medical History Atrial fibrillation with rapid ventricular response Atrial flutter with rapid ventricular response Cardiomyopathy Congestive heart failure COPD (chronic obstructive pulmonary disease) Decompensated heart failure Essential hypertension Hypothyroidism (acquired) Smoker Family History Family History Mother COPD (chronic obstructive pulmonary disease) Surgical History Surgical History H/O shoulder surgery H/O thyroidectomy Social History Social History Household Members: Family Housing: House Are you a primary palliative care nurse to a significant other at home: No Do you presently have visiting nurse or other home services: No Alcohol intake: never Patient Tobacco Use Status: Former Tobacco user Quit Date: 02/2022 Tobacco use type: Cigarette Cigarettes Per Day: 5 Years Smoked: 45 +/- e-Cigarette/Vaping Use: Never Used Second Hand Smoke Exposure: No Substance Use Type: Crack/Cocaine Advance Directives: No Advance Directives Information Provided: No service: No Current occupational status: unemployed Current occupational exposures/hazards: No Cognitive needs: No Hearing needs: No Vision needs: No Meds Allergies Allergy/AdvReac Type Severity Reaction Status Date / Time mold Allergy impacted Verified 06/09/22 20:46 sinus cavity Active Medications: Current Medications Acetaminophen (Acetaminophen 325 Mg Tablet) 650 mg PO Q6H PRN PRN Reason: Pain, Mild (Pain Scale 1-3) Amiodarone HCl (Amiodarone Hcl 200 Mg Tablet) 200 mg PO DAILY [facility] Bupropion HCl (Bupropion Hcl 75 Mg Tablet) 75 mg PO BID [facility] Docusate Sodium (Docusate Sodium 100 Mg Capsule) 100 mg PO DAILY PRN PRN Reason: Constipation Fluoxetine HCl (Fluoxetine Hcl 20 Mg Capsule) 40 mg PO DAILY [facility] Levothyroxine Sodium (Levothyroxine Sodium 112 Mcg Tablet) 224 mcg PO DAILY@0600 [facility] Metoprolol Succinate (Metoprolol Succinate Er 25 Mg Tab.Er.24h) 25 mg PO DAILY [facility]; Protocol Non-Formulary Medication (Food Supplemt, Lactose-Reduced [Ensure Active High Protein]) 1 each PO DAILY [facility] Omeprazole (Omeprazole 20 Mg Capsule.Dr) 20 mg PO DAILY@0630 [facility] Ondansetron HCl (Ondansetron Hcl 4 Mg/2 Ml Vial) 4 mg IVPUSH Q8H PRN PRN Reason: Nausea and Vomiting Pharmacy Consult (Consult Rx Perform Med Rec) 1 each MISCELLANE ONCE PRN PRN Reason: Consult order Rivaroxaban (Rivaroxaban 20 Mg Tablet) 20 mg PO DAILY [facility] Sodium Chloride (0.9 % Sodium Chloride Flush 3 Ml Syringe) 3 ml IVFLUSH QSHIFT [facility] Last Admin: 06/10/22 00:47 Dose: Not Given Home Medications Medication Instructions Recorded Confirmed Last Taken Type bupropion HCl 75 mg tablet 75 mg PO BID 03/25/22 06/09/22 1 Day Ago History ~06/07/22 Physical Exam Vital Signs: Vital Signs: Last Vital Signs Temp 98.0 F 06/10/22 07:43 Pulse 54 06/10/22 07:43 Resp 11 L 06/10/22 07:43 BP 106/77 06/10/22 07:43 Pulse Ox 98 06/10/22 07:43 O2 Del Method 06/10/22 07:43 BMI result Body Mass Index 26.9 Const: General: comfortable and no acute distress Orientation/consciousness: patient oriented x3 HEENT: Other: Unremarkable Head: Yes normal to inspection Neck: Neck: Yes normal visual inspection Chest: Chest palpation & inspection: normal inspection of the chest Resp: Auscultation: clear to auscultation bilaterally Cardio: Palpation: normal PMI Heart sounds: S1 normal heart sound present, S2 normal heart sound present, no gallops, no murmurs and no rubs GI: Palpation (GI): Soft to palpation Back/Spine/Pelvis: Other: unremarkable Skin: General skin exam: no rashes or lesions noted Neuro: General: patient oriented x3 Extrem: General: Yes normal to inspection Psych: Mental Status: mental status grossly normal Objective Labs and Meds Result diagrams: 06/10/22 06:48 06/10/22 06:48 Lab results: Laboratory Results - last 24 hr 06/09/22 06/09/22 06/09/22 21:20 21:20 21:20 WBC 8.9 RBC 5.20 Hgb 15.4 Hct 45.9 MCV 88.3 MCH 29.6 MCHC 33.6 RDW 16.1 H Plt Count 174 MPV 11.5 Immature Gran % (Auto) 0.3 Neut % (Auto) 71.7 Lymph % (Auto) 18.2 L [place] % (Auto) 8.1 Eos % (Auto) 1.2 Baso % (Auto) 0.5 Lymph # (Auto) 1.6 [place] # (Auto) 0.7 Eos # (Auto) 0.1 Baso # (Auto) 0.0 Abs Immat Gran (auto) 0.03 Absolute Neuts (auto) 6.4 Absolute Nucleated RBC 0.000 Nucleated RBC % (auto) 0.0 PT 22.5 H INR 1.9 H APTT 107.9 H* Sodium 135 Potassium 4.2 Chloride 98 Carbon Dioxide 28 Anion Gap 13 BUN 18 H Creatinine 1.13 Estim Creat Clear Calc 81.8 Estimated GFR > 60 Random Glucose 86 Calcium 9.4 D Magnesium 1.9 Total Bilirubin 1.7 H Direct Bilirubin 0.7 H AST 24 ALT 23 Alkaline Phosphatase 77 Troponin I High Sens B-Natriuretic Peptide Total Protein 7.3 Albumin 4.3 COVID-19 ([facility]) COVID-19 Clin Com 06/09/22 06/09/22 06/10/22 21:20 21:20 06:48 WBC 6.3 RBC 5.03 Hgb 15.3 Hct 45.0 MCV 89.5 MCH 30.4 MCHC 34.0 RDW 16.2 H Plt Count 160 MPV 11.4 Immature Gran % (Auto) 0.5 H Neut % (Auto) 64.2 Lymph % (Auto) 24.1 [place] % (Auto) 9.0 Eos % (Auto) 1.7 Baso % (Auto) 0.5 Lymph # (Auto) 1.5 [place] # (Auto) 0.6 Eos # (Auto) 0.1 Baso # (Auto) 0.0 Abs Immat Gran (auto) 0.03 Absolute Neuts (auto) 4.1 Absolute Nucleated RBC 0.000 Nucleated RBC % (auto) 0.0 PT INR APTT Sodium Potassium Chloride Carbon Dioxide Anion Gap BUN Creatinine Estim Creat Clear Calc Estimated GFR Random Glucose Calcium Magnesium Total Bilirubin Direct Bilirubin AST ALT Alkaline Phosphatase Troponin I High Sens 3.7 B-Natriuretic Peptide 101 H Total Protein Albumin COVID-19 ([facility]) Negative COVID-19 Clin Com See Note 06/10/22 06:48 WBC RBC Hgb Hct MCV MCH MCHC RDW Plt Count MPV Immature Gran % (Auto) Neut % (Auto) Lymph % (Auto) [place] % (Auto) Eos % (Auto) Baso % (Auto) Lymph # (Auto) [place] # (Auto) Eos # (Auto) Baso # (Auto) Abs Immat Gran (auto) Absolute Neuts (auto) Absolute Nucleated RBC Nucleated RBC % (auto) PT INR APTT Sodium 132 L Potassium 4.3 Chloride 97 Carbon Dioxide 26 Anion Gap 13 BUN 15 Creatinine 1.07 Estim Creat Clear Calc 86.4 Estimated GFR > 60 Random Glucose 97 Calcium 9.0 Magnesium Total Bilirubin Direct Bilirubin AST ALT Alkaline Phosphatase Troponin I High Sens B-Natriuretic Peptide Total Protein Albumin COVID-19 ([facility]) COVID-19 Clin Com ECG Interpretation: EKG with sinus rhythm at 60/Min; left atrial enlargement and slight nonspecific changes. Normal OR and corrected QT. Imaging Radiologist's impression: Impressions Cervical Spine CT 06/09/22 21:49 IMPRESSION: 1. No intracranial hemorrhage, calvarial fracture, or other acute intracranial abnormality. 2. No traumatic subluxation or acute cervical spine fracture. Head CT 06/09/22 21:49 IMPRESSION: 1. No intracranial hemorrhage, calvarial fracture, or other acute intracranial abnormality. 2. No traumatic subluxation or acute cervical spine fracture. Chest X-Ray 06/09/22 22:22 IMPRESSION: No evidence for acute disease in chest. Assessment and Plan (1) Syncope: Status: Acute (2) PAF (paroxysmal atrial fibrillation): Status: Acute (3) Cardiomyopathy: Status: Acute Plan Syncopal episode probably from low blood pressure. Highly doubt arrhythmia had anything to do with the as when he presented after the syncope, the rhythm was sinus; currently in atrial fibrillation controlled rate -but feels back to baseline. In any case, continue the amiodarone. Also can keep on low dose beta blockers. Due to going in and out of atrial fibrillation in spite of amiodarone, would not entertain any further cardioversions. He is already scheduled for an ablation per patient and okay to keep that appointment. With regard to the low blood pressure/syncope itself, can cut back on diuretics as he feels dehydrated. Also hold off on Eplerenone. He has an appointment in the office next week with Fidelia Sutherland and he can keep that appointment. Procedures Date of Service Date of Service: 06/10/22
[2022-06-10 09:36] VITALS: BP 104/63; PULSE 65; RESP 12; TEMP 36.6; O2SAT 97
--- NOTE | 2022-06-10 09:50 | MHC.CM.PN ---
CM met with Patient at bedside and addressed JHA with him, providing him with the original and placing a copy on the chart. Patient lives alone in a mobile home and he is functionally independent. Home/no services is the goal and CM has initiated and will follow for dc planning. PCP is Dr. Kota Laboy and Patient has received no Covid vax.
[2022-06-10] MEDS: 0.9 % Sodium Chloride Flush 3 ML SYRINGE IVFLUSH (09:51)
--- NOTE | 2022-06-10 09:55 | PC.NURSE ---
pt ate 100% of breakfast.
[2022-06-10] MEDS: Levothyroxine Sodium 112 MCG TABLET 224 MCG PO (09:57)
[2022-06-10] MEDS: buPROPion HCL 75 MG TABLET PO (09:58)
[2022-06-10] MEDS: Omeprazole 20 MG CAPSULE.DR PO (09:58)
[2022-06-10] MEDS: FLUoxetine HCl 20 MG CAPSULE 40 MG PO (09:58)
[2022-06-10] MEDS: Metoprolol Succinate ER 25 MG TAB.ER.24H PO (09:58)
[2022-06-10] MEDS: Amiodarone HCL 200 MG TABLET PO (09:59)
[2022-06-10] MEDS: Rivaroxaban 20 MG TABLET PO (09:59)
--- NOTE | 2022-06-10 10:08 | PC.NURSE ---
patient a/ox4. elida . heart rate currently regular at 75 beats , patient reports being bale to feel when he goes in and out of Arrythmias . lungs clear . skin pink warm and dry . abdomen soft , non tender . postive bowel sounds in all four quedrents . Dr. Dave at bedside . plan of care to discharge after lunch . patient aware of plan of care .
--- NOTE | 2022-06-10 10:14 | PM.DS ---
DS: Providers Provider Date of Service: 06/10/22 Date of admission: 06/09/22 22:35 Primary care physician: Kota Laboy MD Consults: 06/09/22 23:01 Consult to Cardiology Stat Consulting Provider: Morris Hargrove Reason for consultation: syncope, afib DS: Diagnosis Discharge Diagnosis (1) Syncope: Status: Acute (2) PAF (paroxysmal atrial fibrillation): Status: Acute (3) Cardiomyopathy: Status: Acute DS: Summary Hospital Course Hospital Course: from initial hpi: Chief Complaint: syncope ?57-year-old male with past medical history of paroxysmal AFib status post cardioversion x3, HLD, HTN, COPD, hypothyroidism, and history of cardiomyopathy who presents to the hospital with a syncopal episode.? Of note patient was discharged on 06/09 after being managed for AFib with rapid ventricular response complicated by orthostatic hypotension and dizziness, he received IV hydration, converted to sinus rhythm, and was discharged home after digoxin was discontinued.? Patient reports that he was on his way to pharmacy to lemon picker his medications after being discharged when all of a sudden he started feeling dizzy, foggy vision, and had palpitations in the chest and felt that he was going to pass out therefore he returned to his car and passed out right by the door of his car for about a minute.? He completely lost consciousness, his friend was there and witnessed the event, he was not confused about a cane up, decided to return to the hospital for further stat investigation.? Patient reports that he has an appointment for? and ablation in August, and he had an appointment with the health and human performance professor same day but had no time to get there.? He reports shortness of breath associated with the episode, no nausea or vomiting, no postictal state, no seizure-like movement, no headache, no urinary symptoms.? No abdominal pain nausea or vomiting.? He does report that he? was NPO prior to discharge and had not had anything of day. ?his vitals on arrival recorded as stable no significant abnormalities,? Orthostatic vitals are negative, ?labs are significant for WBC count of 8.9, hemoglobin of 15.4, hematocrit 45.9, otherwise unremarkable Chest x-ray head CT and cervical spine unremarkable, EKG on his arrival shows normal sinus rhythm ?cardiology ( Dr Damon) was consulted,? recommended patient admission hospital course: Patient was admitted for syncope. Likely related to dehydration and orthostatic hypotension. initially thought to be due to paroxysmal atrial fibrillation with RVR, however, patient is constantly going in and out of AFib and currently not overly symptomatic, he did respond well to IV hydration, therefore, more likely symptoms due to dehydration and medications. There, his furosemide, tamsulosin, eplerenone will be discontinued for now. Patient is feeling back to baseline. He will continue Xarelto on amiodarone for paroxysmal atrial fibrillation. His tamsulosin has been discontinued for his BPH, if he continues to have persistent symptoms he can follow up with Urology. For his hypothyroidism he was continue on Synthroid. He for is chronic CHF with recovered ejection fraction he will continue Toprol, but eplrenone and lasix have been stopped. for his mood disorder he will continue prozac Time Spent with Patient Time attestation: Total time spent providing and/or coordinating discharge services: Discharge coordination time: Greater than 30 minutes Quality: Safe Use of Opioids Does Pt have an Active Cancer Diagnosis on the Problem List?: No Quality: Stroke Does the patient have a stroke diagnosis?: No Physical Exam Vital Signs: Vital Signs: Last Vital Signs Temp 97.8 F 06/10/22 09:36 Pulse 65 06/10/22 09:36 Resp 12 06/10/22 09:36 BP 104/63 06/10/22 09:36 Pulse Ox 97 06/10/22 09:36 O2 Del Method 06/10/22 09:36 BMI result Body Mass Index 26.9 General: AO X 3, no acute distress Resp: CTA bilateral, no accessory muscles used CVS: S1,S2, irregular GI: soft, non tender, non distended Neuro: motor grossly intact, alert Psych: appropriate affect, appropriate insight DS: Data Data Completed and Pending Completed studies during hospitalization [Text1]: Procedures [employer] of Cardiac Rhythm, Single (02/25/22) Labs on day of discharge: Laboratory Results - last 24 hr 06/09/22 06/09/22 06/09/22 21:20 21:20 21:20 WBC 8.9 RBC 5.20 Hgb 15.4 Hct 45.9 MCV 88.3 MCH 29.6 MCHC 33.6 RDW 16.1 H Plt Count 174 MPV 11.5 Immature Gran % (Auto) 0.3 Neut % (Auto) 71.7 Lymph % (Auto) 18.2 L [place] % (Auto) 8.1 Eos % (Auto) 1.2 Baso % (Auto) 0.5 Lymph # (Auto) 1.6 [place] # (Auto) 0.7 Eos # (Auto) 0.1 Baso # (Auto) 0.0 Abs Immat Gran (auto) 0.03 Absolute Neuts (auto) 6.4 Absolute Nucleated RBC 0.000 Nucleated RBC % (auto) 0.0 PT 22.5 H INR 1.9 H APTT 107.9 H* Sodium 135 Potassium 4.2 Chloride 98 Carbon Dioxide 28 Anion Gap 13 BUN 18 H Creatinine 1.13 Estim Creat Clear Calc 81.8 Estimated GFR > 60 Random Glucose 86 Calcium 9.4 D Magnesium 1.9 Total Bilirubin 1.7 H Direct Bilirubin 0.7 H AST 24 ALT 23 Alkaline Phosphatase 77 Troponin I High Sens B-Natriuretic Peptide Total Protein 7.3 Albumin 4.3 COVID-19 ([facility]) COVID-19 Clin Com 06/09/22 06/09/22 06/10/22 21:20 21:20 06:48 WBC 6.3 RBC 5.03 Hgb 15.3 Hct 45.0 MCV 89.5 MCH 30.4 MCHC 34.0 RDW 16.2 H Plt Count 160 MPV 11.4 Immature Gran % (Auto) 0.5 H Neut % (Auto) 64.2 Lymph % (Auto) 24.1 [place] % (Auto) 9.0 Eos % (Auto) 1.7 Baso % (Auto) 0.5 Lymph # (Auto) 1.5 [place] # (Auto) 0.6 Eos # (Auto) 0.1 Baso # (Auto) 0.0 Abs Immat Gran (auto) 0.03 Absolute Neuts (auto) 4.1 Absolute Nucleated RBC 0.000 Nucleated RBC % (auto) 0.0 PT INR APTT Sodium Potassium Chloride Carbon Dioxide Anion Gap BUN Creatinine Estim Creat Clear Calc Estimated GFR Random Glucose Calcium Magnesium Total Bilirubin Direct Bilirubin AST ALT Alkaline Phosphatase Troponin I High Sens 3.7 B-Natriuretic Peptide 101 H Total Protein Albumin COVID-19 ([facility]) Negative COVID-19 Clin Com See Note 06/10/22 06:48 WBC RBC Hgb Hct MCV MCH MCHC RDW Plt Count MPV Immature Gran % (Auto) Neut % (Auto) Lymph % (Auto) [place] % (Auto) Eos % (Auto) Baso % (Auto) Lymph # (Auto) [place] # (Auto) Eos # (Auto) Baso # (Auto) Abs Immat Gran (auto) Absolute Neuts (auto) Absolute Nucleated RBC Nucleated RBC % (auto) PT INR APTT Sodium 132 L Potassium 4.3 Chloride 97 Carbon Dioxide 26 Anion Gap 13 BUN 15 Creatinine 1.07 Estim Creat Clear Calc 86.4 Estimated GFR > 60 Random Glucose 97 Calcium 9.0 Magnesium Total Bilirubin Direct Bilirubin AST ALT Alkaline Phosphatase Troponin I High Sens B-Natriuretic Peptide Total Protein Albumin COVID-19 ([facility]) COVID-19 Clin Com Discharge Plan Discharge Patient Disposition: Home, Self-Care Discharge Diagnosis: syncope, dehydration Referrals: Kota Laboy MD [Primary Care Provider] - 1 Week Discharge Medications: Continued fluoxetine 40 mg capsule 40 mg PO DAILY Qty: 30 4RF levothyroxine 112 mcg capsule 224 mcg PO DAILY 90 Days Qty: 180 2RF bupropion HCl 75 mg tablet 75 mg PO BID omeprazole 20 mg capsule,delayed release(DR/EC) 20 mg PO DAILY@0630 90 Days Qty: 90 2RF Ensure Active High Protein Liquid 1 ea PO DAILY 30 Days Qty: 03728 2RF Xarelto 20 mg tablet 20 mg PO DAILY Qty: 90 1RF Rx Instructions: must administer with evening meal amiodarone 200 mg tablet 200 mg PO DAILY 30 Days Qty: 30 4RF metoprolol succinate 25 mg tablet extended release 24 hr 25 mg PO DAILY Qty: 30 3RF Discontinued tamsulosin 0.4 mg capsule 0.4 mg PO DAILY 90 Days Qty: 90 2RF eplerenone 25 mg tablet 25 mg PO DAILY 30 Days Qty: 30 1RF furosemide 40 mg tablet 40 mg PO DAILY Qty: 30 5RF Protocol: Hold for SBP< HOLD for SBP < : 90 Discharge Orders: Discharge Order (Routine); Ordered 06/10/22 Ordered By: Shon Almonte Diet: Advance to usual diet Activity on Discharge: As tolerated Stand Alone Forms: Patient Portal Discharge page Care Plan Goals: avoid hypotension Health Concerns: syncope Plan of Treatment: stop lasix, eplrenone, flomax, follow up with cardiology Assessment: see above
--- NOTE | 2022-06-10 11:03 | MHC.CM.PN ---
Patient has been medically cleared for dc to home today, self care.
[2022-06-10 12:01] VITALS: BP 115/67; PULSE 70; RESP 18; TEMP 36.8; O2SAT 96
[2022-06-10 12:56] LABS: Appearance Urine Clear; Color Urine Dark Yellow; Glucose Urine UA Negative (Negative); Leukocyte Esterase Urine Negative (Negative); Nitrite Urine Negative (Negative); Urine Blood Negative (Negative); Urine Ketones Negative (Negative); Urine Protein Negative (Neg-Trace)
[2022-06-10 14:01] VITALS: BP 108/69; PULSE 78; RESP 17; TEMP 36.8; O2SAT 98
== END 2022-06-10 14:19 | disposition home or self-care (01) ==
LOC: HO.ED 22:05 → HO.EDOVER 22:55
PROVIDERS: Physician Assistant; Admitting Provider Internal Medicine; Emergency Provider Emergency Medicine; PCP Family Medicine; Visit Provider Internal Medicine
DX: R55 Syncope and collapse (principal); I42.9 Cardiomyopathy, unspecified; R06.02 Shortness of breath; M54.2 Cervicalgia; E86.0 Dehydration; R51.9 Headache, unspecified; I48.0 Paroxysmal atrial fibrillation; Z20.822 Contact with and (suspected) exposure to COVID-19; Z79.4 Long term (current) use of insulin; Z79.899 Other long term (current) drug therapy
CPT/HCPCS: 36415; 70450; 71045; 72125; 80048; 80076; 81003; 83735; 83880; 84484; 85025; 85610; 85730; 87635; 93005; 96374; 99215; 99219; 99285

== ENCOUNTER → 2022-07-15 14:24 | Outpatient (BNVA) | payer OTHER, SELFPAY | PROVIDERS: PCP Family Medicine; Referring Provider Family Medicine; Visit Provider Nurse Practitioner Family | DX: R55 Syncope and collapse (principal); I42.9 Cardiomyopathy, unspecified; I48.91 Unspecified atrial fibrillation; I50.9 Heart failure, unspecified; I48.92 Unspecified atrial flutter; Z79.01 Long term (current) use of anticoagulants; Z79.899 Other long term (current) drug therapy | CPT/HCPCS: 99212 ==

== ENCOUNTER → 2022-08-05 12:39 | Outpatient (REF) | payer OTHER, SELFPAY ==
--- NOTE | 2022-08-05 12:43 | CA_ITS ---
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 The visually estimated ejection fraction is between 50-55%. Findings Procedure Information Contrast agent, definity, is being given per protocol without apparent complications. Left Ventricle Normal left ventricular cavity size. The left ventricular systolic function is low normal. The visually estimated ejection fraction is between 50-55%. There is no evidence of regional wall motion abnormalities. There is moderate septal and moderate basal asymmetric hypertrophy. Prior Study Comparison Changes noted compared to prior study dated: 03/04/2022. Improved LVEF. Measurements 2D Linear Measurements IVSd: 0.71 0.6-0.9/0.6-1.0 cm LVIDd: 6.32 3.9-5.3/4.2-5.9 cm LVIDd Index: 2.77 2.4-3.2/2.2-3.1 cm/m2 LVIDs: 4.88 2.0-3.6 cm LVPWd: 0.80 0.7-1.1 cm LV Mass: 236.14 67-162/88-224 g LV Mass Index: 103.57 43-95/49-115 g/m2 LVOT Diam: 2.40 3.0+(-)1.3 cm 2D Systolic Function EF 4C: 57.20 >55% EF 2C: 46.30 >55% EF BiP: 50.30 >55% LVOT LVOT Pk Darryl: 1.02 LVOT Mn Darryl: 0.68 LVOT VTI: 0.23 LVOT Pk Grad: 4.00 LVOT Mn Grad: 2.00 LVOT Diam: 2.40 LVOT Area: 4.52 Updated in Other Vendor System with Status of Final Morris Hargrove MD electronically signed on 08/05/2022 3:51:50 PM with status of Final
== END ==
LOC: HO.CARD 12:39
PROVIDERS: Visit Provider Nurse Practitioner Family
DX: I42.9 Cardiomyopathy, unspecified (principal); R55 Syncope and collapse
CPT/HCPCS: 93308; Q9957

== ENCOUNTER → 2022-08-15 12:00 | Outpatient (BNVA) | payer OTHER, SELFPAY | PROVIDERS: PCP Family Medicine; Referring Provider Family Medicine; Visit Provider Nurse Practitioner Family | DX: R55 Syncope and collapse (principal); I48.92 Unspecified atrial flutter; I48.91 Unspecified atrial fibrillation; I50.9 Heart failure, unspecified; I42.9 Cardiomyopathy, unspecified | CPT/HCPCS: 99212 ==

== ENCOUNTER 2022-08-20 11:34 | Outpatient (REF) | payer OTHER, SELFPAY ==
[2022-08-20 14:30] LABS: MANUAL DIFF FLAG NO
[2022-08-20 14:44] LABS: Basophils Percent Auto 0.2 % (0-2); Eosinophils Absolute Auto 0.1 X10*3/uL (0.0-0.4); Eosinophils Percent Auto 1.1 % (0-4); Hematocrit 47.7 % (42.0-52.0); Hemoglobin 15.9 g/dl (14.0-18.0); Imm Gran Abs Auto 0.09 X10*3/uL (0.00-0.03); Imm Gran Pct Auto 1.1 % (0.0-0.4); Lymphocytes Absolute Auto 1.2 X10*3/uL (1.2-4.9); Lymphocytes Percent Auto 14.5 % (20-40); Mean Corpuscular HGB Conc 33.3 g/dl (31.0-36.0); Mean Corpuscular Hemoglobin 32.5 pg (27.0-33.0); Mean Corpuscular Volume 97.5 fL (80.0-98.0); Mean Platelet Volume 11.3 fL (9.4-12.4); Monocytes Absolute Auto 0.4 X10*3/uL (0.1-1.2); Monocytes Percent Auto 5.2 % (2-11); Neutrophils Absolute Auto 6.5 x10*3/uL (2.0-8.3); Neutrophils Percent Auto 77.9 % (45-73); Platelet Count 186 X10*3/uL (160-400); Red Blood Count 4.89 X10*6/uL (4.60-5.80); White Blood Count 8.4 X10*3/uL (4.8-10.8)
[2022-08-20 15:06] LABS: Alanine Aminotransferase 23 U/L (0-40); Albumin Level 4.3 g/dL (3.5-5.0); Alkaline Phosphatase 68 U/L (39-117); Anion Gap 17 (12-20); Aspartate Amino Transferase 26 U/L (5-37); Bilirubin Total 0.7 mg/dL (0.0-1.0); Blood Urea Nitrogen 21 mg/dL (9-16); Calcium 9.3 mg/dL (8.4-10.2); Carbon Dioxide 26 mmol/L (22-29); Chloride 100 mmol/L (96-108); Estimated Glomerular Filt Rate > 60; Glucose Random 93 mg/dL (60-115); Potassium 4.5 mmol/L (3.3-5.1); Sodium 138 mmol/L (135-145); Total Protein 7.4 g/dL (6.5-8.0)
[2022-08-20 15:14] LABS: B Type Natriuretic Peptide 83 pg/mL (<100)
[2022-08-20 15:17] LABS: Free T4 (Free Thyroxine) 1.49 ng/dL (0.71-1.85); Thyroid Stimulating Hormone 2.81 uIU/mL (0.32-4.0)
[2022-08-21 17:17] LABS: Triiodothyronine T3 Total 64 ng/dL (76-181)
== END 2022-08-20 11:35 | disposition home or self-care (01) ==
LOC: HO.WFDLDS 11:34
PROVIDERS: Visit Provider Family Medicine
DX: Z00.00 Encounter for general adult medical examination without abnormal findings (principal); I50.9 Heart failure, unspecified; I48.0 Paroxysmal atrial fibrillation; E03.9 Hypothyroidism, unspecified
CPT/HCPCS: 36415; 80053; 83880; 84439; 84443; 84480; 85025

== ENCOUNTER 2022-09-05 15:05 | Outpatient (REF) | payer OTHER, SELFPAY ==
--- NOTE | ~2022-09-05 | XR_ITS ---
EXAMINATION: XR CHEST CLINICAL INFORMATION: Symptoms involving circulatory system COMPARISON: 06/09/2022 TECHNIQUE: 2 views of the chest were obtained. FINDINGS: Normal symmetric lung volumes. No parenchymal consolidation. No pleural effusion. No pneumothorax. Cardiomediastinal silhouette and pulmonary vascularity are within normal limits. No acute osseous abnormalities. XR/XR chest 2V IMPRESSION: Clear lungs
== END 2022-09-05 15:06 | disposition home or self-care (01) ==
LOC: HO.XRAY 15:05
PROVIDERS: PCP Family Medicine; Visit Provider Family Medicine
DX: I50.9 Heart failure, unspecified (principal); R09.89 Other specified symptoms and signs involving the circulatory and respiratory systems
CPT/HCPCS: 71046

== ENCOUNTER 2022-11-28 22:36 | Emergency (ER) | payer OTHER, SELFPAY ==
--- NOTE | ~2022-11-28 | CT_ITS ---
EXAMINATION: CT HEAD WITHOUT CONTRAST CLINICAL INFORMATION: Fall. COMPARISON: 06/09/2022 TECHNIQUE: Contiguous axial imaging was performed from the skull base to vertex without intravenous administration of contrast. This CT examination was performed using dose optimization techniques as appropriate, variously including the following: *Automated exposure control *Adjustment of mA and/or kV according to patient size (this includes techniques or standardized protocols for targeted exams where dose is matched to indication/reason for exam; i.e. extremities or head) *Use of iterative reconstruction technique DLP: 714 mGy-cm FINDINGS: There is no evidence of acute intracranial hemorrhage or territorial infarction. No abnormal mass effect or midline shift is seen. Harvey to white matter differentiation is well preserved. No extra-axial fluid collections are identified. No hydrocephalus. No significant volume loss. There is no abnormal attenuation within the brain parenchyma. No acute osseous or soft tissue abnormality. The mastoid air cells and visualized portions of the paranasal sinuses are well aerated. CT/CT head/brain wo IV con IMPRESSION: No acute intracranial pathology.
[2022-11-28 22:45] VITALS: BP 124/76; BP 150/104; PULSE 63; PULSE 72; RESP 13; TEMP 36.6; O2SAT 96; O2SAT 99; BMI 30.8
--- NOTE | 2022-11-28 22:55 | ECG_ITS ---
Test Reason : etoh Blood Pressure : / mmHG Vent. Rate : 061 BPM Atrial Rate : 061 BPM P-R Int : 172 ms QRS Dur : 084 ms QT Int : 448 ms P-R-T Axes : 021 063 058 degrees QTc Int : 450 ms Normal sinus rhythm Normal ECG When compared with ECG of 09-JUN-2022 21:00, No significant change was found Referred By: Madison Ruggiero Electronically Signed By:URSULA MENDEZ MD
--- NOTE | 2022-11-28 23:00 | ED.ALCOHOL ---
HPI - Alcohol General Chief Complaint: ETOH/Substance Use Stated Complaint: ETOH Time Seen by Provider: 11/28/22 22:46 Source: patient and EMS Mode of arrival: EMS Limitations: no limitations History of Present Illness HPI narrative: Patient comes to the emergency room by EMS. Patient called 911 after falling. Patient admits that he has been drinking, states he drank approximately 6-8 beers. Patient states that he becomes lightheaded, dizzy, patient reports dizziness as room spinning, which is worse when he moves his head sideways. Patient states that he fell, hit his head, did not lose consciousness. Patient takes Xarelto for atrial fibrillation. Patient states that he has right shoulder pain. However, he has had shoulder pain for several months. Also, patient complaining of chest pressure which has been present for the last 8 months Related Data Home Medications Medication Instructions Recorded Confirmed bupropion HCl 75 mg tablet 75 mg PO BID 03/25/22 08/15/22 Previous Rx's Medication Instructions Recorded levothyroxine 112 mcg capsule 224 mcg PO DAILY 90 days #180 caps 10/09/21 omeprazole 20 mg capsule,delayed 20 mg PO DAILY@0630 3 months #90 04/15/22 release caps food supplemt, lactose-reduced 1 ea PO DAILY 30 days #12,420 mL 04/30/22 (Ensure Active High Protein oral liquid) amiodarone 200 mg tablet 200 mg PO DAILY #90 tabs 07/23/22 metoprolol succinate 25 mg 25 mg PO DAILY #90 tabs 07/23/22 tablet,extended release 24 hr fluoxetine 40 mg capsule 40 mg PO DAILY #30 caps 07/24/22 furosemide 40 mg tablet 40 mg PO DAILY #90 tabs 08/25/22 rivaroxaban 20 mg tablet (Xarelto) 20 mg PO QPM #90 tabs 08/25/22 eplerenone 25 mg tablet 25 mg PO DAILY 30 days #30 tabs 09/01/22 Allergies Allergy/AdvReac Type Severity Reaction Status Date / Time mold Allergy impacted Verified 09/16/22 14:26 sinus cavity Review of Systems Review of Systems: Constitutional : No Weight loss, No Fever, No Chills, No Night Sweats, No Fatigue, No Malaise ENT/Mouth : No Hearing loss, No Ear Pain, No Nasal Congestion, No Sinus Pain, No Hoarseness, No sore throat, No Rhinorrhea, No Swallowing Difficulty Eyes: No Eye Pain, No Swelling, No Redness, No Foreign Body, No Discharge, No Vision Changes Cardiovascular : Complaining of chronic chest pressure for 8 months, no chest pain, No SOB, No Dyspnea on Exertion, No Orthopnea, No Edema, No Palpitations Respiratory : No Cough, No Sputum, No Wheezing, No Smoke Exposure, No Dyspnea Gastrointestinal : No Nausea, No Vomiting, No Diarrhea, No Constipation, No abdominal Pain, No Hematochezia, No Melena Genitourinary : no irregular bleeding, No Dysuria, No Urinary Frequency, No Hematuria, No Urinary Incontinence, No Urgency, No Flank Pain, No Urinary Flow Changes, No Hesitancy Musculoskeletal : Complaining of chronic right shoulder pain, No Myalgias, No Joint Swelling Skin : No Skin Lesions, No rash Neuro : No Weakness, No Numbness, No Paresthesias, No Loss of Consciousness, no headache, complaining dizziness (room spinning) Psych : No Anxiety/Panic, No Depression, No SI/HI/AH/VH, admits to drinking alcohol Heme/Lymph: No Bruising, No Bleeding,No Lymphadenopathy Endocrine : No Polyuria, No Polydipsia, No Temperature Intolerance PMFSH Past Medical History Medical History Atrial fibrillation with rapid ventricular response Atrial flutter with rapid ventricular response Cardiomyopathy Congestive heart failure COPD (chronic obstructive pulmonary disease) Decompensated heart failure Essential hypertension Hypothyroidism (acquired) Smoker Surgical History H/O shoulder surgery H/O thyroidectomy Family History Family History Mother COPD (chronic obstructive pulmonary disease) Social History Social History Household Members: Family Housing: House Are you a primary home health care physician to a significant other at home: No Do you presently have visiting nurse or other home services: No Alcohol intake: never Patient Tobacco Use Status: Former Tobacco user Quit Date: 02/2022 Tobacco use type: Cigarette Cigarettes Per Day: 5 Years Smoked: 45 +/- e-Cigarette/Vaping Use: Never Used Second Hand Smoke Exposure: No Substance Use Type: Crack/Cocaine Advance Directives: No Advance Directives Information Provided: Yes service: No Current occupational status: unemployed Current occupational exposures/hazards: No Cognitive needs: No Hearing needs: No Vision needs: No Physical Exam ED Vital Signs: Vital Signs - 24 hr 11/28/22 22:45 11/28/22 23:22 11/28/22 23:22 Temperature 97.9 F Pulse Rate 63 60 62 Respiratory Rate 13 Blood Pressure 124/76 116/74 107/69 Pulse Oximetry 96 Oxygen Delivery Method Room Air 11/28/22 23:23 11/29/22 00:10 Temperature Pulse Rate 68 59 Respiratory Rate 17 Blood Pressure 95/62 124/76 Pulse Oximetry 94 Oxygen Delivery Method Room Air BMI result Body Mass Index 30.8 Const Other: Appearance: Alert. Oriented X3. No acute distress. Patient is intoxicated, occasionally slurs but he is able to hold a coherent conversation Eyes: Pupils equal, round and reactive to light. ENT: Pharynx normal. Neck: Normal inspection. Neck supple. No lymph nodes noted. No crepitus CVS: Normal heart rate and rhythm. Pulses normal. Normal S1 and S2 Respiratory: No respiratory distress. Breath sounds normal. No Wheezing. No rales Abdomen: Soft and nontender. No rigidity. No distention. Skin: Skin warm and dry. Normal skin color. Normal skin turgor. Extremities: No lower extremity edema. No Lacerations. No Rash Neuro: Oriented X 3. No motor deficit. No sensory deficit. Moving all extremities. No slurred speech. CN 2 through 12 grossly intact Psych: calm, cooperative, normal affect Course Course Course Narrative: -all of patient's labs are pending. -patient had CT pending. Patient is on Xarelto. Medical Decision Making Medical Decision Making [facility] Narrative: Patient's white blood cell count likely secondary reactive. Patient has mild hyponatremia, patient asymptomatic. Troponin negative. -EKG interpreted by me: Normal sinus rhythm, heart rate 61, no ST segment depression or elevation, no T-wave inversion -patient's alcohol level 314, likely the reason patient fell. -head CT shows no acute intracranial pathology -plan: [place] is to [place] -sign out given to Dr. Ross Lab Data [facility] Lab Attestation statement: I reviewed the patient's lab results. 11/28/22 23:10 11/28/22 23:10 Labs: Lab Results 11/28/22 11/28/22 11/28/22 Range/Units 23:10 23:10 23:10 WBC 12.0 H (4.8-10.8) X10*3/uL RBC 4.62 (4.60-5.80) X10*6/uL Hgb 14.7 (14.0-18.0) g/dl Hct 40.9 L (42.0-52.0) % MCV 88.5 (80.0-98.0) fL MCH 31.8 (27.0-33.0) pg MCHC 35.9 (31.0-36.0) g/dl RDW 12.3 (11.0-16.0) % Plt Count 189 (160-400) X10*3/uL MPV 10.7 (9.4-12.4) fL Immature Gran % (Auto) 0.5 H (0.0-0.4) % Neut % (Auto) 78.5 H (45-73) % Lymph % (Auto) 11.8 L (20-40) % [place]ac % (Auto) 8.3 (2-11) % Eos % (Auto) 0.6 (0-4) % Baso % (Auto) 0.3 (0-2) % Lymph # (Auto) 1.4 (1.2-4.9) X10*3/uL [place] # (Auto) 1.0 (0.1-1.2) X10*3/uL Eos # (Auto) 0.1 (0.0-0.4) X10*3/uL Baso # (Auto) 0.0 (0.0-0.2) X10*3/uL Abs Immat Gran (auto) 0.06 H (0.00-0.03) X10*3/uL Absolute Neuts (auto) 9.4 H (2.0-8.3) x10*3/uL Absolute Nucleated RBC 0.000 (0.0-0.012) X10*3/uL Nucleated RBC % (auto) 0.0 (0.0-0.2) /100WBC PT 16.3 H (10.0-13.1) SEC INR 1.4 H (0.9-1.1) Sodium 132 L (135-145) mmol/L Potassium 4.3 (3.3-5.1) mmol/L Chloride 101 (96-108) mmol/L Carbon Dioxide 17 L (22-29) mmol/L Anion Gap 18 (12-20) BUN 14 (9-16) mg/dL Creatinine 1.26 (0.5-1.4) mg/dL Estim Creat Clear Calc 82.9 Estimated GFR 59 Random Glucose 102 (60-115) mg/dL Calcium 8.6 D (8.4-10.2) mg/dL Magnesium 1.9 (1.6-2.6) mg/dL Total Bilirubin 0.8 (0.0-1.0) mg/dL Direct Bilirubin 0.2 (0.0-0.5) mg/dL AST 24 (5-37) U/L ALT 19 (0-40) U/L Alkaline Phosphatase 59 (39-117) U/L Troponin I High Sens (<3.5-35.0) ng/L Total Protein 6.7 (6.5-8.0) g/dL Albumin 4.1 (3.5-5.0) g/dL Ethyl Alcohol 314 H* mg/dL COVID-19 (ORI) (Negative) COVID-19 Clin Com 11/28/22 11/28/22 Range/Units 23:10 23:10 WBC (4.8-10.8) X10*3/uL RBC (4.60-5.80) X10*6/uL Hgb (14.0-18.0) g/dl Hct (42.0-52.0) % MCV (80.0-98.0) fL MCH (27.0-33.0) pg MCHC (31.0-36.0) g/dl RDW (11.0-16.0) % Plt Count (160-400) X10*3/uL MPV (9.4-12.4) fL Immature Gran % (Auto) (0.0-0.4) % Neut % (Auto) (45-73) % Lymph % (Auto) (20-40) % Arenac % (Auto) (2-11) % Eos % (Auto) (0-4) % Baso % (Auto) (0-2) % Lymph # (Auto) (1.2-4.9) X10*3/uL [place] # (Auto) (0.1-1.2) X10*3/uL Eos # (Auto) (0.0-0.4) X10*3/uL Baso # (Auto) (0.0-0.2) X10*3/uL Abs Immat Gran (auto) (0.00-0.03) X10*3/uL Absolute Neuts (auto) (2.0-8.3) x10*3/uL Absolute Nucleated RBC (0.0-0.012) X10*3/uL Nucleated RBC % (auto) (0.0-0.2) /100WBC PT (10.0-13.1) SEC INR (0.9-1.1) Sodium (135-145) mmol/L Potassium (3.3-5.1) mmol/L Chloride (96-108) mmol/L Carbon Dioxide (22-29) mmol/L Anion Gap (12-20) BUN (9-16) mg/dL Creatinine (0.5-1.4) mg/dL Estim Creat Clear Calc Estimated GFR Random Glucose (60-115) mg/dL Calcium (8.4-10.2) mg/dL Magnesium (1.6-2.6) mg/dL Total Bilirubin (0.0-1.0) mg/dL Direct Bilirubin (0.0-0.5) mg/dL AST (5-37) U/L ALT (0-40) U/L Alkaline Phosphatase (39-117) U/L Troponin I High Sens < 3.5 (<3.5-35.0) ng/L Total Protein (6.5-8.0) g/dL Albumin (3.5-5.0) g/dL Ethyl Alcohol mg/dL COVID-19 (ORI) Negative (Negative) COVID-19 Clin Com See Note Independent Interpretation I performed an independent interpretation of an: CT Scan (CT scan interpreted by me: No acute brain) Radiology Impression Discussion of test interpretation with radiology: I have reviewed the radiologist's reading. Radiologist Impression: INDINGS: There is no evidence of acute intracranial hemorrhage or territorial infarction. No abnormal mass effect or midline shift is seen. Harvey to white matter differentiation is well preserved. No extra-axial fluid collections are identified. No hydrocephalus. No significant volume loss. There is no abnormal attenuation within the brain parenchyma. No acute osseous or soft tissue abnormality. The mastoid air cells and visualized portions of the paranasal sinuses are well aerated. ? CT/CT head/brain wo IV con IMPRESSION: No acute intracranial pathology. Discharge Plan Discharge Clinical Impression: Alcohol intoxication Patient Disposition: Still a Patient Prescriptions: No Action levothyroxine 112 mcg capsule 224 mcg PO DAILY 90 Days Qty: 180 2RF metoprolol succinate 25 mg tablet extended release 24 hr 25 mg PO DAILY Qty: 90 3RF amiodarone 200 mg tablet 200 mg PO DAILY Qty: 90 3RF fluoxetine 40 mg capsule 40 mg PO DAILY Qty: 30 4RF furosemide 40 mg tablet 40 mg PO DAILY Qty: 90 3RF Xarelto 20 mg tablet 20 mg PO QPM Qty: 90 3RF eplerenone 25 mg tablet 25 mg PO DAILY 30 Days Qty: 30 3RF bupropion HCl 75 mg tablet 75 mg PO BID omeprazole 20 mg capsule,delayed release(DR/EC) 20 mg PO DAILY@0630 90 Days Qty: 90 2RF Ensure Active High Protein Liquid 1 ea PO DAILY 30 Days Qty: 78156 2RF Interventions: Towner-Suicide Risk Severity Scale Last Done: 11/28/22 22:59
[2022-11-28 23:15] LABS: MANUAL DIFF FLAG NO
[2022-11-28 23:16] LABS: Basophils Percent Auto 0.3 % (0-2); Eosinophils Absolute Auto 0.1 X10*3/uL (0.0-0.4); Eosinophils Percent Auto 0.6 % (0-4); Hematocrit 40.9 % (42.0-52.0); Hemoglobin 14.7 g/dl (14.0-18.0); Imm Gran Abs Auto 0.06 X10*3/uL (0.00-0.03); Imm Gran Pct Auto 0.5 % (0.0-0.4); Lymphocytes Absolute Auto 1.4 X10*3/uL (1.2-4.9); Lymphocytes Percent Auto 11.8 % (20-40); Mean Corpuscular HGB Conc 35.9 g/dl (31.0-36.0); Mean Corpuscular Hemoglobin 31.8 pg (27.0-33.0); Mean Corpuscular Volume 88.5 fL (80.0-98.0); Mean Platelet Volume 10.7 fL (9.4-12.4); Monocytes Percent Auto 8.3 % (2-11); Neutrophils Absolute Auto 9.4 x10*3/uL (2.0-8.3); Neutrophils Percent Auto 78.5 % (45-73); Platelet Count 189 X10*3/uL (160-400); Red Blood Count 4.62 X10*6/uL (4.60-5.80); Red Cell Distribution Width 12.3 % (11.0-16.0)
[2022-11-28 23:21] LABS: INTERNATIONAL NORM RATIO 1.4 (0.9-1.1); Prothrombin Time 16.3 SEC (10.0-13.1)
[2022-11-28 23:22] VITALS: BP 107/69; BP 116/74; PULSE 60; PULSE 62
[2022-11-28 23:23] VITALS: BP 95/62; PULSE 68
[2022-11-28 23:31] LABS: COVID-19 Test Negative (Negative); IDNOW Serial# 6674DD1D
[2022-11-29 00:06] LABS: Troponin-I High Sensitivity < 3.5 ng/L (<3.5-35.0)
[2022-11-29 00:10] VITALS: BP 124/76; PULSE 59; RESP 17; O2SAT 94
[2022-11-29 00:26] LABS: Alanine Aminotransferase 19 U/L (0-40); Albumin Level 4.1 g/dL (3.5-5.0); Alkaline Phosphatase 59 U/L (39-117); Anion Gap 18 (12-20); Aspartate Amino Transferase 24 U/L (5-37); Bilirubin Direct 0.2 mg/dL (0.0-0.5); Bilirubin Total 0.8 mg/dL (0.0-1.0); Blood Urea Nitrogen 14 mg/dL (9-16); Calcium 8.6 mg/dL (8.4-10.2); Carbon Dioxide 17 mmol/L (22-29); Chloride 101 mmol/L (96-108); Creatinine Clr Calc Pharmacy 82.9; Estimated Glomerular Filt Rate 59; Ethanol 314 mg/dL; Glucose Random 102 mg/dL (60-115); Magnesium 1.9 mg/dL (1.6-2.6); Potassium 4.3 mmol/L (3.3-5.1); Sodium 132 mmol/L (135-145); Total Protein 6.7 g/dL (6.5-8.0)
[2022-11-29 02:29] VITALS: BP 104/69; PULSE 63; RESP 16
[2022-11-29 04:14] VITALS: BP 131/74; PULSE 65; RESP 13; TEMP 36.4; O2SAT 97
[2022-11-29 04:36] LABS: Appearance Urine Clear; Color Urine Yellow; Glucose Urine UA Negative (Negative); Leukocyte Esterase Urine Negative (Negative); Nitrite Urine Negative (Negative); PH 5.5 (5.0-9.0); Specific Gravity - Urine <= 1.005 (1.005-1.025); Urine Blood Negative (Negative); Urine Ketones Negative (Negative); Urine Protein Negative (Neg-Trace)
[2022-11-29 04:47] LABS: Amphetamine Screen Urine Not Detected (Not Detect); Barbiturates, Urine Not Detected (Not Detect); Benzodiazepines Screen Urine Not Detected (Not Detect); Cannabinoid Screen Urine Not Detected (Not Detect); Cocaine Screen Urine Not Detected (Not Detect); Fentanyl, urine Not Detected (Not Detect); Opiate Screen Urine Not Detected (Not Detect); Phencyclidine Screen Urine Not Detected (Not Detect)
--- NOTE | 2022-11-29 05:32 | PC.NURSE ---
Patient is alert and oriented x3. VSS. Patient denies any pain. Patient requesting to be discharged. Patient explained the risks of being discharged such as fall, cardiac issues, bleeding. Patient verbalized understanding however continues to insist of d/c. DR. Ross notified. Provider discussed risks with pt, patient is aware and continues to insist on discharge. Patient ambulated about 80 ft under supervision of this RN. Patient ambulated with a steady gait. IV line removed, patient signed d/c notice, he verbalized understanding of instructions.
== END 2022-11-29 05:37 | disposition home or self-care (01) ==
PROVIDERS: Emergency Provider Emergency Medicine; PCP Family Medicine
DX: F10.129 Alcohol abuse with intoxication, unspecified (principal); Y90.8 Blood alcohol level of 240 mg/100 ml or more; R42 Dizziness and giddiness; Z20.822 Contact with and (suspected) exposure to COVID-19; Z20.828 Contact with and (suspected) exposure to other viral communicable diseases; Z87.891 Personal history of nicotine dependence; Z79.899 Other long term (current) drug therapy
CPT/HCPCS: 70450; 80048; 80076; 80307; 81003; 82077; 83735; 84484; 85025; 85610; 87635; 93005; 99285

== ENCOUNTER 2023-02-26 09:02 | Outpatient (REF) | payer OTHER, SELFPAY ==
[2023-02-26 11:18] LABS: MANUAL DIFF FLAG NO
[2023-02-26 11:32] LABS: Appearance Urine Clear; Color Urine Yellow; Glucose Urine UA Negative (Negative); Leukocyte Esterase Urine Negative (Negative); Nitrite Urine Negative (Negative); PH 5.5 (5.0-9.0); Specific Gravity - Urine 1.025 (1.005-1.025); Urine Blood Negative (Negative); Urine Ketones Negative (Negative); Urine Protein Negative (Neg-Trace)
[2023-02-26 11:37] LABS: Basophils Absolute Auto 0.1 X10*3/uL (0.0-0.2); Basophils Percent Auto 0.7 % (0-2); Eosinophils Absolute Auto 0.2 X10*3/uL (0.0-0.4); Eosinophils Percent Auto 2.1 % (0-4); Imm Gran Abs Auto 0.03 X10*3/uL (0.00-0.03); Imm Gran Pct Auto 0.4 % (0.0-0.4); Lymphocytes Absolute Auto 2.2 X10*3/uL (1.2-4.9); Lymphocytes Percent Auto 28.2 % (20-40); Mean Corpuscular Volume 91.1 fL (80.0-98.0); Mean Platelet Volume 11.7 fL (9.4-12.4); Monocytes Absolute Auto 0.6 X10*3/uL (0.1-1.2); Monocytes Percent Auto 7.6 % (2-11); Neutrophils Absolute Auto 4.7 x10*3/uL (2.0-8.3); Platelet Count 186 X10*3/uL (160-400); Red Blood Count 5.16 X10*6/uL (4.60-5.80); Red Cell Distribution Width 12.5 % (11.0-16.0); White Blood Count 7.7 X10*3/uL (4.8-10.8)
[2023-02-26 11:55] LABS: B Type Natriuretic Peptide 24 pg/mL (<100)
[2023-02-26 12:16] LABS: Creatinine Urine 199.56 mg/dL; Microalbum/Creatinine Ratio Ur 3.5 ug/mg cr
[2023-02-26 12:21] LABS: Alanine Aminotransferase 38 U/L (0-40); Albumin Level 4.3 g/dL (3.5-5.0); Alkaline Phosphatase 79 U/L (39-117); Anion Gap 12 (12-20); Aspartate Amino Transferase 33 U/L (5-37); Bilirubin Total 0.7 mg/dL (0.0-1.0); Blood Urea Nitrogen 21 mg/dL (9-16); Calcium 9.5 mg/dL (8.4-10.2); Carbon Dioxide 29 mmol/L (22-29); Chloride 104 mmol/L (96-108); Cholesterol 242 mg/dL; Estimated Glomerular Filt Rate 58; Glucose Fasting 98 mg/dL (60-99); HDL Cholesterol 52 mg/dL; LDL Cholesterol Calculated 163 mg/dl; Potassium 4.8 mmol/L (3.3-5.1); Prostate Specific Antigen Scr 1.61 ng/mL (<0.05-4.0); Sodium 140 mmol/L (135-145); TSH reflex Free T4 1.43 uIU/mL (0.32-4.0); Total Protein 7.2 g/dL (6.5-8.0); Triglycerides 137 mg/dL
== END 2023-02-26 09:03 | disposition home or self-care (01) ==
LOC: HO.WFDLDS 09:02
PROVIDERS: Visit Provider Family Medicine
DX: Z00.00 Encounter for general adult medical examination without abnormal findings (principal); Z12.5 Encounter for screening for malignant neoplasm of prostate; I11.0 Hypertensive heart disease with heart failure; I50.9 Heart failure, unspecified
CPT/HCPCS: 36415; 80053; 80061; 81003; 82043; 83880; 84153; 84443; 85025

== ENCOUNTER 2023-02-26 10:19 | Outpatient (REF) | payer OTHER, SELFPAY ==
--- NOTE | ~2023-02-26 | XR_ITS ---
EXAMINATION: XR SHOULDER, RIGHT CLINICAL INFORMATION: Pain. COMPARISON: None available. TECHNIQUE: AP external rotation, Grashey, scapular Y, and axillary views of the right shoulder. FINDINGS: There is mild degeneration at the AC joint. Mild sclerosis at the insertion of the superior rotator cuff. Mild acromial spurring. Mild irregularity of the inferior glenohumeral articulation. There is no evidence for an acute fracture or dislocation. XR/XR shoulder RT min 2V IMPRESSION: Mild degenerative changes. Findings may preclude to impingement. If further evaluation is warranted consider MRI.
== END 2023-02-26 10:20 | disposition home or self-care (01) ==
LOC: HO.XRAY 10:19
PROVIDERS: PCP Family Medicine; Visit Provider Family Medicine
DX: M25.511 Pain in right shoulder (principal)
CPT/HCPCS: 73030

== ENCOUNTER 2023-04-09 11:00 | Outpatient (RCR) | payer OTHER, SELFPAY ==
[2023-03-25 08:02] VITALS: BP 108/74; PULSE 77; O2SAT 97
--- NOTE | 2023-03-25 09:34 | MHC.PT.EP ---
[facility] [place] Office [place] Office [place] Office [address] Zachary Stephens [address] [phone] F: [phone] F: [phone] F: [phone] F: [phone] Physical Therapy Plan of Care Date of Evaluation: Date of Surgery: Diagnosis: PAIN IN RIGHT SHOULDER Assessment: 57 YO MALE REF TO PT WITH Rt SHOULDER PAIN SINCE NOV 2022. 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 HE ENJOYS GOLFING, WHICH HE HAS NOT PLAYED DUE TO Rt SHOUDER PAIN. THE Pt HAS DECR POSTURAL AWARENESS, ROM AND STRENGTH DEFICITS IN HIS CERVICAL REGION AND RT SH COMPLEX, (+) PAIN IN Rt SUPRASPIN/ DELTOID/ BICIPITAL TENDON AREA, AND (+) YERGASON'S/ NEER'S/ SUPRASPINATUS FULL CAN. HIS Rt SH XRAY ON 02/26/23 REVEALED : mild degeneration at the AC joint, Mild sclerosis at the insertion of the superior rotator cuff, Mild acromial spurring, AND, Mild irregularity of the inferior glenohumeral articulation. There is no evidence for an acute fracture or dislocation. THE Pt FUNCTIONALLY IS LIMITED WITH REACING OVER SHOULDER HEIGHT OR POSTERIORLY, LIFTING/ CARRYING OBJECTS, AND SLEEPING. HE WOULD BENEFIT FROM PT TO ADDRESS THE ABOVE FINDINGS, POSTURAL CORRECTION, PAIN MGMT, AND DEV HEP AND A SELF-SX MGMT PROGRAM FOR STRENGTH/ STAB/ PROPRIOC. 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 Manual therapy to restore motion and function. Therapeutic exercise to improve strength and flexibility. Neuromuscular re-education for posture and balance. Therapeutic activities to return to functional activities of daily living. Electronically signed by: VERITO BRAGA PT Please sign and return to therapist. Thank you for your referral.
--- NOTE | 2023-05-14 12:00 | MHC.PT.DC ---
[facility] [place] Office [place] Office [place] Office [address] Zachary Stephens 140 [facility] [phone] F: [phone] F: [phone] F: [phone] F: [phone] Physical Therapy Discharge Report Diagnosis: PAIN IN RIGHT SHOULDER Date of Surgery: Date of Evaluation: 03/25/23 Date of Discharge: 05/14/23 Treatments to Date: 4 Cancellations to Date: 5 No Shows to Date: 2 Discharge Status: Patient Elected to Stop Visit Non-compliance Discharge Summary: Pt DID NOT MEET HIS PT GOALS DUE TO POOR ATTENDANCE FOR SCHED APPTS AND IS THEREFORE D/C PER THE DEPT POLICY. Electronically signed by: VERITO BRAGA,PT Please sign and return to therapist. Thank you for your referral.
== END 2023-05-14 12:01 | disposition home or self-care (01) ==
LOC: HO.PT 11:00
PROVIDERS: PCP Family Medicine; Visit Provider Family Medicine
DX: M25.511 Pain in right shoulder (principal)
CPT/HCPCS: 97110; 97162

== ENCOUNTER 2023-07-02 14:07 | Outpatient (AMB) | payer OTHER, SELFPAY ==
--- NOTE | 2023-07-02 14:10 | A.OFFPC_ITS ---
Vital Signs 07/02/23 14:11 Height 6 ft 2 in Weight 265 lb BMI 34.0 BP 128/80 Blood Pressure Location Rt brachial Position Sitting Respiration 14 Pulse 82 Pulse Source Pulse Oximeter Temp 98.7 F Temp Source Temporal Artery Scan Pulse Oximetry (%) 98 Oxygen Delivery Method Room Air Intake Visit Reasons: f/u hypercholesterolemia Intake Note: Patient reports he has a cardiology appointment on Thursday at 10AM. Patient reports he feels fatigued and is yawning often. 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 Had started him on artovastatin 40mg daily and advised lifestyle changes. No recent labs to review. Pt reports fatigue. Hx of PAF, cardiomyopathy, CHF and does have an appt. with Cardiology soon per pt. Pt has complaints of L rib pain and some shortness of breath. PFSH Medical History Atrial fibrillation with rapid ventricular response Atrial flutter with rapid ventricular response Cardiomyopathy Congestive heart failure COPD (chronic obstructive pulmonary disease) Decompensated heart failure Essential hypertension Hypothyroidism (acquired) Smoker Surgical History H/O shoulder surgery H/O thyroidectomy Family History Mother COPD (chronic obstructive pulmonary disease) Social History Household Members: Family Caregiver staying overnight: No Housing: House Are you a primary insurance healthcare consultant to a significant other at home: No Do you presently have visiting nurse or other home services: No 75 years or older and lives alone: No Alcohol intake: never Patient Tobacco Use Status: Former Tobacco user Quit Date: 02/2022 Tobacco use type: Cigarette Cigarettes Per Day: 5 Years Smoked: 45 +/- e-Cigarette/Vaping Use: Never Used Second Hand Smoke Exposure: No Substance Use Type: Crack/Cocaine service: No Current occupational status: unemployed Current occupational exposures/hazards: No Cognitive needs: No Hearing needs: No Vision needs: No Questionnaire Thrive Questionnaire Date Thrive assessed: 03/25/22 DAVID-7 AMB Questionnaire DAVID-7 Date DAVID - 7 assessed: 05/23/22 Source: Developed by Drs. Americo Fernandez, Ivory Garcia, Luis F Doramn and colleagues, with an educational latrell from [employer]. Review of Systems Const Reports fatigue, Denies headache(s) and Denies weakness ENT Denies dizziness and Denies headache(s) Card Reports dyspnea Resp Reports dyspnea and Denies wheezing Musc Denies numbness and Denies tingling Neuro Denies dizziness, Denies headache(s), Denies numbness, Denies tingling and Denies weakness Psych Denies anxiety and Denies depression Endo Reports fatigue Aller/Immun Denies wheezing Physical exam (Primary Care) Vital Signs: Last Vital Signs Temp 98.7 F 07/02/23 14:11 Pulse 82 07/02/23 14:11 Resp 14 07/02/23 14:11 BP 128/80 07/02/23 14:11 Pulse Ox 98 07/02/23 14:11 Oxygen Delivery Method Room Air 07/02/23 14:11 BMI result Body Mass Index 34.0 Tobacco/Smoking Status: Tobacco use Status Tobacco use date assessed 07/02/23 07/02/23 14:17 Patient Tobacco Use Status Former Tobacco user 07/02/23 14:17 Tobacco use type Cigarette 07/02/23 14:17 e-Cigarette/Vaping Use Never Used 07/02/23 14:17 Thrive Assessment: Date of Thrive Assessment Date Thrive assessed 03/25/22 07/02/23 14:17 Const General: well developed; No acute distress Nutritional Appearance: well nourished Orientation/consciousness: patient oriented x3 HENMT Head: Yes normocephalic and Yes atraumatic Eyes General: appearance normal, both eyes and all related structures Pupils: Equal, round and reactive pupils present EOM: EOMs intact bilaterally Resp Effort & Inspection: normal respiratory effort Neuro General: patient oriented x3 and gait normal Cranial nerves: Yes Equal, round and reactive pupils present Psych Affect: normal affect Assessment and Plan Assessment & Plan (1) Rib pain on left side: Code(s): R07.81 - Pleurodynia Plan: Left rib pain. No deformities or step-off appreciated on palpation Checking chest x-ray due to shortness of breath which has been ongoing (2) SOB (shortness of breath): Code(s): R06.02 - Shortness of breath Plan: Ongoing shortness of breath. Patient did not get his chest x-ray done He will get that done - also has left-sided rib pain as above Lungs essentially clear with faint dry crackles at bilateral bases (3) Hyperlipidemia: Code(s): E78.5 - Hyperlipidemia, unspecified Plan: Patient was started on atorvastatin in March but he has not gotten his lipids drawn. He will get his lipids drawn and we can follow-up on this in a few weeks (4) Fatigue: Code(s): R53.83 - Other fatigue Plan: Unchanged (5) PAF (paroxysmal atrial fibrillation): Code(s): I48.0 - Paroxysmal atrial fibrillation Plan: Has appointment with cardiology coming up Will follow along Medications: Refilled amiodarone 200 mg PO DAILY 90 tabs 3RF I48.91 - Unspecified atrial fibrillation Coding Level of Care Code Est Pt Level 4 (63706) Diagnoses Rib pain on left side R07.81 SOB (shortness of breath) R06.02 Hyperlipidemia E78.5 Fatigue R53.83 PAF (paroxysmal atrial fibrillation) I48.0
[2023-07-02 14:11] VITALS: BP 128/80; PULSE 82; RESP 14; TEMP 37.1; O2SAT 98; BMI 34.0
== END 2023-07-02 15:11 | disposition home or self-care (01) ==
PROVIDERS: PCP Family Medicine; Visit Provider Family Medicine
DX: R07.81 Pleurodynia (principal); R06.02 Shortness of breath; E78.5 Hyperlipidemia, unspecified; I48.0 Paroxysmal atrial fibrillation; R53.83 Other fatigue
CPT/HCPCS: 99214

== ENCOUNTER 2023-11-19 09:19 | Outpatient (AMB) | payer OTHER, SELFPAY ==
--- NOTE | 2023-11-19 09:30 | A.OFFPC_ITS ---
Vital Signs 11/19/23 09:31 Height 6 ft 2 in Weight 263 lb 8 oz BMI 33.8 BP 140/82 H Blood Pressure Location Lt brachial Position Sitting Pulse 64 Pulse Source Pulse Oximeter Pulse Oximetry (%) 97 Oxygen Delivery Method Room Air Intake Visit Reasons: follow up labs/xray Intake Note: Patient is here to follow up on labs, x-ray Allergies mold Allergy (Verified 07/02/23 14:16) impacted sinus cavity Tobacco use date assessed: 07/02/23 HPI follow up labs/xray HPI Details 58 y/o male presents to f/u labs/xray. Blood pressure today 140/82. He notes he did not take his blood pressure meds today. Pt notes he tries to avoid fast food and has been walking for exercise. [facility], [facility] Medical History (Updated 11/19/23 @ 10:28 by Amol Rojo) Essential hypertension Atrial flutter with rapid ventricular response Atrial fibrillation with rapid ventricular response Cardiomyopathy Decompensated heart failure Congestive heart failure COPD (chronic obstructive pulmonary disease) Smoker Hypothyroidism (acquired) Surgical History H/O thyroidectomy H/O shoulder surgery Family History Mother COPD (chronic obstructive pulmonary disease) Social History Household Members: Family Caregiver staying overnight: No Housing: House Are you a primary morning caregiver to a significant other at home: No Do you presently have visiting nurse or other home services: No 75 years or older and lives alone: No Alcohol intake: never Patient Tobacco Use Status: Former Tobacco user Quit Date: 02/2022 Tobacco use type: Cigarette Cigarettes Per Day: 5 Years Smoked: 45 +/- e-Cigarette/Vaping Use: Never Used Second Hand Smoke Exposure: No Substance Use Type: Crack/Cocaine service: No Current occupational status: unemployed Current occupational exposures/hazards: No Cognitive needs: No Hearing needs: No Vision needs: No Questionnaire PHQ-9 Over the last 2 weeks, how often have you been bothered by any of the following problems? 1. Little interest or pleasure in doing things: not at all 2. Feeling down, depressed, or hopeless: not at all 3. Trouble falling or staying asleep, or sleeping too much: not at all 4. Feeling tired or having little energy: not at all 5. Poor appetite or overeating: not at all 6. Feeling bad about yourself - or that you are a failure or have let yourself or your family down: not at all 7. Trouble concentrating on things, such as reading the newspaper or watching television: not at all 8. Moving or speaking so slowly that other people could have noticed. Or the opposite - being so fidgety or restless that you have been moving around a lot more than usual: not at all 9. Thoughts that you would be better off or of hurting yourself in some way: not at all Total score: 0 Source: Developed by Drs. Americo Fernandez, Ivory Garcia, Luis F Dorman and colleagues, with an educational latrell from [employer]. Thrive Questionnaire Date Thrive assessed: 11/19/23 I am a: Patient What is your living situation today?: I have a steady place to live Within the past 12 months, did the food you bought not last and you didn't have the money to get more?: Never true Within the past 12 months, did you worry whether your food would run out before you got money to buy more?: Never true Do you have trouble paying for medicines?: Yes Do you have trouble getting transportation to medical appointments?: Yes Do you have trouble paying your heating and electricity bill?: No Do you have trouble taking care of your child, family member or friend?: No Do you have trouble with day-to-day activities such as bathing, preparing meals, shopping, managing finances, etc.?: No Are you currently unemployed and looking for a job?: No Are you interested in more education?: No THRIVE Score: 1 AUDIT C Alcohol Use Questionnaire (AUDIT-C) 1. How often do you have a drink containing alcohol?: 4 or more times a week 2. How many drinks containing alcohol do you have on a typical day when you are drinking?: 1 or 2 3. How often do you have six or more drinks on one occasion?: Less than monthly Total Score: 5 DAVID-7 AMB Questionnaire DAVID-7 Date DAVID - 7 assessed: 11/19/23 Feeling nervous, anxious, or on edge: 0 = Not at all Not being able to stop or control worryin = Not at all Worrying too much about different things: 0 = Not at all Trouble relaxin = Not at all Being so restless that it is hard to sit still: 0 = Not at all Becoming easily annoyed or irritable: 0 = Not at all Feeling afraid as if something awful might happen: 0 = Not at all Total DAVID-7 score (0-4 normal; 5-9 mild; 10-14 moderate; 15-21 severe): 0 Source: Developed by Drs. Americo Fernandez, Ivory Garcia, Luis F Dorman and colleagues, with an educational latrell from [employer]. Review of Systems Const Denies chills, Denies fatigue, Denies fever(s), Denies headache(s) and Denies weakness ENT Denies dizziness and Denies headache(s) Card Denies chest pain, Denies lightheadedness, Denies dyspnea and Denies other (Palpitations) Resp Denies cough, Denies dyspnea, Denies wheezing and Denies other ( shortness of breath) Musc Denies numbness and Denies tingling Neuro Denies dizziness, Denies headache(s), Denies numbness, Denies tingling, Denies paresthesias and Denies weakness Psych Denies anxiety and Denies depression Endo Denies fatigue Aller/Immun Denies wheezing Physical exam (Primary Care) Vital Signs: Last Vital Signs Pulse 64 11/19/23 09:31 BP 140/82 H 11/19/23 09:31 Pulse Ox 97 11/19/23 09:31 Oxygen Delivery Method Room Air 11/19/23 09:31 BMI result Body Mass Index 33.8 Tobacco/Smoking Status: Tobacco use Status Tobacco use date assessed 07/02/23 11/19/23 09:31 Patient Tobacco Use Status Former Tobacco user 11/19/23 09:31 Tobacco use type Cigarette 11/19/23 09:31 e-Cigarette/Vaping Use Never Used 11/19/23 09:31 PHQ-9: PHQ-9 Score PHQ-9: Total score 0 11/19/23 10:26 Thrive Assessment: Date of Thrive Assessment Date Thrive assessed 11/19/23 11/19/23 09:42 Const General: no acute distress and well developed Nutritional Appearance: well nourished Orientation/consciousness: patient oriented x3 HENMT Head: Yes normocephalic and Yes atraumatic Eyes General: appearance normal, both eyes and all related structures Pupils: Equal, round and reactive pupils present EOM: EOMs intact bilaterally Resp Effort & Inspection: normal respiratory effort Auscultation: clear to auscultation bilaterally Cardio Rate: regular rate Rhythm: regular rhythm Heart sounds: S1 normal heart sound present, S2 normal heart sound present, no gallops, no murmurs and no rubs Neuro General: patient oriented x3 and gait normal Cranial nerves: Yes Equal, round and reactive pupils present Psych Affect: normal affect Assessment and Plan Assessment & Plan (1) Essential hypertension: Code(s): I10 - Essential (primary) hypertension Plan: Blood?pressure?is?elevated?but?he?says?he?did?not?take?his?medication?yet?today. Continue?to?take?your?medications Will?follow- up?again?in?a?month?and?if?blood?pressure?is?still?elevated,?would?adjust?medica tion?for?him (2) Hyperlipidemia: Code(s): E78.5 - Hyperlipidemia, unspecified Plan: Following?his?lipids.??Had?prescribed?atorvastatin?40?mg?daily.??He?h as?been?off?this?for?quite?some?time?so?would?expect?lipids?to?be?elevated?still . Sent?a?script?for?atorvastatin Will?follow Orders: Orders Lipid Panel Today I42.9 - Cardiomyopathy, unspecified, Z00.00 - Encounter for general adult medical examination without abnormal findings Comprehensive [place]. Panel Fast Today I42.9 - Cardiomyopathy, unspecified, Z00.00 - Encounter for general adult medical examination without abnormal findings UA and rflx microscopic Today I42.9 - Cardiomyopathy, unspecified, Z00.00 - Encounter for general adult medical examination without abnormal findings Complete Blood Count Auto Diff Today I42.9 - Cardiomyopathy, unspecified, Z00.00 - Encounter for general adult medical examination without abnormal findings Prostate Specific Antigen Scr Today Z12.5 - Encounter for screening for malignant neoplasm of prostate Triiodothyronine T3 Total Today E03.9 - Hypothyroidism, unspecified Thyroid Stimulating Hormone Today E03.9 - Hypothyroidism, unspecified Microalbumin, Random (w Creat) Today I10 - Essential (primary) hypertension, I42.9 - Cardiomyopathy, unspecified Free T4 (Free Thyroxine) Today E03.9 - Hypothyroidism, unspecified Medications: Changed From atorvastatin 40 mg PO BEDTIME 30 days 30 tabs 3RF To atorvastatin 40 mg PO BEDTIME 90 tabs 3RF 90 days Coding Level of Care Code Est Pt Level 3 (29466) Diagnoses Essential hypertension I10 Hyperlipidemia E78.5
[2023-11-19 09:31] VITALS: BP 140/82; PULSE 64; O2SAT 97; BMI 33.8
== END 2023-11-19 10:36 | disposition home or self-care (01) ==
PROVIDERS: PCP Family Medicine; Visit Provider Family Medicine
DX: I10 Essential (primary) hypertension (principal); E78.5 Hyperlipidemia, unspecified
CPT/HCPCS: 99213

== ENCOUNTER 2023-11-19 10:38 | Outpatient (REF) | payer OTHER, SELFPAY ==
[2023-11-19 14:29] LABS: Basophils Percent Auto 0.5 % (0-2); Eosinophils Absolute Auto 0.1 X10*3/uL (0.0-0.4); Eosinophils Percent Auto 1.6 % (0-4); Hematocrit 51.3 % (42.0-52.0); Hemoglobin 17.5 g/dl (14.0-18.0); Imm Gran Abs Auto 0.02 X10*3/uL (0.00-0.03); Imm Gran Pct Auto 0.2 % (0.0-0.4); Lymphocytes Absolute Auto 1.4 X10*3/uL (1.2-4.9); Lymphocytes Percent Auto 16.9 % (20-40); MANUAL DIFF FLAG SCAN; Mean Corpuscular HGB Conc 34.1 g/dl (31.0-36.0); Mean Corpuscular Hemoglobin 30.5 pg (27.0-33.0); Mean Corpuscular Volume 89.4 fL (80.0-98.0); Mean Platelet Volume 12.3 fL (9.4-12.4); Monocytes Absolute Auto 0.3 X10*3/uL (0.1-1.2); Monocytes Percent Auto 4.1 % (2-11); Neutrophils Absolute Auto 6.4 x10*3/uL (2.0-8.3); Neutrophils Percent Auto 76.7 % (45-73); PLT CLUMP 1; Red Blood Count 5.74 X10*6/uL (4.60-5.80); Red Cell Distribution Width 13.4 % (11.0-16.0); SCAN SMEAR FLAG 1
[2023-11-19 14:34] LABS: Appearance Urine Turbid; Color Urine Dark Yellow; Glucose Urine UA Negative (Negative); Leukocyte Esterase Urine Negative (Negative); Nitrite Urine Negative (Negative); Specific Gravity - Urine 1.025 (1.005-1.025); Urine Blood Negative (Negative); Urine Ketones Trace mg/dL (Negative); Urine Protein Negative (Neg-Trace)
[2023-11-19 14:40] LABS: Alanine Aminotransferase 29 U/L (0-40); Albumin Level 4.3 g/dL (3.5-5.0); Alkaline Phosphatase 78 U/L (39-117); Anion Gap 11 (12-20); Aspartate Amino Transferase 28 U/L (5-37); Bilirubin Total 0.6 mg/dL (0.0-1.0); Blood Urea Nitrogen 22 mg/dL (9-16); Calcium 9.1 mg/dL (8.4-10.2); Carbon Dioxide 29 mmol/L (22-29); Chloride 101 mmol/L (96-108); Cholesterol 257 mg/dL (<200); Estimated Glomerular Filt Rate 47; Glucose Fasting 94 mg/dL (60-99); HDL Cholesterol 56 mg/dL (>40); LDL Cholesterol Calculated 180 mg/dL (<100); Potassium 4.4 mmol/L (3.3-5.1); Sodium 137 mmol/L (135-145); Total Protein 7.9 g/dL (6.5-8.0); Triglycerides 109 mg/dL (<150)
[2023-11-19 14:44] LABS: Microalbum/Creatinine Ratio Ur 4.8 ug/mg cr (<30)
[2023-11-19 14:50] LABS: Prostate Specific Antigen Scr 0.67 ng/mL (<0.05-4.0)
[2023-11-19 14:51] LABS: Platelet Count 155 X10*3/uL (160-400); White Blood Count 8.3 X10*3/uL (4.8-10.8)
[2023-11-19 14:52] LABS: SLIDE REVIEW VERIFIED
[2023-11-19 15:03] LABS: Free T4 (Free Thyroxine) 0.71 ng/dL (0.71-1.85); Thyroid Stimulating Hormone 52.78 uIU/mL (0.32-4.0)
[2023-11-20 18:09] LABS: Triiodothyronine T3 Total 38 ng/dL (76-181)
== END 2023-11-19 10:39 | disposition home or self-care (01) ==
LOC: HO.WFDLDS 10:38
PROVIDERS: Visit Provider Family Medicine
DX: Z00.00 Encounter for general adult medical examination without abnormal findings (principal); I42.9 Cardiomyopathy, unspecified; I10 Essential (primary) hypertension; E03.9 Hypothyroidism, unspecified; Z12.5 Encounter for screening for malignant neoplasm of prostate
CPT/HCPCS: 36415; 80053; 80061; 81003; 82043; 82570; 84153; 84439; 84443; 84480; 85025

== ENCOUNTER 2023-12-30 16:24 | Outpatient (REF) | payer OTHER, SELFPAY ==
[2023-12-30 18:07] LABS: Alanine Aminotransferase 60 U/L (0-40); Albumin Level 4.2 g/dL (3.5-5.0); Alkaline Phosphatase 68 U/L (39-117); Anion Gap 11 (12-20); Aspartate Amino Transferase 41 U/L (5-37); Bilirubin Total 0.8 mg/dL (0.0-1.0); Blood Urea Nitrogen 23 mg/dL (9-16); Calcium 9.3 mg/dL (8.4-10.2); Carbon Dioxide 27 mmol/L (22-29); Chloride 104 mmol/L (96-108); Cholesterol 137 mg/dL (<200); Estimated Glomerular Filt Rate 58; Glucose Fasting 101 mg/dL (60-99); HDL Cholesterol 43 mg/dL (>40); LDL Cholesterol Calculated 72 mg/dL (<100); Potassium 3.8 mmol/L (3.3-5.1); Sodium 138 mmol/L (135-145); Total Protein 7.5 g/dL (6.5-8.0); Triglycerides 110 mg/dL (<150)
== END 2023-12-30 16:25 | disposition home or self-care (01) ==
LOC: HO.LAB 16:24
PROVIDERS: PCP Family Medicine; Visit Provider Family Medicine
DX: Z00.00 Encounter for general adult medical examination without abnormal findings (principal); E78.5 Hyperlipidemia, unspecified
CPT/HCPCS: 36415; 80053; 80061

== ENCOUNTER 2024-05-19 10:45 | Outpatient (AMB) | payer OTHER, SELFPAY ==
--- NOTE | 2024-05-19 10:57 | A.OFFPC_ITS ---
Vital Signs 05/19/24 11:01 Height 6 ft 2 in Weight 252 lb 4 oz BMI 32.4 BP 120/72 Blood Pressure Location Rt brachial Position Sitting Pulse 67 Pulse Source Pulse Oximeter Pulse Oximetry (%) 97 Oxygen Delivery Method Room Air Intake Visit Reasons: Regular Visit Intake Note: Patient is here to follow up on HTN, HDL and lab results. Home And Family Living Professor Required: No Color Print Inspector: Not Required per policy Accompanied by: Self / Same As Patient Allergies mold Allergy (Verified 05/19/24 11:00) impacted sinus cavity Tobacco use date assessed: 05/19/24 Dental Screening Dental Screen Date: 05/19/24 Did you have a dental visit in the last 12 months?: No Did you have a dental problem in the last 6 months where you did not have access to dental care?: No Was dental information given to patient?: No HPI Regular Visit HPI Details 59 y/o male presents to f/u [facility]. Blood pressure today 120/72. He is on eplerenone. Hx of cardiomyopathy, paroxysmal AFib. He notes he is not on any blood thinners. He states he is currently on amiodarone. HPI Comments History of Present Illness Details Documentation assistance for Kota Laboy MD, was provided by Amol Rojo, Supervisor Phosph[employer] Processing on 05/19/2024 at 12:23 PM EST. I, Dr. Laboy, have read, observe d, and verified documentation. [facility] Medical History (Updated 11/19/23 @ 10:28 by Amol Rojo) Essential hypertension Atrial flutter with rapid ventricular response Atrial fibrillation with rapid ventricular response Cardiomyopathy Decompensated heart failure Congestive heart failure COPD (chronic obstructive pulmonary disease) Smoker Hypothyroidism (acquired) Surgical History H/O thyroidectomy H/O shoulder surgery Family History Mother COPD (chronic obstructive pulmonary disease) Social History (Updated 05/19/24 @ 11:46 by CHRIS Barnett) Household Members: Family Caregiver staying overnight: No Housing: House Are you a primary director of patient care to a significant other at home: No Do you presently have visiting nurse or other home services: No 75 years or older and lives alone: No Alcohol intake: current Alcohol intake frequency: a few times a month Patient Tobacco Use Status: Former Tobacco user Tobacco use type: Cigarette Cigarettes Per Day: 5 Years Smoked: 45 +/- e-Cigarette/Vaping Use: Never Used Second Hand Smoke Exposure: No Substance Use Type: Crack/Cocaine service: No Current occupational status: unemployed Current occupational exposures/hazards: No Cognitive needs: No Hearing needs: No Vision needs: No Questionnaire Thrive Questionnaire Date Thrive assessed: 11/19/23 DAVID-7 AMB Questionnaire DAVID-7 Date DAVID - 7 assessed: 11/19/23 Source: Developed by Drs. Americo Fernandez, Ivory Garcia, Luis F Dorman and colleagues, with an educational latrell from [employer]. Review of Systems Const Denies chills, Denies fatigue, Denies fever(s), Denies headache(s) and Denies weakness ENT Denies dizziness and Denies headache(s) Card Denies dyspnea Resp Denies cough, Denies dyspnea, Denies wheezing and Denies other (shortness of breath) Musc Denies numbness and Denies tingling Neuro Denies dizziness, Denies headache(s), Denies numbness, Denies tingling and Denies weakness Psych Denies anxiety and Denies depression Endo Denies fatigue Aller/Immun Denies wheezing Physical exam (Primary Care) Vital Signs: Last Vital Signs Pulse 67 05/19/24 11:01 BP 120/72 05/19/24 11:01 Pulse Ox 97 05/19/24 11:01 Oxygen Delivery Method Room Air 05/19/24 11:01 BMI result Body Mass Index 32.4 Tobacco/Smoking Status: Tobacco use Status Tobacco use date assessed 05/19/24 05/19/24 11:04 Patient Tobacco Use Status Former Tobacco user 05/19/24 11:46 Tobacco use type Cigarette 05/19/24 11:46 e-Cigarette/Vaping Use Never Used 05/19/24 11:46 Thrive Assessment: Date of Thrive Assessment Date Thrive assessed 11/19/23 05/19/24 11:04 Const General: well developed; No acute distress Nutritional Appearance: well nourished Orientation/consciousness: patient oriented x3 HENMT Head: Yes normocephalic and Yes atraumatic Eyes General: appearance normal, both eyes and all related structures Pupils: Equal, round and reactive pupils present EOM: EOMs intact bilaterally Resp Effort & Inspection: normal respiratory effort Auscultation: clear to auscultation bilaterally Cardio Rate: regular rate Rhythm: regular rhythm Heart sounds: S1 normal heart sound present, S2 normal heart sound present, no gallops, no murmurs and no rubs Neuro General: patient oriented x3 and gait normal Cranial nerves: Yes Equal, round and reactive pupils present Psych Affect: normal affect Assessment and Plan Assessment & Plan (1) Essential hypertension: Code(s): I10 - Essential (primary) hypertension Plan: Blood?pressure?is?controlled.??Goal?is?less?than?130/80 He?is?on?eplerenone Continue?current?medication (2) PAF (paroxysmal atrial fibrillation): Code(s): I48.0 - Paroxysmal atrial fibrillation Plan: Followed?by?Dr. Cano and?he?is?currently?on?amiodarone.??He?currently?has?a?regular?rate?and?rhythm. Chads?Vasc?score?of?4?However,?patient?is?not?anticoagulated?presently. Will?have?him?restart?Xarelto?today (3) Cardiomyopathy: Code(s): I42.9 - Cardiomyopathy, unspecified Plan: Continue?atorvastatin?40?mg?daily?with?LDL?goal?less?than?70 Check?BNP Follow-up?with?Cardiology?as?recommend Orders: Orders Comprehensive [place]. Panel Fast Today Z00.00 - Encounter for general adult med ical examination without abnormal findings Complete Blood Count Auto Diff Today Z00.00 - Encounter for general adult medical examination without abnormal findings Prostate Specific Antigen Scr Today Z12.5 - Encounter for screening for malignant neoplasm of prostate TSH reflex Free T4 Today Z00.00 - Encounter for general adult medical examination without abnormal findings B Type Natriuretic Peptide Today I50.9 - Heart failure, unspecified Lipid Panel Today Z00.00 - Encounter for general adult medical examination without abnormal findings Microalbumin, Random (w Creat) Today I10 - Essential (primary) hypertension UA and rflx microscopic Today Z00.00 - Encounter for general adult medical examination without abnormal findings Medications: Changed From rivaroxaban (Xarelto) OVERDUE FOR APPT. PLEASE CALL [phone] TO SCHEDULE AN APPT SO WE CAN CONTINUE TO REFILL THIS MED. 20 mg PO QPM 90 tabs 0RF To rivaroxaban (Xarelto) 20 mg PO QPM 90 days 90 tabs 3RF Refilled amiodarone 200 mg PO DAILY 90 tabs 3RF I48.91 - Unspecified atrial fibrillation atorvastatin 40 mg PO BEDTIME 90 days 90 tabs 3RF eplerenone PT IS OVERDUE FOR AN EMILY'T. PLEASE SCHEDULE AN EMILY'T. 25 mg PO DAILY 30 days 30 tabs 0RF Coding Level of Care Code Est Pt Level 3 (62105) Diagnoses Essential hypertension I10 PAF (paroxysmal atrial fibrillation) I48.0 Cardiomyopathy I42.9
[2024-05-19 11:01] VITALS: BP 120/72; PULSE 67; O2SAT 97; BMI 32.4
== END 2024-05-19 12:52 | disposition home or self-care (01) ==
PROVIDERS: PCP Family Medicine; Visit Provider Family Medicine
DX: I10 Essential (primary) hypertension (principal); I48.0 Paroxysmal atrial fibrillation; I42.9 Cardiomyopathy, unspecified
CPT/HCPCS: 99213

== ENCOUNTER 2024-06-19 19:41 | Emergency (ER) | payer OTHER, SELFPAY ==
[2024-06-19] VITALS (8 sets, daily range): BP systolic 106–130; BP diastolic 70–81; PULSE 89–107; RESP 14–25; TEMP 37–38.7; O2SAT 94–96; BMI 32.1
--- NOTE | ~2024-06-19 | XR_ITS ---
EXAMINATION: XR CHEST CLINICAL INFORMATION: Cough. Shortness of breath COMPARISON: September 05, 2022 TECHNIQUE: Frontal view of the chest was obtained. FINDINGS: Lung volumes are low. The cardiomediastinal silhouette is grossly stable. There is no focal lung consolidation or pleural effusion. The bony structures and soft tissues are unremarkable. XR/XR chest 1V IMPRESSION: Low lung volumes. No acute cardiopulmonary process. Electronically signed by: Ermias Cruz MD 06/20/2024 12:45 AM EDT
--- NOTE | 2024-06-19 20:11 | ED_ITS ---
HPI - SOB/Dyspnea General Chief Complaint: Upper Respiratory Symptoms Stated Complaint: SOB,HAS HAD A COUGH FOR A FEW DAYS Time Seen by Provider: 06/19/24 21:31 Source: patient Mode of arrival: ambulatory Limitations: no limitations History of Present Illness ED Provider: savannah JOEL Narrative: Patient's history of atrial fibrillation CHF for last 3 days been coughing with wheezing body aches fever on arrival temperature was 101.7 degrees cough is mostly dry no other family member sick Related Data Previous Rx's ?Medication ?Instructions ?Recorded furosemide 40 mg tablet 40 mg PO DAILY #90 tabs 08/25/22 fluoxetine 40 mg capsule 40 mg PO DAILY 90 days #90 caps 06/25/23 levothyroxine 112 mcg tablet 224 mcg (2 x 112 mcg) PO DAILY 02/29/24 #180 tabs bupropion HCl 200 mg tablet,12 hr 200 mg PO DAILY 30 days #30 tabs 04/12/24 sustained-release amiodarone 200 mg tablet 200 mg PO DAILY #90 tabs 05/19/24 atorvastatin 40 mg tablet 40 mg PO BEDTIME 90 days #90 tabs 05/19/24 eplerenone 25 mg tablet 25 mg PO DAILY 30 days #30 tabs 05/19/24 rivaroxaban 20 mg tablet (Xarelto) 20 mg PO QPM 90 days #90 tabs 05/19/24 albuterol sulfate 90 mcg/actuation 2 puff inhalation Q6H PRN 06/20/24 aerosol inhaler shortness of breath or wheezing #8.5 grams cefuroxime axetil 500 mg tablet 500 mg PO BID 7 days #14 tabs 06/20/24 codeine 10 mg-guaifenesin 100 mg/5 10 ml PO Q6H PRN cough #237 mL 06/20/24 mL oral liquid prednisone 20 mg tablet 40 mg (2 x 20 mg) PO DAILY #10 tabs 06/20/24 Allergies Allergy/AdvReac Type Severity Reaction Status Date / Time mold Allergy impacted Verified 06/19/24 20:15 sinus cavity Review of Systems 2 Review of Systems: Yes all other systems are reviewed and are negative [facility] Past Medical History Medical History Essential hypertension Atrial flutter with rapid ventricular response Atrial fibrillation with rapid ventricular response Cardiomyopathy Decompensated heart failure Congestive heart failure COPD (chronic obstructive pulmonary disease) Smoker Hypothyroidism (acquired) Surgical History H/O thyroidectomy H/O shoulder surgery Family History Family History Mother COPD (chronic obstructive pulmonary disease) Social History Social History Household Members: Family Housing: House Are you a primary client care specialist to a significant other at home: No Do you presently have visiting nurse or other home services: No Alcohol intake: current Alcohol intake frequency: a few times a month Patient Tobacco Use Status: Former Tobacco user Tobacco use type: Cigarette Cigarettes Per Day: 5 Years Smoked: 45 +/- e-Cigarette/Vaping Use: Never Used Second Hand Smoke Exposure: No Substance Use Type: Crack/Cocaine Advance Directives: No Advance Directives Information Provided: Yes service: No Current occupational status: unemployed Current occupational exposures/hazards: No Cognitive needs: No Hearing needs: No Vision needs: No Physical Exam 2 Vital Signs: Vital Signs: Last Vital Signs Temp 97.7 F 06/20/24 03:22 Pulse 94 06/20/24 03:22 Resp 20 06/20/24 03:22 BP 126/69 06/20/24 03:22 Pulse Ox 96 06/20/24 03:22 O2 Del Method Room Air 06/20/24 03:22 BMI result Body Mass Index 32.1 Appearance: Alert. Oriented X3. Mild distress. Coughing with wheezing Eyes: No pallor ENT: Pharynx normal. Oral Mucosa moist Neck: Normal inspection. Neck supple. CVS: Normal heart rate and rhythm. Pulses normal. Respiratory: No respiratory distress. Equal air entry bilateral, bilateral wheezing with occasional crackles Abdomen: Soft and nontender. Bowel sounds are present, no mass palpable, no CVA tenderness Skin: Skin warm and dry. Normal skin color. Normal skin turgor. Extremities: No lower extremity edema. No calf tenderness Neuro: Oriented X 3. No motor deficit. Course Course Course Narrative: This is a Rapid Medical Exam performed in triage by Myrna Rodriguez PA-C. Full HPI, ROS and PE to be performed by primary ED provider. 59 yo M w/PMHx cardiomyopathy, AFib on Xareelto, HLD, HTN, anxiety, CHF, presenting to the ED c/o sore throat, prod cough, SOB, & CP worsening with coughing x few days PE: Febrile, dry cough appreciated, +congested, lungs CTA, no pedal edema Plan: EKG, Labs, CXR, Viral testing Medications Administered Discontinued Medications Generic Name Dose Route Start Last Admin Trade Name Raymondq PRN Reason Stop Dose Admin Acetaminophen 650 mg 06/19/24 20:15 06/19/24 20:17 Acetaminophen 325 Mg Tablet PO 06/19/24 20:16 650 mg ONCE ONE Administration Albuterol Sulfate 5 mg 06/20/24 01:28 06/20/24 01:36 Albuterol Sulfate (0.083%) 2.5 Mg/3 Ml Vial.Neb INHALE 06/20/24 01:29 5 mg ONCE ONE Administration Albuterol Sulfate 2.5 mg/ 0 mg 06/19/24 21:39 06/19/24 21:55 Albuterol/Ipratropium 3 ml INHALE 06/19/24 21:40 3.5 dose ONCE ONE Administration Dexamethasone Sodium Phosphate 10 mg 06/20/24 01:28 06/20/24 01:36 Dexamethasone Sod Phosphate 10 Mg/Ml Vial IVPUSH 06/20/24 01:29 10 mg ONCE ONE Administration Guaifenesin/Codeine Phosphate 10 ml 06/19/24 21:43 06/19/24 21:54 Guaifen/Codeine Sf 200/20/10ml 10 Ml Liquid PO 06/19/24 21:44 10 ml ONCE ONE Administration Guaifenesin/Codeine Phosphate 10 ml 06/20/24 01:28 06/20/24 01:36 Guaifen/Codeine Sf 200/20/10ml 10 Ml Liquid PO 06/20/24 01:29 10 ml ONCE ONE Administration Sodium Chloride 1,000 mls @ 999 mls/hr 06/19/24 21:33 06/20/24 00:20 Ns IV 06/19/24 22:33 Infused .Q1H1M ONE Infusion Ceftriaxone Sodium 1 gm/ 50 mls @ 100 mls/hr 06/19/24 21:33 06/19/24 22:30 Sodium Chloride IV 06/19/24 22:02 Infused ONCE ONE Infusion Medical Decision Making Medical Decision Making [facility] Narrative: Patient has acute bronchitis with significant wheezing COVID flu RSV and chest x-ray negative patient improved after nebulizing treatment will discharge patient home on prednisone and course of antibiotic for bronchitis and inhaler Differential Diagnosis Differential Diagnoses: The differential diagnosis associated with the presentation includes Admission/Observation Consideration of admission/observation: Escalation of care including admission/observation considered Lab Data MDM Lab Attestation statement: I reviewed the patient's lab results. 06/19/24 21:01 06/19/24 21:01 Labs: Lab Results 06/19/24 06/19/24 Range/Units 21:01 21:42 WBC 13.4 H (4.8-10.8) X10*3/uL RBC 4.68 (4.60-5.80) X10*6/uL Hgb 14.6 (14.0-18.0) g/dl Hct 41.4 L (42.0-52.0) % MCV 88.5 (80.0-98.0) fL MCH 31.2 (27.0-33.0) pg MCHC 35.3 (31.0-36.0) g/dl RDW 12.9 (11.0-16.0) % Plt Count 220 D (160-400) X10*3/uL MPV 11.5 (9.4-12.4) fL Immature Gran % (Auto) 0.5 H (0.0-0.4) % Neut % (Auto) 89.7 H (45-73) % Lymph % (Auto) 4.3 L (20-40) % Lares % (Auto) 5.0 (2-11) % Eos % (Auto) 0.2 (0-4) % Baso % (Auto) 0.3 (0-2) % Lymph # (Auto) 0.6 L (1.2-4.9) X10*3/uL Lares # (Auto) 0.7 (0.1-1.2) X10*3/uL Eos # (Auto) 0.0 (0.0-0.4) X10*3/uL Baso # (Auto) 0.0 (0.0-0.2) X10*3/uL Abs Immat Gran (auto) 0.07 H (0.00-0.03) X10*3/uL Absolute Neuts (auto) 12.0 H (2.0-8.3) x10*3/uL Absolute Nucleated RBC 0.000 (0.0-0.012) X10*3/uL Nucleated RBC % (auto) 0.0 (0.0-0.2) /100WBC PT 15.0 H (11.1-13.3) SEC INR 1.2 H (0.9-1.1) Sodium 133 L (135-145) mmol/L Potassium 3.3 (3.3-5.1) mmol/L Chloride 100 (96-108) mmol/L Carbon Dioxide 20 L (22-29) mmol/L Anion Gap 16 (12-20) BUN 14 (9-16) mg/dL Creatinine 1.08 (0.5-1.4) mg/dL Estim Creat Clear Calc 96.2 Estimated GFR > 60 Random Glucose 98 (60-115) mg/dL Lactic Acid 1.4 (0.5-2.0) mmol/L Calcium 9.1 (8.4-10.2) mg/dL Magnesium 1.7 (1.6-2.6) mg/dL Total Bilirubin 1.4 H (0.0-1.0) mg/dL Direct Bilirubin 0.7 H (0.0-0.5) mg/dL AST 32 (5-37) U/L ALT 19 (0-40) U/L Alkaline Phosphatase 67 (39-117) U/L Troponin I High Sens 6.4 D (<3.5-35.0) ng/L B-Natriuretic Peptide 33 (<100) pg/mL Total Protein 7.2 (6.5-8.0) g/dL Albumin 3.6 (3.5-5.0) g/dL Influenza Type A (PCR) NEGATIVE (Negative) Influenza Type B (PCR) NEGATIVE (Negative) RSV RNA Qual (PCR) NEGATIVE (Negative) SARS-CoV-2 RNA (RT-PCR) NEGATIVE (Negative) Discharge Plan Discharge Clinical Impression: Acute bronchitis Patient Disposition: Home, Self-Care Instructions: Acute Bronchitis (ED) Additional Instructions: Take antibiotics cough syrup prednisone and inhaler as prescribed for bronchitis Follow with PCP if not better Your x-rays negative for pneumonia COVID flu RSV test negative Prescriptions: New codeine-guaifenesin 10-100 mg/5 mL liquid 10 ml PO Q6H PRN (Reason: cough) Qty: 237 0RF cefuroxime axetil 500 mg tablet 500 mg PO BID 7 Days Qty: 14 0RF prednisone 20 mg tablet 40 mg PO DAILY Qty: 10 0RF albuterol sulfate 90 mcg/actuation HFA aerosol inhaler 2 puff inhalation Q6H PRN (Reason: shortness of breath or wheezing) Qty: 8.5 0RF No Action furosemide 40 mg tablet 40 mg PO DAILY Qty: 90 3RF fluoxetine 40 mg capsule 40 mg PO DAILY 90 Days Qty: 90 4RF levothyroxine 112 mcg tablet 224 mcg PO DAILY Qty: 180 1RF bupropion HCl 200 mg tablet sustained-release 12 hr 200 mg PO DAILY 30 Days Qty: 30 1RF eplerenone 25 mg tablet 25 mg PO DAILY 30 Days Qty: 30 0RF Rx Instructions: PT IS OVERDUE FOR AN EMILY'T. PLEASE SCHEDULE AN EMILY'T. amiodarone 200 mg tablet 200 mg PO DAILY Qty: 90 3RF Xarelto 20 mg tablet 20 mg PO QPM 90 Days Qty: 90 3RF atorvastatin 40 mg tablet 40 mg PO BEDTIME 90 Days Qty: 90 3RF Interventions: ED Discharge Assessment Last Done: 06/20/24 03:22 Discharge Date/Time: 06/20/24 03:24 Print Language: Malagasy
--- NOTE | 2024-06-19 20:13 | ECG_ITS ---
Test Reason : CHEST PAIN Blood Pressure : / mmHG Vent. Rate : 100 BPM Atrial Rate : 100 BPM P-R Int : 150 ms QRS Dur : 076 ms QT Int : 414 ms P-R-T Axes : 056 052 054 degrees QTc Int : 534 ms Normal sinus rhythm Possible Left atrial enlargement Prolonged QT Abnormal ECG When compared with ECG of 28-NOV-2022 23:18, Vent. rate has increased BY 39 BPM QT has lengthened Referred By: Myrna Rodriguez Electronically Signed By:HARDIK ELIZALDE
[2024-06-19] MEDS: Acetaminophen 325 MG TABLET 650 MG PO (20:17)
[2024-06-19 21:07] LABS: MANUAL DIFF FLAG NO
[2024-06-19 21:09] LABS: Basophils Percent Auto 0.3 % (0-2); Eosinophils Percent Auto 0.2 % (0-4); Hematocrit 41.4 % (42.0-52.0); Hemoglobin 14.6 g/dl (14.0-18.0); Imm Gran Abs Auto 0.07 X10*3/uL (0.00-0.03); Imm Gran Pct Auto 0.5 % (0.0-0.4); Lymphocytes Absolute Auto 0.6 X10*3/uL (1.2-4.9); Lymphocytes Percent Auto 4.3 % (20-40); Mean Corpuscular HGB Conc 35.3 g/dl (31.0-36.0); Mean Corpuscular Hemoglobin 31.2 pg (27.0-33.0); Mean Corpuscular Volume 88.5 fL (80.0-98.0); Mean Platelet Volume 11.5 fL (9.4-12.4); Monocytes Absolute Auto 0.7 X10*3/uL (0.1-1.2); Neutrophils Percent Auto 89.7 % (45-73); Platelet Count 220 X10*3/uL (160-400); Red Blood Count 4.68 X10*6/uL (4.60-5.80); Red Cell Distribution Width 12.9 % (11.0-16.0); White Blood Count 13.4 X10*3/uL (4.8-10.8)
[2024-06-19 21:14] LABS: INTERNATIONAL NORM RATIO 1.2 (0.9-1.1)
[2024-06-19 21:23] LABS: Alanine Aminotransferase 19 U/L (0-40); Albumin Level 3.6 g/dL (3.5-5.0); Alkaline Phosphatase 67 U/L (39-117); Anion Gap 16 (12-20); Aspartate Amino Transferase 32 U/L (5-37); Bilirubin Direct 0.7 mg/dL (0.0-0.5); Bilirubin Total 1.4 mg/dL (0.0-1.0); Blood Urea Nitrogen 14 mg/dL (9-16); Calcium 9.1 mg/dL (8.4-10.2); Carbon Dioxide 20 mmol/L (22-29); Chloride 100 mmol/L (96-108); Creatinine Clr Calc Pharmacy 96.2; Estimated Glomerular Filt Rate > 60; Glucose Random 98 mg/dL (60-115); Magnesium 1.7 mg/dL (1.6-2.6); Potassium 3.3 mmol/L (3.3-5.1); Sodium 133 mmol/L (135-145); Total Protein 7.2 g/dL (6.5-8.0)
[2024-06-19 21:28] LABS: B Type Natriuretic Peptide 33 pg/mL (<100)
[2024-06-19 21:29] LABS: Troponin-I High Sensitivity 6.4 ng/L (<3.5-35.0)
[2024-06-19 21:44] LABS: Influenza A PCR NEGATIVE (Negative); Influenza B PCR NEGATIVE (Negative); Resp Syncy Virus RNA Qual PCR NEGATIVE (Negative); SARS COV2 PCR INHOUSE NEGATIVE (Negative)
[2024-06-19] MEDS: 0.9 % Sodium Chloride 1,000 ML 999 ML IV (21:49)
[2024-06-19] MEDS: cefTRIAXone sodium 1 GM in 0.9 % Sodium Chloride 50 ML IV (21:54)
[2024-06-19] MEDS: guaiFEN/Codeine SF 200/20/10ML 10 ML LIQUID PO (21:54)
[2024-06-19] MEDS: Albuterol Sulfate 2.5 MG, Albuterol/Iprat 2.5/0.5MG 3 ML 3 ML INHALE (21:55)
--- NOTE | 2024-06-19 21:57 | PC.NURSE ---
Pt medicated per dec. Plan of care ongoing.
[2024-06-19 22:00] LABS: Lactic Acid 1.4 mmol/L (0.5-2.0)
--- NOTE | 2024-06-19 22:07 | PC.NURSE ---
Pt medicated per [facility] Plan of care ongoing.
--- NOTE | 2024-06-19 22:09 | PC.NURSE ---
Rt with pt Plan of care ongoing.
[2024-06-20 00:22] VITALS: BP 131/74; PULSE 85; RESP 17; TEMP 36.9; O2SAT 98
[2024-06-20 00:25] VITALS: BP 137/74; PULSE 94; RESP 18; TEMP 36.9; O2SAT 98
[2024-06-20 01:23] VITALS: BP 132/68; PULSE 86; RESP 13; TEMP 37.1; O2SAT 96
[2024-06-20] MEDS: Albuterol Sulfate (0.083%) 2.5 MG/3 ML VIAL.NEB 5 MG INHALE (01:36)
[2024-06-20] MEDS: dexAMETHasone sod phosphate 10 MG/ML VIAL IVPUSH (01:36)
[2024-06-20] MEDS: guaiFEN/Codeine SF 200/20/10ML 10 ML LIQUID PO (01:36)
[2024-06-20 01:38] VITALS: PULSE 91; RESP 13; O2SAT 95
--- NOTE | 2024-06-20 01:41 | PC.NURSE ---
Pt medicated per dec. Pt ca&ox4, no signs of distress. RT with pt. Plan of care ongoing.
[2024-06-20 03:09] VITALS: BP 126/69; PULSE 94; RESP 20; TEMP 36.5; O2SAT 96
[2024-06-20 03:22] VITALS: BP 126/69; PULSE 94; RESP 20; TEMP 36.5; O2SAT 96
== END 2024-06-20 03:24 | disposition home or self-care (01) ==
PROVIDERS: Physician Assistant; Emergency Provider Internal Medicine; PCP Family Medicine
DX: J20.9 Acute bronchitis, unspecified (principal); R06.02 Shortness of breath; R05.9 Cough, unspecified; M79.10 Myalgia, unspecified site; R50.9 Fever, unspecified; Z79.899 Other long term (current) drug therapy; Z03.818 Encounter for observation for suspected exposure to other biological agents ruled out
CPT/HCPCS: 0241U; 36415; 71045; 80048; 80076; 83605; 83735; 83880; 84484; 85025; 85610; 87040; 93005; 94640; 96361; 96365; 96375; 99284; 99285; J0696; J1100

== ENCOUNTER 2024-12-29 09:07 | Outpatient (AMB) | payer MEDICARE, SELFPAY ==
--- NOTE | 2024-12-29 09:14 | MHC.PC.OV ---
Vital Signs 12/29/24 09:25 Height 6 ft 2 in Weight 250 lb BMI 32.1 BP 130/62 Blood Pressure Location Rt brachial Position Sitting Respiration 14 Pulse 70 Pulse Source Pulse Oximeter Temp 97.8 F Temp Source Oral Pulse Oximetry (%) 96 Oxygen Delivery Method Room Air Intake Visit Reasons: Pain in side Intake Note: patient is here to follow up on side pain and his cardiac problems Travel Occupational Therapist Required: No Allergies mold Allergy (Verified 12/29/24 09:22) impacted sinus cavity Medication List - Last Reconciled 12/29/24 by Kota Laboy MD albuterol sulfate 90 mcg/actuation 2 puffs inhalation Q6H PRN atorvastatin 40 mg PO BEDTIME 90 days bupropion HCl SR 200 mg PO DAILY 30 days levothyroxine 224 mcg (2 x 112 mcg) PO DAILY metoprolol succinate ER mg PO DAILY rivaroxaban (Xarelto) 20 mg PO QPM 90 days Tobacco use date assessed: 05/19/24 Dental Screening Dental Screen Date: 05/19/24 HPI Pain in side HPI Details 59 y/o male presents today for an extended exam. Labs were drawn today. He is on artovastatin 40mg, levothyroxine 224 mcg daily. Blood pressure today well controlled at 130/62, 70p. He is on metoprolol 25mg daily. He notes he has not taken this yet today. Recent diagnosis of obstructive sleep apnea. He is scheduled for a lab sleep study to better evaluate. Pt says he has never had a colonoscopy. HPI Comments History of Present Illness Details Documentation assistance for Kota Laboy MD, was provided by Amol Rojo, Flume Ride Operator on 12/29/2024 at 10:06 AM EST. I, Dr. aLboy, have read, observed, and verified documentation. [facility] Medical History Essential hypertension Atrial flutter with rapid ventricular response Atrial fibrillation with rapid ventricular response Cardiomyopathy Decompensated heart failure Congestive heart failure COPD (chronic obstructive pulmonary disease) Smoker Hypothyroidism (acquired) Surgical History H/O thyroidectomy H/O shoulder surgery Family History Mother COPD (chronic obstructive pulmonary disease) Social History Household Members: Family Housing: House Are you a primary janitor caretaker to a significant other at home: No Do you presently have visiting nurse or other home services: No Alcohol intake: current Alcohol intake frequency: a few times a month Patient Tobacco Use Status: Former Tobacco user Tobacco use type: Cigarette Cigarettes Per Day: 5 Years Smoked: 45 +/- e-Cigarette/Vaping Use: Never Used Second Hand Smoke Exposure: No Substance Use Type: Crack/Cocaine service: No Current occupational status: unemployed Current occupational exposures/hazards: No Cognitive needs: No Hearing needs: No Vision needs: No Questionnaire Thrive Questionnaire Date Thrive assessed: 11/19/23 DAVID-7 AMB Questionnaire DAVID-7 Date DAVID - 7 assessed: 11/19/23 Source: Developed by Drs. Americo Fernandez, Ivory Garcia, Luis F Dorman and colleagues, with an educational latrell from [employer]. Review of Systems Const Denies chills, Denies fatigue, Denies fever(s), Denies headache(s) and Denies weakness Eyes Denies change in vision ENT Denies dizziness, Denies headache(s), Denies hearing loss, Denies nasal congestion, Denies sinus pain, Denies sinus pressure and Denies sore throat Card Denies chest pain, Denies lightheadedness, Denies dyspnea and Denies other (palpitations) Resp Denies cough, Denies dyspnea and Denies wheezing GI Denies abdominal pain, Denies melena, Denies hematochezia, Denies change in bowel habits, Denies dyspepsia and Denies nausea Denies hematuria and Denies dysuria Musc Denies abnormal gait, Denies myalgias, Denies arthralgias, Denies numbness and Denies tingling Skin/Breast Denies rash, Denies unusual bruising and Denies wounds Neuro Denies abnormal gait, Denies dizziness, Denies headache(s), Denies memory loss, Denies numbness, Denies Sensory deficit (Neuro), Denies tingling and Denies weakness Psych Denies anxiety, Denies depression and Denies memory loss Endo Denies cold intolerance, Denies fatigue, Denies heat intolerance, Denies polydipsia and Denies polyuria Cuco/Lymph Denies easy bleeding and Denies easy bruising Aller/Immun Denies wheezing Physical exam (Primary Care) Vital Signs: Last Vital Signs Temp 97.8 F 12/29/24 09:25 Pulse 70 12/29/24 09:25 Resp 14 12/29/24 09:25 BP 130/62 12/29/24 09:25 Pulse Ox 96 12/29/24 09:25 Oxygen Delivery Method Room Air 12/29/24 09:25 BMI result Body Mass Index 32.1 Tobacco/Smoking Status: Tobacco use Status Tobacco use date assessed 05/19/24 12/29/24 09:15 Patient Tobacco Use Status Former Tobacco user 12/29/24 09:15 Tobacco use type Cigarette 12/29/24 09:15 e-Cigarette/Vaping Use Never Used 12/29/24 09:15 Thrive Assessment: Date of Thrive Assessment Date Thrive assessed 11/19/23 12/29/24 09:15 Const General: no acute distress, well developed, alert and awake Nutritional Appearance: well nourished Orientation/consciousness: patient oriented x3 HENMT Head: Yes normocephalic and Yes atraumatic Ears: hearing grossly normal bilaterally and TM's normal bilaterally General nose exam: Normal external nose present and Normal nares present Mouth: Normal oral and palatal mucosa present and moist mucous membranes Teeth and gingiva: dentition normal Throat: Yes posterior oropharynx normal Eyes General: appearance normal, both eyes and all related structures Pupils: Equal, round and reactive pupils present and Pupil accommodation reflex normal EOM: EOMs intact bilaterally Neck Neck: Yes normal visual inspection, Yes no lymphadenopathy and Yes trachea midline Thyroid: Thyroid normal Carotids: no bruits Lymphatic: no lymphadenopathy noted Chest Chest palpation & inspection: normal inspection of the chest Resp Effort & Inspection: normal respiratory effort Auscultation: clear to auscultation bilaterally Cardio Rate: regular rate Rhythm: abnormal rhythm irregularly irregular Heart sounds: S1 normal heart sound present, S2 normal heart sound present, no gallops, no murmurs and no rubs Bruits: no abdominal aortic bruits and no carotid bruits GI Palpation (GI): No Abdominal aortic bruit present, Soft to palpation, nontender, No hepatosplenomegaly present and No Rebound tenderness present Auscultation: normal bowel sounds General: Yes no CVA tenderness Back/Spine/Pelvis Back: no CVA tenderness Cervical Spine: cervical ROM normal and No Cervical spine tenderness Thoracic/Lumbar Spine: thoraco-lumbar ROM normal, No pain with thoraco-lumbar ROM, No thoracic spinal tenderness and No lumbar spinal tenderness Skin Lesions: no lesions Rashes: no rashes Trauma: no lacerations or abrasions Wounds: no wounds Nails: normal Neuro General: patient oriented x3 Cranial nerves: Yes Equal, round and reactive pupils present Cognition (Neuro): normal cognition Gait exam (Neuro): Normal gait present Motor exam (neuro): 5/5 motor strength present throughout Sensory Exam: No Sensory deficit (Neuro) Deep tendon reflexes (DTR's): Right patellar reflex intensity grade: 2+ and Left patellar reflex intensity grade: 2+ Extrem General: Yes normal to inspection and No edema Psych Appearance: grossly normal Affect: normal affect Attitude: cooperative Thought process: Normal thought process present Coding Level of Care Code Est Pt Level 4 (80942) Diagnoses PAF (paroxysmal atrial fibrillation) I48.0 Essential hypertension I10 Cardiomyopathy I42.9 CHF (congestive heart failure) I50.9 Hyperlipidemia E78.5 Hypothyroidism (acquired) E03.9 Obstructive sleep apnea G47.33 Screening for prostate cancer Z12.5 Screening for colon cancer Z12.11 Adult general medical exam Z00.00 Assessment & Plan Assessment & Plan (1) PAF (paroxysmal atrial fibrillation): Code(s): I48.0 - Paroxysmal atrial fibrillation Category: Medical Plan: Irregularly?irregular?rhythm?today. He?is?on?Xarelto Patient?says?that?his?diploma pharmacy technician,?Dr. Barfield discontinued?amiodarone?and?started?metoprolol. He?says?since?then?he?has?had?increased?shortness?breath. EKG?today?shows: ?Atrial?fibrillation?with?rapid?ventricular?response?125 BPM, normal?axis,?no?ST-T-wave?changes Increasing?metoprolol?from?25 mg?daily?to?25?mg?b.i.d. Advised?he?discuss?change?from?amiodarone?to?metoprolol?with?his?diploma pharmacy technician. Will?forward?EKG?results (2) Essential hypertension: Code(s): I10 - Essential (primary) hypertension Category: Medical Plan: Blood?pressure?is?fairly?well?controlled.??Goal?is?less?than?130/80 Continue?her?medications (3) Cardiomyopathy: Code(s): I42.9 - Cardiomyopathy, unspecified Category: Medical Plan: Patient?is?on?atorvastatin?40?mg?daily?as?well?as?Xarelto. Blood?pressure?is?controlled Follow-up?with?Cardiology?as?recommended (4) CHF (congestive heart failure): Code(s): I50.9 - Heart failure, unspecified Category: Medical Plan: Patient?notes?worsened?shortness?breath?and?orthopnea?since?discontinuing?amiodarone?and?switching?to?metoprolol. Irregular?rhythm?today with?rapid?ventricular?response, 125?BPM Will?increase?metoprolol?to?50?mg?daily Will?give?him?a?short?course?of?furosemide He?should?contact?his?diploma pharmacy technician?regarding?switch?from?amiodarone?to?metoprolol (5) Hyperlipidemia: Code(s): E78.5 - Hyperlipidemia, unspecified Category: Medical Plan: Patient?had?labs?drawn?today He?is?on?atorvastatin?40?mg?daily (6) Hypothyroidism (acquired): Code(s): E03.9 - Hypothyroidism, unspecified Category: Medical Plan: Checking?thyroid?hormone?levels He?is?on?levothyroxine?224?mcg?daily (7) Obstructive sleep apnea: Code(s): G47.33 - Obstructive sleep apnea (adult) (pediatric) Category: Medical Plan: Recent?diagnosis?obstructive?sleep?apnea. Patient?says?he?is?scheduled?for?a?lab?sleep?study?to?better?evaluate Follow-up?with?sleep?medicine?as?recommended (8) Screening for prostate cancer: Code(s): Z12.5 - Encounter for screening for malignant neoplasm of prostate Category: Medical Plan: PSA?is?ordered (9) Screening for colon cancer: Code(s): Z12.11 - Encounter for screening for malignant neoplasm of colon Category: Medical Plan: Patient?says?he?has?never?had?a?colonoscopy Had?agreed?to?a?Cologuard?test?in?past?but?has?gotten?done Patient?agrees?to?referral?to?gastroenterology?for?colonoscopy -referred (10) Adult general medical exam: Code(s): Z00.00 - Encounter for general adult medical examination without abnormal findings Category: Medical Plan: 59-year-old?male?presents?for?an?extended?exam Orders: Referrals Gastroenterology Referral Z12.11 - Encounter for screening for malignant neoplasm of colon Medications: New furosemide 20 mg PO QAM 3 days 3 tabs 0RF metoprolol succinate ER 50 mg (2 x 25 mg) PO DAILY 90 days 180 tabs 3RF
[2024-12-29 09:25] VITALS: BP 130/62; PULSE 70; RESP 14; TEMP 36.6; O2SAT 96; BMI 32.1
== END 2024-12-29 10:10 | disposition home or self-care (01) ==
PROVIDERS: PCP Family Medicine; Visit Provider Family Medicine
DX: I48.0 Paroxysmal atrial fibrillation (principal); I10 Essential (primary) hypertension; I42.9 Cardiomyopathy, unspecified; I50.9 Heart failure, unspecified; E78.5 Hyperlipidemia, unspecified; E03.9 Hypothyroidism, unspecified; G47.33 Obstructive sleep apnea (adult) (pediatric); Z12.5 Encounter for screening for malignant neoplasm of prostate; Z12.11 Encounter for screening for malignant neoplasm of colon; Z00.00 Encounter for general adult medical examination without abnormal findings

== ENCOUNTER → 2024-12-29 09:07 | Outpatient (BNVA) | payer MEDICARE, SELFPAY | PROVIDERS: PCP Family Medicine; Visit Provider Family Medicine ==

== ENCOUNTER 2024-12-29 09:14 | Outpatient (REF) | payer MEDICARE, SELFPAY ==
[2024-12-29 11:27] LABS: MANUAL DIFF FLAG NO
[2024-12-29 11:35] LABS: B Type Natriuretic Peptide 275 pg/mL (<100)
[2024-12-29 11:42] LABS: Basophils Absolute Auto 0.1 X10*3/uL (0.0-0.2); Basophils Percent Auto 0.6 % (0-2); Eosinophils Absolute Auto 0.2 X10*3/uL (0.0-0.4); Eosinophils Percent Auto 1.6 % (0-4); Hematocrit 49.7 % (42.0-52.0); Hemoglobin 17.2 g/dl (14.0-18.0); Imm Gran Abs Auto 0.04 X10*3/uL (0.00-0.03); Imm Gran Pct Auto 0.4 % (0.0-0.4); Lymphocytes Absolute Auto 2.4 X10*3/uL (1.2-4.9); Lymphocytes Percent Auto 23.7 % (20-40); Mean Corpuscular HGB Conc 34.6 g/dl (31.0-36.0); Mean Corpuscular Hemoglobin 30.5 pg (27.0-33.0); Mean Corpuscular Volume 88.1 fL (80.0-98.0); Mean Platelet Volume 12.4 fL (9.4-12.4); Monocytes Absolute Auto 0.8 X10*3/uL (0.1-1.2); Neutrophils Absolute Auto 6.6 x10*3/uL (2.0-8.3); Neutrophils Percent Auto 65.7 % (45-73); Platelet Count 237 X10*3/uL (160-400); Red Blood Count 5.64 X10*6/uL (4.60-5.80); Red Cell Distribution Width 12.6 % (11.0-16.0)
[2024-12-29 12:12] LABS: Alanine Aminotransferase 17 U/L (0-40); Albumin Level 4.1 g/dL (3.5-5.0); Alkaline Phosphatase 75 U/L (39-117); Anion Gap 11 (12-20); Aspartate Amino Transferase 22 U/L (5-37); Blood Urea Nitrogen 17 mg/dL (9-16); Calcium 9.6 mg/dL (8.4-10.2); Carbon Dioxide 28 mmol/L (22-29); Chloride 106 mmol/L (96-108); Cholesterol 148 mg/dL (<200); Estimated Glomerular Filt Rate 58; Glucose Fasting 114 mg/dL (60-99); HDL Cholesterol 42 mg/dL (>40); LDL Cholesterol Calculated 86 mg/dL (<100); Potassium 4.1 mmol/L (3.3-5.1); Sodium 141 mmol/L (135-145); Total Protein 7.4 g/dL (6.5-8.0); Triglycerides 104 mg/dL (<150)
[2024-12-29 12:23] LABS: Prostate Specific Antigen Scr 0.55 ng/mL (<0.05-4.0)
[2024-12-29 12:32] LABS: TSH reflex Free T4 2.81 uIU/mL (0.32-4.0)
== END 2024-12-29 09:15 | disposition home or self-care (01) ==
LOC: HO.WFDLDS 09:14
PROVIDERS: Visit Provider Family Medicine
DX: Z00.00 Encounter for general adult medical examination without abnormal findings (principal); E78.5 Hyperlipidemia, unspecified; I50.9 Heart failure, unspecified; Z12.5 Encounter for screening for malignant neoplasm of prostate
CPT/HCPCS: 36415; 80053; 80061; 83880; 84153; 84443; 85025; 99212

== ENCOUNTER 2025-01-06 14:01 | Outpatient (AMB) | payer MEDICARE, SELFPAY ==
--- NOTE | 2025-01-06 14:08 | A.OFFPC_ITS ---
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 Labs drawn 12/29/24. Reviewed labs with pt. Elevated fasting glucose of 114. BNP elevated at 275 pg/mL. Triglycerides 104. TC 148. LDL 86. HDL 45. He is on artovastatin 40mg. TSH 2.81 uIU/mL. He is on levothyroxine 224 mcg daily. PSA 0.55 ng/mL. Blood pressure today 114/74, 63p. He is on metoprolol 50mg daily. A1c today 01/06/25 is 5.0%. HPI Comments History of Present Illness Details Documentation assistance for Kota Laboy MD, was provided by Amol Rojo,? Male Impersonator on 01/06/2025 at 3:39 PM EST. I, Dr. Laboy, have read, ob served, and verified documentation. ?? [facility] Medical History Essential hypertension Atrial flutter with rapid ventricular response Atrial fibrillation with rapid ventricular response Cardiomyopathy Decompensated heart failure Congestive heart failure COPD (chronic obstructive pulmonary disease) Smoker Hypothyroidism (acquired) Surgical History H/O thyroidectomy H/O shoulder surgery Family History Mother COPD (chronic obstructive pulmonary disease) Social History (Updated 01/06/25 @ 14:12 by Jackie Bello CMA) Household Members: Family Caregiver staying overnight: No Housing: House Are you a primary healthcare market consultant to a significant other at home: No Do you presently have visiting nurse or other home services: No 75 years or older and lives alone: No Alcohol intake: current Alcohol intake frequency: a few times a month Patient Tobacco Use Status: Former Tobacco user Tobacco use type: Cigarette Cigarettes Per Day: 5 Years Smoked: 45 +/- e-Cigarette/Vaping Use: Never Used Second Hand Smoke Exposure: No Substance Use Type: Crack/Cocaine and Former Substance User service: No Current occupational status: unemployed Current occupational exposures/hazards: No Cognitive needs: No Hearing needs: No Vision needs: No Questionnaire Thrive Questionnaire Date Thrive assessed: 11/19/23 DAVID-7 AMB Questionnaire DAVID-7 Date DAVID - 7 assessed: 11/19/23 Source: Developed by Drs. Americo Fernandez, Ivory Garcia, Luis F Dorman and colleagues, with an educational latrell from [employer]. Review of Systems Const Denies chills, Denies fatigue, Denies fever(s), Denies headache(s) and Denies weakness ENT Denies dizziness and Denies headache(s) Card Denies dyspnea Resp Denies cough, Denies dyspnea, Denies wheezing and Denies other (shortness of breath) Musc Denies numbness and Denies tingling Neuro Denies dizziness, Denies headache(s), Denies numbness, Denies tingling and Denies weakness Psych Denies anxiety and Denies depression Endo Denies fatigue Aller/Immun Denies wheezing Physical exam (Primary Care) Vital Signs: Last Vital Signs Pulse 63 01/06/25 14:09 Resp 16 01/06/25 14:09 BP 114/74 01/06/25 14:09 Pulse Ox 96 01/06/25 14:09 Oxygen Delivery Method Room Air 01/06/25 14:09 BMI result Body Mass Index 34.1 Tobacco/Smoking Status: Tobacco use Status Tobacco use date assessed 01/06/25 01/06/25 14:12 Patient Tobacco Use Status Former Tobacco user 01/06/25 14:12 Tobacco use type Cigarette 01/06/25 14:12 e-Cigarette/Vaping Use Never Used 01/06/25 14:12 Thrive Assessment: Date of Thrive Assessment Date Thrive assessed 11/19/23 01/06/25 14:12 Const General: well developed; No acute distress Nutritional Appearance: well nourished and obese Orientation/consciousness: patient oriented x3 HENMT Head: Yes normocephalic and Yes atraumatic Eyes General: appearance normal, both eyes and all related structures Pupils: Equal, round and reactive pupils present EOM: EOMs intact bilaterally Resp Effort & Inspection: normal respiratory effort Auscultation: clear to auscultation bilaterally Cardio Rate: regular rate Rhythm: regular rhythm Heart sounds: S1 normal heart sound present, S2 normal heart sound present, no gallops, no murmurs and no rubs Neuro General: patient oriented x3 and gait normal Cranial nerves: Yes Equal, round and reactive pupils present Psych Affect: normal affect Results AMB Hemoglobin A1c AMB Hemoglobin A1c 5.0 % Last Edit by Jackie Bello CMA on 01/06/25 15:59 Coding Level of Care Code Est Pt Level 4 (03767) Diagnoses Atrial fibrillation and flutter I48.91; I48.92 CHF (congestive heart failure) I50.9 Hyperlipidemia E78.5 Elevated fasting glucose R73.01 Hypothyroidism (acquired) E03.9 Essential hypertension I10 Screening for prostate cancer Z12.5 Assessment & Plan Assessment & Plan (1) Atrial fibrillation and flutter: Code(s): I48.91 - Unspecified atrial fibrillation; I48.92 - Unspecified atrial flutter Category: Medical (2) CHF (congestive heart failure): Code(s): I50.9 - Heart failure, unspecified Category: Medical (3) Hyperlipidemia: Code(s): E78.5 - Hyperlipidemia, unspecified Category: Medical (4) Elevated fasting glucose: Code(s): R73.01 - Impaired fasting glucose Category: Medical Plan: Patient?has?elevated?fasting?blood?sugar. A1c 5.0%?which?is?within?normal?range, nevertheless,?advise?he?work?at?a?diet?lower?in?sugars?and?starches (5) Hypothyroidism (acquired): Code(s): E03.9 - Hypothyroidism, unspecified Category: Medical Plan: TSH?within?normal?range Continue?medication?as?prescribed (6) Essential hypertension: Code(s): I10 - Essential (primary) hypertension Category: Medical (7) Screening for prostate cancer: Code(s): Z12.5 - Encounter for screening for malignant neoplasm of prostate Category: Medical Plan Recent?atrial?fibri llation?with?RVR?after?patient?was?switched?from?amiodarone?to?metoprolol. I?had?increased?his?metoprolol?in?patient?saw?his?salvage cutter. He?was?noted?to?have?a?regular?rhythm and?rate?at?Cardiology? and?likely?secondary?to?increase?in?metoprolol Had?mildly?elevated?BNP?as?well.??Gave?him?a?short?course?of furosemide.??Patient?is?breathing?well?and?lungs?are?clear?today. Work?at?diet?low?in?salt/sodium Blood?pressure?is?well?controlled.??Goal?is?less?than?130/80 He?will?continue?current?medication?regimen PSA?within?normal?limits.?? Will?continue?screening
[2025-01-06 14:09] VITALS: BP 114/74; PULSE 63; RESP 16; O2SAT 96; BMI 34.1
== END 2025-01-06 15:55 | disposition home or self-care (01) ==
LOC: HO.HMCFM 14:02
PROVIDERS: PCP Family Medicine; Visit Provider Family Medicine
DX: I48.91 Unspecified atrial fibrillation (principal); I48.92 Unspecified atrial flutter; I50.9 Heart failure, unspecified; E78.5 Hyperlipidemia, unspecified; R73.01 Impaired fasting glucose; E03.9 Hypothyroidism, unspecified; I10 Essential (primary) hypertension; Z12.5 Encounter for screening for malignant neoplasm of prostate

== ENCOUNTER 2025-01-06 14:01 | Outpatient (REF) | payer MEDICARE, SELFPAY ==
[2025-01-06 18:29] LABS: Appearance Urine Clear; Color Urine Yellow; Glucose Urine UA Negative (Negative); Leukocyte Esterase Urine Negative (Negative); Nitrite Urine Negative (Negative); PH 6.5 (5.0-9.0); Specific Gravity - Urine <= 1.005 (1.005-1.025); Urine Blood Negative (Negative); Urine Ketones Negative (Negative); Urine Protein Negative (Neg-Trace)
[2025-01-06 18:54] LABS: Creatinine Urine 21.29 mg/dL; Microalbumin Urine < 5.0 mg/L
== END 2025-01-06 14:02 | disposition home or self-care (01) ==
LOC: HO.LNP 14:01
PROVIDERS: PCP Family Medicine; Visit Provider Family Medicine
DX: I48.91 Unspecified atrial fibrillation (principal); I48.92 Unspecified atrial flutter; I11.0 Hypertensive heart disease with heart failure; I50.9 Heart failure, unspecified; E78.5 Hyperlipidemia, unspecified; R73.01 Impaired fasting glucose; E03.9 Hypothyroidism, unspecified; Z79.899 Other long term (current) drug therapy; Z00.00 Encounter for general adult medical examination without abnormal findings
CPT/HCPCS: 81003; 82570; 83036; 99212

== ENCOUNTER → 2025-04-12 13:14 | Outpatient (BNVA) | payer MEDICARE, SELFPAY | PROVIDERS: PCP Family Medicine; Visit Provider Family Medicine | DX: Z13.89 Encounter for screening for other disorder (principal) ==

== ENCOUNTER 2025-07-13 13:02 | Outpatient (AMB) | payer MEDICARE, SELFPAY ==
--- NOTE | 2025-07-13 13:19 | MHC.PC.OV ---
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: No Allergies mold Allergy (Verified 07/13/25 13:22) impacted sinus cavity Medication List - Last Reconciled 07/13/25 by Kota Laboy MD atorvastatin 40 mg PO BEDTIME 90 days bupropion HCl SR 200 mg PO DAILY 30 days furosemide 20 mg PO QAM 5 days levothyroxine 224 mcg (2 x 112 mcg) PO DAILY metoprolol succinate ER 50 mg (2 x 25 mg) PO DAILY 90 days rivaroxaban (Xarelto) 20 mg PO QPM 90 days Tobacco use date assessed: 07/13/25 Dental Screening Dental Screen Date: 07/13/25 Did you have a dental visit in the last 12 months?: No Did you have a dental problem in the last 6 months where you did not have access to dental care?: No Was dental information given to patient?: No HPI f/u on Lab work RE HPI Details 60 y/o male presents to f/u HTN, chronic conditions. BP today 122/97, 95p. He is n metoprolol 50mg daily. Has not been on xarelto for 4-5 days. Reports cough x1 week. HPI Comments History of Present Illness Details Documentation assistance for Kota Laboy MD, was provided by Amol Rojo,? Regulatory Agency Director on 07/13/2025 at 1:43 PM EST. I, Dr. Laboy, have read, observed, and verified documentation. ? PFSH Medical History Essential hypertension Atrial flutter with rapid ventricular response Atrial fibrillation with rapid ventricular response Cardiomyopathy Decompensated heart failure Congestive heart failure COPD (chronic obstructive pulmonary disease) Smoker Hypothyroidism (acquired) Surgical History H/O thyroidectomy H/O shoulder surgery Family History Mother COPD (chronic obstructive pulmonary disease) Social History (Updated 01/06/25 @ 14:12 by CHETNA Emerson Household Members: Family Caregiver staying overnight: No Housing: House Are you a primary child care center administrator to a significant other at home: No Do you presently have visiting nurse or other home services: No 75 years or older and lives alone: No Alcohol intake: current Alcohol intake frequency: a few times a month Patient Tobacco Use Status: Former Tobacco user Tobacco use type: Cigarette Cigarettes Per Day: 5 Years Smoked: 45 +/- e-Cigarette/Vaping Use: Never Used Second Hand Smoke Exposure: No Substance Use Type: Crack/Cocaine and Former Substance User service: No Current occupational status: unemployed Current occupational exposures/hazards: No Cognitive needs: No Hearing needs: No Vision needs: No Questionnaire Thrive Questionnaire Date Thrive assessed: 04/12/25 I am a: Patient What is your living situation today?: I have a steady place to live Within the past 12 months, did the food you bought not last and you didn't have the money to get more?: Never true Within the past 12 months, did you worry whether your food would run out before you got money to buy more?: Never true Do you have trouble paying for medicines?: No Do you have trouble getting transportation to medical appointments?: No Do you have trouble paying your heating and electricity bill?: No Do you have trouble taking care of your child, family member or friend?: No Do you have trouble with day-to-day activities such as bathing, preparing meals, shopping, managing finances, etc.?: No Are you currently unemployed and looking for a job?: No Are you interested in more education?: No Please select the resources that you would like help with: None Currently or been in a relationship where the following occur: No concerns reported THRIVE Score: 0 DAVID-7 AMB Questionnaire DAVID-7 Date DAVID - 7 assessed: 11/19/23 Source: Developed by Drs. Americo Fernandez, Ivory Garcia, Luis F Dorman and colleagues, with an educational latrell from [employer]. Review of Systems Const Denies chills, Denies fatigue, Denies fever(s), Denies headache(s) and Denies weakness ENT Denies dizziness and Denies headache(s) Card Denies dyspnea Resp Reports cough, Denies dyspnea, Denies wheezing and Denies other (shortness of breath) Musc Denies numbness and Denies tingling Neuro Denies dizziness, Denies headache(s), Denies numbness, Denies tingling and Denies weakness Psych Denies anxiety and Denies depression Endo Denies fatigue Aller/Immun Denies wheezing Physical exam (Primary Care) Vital Signs: Last Vital Signs Pulse 95 07/13/25 13:23 Resp 16 07/13/25 13:23 BP 122/97 H 07/13/25 13:23 BMI result Body Mass Index 33.8 Tobacco/Smoking Status: Tobacco use Status Tobacco use date assessed 07/13/25 07/13/25 13:25 Patient Tobacco Use Status Former Tobacco user 07/13/25 13:21 Tobacco use type Cigarette 07/13/25 13:21 e-Cigarette/Vaping Use Never Used 07/13/25 13:21 Thrive Assessment: Date of Thrive Assessment Date Thrive assessed 04/12/25 07/13/25 13:21 Currently or been in a relationship where the following occur: No concerns reported Const General: well developed; No acute distress Nutritional Appearance: well nourished Orientation/consciousness: patient oriented x3 HENMT Head: Yes normocephalic and Yes atraumatic Eyes General: appearance normal, both eyes and all related structures Pupils: Equal, round and reactive pupils present EOM: EOMs intact bilaterally Resp Other: Crackles Effort & Inspection: normal respiratory effort Auscultation: clear to auscultation bilaterally Cardio Rate: regular rate Rhythm: abnormal rhythm irregularly irregular Heart sounds: S1 normal heart sound present, S2 normal heart sound present, no gallops, no murmurs and no rubs Neuro General: patient oriented x3 and gait normal Cranial nerves: Yes Equal, round and reactive pupils present Psych Affect: normal affect Coding Level of Care Code Est Pt Level 5 (31359) Diagnoses Essential hypertension I10 Afib I48.91 Cough R05.9 Abnormal lung sounds R09.89 Assessment & Plan Assessment & Plan (1) Essential hypertension: Code(s): I10 - Essential (primary) hypertension Category: Medical Plan: Diastolic blood pressure is too high. Goal is less than 130/80 Taking metoprolol 25 mg daily. Will have him increase this to 50 mg daily (2) Afib: Code(s): I48.91 - Unspecified atrial fibrillation Category: Medical Plan: Irregularly irregular rhythm and patient has been Xarelto Restart Xarelto Increased his metoprolol as above Some cough and congestion - Check labs and a chest x-ray Will give a script for some furosemide. 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 He should discuss if and when to discontinue Xarelto resume it. For now he resume Xarelto (3) Cough: Code(s): R05.9 - Cough, unspecified Category: Medical Plan: As above (4) Abnormal lung sounds: Code(s): R09.89 - Other specified symptoms and signs involving the circulatory and respiratory systems Category: Medical Plan: As above Orders: Orders XR chest 2V 07/13/25 R05.9 - Cough, unspecified Lipid Panel 07/13/25 Z00.00 - Encounter for general adult medical examination without abnormal findings Microalbumin, Random (w Creat) 07/13/25 I10 - Essential (primary) hypertension Prostate Specific Antigen Scr 07/13/25 Z12.5 - Encounter for screening for malignant neoplasm of prostate TSH reflex Free T4 07/13/25 Z00.00 - Encounter for general adult medical examination without abnormal findings NT Pro B Type Natriuretic Pept 07/13/25 I50.9 - Heart failure, unspecified Comprehensive [place]. Panel Fast 07/13/25 Z00.00 - Encounter for general adult medical examination without abnormal findings UA CC w/rflx Micro + Cult 07/13/25 Z00.00 - Encounter for general adult medical examination without abnormal findings Complete Blood Count Auto Diff 07/13/25 Z00.00 - Encounter for general adult medical examination without abnormal findings Medications: Changed From furosemide 20 mg PO QAM 3 days 3 tabs 0RF To furosemide 20 mg PO QAM 5 tabs 0RF 5 days Refilled rivaroxaban (Xarelto) 20 mg PO QPM 90 tabs 3RF 90 days
[2025-07-13 13:23] VITALS: BP 122/97; PULSE 95; RESP 16; BMI 33.8
--- OUTSIDE RECORDS SUMMARY | 2025-07-13 17:49 | XMS_ITS | Patient Health Record ---
Author Organization [facility] Address [address] [place] [address] Care Team Providers Care Bit Welder Name Role Phone Kota Laboy Primary Care Provider UnavailAmerico Spencer Unavailable [phone] Allergies Allergen (clinical drug ingredient) Drug/Non Drug [...] Status Risk Notes Problem Colon cancer screening (990783656) Colon cancer screening (Z12.11) Active confirmed Problem Preprocedural examination (118237188788435) Preprocedural examination (Z01.818) Active confirmed Vital Signs Temperature 96.9 degrees Fahrenheit 05/02/2025 Blood pressure diastolic 01 mm Hg 05/02/2025 Height 74 in 05/02/2025 Blood pressure systolic 001 mm Hg 05/02/2025 Weight 273.6 lbs 05/02/2025 BMI 35.12 kg/m2 05/02/2025 Procedures Procedure Date Ordered Date Performed Result Body Sit e COLONOSCOPY 05/02/2025 N/A Encounters Encounter Location Date Provider Diagnosis [facility] [address] [place] [phone] 05/02/2025 Americo Scott Colon cancer screeni ng Z12.11 and Preprocedural examination Z01.818 [facility] [address] [place] [phone] 07/11/2025 Americo Scott Assessments Encounter Date Diagnosis (ICD Code) Assessment [...] Provider Name:Americo Scott , 07/24/2025 12:30:00 PM, [address] [place] [address] , [place], [place], [phone], Insurance Providers Payer Name Payer Address Payer Phone Subscriber Number Group Number Insured Name Patient Relationship to Insured Coverage Start Date Coverage End Date MEDICARE OF [facility] [address] [place], [place] [id number] [id number] TED GORMAN Self - patient is the insured 4 Medical (General) History Medical History History ICD Code Hypertension Hyperlipidemia Denies [place],DM,CVA,Lung disease,renal dise ase A.fib Hypothyroidism Depression Surgical History Surgery Date(Month/Year) Thyroidectomy
== END 2025-07-13 13:53 | disposition home or self-care (01) ==
LOC: HO.HMCFM 13:03
PROVIDERS: PCP Family Medicine; Visit Provider Family Medicine
DX: I10 Essential (primary) hypertension (principal); I48.91 Unspecified atrial fibrillation; R05.9 Cough, unspecified; R09.89 Other specified symptoms and signs involving the circulatory and respiratory systems

== ENCOUNTER → 2025-07-13 13:02 | Outpatient (BNVA) | payer MEDICARE, SELFPAY | PROVIDERS: PCP Family Medicine; Visit Provider Family Medicine | DX: I10 Essential (primary) hypertension (principal); I48.91 Unspecified atrial fibrillation; R05.9 Cough, unspecified; R09.89 Other specified symptoms and signs involving the circulatory and respiratory systems; Z87.891 Personal history of nicotine dependence | CPT/HCPCS: 99212 ==

== ENCOUNTER 2025-07-18 11:20 | Outpatient (REF) | payer MEDICARE, SELFPAY ==
--- NOTE | ~2025-07-18 | XR_ITS ---
EXAMINATION: XR CHEST CLINICAL INFORMATION: R05.9 - Cough, unspecified COMPARISON: June 20, 2024 TECHNIQUE: PA and lateral views. FINDINGS: Pulmonary reticular pattern and prominence of the interstitial markings. No hyperinflation. No consolidation, pleural effusion or pneumothorax. Cardiomediastinal silhouette size is prominent. S-shaped curvature of the thoracic spine. Mild multilevel thoracic spondylosis. Radiopaque anchors in the medial aspect left humeral head. Vascular clips at the thyroid gland region. XR/XR chest 2V IMPRESSION: Concerning chronic interstitial lung disease without acute airspace disease. Superimposed acute small airway inflammatory process cannot be excluded. Probable status post thyroidectomy and left-sided rotator cuff tendon tear repair Electronically signed by: Magdaleno Garcia MD 07/18/2025 12:34 PM EDT
[2025-07-18 11:38] LABS: MANUAL DIFF FLAG NO
[2025-07-18 11:57] LABS: Hematocrit 52.0 % (42.0-52.0); Hemoglobin 17.6 g/dl (14.0-18.0); Imm Gran Abs Auto 0.03 X10*3/uL (0.00-0.03); Imm Gran Pct Auto 0.4 % (0.0-0.4); Lymphocytes Absolute Auto 1.9 X10*3/uL (1.2-4.9); Mean Corpuscular HGB Conc 33.8 g/dl (31.0-36.0); Mean Corpuscular Hemoglobin 30.6 pg (27.0-33.0); Mean Corpuscular Volume 90.4 fL (80.0-98.0); NRBC Abs Auto 0.000 X10*3/uL (0.0-0.012); NRBC Pct Auto 0.0 /100WBC (0.0-0.2); Platelet Count 193 X10*3/uL (160-400); Red Blood Count 5.75 X10*6/uL (4.60-5.80); White Blood Count 8.1 X10*3/uL (4.8-10.8)
[2025-07-18 12:24] LABS: Appearance Urine Clear; Glucose Urine UA Negative (Negative); PH 5.5 (5.0-9.0); Specific Gravity - Urine >= 1.030 (1.005-1.025); UMIC TRIGGER UACC YES
[2025-07-18 12:37] LABS: Alanine Aminotransferase 33 U/L (0-40); Albumin Level 4.3 g/dL (3.5-5.0); Alkaline Phosphatase 68 U/L (39-117); Anion Gap 11 (12-20); Aspartate Amino Transferase 40 U/L (5-37); Blood Urea Nitrogen 22 mg/dL (9-16); Calcium 9.9 mg/dL (8.4-10.2); Carbon Dioxide 28 mmol/L (22-29); Chloride 108 mmol/L (96-108); Cholesterol 137 mg/dL (<200); Estimated Glomerular Filt Rate > 60; HDL Cholesterol 33 mg/dL (>40); NT Pro B Type Natriuretic Pept 1243.6 pg/mL (<300); Potassium 4.1 mmol/L (3.3-5.1); Sodium 143 mmol/L (135-145); Total Protein 7.4 g/dL (6.5-8.0); Triglycerides 156 mg/dL (<150)
[2025-07-18 12:52] LABS: Microalbum/Creatinine Ratio Ur 4.2 ug/mg cr (<30)
--- OUTSIDE RECORDS SUMMARY | 2025-07-18 12:52 | XMS_ITS | Patient Health Record ---
Author Organization [facility] Address [address] [place] [address] Care Team Providers Care Cake Decorator Name Role Phone Kota Laboy Primary Care Provider UnavailAmerico Spencer Unavailable [phone] Allergies Allergen (clinical drug ingredient) Drug/Non Drug [...] Status Risk Notes Problem Colon cancer screening (087098238) Colon cancer screening (Z12.11) Active confirmed Problem Preprocedural examination (394991451721745) Preprocedural examination (Z01.818) Active confirmed Vital Signs Temperature 96.9 degrees Fahrenheit 05/02/2025 Blood pressure diastolic 01 mm Hg 05/02/2025 Height 74 in 05/02/2025 Blood pressure systolic 001 mm Hg 05/02/2025 Weight 273.6 lbs 05/02/2025 BMI 35.12 kg/m2 05/02/2025 Procedures Procedure Date Ordered Date Performed Result Body Sit e COLONOSCOPY 05/02/2025 N/A Encounters Encounter Location Date Provider Diagnosis [facility] [address] [place] [phone] 05/02/2025 Americo Scott Colon cancer screeni ng Z12.11 and Preprocedural examination Z01.818 [facility] [address] [place] [phone] 07/11/2025 Americo Scott Assessments Encounter Date Diagnosis [...] Provider Name:Americo Scott , 07/24/2025 12:30:00 PM, [address] [place] [address] , [place], [place], [phone], Insurance Providers Payer Name Payer Address Payer Phone Subscriber Number Group Number Insured Name Patient Relationship to Insured Coverage Start Date Coverage End Date MEDICARE OF [facility] [address] [place], [place] [id number] [phone] [id number] [id number] TED GORMAN Self - patient is the insured 4 Medical (General) History Medical History History ICD Code Hypertension Hyperlipidemia Denies [place],DM,CVA,Lung disease,renal dise ase A.fib Hypothyroidism Depression Surgical History Surgery Date(Month/Year) Thyroidectomy
[2025-07-18 13:28] LABS: Free T4 (Free Thyroxine) 1.41 ng/dL (0.71-1.85)
== END 2025-07-18 11:21 | disposition home or self-care (01) ==
LOC: HO.XRAY 11:20
PROVIDERS: PCP Family Medicine; Visit Provider Family Medicine
DX: Z00.00 Encounter for general adult medical examination without abnormal findings (principal); Z12.5 Encounter for screening for malignant neoplasm of prostate; R05.9 Cough, unspecified; I11.0 Hypertensive heart disease with heart failure; I50.9 Heart failure, unspecified
CPT/HCPCS: 36415; 71046; 80053; 80061; 81001; 82043; 82570; 83880; 84153; 84439; 84443; 85025

== ENCOUNTER → 2025-07-18 11:43 | Outpatient (BNV) | payer MEDICARE, SELFPAY | PROVIDERS: PCP Family Medicine; Visit Provider Radiology Diagnostic Radiology | DX: J84.9 Interstitial pulmonary disease, unspecified (principal) | CPT/HCPCS: 71046 ==

== ENCOUNTER 2025-07-20 13:35 | Outpatient (AMB) | payer MEDICARE, SELFPAY ==
--- NOTE | 2025-07-20 13:46 | MHC.PC.OV ---
Vital Signs 07/20/25 13:50 Height 6 ft 2 in Weight 263 lb 4 oz BMI 33.8 BP 129/82 Blood Pressure Location Lt brachial Position Sitting Respiration 16 Pulse 93 Pulse Source Pulse Oximeter Temp 97.5 F Temp Source Oral Pulse Oximetry (%) 95 Oxygen Delivery Method Room Air Intake Visit Reasons: f/u abnormal lung sounds, AFib, chf Intake Note: patient here for follow up on abnormal lung sounds, AFib, CHF Interpretive Program Coordinator Required: No Allergies mold Allergy (Verified 07/20/25 13:49) impacted sinus cavity Medication List - Last Reconciled 07/20/25 by Kota Laboy MD atorvastatin 40 mg PO BEDTIME 90 days bupropion HCl SR 200 mg PO DAILY 30 days furosemide 20 mg PO QAM 5 days levothyroxine 224 mcg (2 x 112 mcg) PO DAILY metoprolol succinate ER 50 mg (2 x 25 mg) PO DAILY 90 days rivaroxaban (Xarelto) 20 mg PO QPM 90 days Tobacco use date assessed: 07/20/25 Dental Screening Dental Screen Date: 07/20/25 Did you have a dental visit in the last 12 months?: No Did you have a dental problem in the last 6 months where you did not have access to dental care?: No Was dental information given to patient?: No HPI f/u abnormal lung sounds, AFib, chf HPI Details 60 y/o male presents to f/u abnormal lung sounds. Following up on labs, chest x-ray. Had given him short course of lasix last office visit. Chest x-ray 07/18/25: Concerning chronic interstitial lung disease without acute airspace disease. Superimposed acute small airway inflammatory process cannot be excluded. Probable status post thyroidectomy and left-sided rotator cuff tendon tear repair Labs drawn 07/18/25. Reviewed labs with pt. Mildly elevated AST of 40. Triglycerides 156. TC 137. LDL 73. HDL low at 33. NT-Pro-BNP 1243.6 pg/mL. Pt notes breathing has improved but does still feel a bit labored. He notes once he finished Lasix he had started experiencing increased shortness of breath. [facility] Medical History Essential hypertension Atrial flutter with rapid ventricular response Atrial fibrillation with rapid ventricular response Cardiomyopathy Decompensated heart failure Congestive heart failure COPD (chronic obstructive pulmonary disease) Smoker Hypothyroidism (acquired) Surgical History H/O thyroidectomy H/O shoulder surgery Family History Mother COPD (chronic obstructive pulmonary disease) Social History (Updated 01/06/25 @ 14:12 by Jackie Bello CMA) Household Members: Family Caregiver staying overnight: No Housing: House Are you a primary healthcare administrator to a significant other at home: No Do you presently have visiting nurse or other home services: No 75 years or older and lives alone: No Alcohol intake: current Alcohol intake frequency: a few times a month Patient Tobacco Use Status: Former Tobacco user Tobacco use type: Cigarette Cigarettes Per Day: 5 Years Smoked: 45 +/- e-Cigarette/Vaping Use: Never Used Second Hand Smoke Exposure: No Substance Use Type: Crack/Cocaine and Former Substance User service: No Current occupational status: unemployed Current occupational exposures/hazards: No Cognitive needs: No Hearing needs: No Vision needs: No Questionnaire Thrive Questionnaire Date Thrive assessed: 04/12/25 I am a: Patient What is your living situation today?: I have a steady place to live Within the past 12 months, did the food you bought not last and you didn't have the money to get more?: Never true Within the past 12 months, did you worry whether your food would run out before you got money to buy more?: Never true Do you have trouble paying for medicines?: No Do you have trouble getting transportation to medical appointments?: No Do you have trouble paying your heating and electricity bill?: No Do you have trouble taking care of your child, family member or friend?: No Do you have trouble with day-to-day activities such as bathing, preparing meals, shopping, managing finances, etc.?: No Are you currently unemployed and looking for a job?: No Are you interested in more education?: No Please select the resources that you would like help with: None Currently or been in a relationship where the following occur: No concerns reported THRIVE Score: 0 DAVID-7 AMB Questionnaire DAVID-7 Date DAVID - 7 assessed: 11/19/23 Source: Developed by Drs. Americo Fernandez, Ivory Garcia, Luis F Dorman and colleagues, with an educational latrell from [employer]. Review of Systems Const Denies chills, Denies fatigue, Denies fever(s), Denies headache(s) and Denies weakness ENT Denies dizziness and Denies headache(s) Card Denies dyspnea Resp Denies cough, Denies dyspnea, Denies wheezing and Denies other (shortness of breath) Musc Denies numbness and Denies tingling Neuro Denies dizziness, Denies headache(s), Denies numbness, Denies tingling and Denies weakness Psych Denies anxiety and Denies depression Endo Denies fatigue Aller/Immun Denies wheezing Physical exam (Primary Care) Vital Signs: Last Vital Signs Temp 97.5 F 07/20/25 13:50 Pulse 93 07/20/25 13:50 Resp 16 07/20/25 13:50 BP 129/82 07/20/25 13:50 Pulse Ox 95 07/20/25 13:50 Oxygen Delivery Method Room Air 07/20/25 13:50 BMI result Body Mass Index 33.8 Tobacco/Smoking Status: Tobacco use Status Tobacco use date assessed 07/20/25 07/20/25 13:54 Patient Tobacco Use Status Former Tobacco user 07/20/25 13:54 Tobacco use type Cigarette 07/20/25 13:54 e-Cigarette/Vaping Use Never Used 07/20/25 13:54 Thrive Assessment: Date of Thrive Assessment Date Thrive assessed 04/12/25 07/20/25 13:54 Currently or been in a relationship where the following occur: No concerns reported Const General: well developed; No acute distress Nutritional Appearance: well nourished Orientation/consciousness: patient oriented x3 [facility] Head: Yes normocephalic and Yes atraumatic Eyes General: appearance normal, both eyes and all related structures Pupils: Equal, round and reactive pupils present EOM: EOMs intact bilaterally Resp Effort & Inspection: normal respiratory effort Neuro General: patient oriented x3 and gait normal Cranial nerves: Yes Equal, round and reactive pupils present Psych Affect: normal affect Coding Level of Care Code Est Pt Level 4 (83012) Diagnoses CHF (congestive heart failure) I50.9 Abnormal lung sounds R09.89 Cough R05.9 Afib I48.91 Hypothyroidism (acquired) E03.9 Assessment & Plan Assessment & Plan (1) CHF (congestive heart failure): Code(s): I50.9 - Heart failure, unspecified Category: Medical (2) Abnormal lung sounds: Code(s): R09.89 - Other specified symptoms and signs involving the circulatory and respiratory systems Category: Medical (3) Cough: Code(s): R05.9 - Cough, unspecified Category: Medical (4) Afib: Code(s): I48.91 - Unspecified atrial fibrillation Category: Medical (5) Hypothyroidism (acquired): Code(s): E03.9 - Hypothyroidism, unspecified Category: Medical Plan Patient returns to follow-up shortness of breath and dyspnea Gave him a short course of Lasix at last visit. His pro BNP level was over 1200. Patient notes that he was feeling much better on Lasix but once he finished it he started having increased shortness of breath again. Still much better but notices gradual worsening. Chest x-ray consistent with congestion but also possible chronic interstitial disease. 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 Patient is currently in AFib. He has resumed his Xarelto and is taking this consistently now. His TSH is somewhat suppressed and levothyroxine the be a bit too high. He is taking 224 (112mcg x 2tabs) mcg daily. Will have him take 1 and half tablets on Wednesdays and Fridays. Rechecking thyroid hormone levels with next blood draw. Orders: Orders Triiodothyronine T3 Total Today E03.9 - Hypothyroidism, unspecified NT Pro B Type Natriuretic Pept Today I50.9 - Heart failure, unspecified Comprehensive Met. Panel Today R79.89 - Other specified abnormal findings of blood chemistry Free T4 (Free Thyroxine) Today E03.9 - Hypothyroidism, unspecified Thyroid Stimulating Hormone Today E03.9 - Hypothyroidism, unspecified Referrals Pulmonology Referral R06.02 - Shortness of breath Medications: Changed From furosemide 20 mg PO QAM 5 days 5 tabs 0RF To furosemide 10 mg (1/2 x 20 mg) PO QAM 45 tabs 1RF 90 days
[2025-07-20 13:50] VITALS: BP 129/82; PULSE 93; RESP 16; TEMP 36.4; O2SAT 95; BMI 33.8
--- OUTSIDE RECORDS SUMMARY | 2025-07-20 15:04 | XMS_ITS | Patient Health Record ---
Author Organization [facility] Address [address] [place] [address] Care Team Providers Care In Home Nanny Name Role Phone Kota Laboy Primary Care Provider UnavailAmerico Spencer Unavailable [phone] Allergies Allergen (clinical drug ingredient) Drug/Non Drug [...] Status Risk Notes Problem Colon cancer screening (864466145) Colon cancer screening (Z12.11) Active confirmed Problem Preprocedural examination ([id number]) Preprocedural examination (Z01.818) Active confirmed Vital Signs Temperature 96.9 degrees Fahrenheit 05/02/2025 Blood pressure diastolic 01 mm Hg 05/02/2025 Height 74 in 05/02/2025 Blood pressure systolic 001 mm Hg 05/02/2025 Weight 273.6 lbs 05/02/2025 BMI 35.12 kg/m2 05/02/2025 Procedures Procedure Date Ordered Date Performed Result Body Sit e COLONOSCOPY 05/02/2025 N/A Encounters Encounter Location Date Provider Diagnosis [facility] [address] [place] [phone] 05/02/2025 Americo Scott Colon cancer screeni ng Z12.11 and Preprocedural examination Z01.818 [facility] [address] [place] [phone] 07/11/2025 Americo Scott Assessments Encounter Date Diagnosis [...] Provider Name:Americo Scott , 07/24/2025 12:30:00 PM, [address] [place] [address] , [place], [place], [phone], Insurance Providers Payer Name Payer Address Payer Phone Subscriber Number Group Number Insured Name Patient Relationship to Insured Coverage Start Date Coverage End Date MEDICARE OF [facility] [address] [place], [place] [id number] [phone] [id number] TED GORMAN Self - patient is the insured 4 Medical (General) History Medical History History ICD Code Hypertension Hyperlipidemia Denies CA,DM,CVA,Lung disease,renal dise ase A.fib Hypothyroidism Depression Surgical History Surgery Date(Month/Year) Thyroidectomy
== END 2025-07-20 14:18 | disposition home or self-care (01) ==
LOC: HO.HMCFM 13:36
PROVIDERS: PCP Family Medicine; Visit Provider Family Medicine
DX: I50.9 Heart failure, unspecified (principal); I48.91 Unspecified atrial fibrillation; R09.89 Other specified symptoms and signs involving the circulatory and respiratory systems; R05.9 Cough, unspecified; E03.9 Hypothyroidism, unspecified

== ENCOUNTER → 2025-07-20 13:35 | Outpatient (BNVA) | payer MEDICARE, SELFPAY | PROVIDERS: PCP Family Medicine; Visit Provider Family Medicine | DX: I11.0 Hypertensive heart disease with heart failure (principal); I50.9 Heart failure, unspecified; R09.89 Other specified symptoms and signs involving the circulatory and respiratory systems; R05.9 Cough, unspecified; I48.91 Unspecified atrial fibrillation; E03.9 Hypothyroidism, unspecified | CPT/HCPCS: 99212 ==

== ENCOUNTER → 2025-07-24 11:48 | Day surgery (SDC) | payer MEDICARE, SELFPAY ==
--- OUTSIDE RECORDS SUMMARY | 2025-06-22 10:05 | XMS_ITS | Patient Health Record ---
Author Organization [facility] Address [address] [place] [address] Care Team Providers Care Crate Tier Name Role Phone Kota Laboy Primary Care Provider UnavailAmerico Spencer Unavailable [phone] Allergies Allergen (clinical drug ingredient) Drug/Non Drug Allergy documented on EMR Reaction Allergy Type Onset Date Status Mold Unknown Allergy Active Reason For Referral No Information Medications Medication SIG (Take, Route, Frequency, Duration) Notes Start Date End Date Status Atorvastatin Calcium 20 MG 1 tablet Oral ly Once a day for 30 day(s) 05/02/2025 Active buPROPion HCl 75 MG 2 tablets Orally Twi ce a day for 30 day(s) 05/02/2025 Active Levothyroxine Sodium 200 MCG/ML 1 mL in the morning before breakfast Orally Once a day for 30 day(s) 05/02/2025 Active Xarelto 20 MG 1 tablet with food Orally Once a day for 30 day(s) 05/02/2025 Active Metoprolol Succinate 25 MG 1 capsule Ora lly Once a day for 30 day(s) 05/02/2025 Active Immunizations Vaccine Route Administration Date Status Comme nts Influenza Unknown 05/02/2025 Refused Social History Tobacco Use: Social History Observation Description Date Details (start date - stop date) Current Smoker NA - NA Tobacco Control (Standard) Question Answer Notes Tobacco use: Current smoker AUDIT-C (Standard) Question Answer Notes Did you have a drink contain ing alcohol in the past year? Yes How often did you have a dri nk containing alcohol in the past year? 2 to 4 times a month (2 points) How many drinks did you have on a typical day when you were drinking in the past year? 3 or 4 drinks (1 point) How often did you have six o r more drinks on one occasion in the past year? Never (0 point) Points 3 Interpretation Negative Problems Problem Type SNOMED Code ICD Code Onset Dates Problem Status W/U Status Risk Notes Problem Colon cancer screening (577648912) Colon cancer screening (Z12.11) Active confirmed Problem Preprocedural examination (398774816281627) Preprocedural examination (Z01.818) Active confirmed Vital Signs Temperature 96.9 degrees Fahrenheit 05/02/2025 Blood pressure diastolic 01 mm Hg 05/02/2025 Height 74 in 05/02/2025 Blood pressure systolic 001 mm Hg 05/02/2025 Weight 273.6 lbs 05/02/2025 BMI 35.12 kg/m2 05/02/2025 Procedures Procedure Date Ordered Date Performed Result Body Sit e COLONOSCOPY 05/02/2025 N/A Encounters Encounter Location Date Provider Diagnosis [facility] [address] [place] [address] 05/02/2025 Americo Scott Colon cancer screeni ng Z12.11 and Preprocedural examination Z01.818 Assessments Encounter Date Diagnosis (ICD Code) Assessment Notes Treatment Notes Treatment Clinical Notes Section Notes 05/02/2025 Colon cancer screening (ICD-10 - Z12.11) Overall, Ted appears quite well. Given his age, good clinical appearance, and his never having had a colonoscopy, I did recommend a colonoscopy for screening purposes. We did review the rationale for this in regard to colon cancer prevention. Full consent has been obtained for this, including risks of bleeding and perforation. The procedure will be done with monitored anesthesia care. He was given the below instructions regarding adjustment of his medication for the procedure. Ted was comfortable with this plan. 05/02/2025 Preprocedural examination (ICD-10 - Z01.818) Overall, Ted appears quite well. Given his age, good clinical appearance, and his never having had a colonoscopy, I did recommend a colonoscopy for screening purposes. We did review the rationale for this in regard to colon cancer prevention. Full consent has been obtained for this, including risks of bleeding and perforation. The procedure will be done with monitored anesthesia care. He was given the below instructions regarding adjustment of his medication for the procedure. Ted was comfortable with this plan. Plan Of Treatment Pending Test Test Name Order Date COLONOSCOPY 05/02/2025 Next Appt Details Provider Name:Americo Scott , 07/24/2025 12:30:00 PM, [address] [place], [place] [address], [place], [phone], Insurance Providers Payer Name Payer Address Payer Phone Subscriber Number Group Number Insured Name Patient Relationship to Insured Coverage Start Date Coverage End Date MEDICARE OF [employer] [address] [place] [address] [phone] [id number] [id number] TED GORMAN Self - patient is the insured 4 Medical (General) History Medical History History ICD Code Hypertension Hyperlipidemia Denies [place],DM,CVA,Lung disease,renal dise ase A.fib Hypothyroidism Depression Surgical History Surgery Date(Month/Year) Thyroidectomy
[2025-07-20 15:20] VITALS: BMI 35.1
[2025-07-20 15:31] VITALS: BMI 35.1
--- NOTE | 2025-07-21 09:09 | P.CONAN_ITS ---
HPI - Anesthesia Eval Consult details Narrative: 60yo M for Colonoscopy Cardiac optimized. Follows [facility] cardiology for afib (xarelto). Last office visit 12/2024 pt reported PARR - stress echo pending. [facility] Active Problems Active Problems: All Active Problems Cough (Acute) Elevated fasting glucose (Acute) Obstructive sleep apnea (Acute) Rib pain on left side (Acute) Immunization counseling (Acute) Hyperlipidemia (Acute) Depression with anxiety (Acute) Shoulder pain (Acute) Abnormal lung sounds (Acute) Fatigue (Acute) PAF (paroxysmal atrial fibrillation) (Acute) Syncope (Acute) Dehydration (Acute) Hypotension (Acute) Orthostatic dizziness (Acute) Heart palpitations (Acute) Atrial fibrillation and flutter (Acute) Elevated serum creatinine (Acute) Blood in urine (Acute) EKG, abnormal (Acute) Anxiety (Acute) Edema (Acute) Elevated LFTs (Acute) CHF (congestive heart failure) (Acute) Afib (Acute) Transaminitis (Acute) Low HDL (under 40) (Acute) Screening for colon cancer (Acute) Screening for prostate cancer (Acute) Adult general medical exam (Acute) Urinary frequency (Acute) Essential hypertension (Acute) Cardiomyopathy (Acute) Hypothyroidism (acquired) (Acute) Atrial flutter with rapid ventricular response (Acute) Past Medical History Medical History (Updated 07/20/25 @ 15:10 by Lilia Schrader RN) History of cardioversion Essential hypertension Atrial flutter with rapid ventricular response Atrial fibrillation with rapid ventricular response Cardiomyopathy Decompensated heart failure Congestive heart failure COPD (chronic obstructive pulmonary disease) Smoker Hypothyroidism (acquired) Family History Family History Mother COPD (chronic obstructive pulmonary disease) Family history of problems with anesthesia: No Surgical History Surgical History H/O thyroidectomy H/O shoulder surgery History of Problems with Anesthesia: No Social History Social History (Updated 01/06/25 @ 14:12 by Jackie Bello CMA) Household Members: Family Caregiver staying overnight: No Housing: House Are you a primary health and social care teacher to a significant other at home: No Do you presently have visiting nurse or other home services: No 75 years or older and lives alone: No Alcohol intake: current Alcohol intake frequency: a few times a month Patient Tobacco Use Status: Former Tobacco user Tobacco use type: Cigarette Cigarettes Per Day: 5 Years Smoked: 45 +/- e-Cigarette/Vaping Use: Never Used Second Hand Smoke Exposure: No Substance Use Type: Crack/Cocaine and Former Substance User service: No Current occupational status: unemployed Current occupational exposures/hazards: No Cognitive needs: No Hearing needs: No Vision needs: No Meds Allergies Allergy/AdvReac Type Severity Reaction Status Date / Time mold Allergy impacted Verified 07/20/25 13:49 sinus cavity Exam Height,Weight and Vital Signs: Height 6 ft 2 in Weight 124.103 kg Narrative Narrative: EKG 12/2024 Ventricular Rate: 58 BPM Atrial Rate: 58 BPM P-R Interval: 194 ms QRS Duration: 74 ms Q-T Interval: 422 ms QTC Calculation(Bazett): 414 ms P Jarreau: 32 degrees R Jarreau: 55 degrees T Jarreau: 65 degrees Sinus bradycardia Early repolarization Otherwise normal ECG When compared with ECG of 08-Jul-2024 14:35, Vent. rate has decreased by 38 bpm QT has shortened Confirmed by LAURA REILLY, [facility] ([id number]) on 01/05/2025 8:20:11 AM ECHO 2023 Echocardiogram - Complete ? 12:24:59 Summary The left atrium is mildly dilated. The right ventricle is normal in size and function. The left ventricular size is normal. Left ventricular wall thickness is normal. The LV systolic function is normal . The left ventricular ejection fraction is 60-65 %. There are no regional wall motion abnormalities. Grade I, mild diastolic dysfunction with impaired LV relaxation, which may be normal for the patient?s age. The patient was in sinus rhythm during the study. Comparison No prior study available for comparison. Assessment and Plan Assessment Anesthesia Assessment: Chart Reviewed Final Anesthetic Review Family History of Problems with Anesthesia: No History of Problems with Anesthesia: No
--- NOTE | 2025-07-24 13:15 | PC.NURSE ---
getting ready to bring patient in and charge nurses stated he didnt want to wait and will reschedule because his ride home needed to come and pick him up.
== END ==
LOC: HO.SSS 11:48
PROVIDERS: PCP Family Medicine; Visit Provider Internal Medicine
DX: Z12.11 Encounter for screening for malignant neoplasm of colon (principal); Z53.29 Procedure and treatment not carried out because of patient's decision for other reasons

== ENCOUNTER 2025-08-22 09:53 | Outpatient (REF) | payer MEDICARE, SELFPAY ==
[2025-08-22 14:06] LABS: Albumin Level 4.1 g/dL (3.5-5.0); Alkaline Phosphatase 84 U/L (39-117); Anion Gap 12 (12-20); Aspartate Amino Transferase 30 U/L (5-37); Blood Urea Nitrogen 14 mg/dL (9-16); Calcium 8.9 mg/dL (8.4-10.2); Carbon Dioxide 28 mmol/L (22-29); Chloride 108 mmol/L (96-108); Estimated Glomerular Filt Rate > 60; Potassium 4.0 mmol/L (3.3-5.1); Sodium 144 mmol/L (135-145); Total Protein 7.0 g/dL (6.5-8.0)
[2025-08-22 14:26] LABS: Alanine Aminotransferase 28 U/L (0-40); Free T4 (Free Thyroxine) 1.16 ng/dL (0.71-1.85); Thyroid Stimulating Hormone 3.71 uIU/mL (0.32-4.0)
== END 2025-08-22 09:54 | disposition home or self-care (01) ==
LOC: HO.WFDLDS 09:53
PROVIDERS: PCP Family Medicine; Visit Provider Family Medicine
DX: I11.0 Hypertensive heart disease with heart failure (principal); I50.9 Heart failure, unspecified; E03.9 Hypothyroidism, unspecified; R79.89 Other specified abnormal findings of blood chemistry; M25.569 Pain in unspecified knee; I48.91 Unspecified atrial fibrillation; Z79.899 Other long term (current) drug therapy
CPT/HCPCS: 36415; 80053; 83880; 84439; 84443; 84480; 99212

== ENCOUNTER 2025-08-22 09:53 | Outpatient (AMB) | payer MEDICARE, SELFPAY ==
--- OUTSIDE RECORDS SUMMARY | 2025-07-24 07:30 | XMS_ITS ---
Author Organization [facility] Address [address] [place] [address] Care Team Providers Care Human Resources District Manager Name Role Phone Kota Laboy Primary Care Provider UnavailAmerico Spencer [phone] REASON FOR VISIT screening Encounters Encounter Location Date Provider Diagnosis [facility] Outpatient [address] [place] [phone] 07/24/2025 Americo Scott Plan Of Treatment Next Appt Details Provider Name:Americo Scott , 10/30/2025 08:30:00 AM, [address] [place] [address], [phone], Progress Notes * TED GORMAN BDOB: [birth year] (60 yo M)Acc No.[id number]:07/24/2025 COLON WITH MAC Patient: TED ABEBE Provider: Cathy Scott MD :1965 A ge:60 Y S ex:Male Date:07/24/2025 Address:[address] [place] [address], [id number] Pcp:Kota Laboy Subjective: * Chief Complaints: * 1 . Screening. * Medical History: Objective: * Vitals: Assessment: Plan: * Treatment: * * The named appointment provid er may or may not be the originator of this progress note, and it is not deemed complete until electronically signed by the appointment provider. Sign off status: Pending * Provider: Cathy Scott MD Date: Generated for Luis sanchez/Leonardo/Aundreaitting on: 10/22/2024 11:23 AM EST
--- NOTE | 2025-08-22 09:59 | MHC.PC.OV ---
Vital Signs 08/22/25 10:05 Height 6 ft 2 in Weight 272 lb 6 oz BMI 35.0 BP 130/86 Blood Pressure Location Rt brachial Position Sitting Respiration 16 Pulse 89 Pulse Source Pulse Oximeter Temp 97.7 F Temp Source Temporal Artery Scan Pulse Oximetry (%) 96 Oxygen Delivery Method Room Air Intake Visit Reasons: f/u BNP levels, labs Intake Note: Jose Guadalupe presents in the office today for a follow up to his labs. Allergies mold Allergy (Verified 08/22/25 10:03) impacted sinus cavity Tobacco use date assessed: 08/22/25 Dental Screening Dental Screen Date: 08/22/25 Did you have a dental visit in the last 12 months?: Yes Did you have a dental problem in the last 6 months where you did not have access to dental care?: No Was dental information given to patient?: Patient has dentist HPI f/u BNP levels, labs HPI Details 60 y/o male presents to f/u CHF, shortness of breath/dyspnea and thyroid hormone levels. Had ordered labs but he does not seem to have gotten them drawn yet. Has been taking furosemide once a day. Pt notes knee pain after hitting it against a table. [facility] Medical History (Updated 08/22/25 @ 10:34 by Amol Rojo) History of cardioversion Essential hypertension Atrial flutter with rapid ventricular response Atrial fibrillation with rapid ventricular response Cardiomyopathy Decompensated heart failure Congestive heart failure COPD (chronic obstructive pulmonary disease) Smoker Hypothyroidism (acquired) Surgical History H/O thyroidectomy H/O shoulder surgery Family History Mother COPD (chronic obstructive pulmonary disease) Social History (Updated 08/22/25 @ 10:05 by Alexandria Donis CMA) Household Members: Family Caregiver staying overnight: No Housing: House Are you a primary daycare assistant to a significant other at home: No Do you presently have visiting nurse or other home services: No 75 years or older and lives alone: No Alcohol intake: current Alcohol intake frequency: a few times a month Patient Tobacco Use Status: Former Tobacco user Tobacco use type: Cigarette Cigarettes Per Day: 5 Years Smoked: 45 +/- e-Cigarette/Vaping Use: Never Used Second Hand Smoke Exposure: No Substance Use Type: Crack/Cocaine and Former Substance User service: No Current occupational status: unemployed Current occupational exposures/hazards: No Cognitive needs: No Hearing needs: No Vision needs: No Questionnaire Thrive Questionnaire Date Thrive assessed: 04/12/25 DAVID-7 AMB Questionnaire DAVID-7 Date DAVID - 7 assessed: 11/19/23 Source: Developed by Drs. Americo Fernandez, Ivory Garcia, Luis F Dorman and colleagues, with an educational latrell from [employer]. Review of Systems Const Denies chills, Denies fatigue, Denies fever(s), Denies headache(s) and Denies weakness ENT Denies dizziness and Denies headache(s) Card Denies dyspnea Resp Denies cough, Denies dyspnea, Denies wheezing and Denies other (shortness of breath) Musc Denies numbness and Denies tingling Neuro Denies dizziness, Denies headache(s), Denies numbness, Denies tingling and Denies weakness Psych Denies anxiety and Denies depression Endo Denies fatigue Aller/Immun Denies wheezing Physical exam (Primary Care) Vital Signs: Last Vital Signs Temp 97.7 F 08/22/25 10:05 Pulse 89 08/22/25 10:05 Resp 16 08/22/25 10:05 BP 130/86 08/22/25 10:05 Pulse Ox 96 08/22/25 10:05 Oxygen Delivery Method Room Air 08/22/25 10:05 BMI result Body Mass Index 35.0 Tobacco/Smoking Status: Tobacco use Status Tobacco use date assessed 08/22/25 08/22/25 10:08 Patient Tobacco Use Status Former Tobacco user 08/22/25 10:05 Tobacco use type Cigarette 08/22/25 10:05 e-Cigarette/Vaping Use Never Used 08/22/25 10:05 Thrive Assessment: Date of Thrive Assessment Date Thrive assessed 04/12/25 08/22/25 09:59 Const General: well developed; No acute distress Nutritional Appearance: well nourished Orientation/consciousness: patient oriented x3 HENMT Head: Yes normocephalic and Yes atraumatic Eyes General: appearance normal, both eyes and all related structures Pupils: Equal, round and reactive pupils present EOM: EOMs intact bilaterally Resp Effort & Inspection: normal respiratory effort Auscultation: clear to auscultation bilaterally Cardio Rate: regular rate Rhythm: regular rhythm Heart sounds: S1 normal heart sound present, S2 normal heart sound present, no gallops, no murmurs and no rubs Neuro General: patient oriented x3 and gait normal Cranial nerves: Yes Equal, round and reactive pupils present Psych Affect: normal affect Coding Level of Care Code Est Pt Level 4 (61234) Diagnoses CHF (congestive heart failure) I50.9 Knee pain M25.569 Afib I48.91 Assessment & Plan Assessment & Plan (1) CHF (congestive heart failure): Code(s): I50.9 - Heart failure, unspecified Category: Medical Plan: Currently poorly controlled congestive heart failure. Patient injured his knee and stopped taking his diuretic because he said it was difficult to get to a bathroom Patient's weight 263 at last visit now 272 and he shows obvious swelling lower extremities face and abdomen. Crackles at bilateral bases of lungs Resume taking furosemide and take twice a day for the next 4 days. Had referred him to cardiology but he says he has not been contacted. Will ask the office to try to get him an appointment (2) Knee pain: Code(s): M25.569 - Pain in unspecified knee Category: Medical Plan: Right knee Pain and swelling. Check x-ray Use knee brace Will follow-up with patient by telemedicine early next week to discuss next steps (3) Afib: Code(s): I48.91 - Unspecified atrial fibrillation Category: Medical Plan: Continue Xarelto and metoprolol Maintain normal thyroid hormone levels Follow-up with Cardiology Orders: Orders XR knee RT 3V Today M25.569 - Pain in unspecified knee Referrals Cardiology Referral I42.9 - Cardiomyopathy, unspecified, I48.91 - Unspecified atrial fibrillation, I50.9 - Heart failure, unspecified
[2025-08-22 10:05] VITALS: BP 130/86; PULSE 89; RESP 16; TEMP 36.5; O2SAT 96; BMI 35.0
--- OUTSIDE RECORDS SUMMARY | 2025-08-22 11:23 | XMS_ITS | Patient Health Record ---
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 Name Role Phone Kota Laboy Primary Care Provider UnavailAmerico Spencer Unavailable [phone] Allergies Allergen (clinical drug ingredient) Drug/Non Drug Allergy documented on EMR Reaction Allergy Type Onset Date Status Mold Unknown Allergy Active Reason For Referral No Information Medications Medication SIG (Take, Route, Frequency, Duration) Notes Start Date End Date Status Atorvastatin Calcium 20 MG 1 tablet Oral ly Once a day; Duration: 30 day(s) 05/02/2025 Active buPROPion HCl 75 MG 2 tablets Orally Twi ce a day; Duration: 30 day(s) 05/02/2025 Active Levothyroxine Sodium 200 MCG/ML 1 mL in the morning before breakfast Orally Once a day; Duration: 30 day(s) 05/02/2025 Active Xarelto 20 MG 1 tablet with food Orally Once a day; Duration: 30 day(s) 05/02/2025 Active Metoprolol Succinate 25 MG 1 capsule Ora lly Once a day; Duration: 30 day(s) 05/02/2025 Active Immunizations Vaccine Route [...] Status Risk Notes Problem Colon cancer screening (892962917) Colon cancer screening (Z12.11) Active confirmed Problem Preprocedural examination (250799490002775) Preprocedural examination (Z01.818) Active confirmed Vital Signs Temperature 96.9 degrees Fahrenheit 05/02/2025 Blood pressure diastolic 01 mm Hg 05/02/2025 Height 74 in 05/02/2025 Blood pressure systolic 001 mm Hg 05/02/2025 Weight 273.6 lbs 05/02/2025 BMI 35.12 kg/m2 05/02/2025 Procedures Procedure Date Ordered Date Performed Result Body Sit e COLONOSCOPY 05/02/2025 N/A Encounters Encounter Location Date Provider Diagnosis [facility] [address] [place] [phone] 05/02/2025 Americo Scott Colon cancer screeni ng Z12.11 and Preprocedural examination Z01.818 [facility] [address] [place] [phone] 07/11/2025 Americo Scott [facility] [address] [place] [phone] 07/25/2025 Americo Scott Assessments Encounter Date Diagnosis (ICD [...] Provider Name:Americo Scott , 10/30/2025 08:30:00 AM, [address] [place] [address] , [place], [place], [id number], Insurance Providers Payer Name Payer Address Payer Phone Subscriber Number Group Number Insured Name Patient Relationship to Insured Coverage Start Date Coverage End Date MEDICARE OF [place] [address] [facility] [place] [address] [id number] TED GORMAN Self - patient is the insured 4 Medical (General) History Medical History History ICD Code Hypertension Hyperlipidemia Denies PA,DM,CVA,Lung disease,renal dise ase A.fib Hypothyroidism Depression Surgical History Surgery Date(Month/Year) Thyroidectomy
== END 2025-08-22 10:38 | disposition home or self-care (01) ==
LOC: HO.HMCFM 09:53
PROVIDERS: PCP Family Medicine; Visit Provider Family Medicine
DX: I50.9 Heart failure, unspecified (principal); M25.569 Pain in unspecified knee; I48.91 Unspecified atrial fibrillation

== ENCOUNTER 2025-09-04 09:37 | Outpatient (AMB) | payer MEDICARE, SELFPAY ==
--- NOTE | 2025-09-04 09:34 | MHC.PC.OV ---
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: No Allergies mold Allergy (Verified 09/04/25 09:36) impacted sinus cavity Medication List - Last Reconciled 09/04/25 by Kota Laboy MD atorvastatin 40 mg PO BEDTIME 90 days bupropion HCl SR 200 mg PO DAILY 30 days furosemide 10 mg (1/2 x 20 mg) PO QAM 90 days levothyroxine 224 mcg (2 x 112 mcg) PO DAILY metoprolol succinate ER 50 mg (2 x 25 mg) PO DAILY 90 days rivaroxaban (Xarelto) 20 mg PO QPM 90 days Tobacco use date assessed: 08/22/25 Dental Screening Dental Screen Date: 08/22/25 HPI f/u labs via telemed (pt okay with calling anytime HPI Details 60 y.o male presents via telemed to review labs. Labs drawn 08/22/25. Reviewed labs with pt. Creatinine levels are fine. NT-Pro-B Natriuret Pep 2144.9. He is on furosemide 10mg and pt notes this has been helping. [facility] Medical History (Updated 08/22/25 @ 10:34 by Amol Rojo) History of cardioversion Essential hypertension Atrial flutter with rapid ventricular response Atrial fibrillation with rapid ventricular response Cardiomyopathy Decompensated heart failure Congestive heart failure COPD (chronic obstructive pulmonary disease) Smoker Hypothyroidism (acquired) Surgical History H/O thyroidectomy H/O shoulder surgery Family History Mother COPD (chronic obstructive pulmonary disease) Social History (Updated 08/22/25 @ 10:05 by Alexandria Donis CMA) Household Members: Family Caregiver staying overnight: No Housing: House Are you a primary manager care to a significant other at home: No Do you presently have visiting nurse or other home services: No 75 years or older and lives alone: No Alcohol intake: current Alcohol intake frequency: a few times a month Patient Tobacco Use Status: Former Tobacco user Tobacco use type: Cigarette Cigarettes Per Day: 5 Years Smoked: 45 +/- Packs per year/per ci.00 e-Cigarette/Vaping Use: Never Used Second Hand Smoke Exposure: No Substance Use Type: Crack/Cocaine and Former Substance User service: No Current occupational status: unemployed Current occupational exposures/hazards: No Cognitive needs: No Hearing needs: No Vision needs: No Questionnaire Thrive Questionnaire Date Thrive assessed: 04/12/25 DAVID-7 AMB Questionnaire DAVID-7 Date DAVID - 7 assessed: 11/19/23 Source: Developed by Drs. Americo Fernandez, Ivory Garcia, Luis F Dorman and colleagues, with an educational latrell from [facility] [employer]. Review of Systems Const Denies chills, Denies fatigue, Denies fever(s), Denies headache(s) and Denies weakness ENT Denies dizziness and Denies headache(s) Card Denies dyspnea Resp Denies cough, Denies dyspnea, Denies wheezing and Denies other (shortness of breath) Musc Denies numbness and Denies tingling Neuro Denies dizziness, Denies headache(s), Denies numbness, Denies tingling and Denies weakness Psych Denies anxiety and Denies depression Endo Denies fatigue Aller/Immun Denies wheezing Physical exam (Primary Care) Tobacco/Smoking Status: Tobacco use Status Tobacco use date assessed 08/22/25 09/04/25 09:36 Patient Tobacco Use Status Former Tobacco user 09/04/25 09:36 Tobacco use type Cigarette 09/04/25 09:36 e-Cigarette/Vaping Use Never Used 09/04/25 09:36 Thrive Assessment: Date of Thrive Assessment Date Thrive assessed 04/12/25 09/04/25 09:36 Telehealth Telehealth Telehealth Platform: Telephone Location of provider rendering services: practice address Location of patient: address on file Patient Identification confirmed using: Name, : Yes Telehealth method: voice only Patient verbally consented to treatment: Yes Patient verbally consented to billing insurance company: Yes Patient informed of any privacy concerns related to visit: Yes Minutes spent on Phone/Video with Pt.: 7 Coding Level of Care Code Tele Est Pt Level 2 (52133) Diagnoses CHF (congestive heart failure) I50.9 Hypothyroidism (acquired) E03.9 Assessment & Plan Assessment & Plan (1) CHF (congestive heart failure): Code(s): I50.9 - Heart failure, unspecified Category: Medical Plan: Labs were checked on the day of his last appointment in early August. Pro BNP was very high. Patient noted increased shortness of breath and weight gain. I had him restart his diuretic as he had been off of it. He notes he has lost weight is breathing a little easier. He will continue this He was referred back to Dr. Arie garcia in July. He has not been contacted yet so I gave him the phone number. (2) Hypothyroidism (acquired): Code(s): E03.9 - Hypothyroidism, unspecified Category: Medical Plan: Thyroid hormone levels are back within normal range Continue current medication regimen for levothyroxine Orders: Orders Comprehensive Dawson. Panel Fast Today I10 - Essential (primary) hypertension, Z00.00 - Encounter for general adult medical examination without abnormal findings NT Pro B Type Natriuretic Pept Today I42.9 - Cardiomyopathy, unspecified, I50.9 - Heart failure, unspecified Microalbumin, Random (w Creat) Today I10 - Essential (primary) hypertension Complete Blood Count Auto Diff Today I10 - Essential (primary) hypertension, Z00.00 - Encounter for general adult medical examination without abnormal findings
== END 2025-09-04 16:36 | disposition home or self-care (01) ==
LOC: HO.HMCFM 09:37
PROVIDERS: PCP Family Medicine; Visit Provider Family Medicine
DX: I50.9 Heart failure, unspecified (principal); E03.9 Hypothyroidism, unspecified